=== PATIENT | female | born 1940 | race Caucasian/White ===

== ENCOUNTER → 2019-07-11 00:01 | Outpatient (RCR) | payer MEDICARE, BC, SELFPAY | LOC: ONCMED 06-12 13:15 | PROVIDERS: Family Provider Family Medicine; Visit Provider Internal Medicine Medical Oncology | DX: Z51.11 Encounter for antineoplastic chemotherapy (principal); C90.00 Multiple myeloma not having achieved remission; I11.0 Hypertensive heart disease with heart failure; I50.9 Heart failure, unspecified; I48.20 Chronic atrial fibrillation, unspecified; K21.9 Gastro-esophageal reflux disease without esophagitis; M19.90 Unspecified osteoarthritis, unspecified site; H40.9 Unspecified glaucoma; F41.8 Other specified anxiety disorders; G47.00 Insomnia, unspecified; M81.0 Age-related osteoporosis without current pathological fracture; Z96.651 Presence of right artificial knee joint; Z79.899 Other long term (current) drug therapy; Z79.891 Long term (current) use of opiate analgesic; Z79.01 Long term (current) use of anticoagulants | CPT/HCPCS: 36415; 80053 ×4; 82784 ×12; 83615; 83883 ×6; 84155 ×3; 84156; 84165 ×3; 84166; 85025 ×4; 85651; 96401 ×3; 99214 ×3; J9041 ×3 ==

== ENCOUNTER 2019-08-07 05:36 | Outpatient (RCR) | payer MEDICARE, BC, SELFPAY ==
[2019-07-25] MEDS: prochlorperazine 10 mg Tablet PO (13:47)
[2019-08-01 12:53] LABS: Basophils % 0.5 %; Eosinophils % 0.5 %; Hematocrit 39.9 % (37.0-47.0); Hemoglobin 12.2 g/dL (11.5-15.3); Lymphocytes # 0.9 10^3/uL (0.8-4.8); Lymphocytes % 22.2 %; Mean Corpuscular HGB Conc 30.6 g/dL (30.0-36.0); Mean Corpuscular Hemoglobin 27.8 pg (28.0-34.0); Mean Corpuscular Volume 90.9 fL (81-99); Mean Platelet Volume 12.5 fL (7.4-10.4); Monocytes # 0.5 10^3/uL (0.2-0.9); Monocytes % 12.3 %; Neutrophils # 2.7 10^3/uL (1.8-7.7); Nucleated Red Blood Cells % 0 %; Platelet Count 219 10^3/cmm (130-400); Red Blood Count 4.39 10^6/uL (4.1-5.3); Red Cell Distribution Width 15.9 % (12.1-15.1); White Blood Count 4.1 10^3/uL (4.0-10.0)
[2019-08-01 13:05] LABS: Alanine Aminotransferase 12 U/L (0-33); Albumin Level 3.9 g/dL (3.5-5.2); Alkaline Phosphatase 67 IU/L (35-105); Anion Gap 16.4 (5-19); Aspartate Amino Transferase 17 U/L (0-32); Blood Urea Nitrogen 26 mg/dL (8-23); Calcium 10.2 mg/Dl (8.8-10.2); Carbon Dioxide 27 mmol/L (22-29); Chloride 101 mmol/L (98-107); Globulin 3.7 g/dL (1.3-4.6); Glucose 168 mg/dL (74-106); Potassium 4.4 mmol/L (3.5-5.1); Sodium 140 mmol/L (136-145); Total Bilirubin 0.4 mg/dL (0.15-1.2); Total Protein 7.6 g/dL (6.6-8.7)
[2019-08-02 15:30] LABS: ALBUMIN 3.8 g/dL (3.8-4.8); ALPHA 1 GLOBULIN 0.4 g/dL (0.2-0.3); BETA 1 GLOBULIN 0.4 g/dL (0.4-0.6); BETA 2 GLOBULIN 0.3 g/dL (0.2-0.5); KAPPA LIGHT CHAIN, FREE, SERUM 28.6 mg/L (3.3-19.4); KAPPA/LAMBDA LIGHT CHAINS FREE 1.49 (0.26-1.65); LAMBDA LIGHT CHAIN, FREE, SERU 19.2 mg/L (5.7-26.3); PROTEIN, TOTAL 6.8 g/dL (6.1-8.1)
[2019-08-07] MEDS: prochlorperazine 10 mg Tablet PO (10:50)
--- NOTE | 2019-08-07 20:04 | ONC FU_ITS ---
Dr. Resendez Patient Follow-Up Note Patient: Alcira Shirley Unit #: [id number]: 1940 Dicatated By: Beltran Resendez M.D.Date of Visit:Aug 07, 2019 Onc Med Follow-up/Prog Note Chief Complaint: Myeloma. History of Present Illness: This is a 79 year-old woman with IgG kappa myeloma, stage III. She had known osteoporosis and multiple vertebral compression fractures dating back to at least March 2018. In May 2018 she underwent further evaluation at the bone health clinic at [facility]. A protein electrophoresis at that time showed IgG kappa monoclonal protein quantitating at 0.5 g/dL. She had hematology consultation with Dr. Cecille Acevedo on 07/19/2018. Her laboratory studies at that time showed significant hypercalcemia with a serum calcium of 13.6 mg/dL. Her hemoglobin was normal at 15.0 g and her creatinine was borderline at 0.91 mg/dL. Her repeat protein electrophoresis showed her M protein quantitating at 0.6 g/dL. Her free light chain assay showed elevated kappa light chain at 524 mg/L and decreased lambda light chain at < 0.15 mg/L. Her skeletal survey showed innumerable lytic lesions throughout the apical and appendicular skeleton, compatible with multiple myeloma. Bone marrow aspiration/biopsy on 07/21/2018 showed a mildly hypercellular marrow with 60% involvement with plasma cell neoplasm, kappa restricted. 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 Further evaluation with PET/CT on 07/21/2018 showed a mildly FDG avid expansile lytic lesion of the right fourth rib consistent with a diagnosis of multiple myeloma. Also noted was a mottled appearance with lytic lesions seen throughout the axial and appendicular skeleton greatest in the skull and bilateral upper extremities, also consistent with myeloma. Multiple compression deformities were seen throughout the thoracic spine, greatest at T7. During that time she had been admitted to the hospital and she was treated with IV Zometa. She then began treatment with weekly Velcade and dexamethasone, cycle 1 day 1 on 08/03/2018. Her further clinical course was complicated by atrial fibrillation and congestive heart failure, requiring hospital admissions on 08/25/2018, on 09/01/2018 100 and on 09/09/2018. As a result, her cycle 2 of Velcade/dexamethasone was delayed. Despite the complications, she did have a good response with her M protein decreased to 0.3 g/dL and her free kappa light chain decreased to 2.00 mg/dL. Her kappa/lambda ratio normalized to 1.12. She then began cycle 2 on 09/27/2018 with Velcade continued at 1.3 mg/m??? by subcutaneous injection weekly and dexamethasone reduced to 20 mg weekly on a 4-week on/1-week off schedule. I had seen her initially on 10/27/2018. She had completed her 2nd cycle of treatment. Her clinical course, though, was further complicated by a fall at the skilled nursing resulting in a left inferior orbital wall depressed fracture and he C3 spinous process nondisplaced fracture, both of which were managed conservatively. Her other medical illnesses hypertension, chronic atrial fibrillation, congestive heart failure, GERD, degenerative arthritis, and glaucoma. Her prior surgeries include ORIF for left femur fracture in 2012 and right total knee arthroplasty in 2007. She is a nonsmoker. INTERIM HISTORY: She had follow-up at [facility] on 11/01/2018. At that point she was given a second infusion of Zometa, and she began cycle 3 of Velcade/dexamethasone. With that cycle she was able to complete 4 weekly Velcade injections together with dexamethasone 10 mg twice weekly followed by a 1 week rest. She continued with cycle 4 of Velcade/dexamethasone on 12/07/2018. She was again able to tolerate the for weekly Velcade injections along with dexamethasone 10 mg twice weekly. During that time, she had a follow-up with her orthopedic surgeon in [place], and she was told that she had 2 new vertebral compression fractures, presumably resulting from the fall. However, she was able to transition from the skilled nursing to assisted living. She was seen for a follow-up visit on 01/10/2019. At that point she appeared stable clinically and she continued with her 5th cycle of treatment with Velcade/dexamethasone. With that cycle, her 4th weekly dose of Velcade was omitted, as she was admitted to the hospital at day 22 with worsening congestive heart failure in association with an acute decline in her renal function. She then continued with cycle 6 on 02/21/2019. The day 22 Velcade was omitted with that cycle as well, as she was again admitted to the hospital with decompensated heart failure. With those episodes of congestive heart failure, her dexamethasone was changed to 1 mg daily. In the meantime, her protein electrophoresis studies from January showed her M band quantitating at 0.1 g/dL, and her serum free light chain assay showed her kappa light chain at 12.7 mg/L with lambda light chain 10.3 mg/L and kappa/lambda ratio normal at 1.23. She was seen again by Dr. Acevedo at [facility] on 04/04/2019. It was recommended that she transitioned to maintenance therapy with Velcade 1.3 mg/m??? by subcutaneous injection every 2 weeks together with lenalidomide 10 mg daily. Her repeat bone marrow aspiration/biopsy on 04/20/2019 showed cellularity ranging from 10 to 30% with normal trilineage hematopoiesis. There were just rare scattered plasma cells noted, estimated at 2 to 4% of the overall cellularity. On 05/16/2019 she began cycle 1 of maintenance therapy with Velcade 1.3 mg/m??? by subcutaneous injection every 2 weeks together with Revlimid 10 mg daily. Her repeat protein electrophoresis on 06/06/2019 reported an IgG kappa monoclonal protein band quantitating at 1.9 g/dL. The free light chain assay showed elevated kappa light chain at 128 mg/L with lambda light chain 26.9 mg/L and kappa/lambda ratio 4.77. At her follow-up visit on 06/13/2019 she appeared to be tolerating the treatment with acceptable toxicity, though her protein electrophoresis at that time reported a significant increase in her M protein to 1.9 g/dL. I opted to continue her same treatment and on her repeat SPEP the M protein was similar to the prior studies at 0.1 g/dL. However, she did have to stop the Revlimid due to multiple side effects including weakness/fatigue, anorexia, nausea, and insomnia, among others. She just did not feel good generally. She also was taken off dexamethasone due to fluid retention, but she continued the Velcade injections every 2 weeks. Her repeat protein electrophoresis studies on 08/01/2019 showed no detectable monoclonal protein and the serum free light chain assay showed normal kappa/lambda ratio at 1.49. She is seen for a follow-up visit. She has been feeling pretty good generally. She still has limited activity. Her ECOG score is 3. She does not have good appetite, and she says that food just has no appeal to her. She has not had fever. She occasionally has sweating at night. Her pain has been well controlled with medication. Her main complaint otherwise is that she still has difficulty sleeping at night. It actually got worse with trazodone. She also has been sleeping more in the daytime, so that she is getting her days and nights mixed up. Medications: Acetaminophen 1 - 2 Tablet (of 325 mg) Oral four times a day PRN, Acyclovir 1 Tablet (of 400 mg) Oral daily, Amiodarone HCl 1 Tablet (of 200 mg) Oral daily, Benadryl Allergy 0.5 Tablet (of 25 mg) Oral daily on Every Other Day for 1 day PRN, Benadryl Allergy 1 - 2 Capsule (of 25 mg) Oral at bedtime PRN, Chlorthalidone 1 Tablet (of 25 mg) Oral daily, Combigan 2 drop(s) (of 0.2-0.5 %) Solution Ophthalmic b.i.d., Dulcolax 1 Suppository (of 10 mg) Rectal PRN, Enema 1 (7-19 gm/118mL) Enema Rectal PRN, HYDROcodone-Acetaminophen 1 Tablet (of 5-325 mg) Oral q 6 hours PRN, Klor-Con M20 (10 meq) Tablet, controlled release Oral Take as Directed, Lasix 1 Tablet (of 40 mg) Oral every am PRN, Lasix 1 Tablet (of 40 mg) Oral b.i.d., Latanoprost 1 Drop(s) (of 0.005 %) Solution Ophthalmic at bedtime, Meclizine HCl 1 Tablet (of 25 mg) Oral t.i.d. PRN, Milk of Magnesia 30 mL (of 400 mg/5mL) Suspension Oral PRN, MiraLax 1 Pack Oral daily, Mirtazapine 1 (15 mg) Tablet Oral at bedtime, Morphine Sulfate ER 1 Tablet (of 15 mg) Tablet SR 24 HR Oral b.i.d., Multiple Vitamins-Minerals 1 Tablet Oral daily, Probiotic 1 Capsule Oral PRN, raNITIdine HCl 1 Capsule (of 150 mg) Oral at bedtime, Saline 1 Dose(s) (of 0.65 %) Solution Nasal t.i.d. PRN, Spironolactone 0.5 Tablet (of 50 mg) Oral daily, Velcade 1 (3.5 mg) Injection q 7 days, Xarelto 1 Tablet (of 20 mg) Oral daily Allergies: Codeine Sulfate and Statins. Review of Systems: Constitutional - She continues to have limited activity, but she has ambulating with a walker, and she is doing exercises. She does not have good appetite. She complains of food just has no appeal to her. She has not had fever. She occasionally has sweating at night. ECOG score is 3, ENMT - Her nose drips. No mouth sores. No sore throat or difficulty swallowing, Hematologic/Lymphatic - She has some bruising, Respiratory - No shortness of breath. No cough. No pleuritic pain or hemoptysis, Cardiovascular - No angina pain. No palpitations, Gastrointestinal - She occasionally has a little bit of nausea. No heartburn or acid reflux. No diarrhea or constipation. No blood in the stool or black stools, Genitourinary (F) - No dysuria or hematuria. No urinary frequency. No urgency or incontinence, Musculoskeletal - She has some back pain with activity or with prolonged standing, but generally her pain is well controlled, Integumentary - No skin complications, Neurologic - No headache or dizziness. No numbness/paresthesias or other focal neurologic symptoms, Psychiatric - She has a little anxiety. She has had some depression. She continues have difficulty sleeping at night, and the trazodone actually made her worse. She has now sleeping more in the daytime, so that she is getting her days and nights mixed up. Vital Signs: Performed on Aug 07, 2019 10:06 Height - 61.00 in Weight - 194.6 lbs (LOW) BSA - 1.87 sq.m BMI - 36.77 (HIGH) Temperature - 98.6 F Pulse - 81 /min Respiration - 24 /min BP - 151/74 mm(hg) (HIGH) O2 Sat - 96 % Pain - 5 Physical Examination: Constitutional - She looks pretty good generally, Eyes - Sclerae nonicteric. Conjunctivae appear clear, ENMT - No lesions noted in the oral cavity, Hematologic/Lymphatic - No cervical, clavicular, or axillary adenopathy, Respiratory - Lungs sound clear, Cardiovascular - Heart rhythm is regular. There is a II/ systolic murmur. There is no gallop or rub noted, Abdomen - Soft. Liver and spleen are not enlarged. There is no abdominal mass or ascites noted and there is no inguinal adenopathy, Extremities - No edema, Neurologic - No focal neurologic deficits noted. Lab/Imaging: CBC shows hemoglobin 12.2 g, white blood cell count 4100, and platelet count 219,000. Comprehensive metabolic profile shows a slight decline in her renal function with BUN 26 and creatinine 1.7 mg/dL. Bilirubin and liver enzymes are normal. Impression: 1. 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 2. She had hypercalcemia, extensive lytic bone involvement, and multiple vertebral compression fractures at initial diagnosis in July 2018. Her other medical illnesses include: 3. Hypertension. 4. Chronic atrial fibrillation. 5. Congestive heart failure. 6. Degenerative arthritis. 7. GERD. 8. Glaucoma. She was given IV Zometa at initial diagnosis. She then began treatment with weekly Velcade and dexamethasone on 08/03/2018. Her first cycle was complicated by episodes of atrial fibrillation and congestive heart failure. However, she did have evidence of significant response by protein electrophoresis and free light chain assay. She began cycle 2 of Velcade/dexamethasone on 09/27/2018 with Velcade 1.3 mg/m??? by subcutaneous injection and dexamethasone 20 mg weekly on a 4-week on and 1-week off schedule. She tolerated the 2nd cycle well, though her clinical course was further complicated by a fall at the skilled nursing on 10/23/2018 resulting in a left inferior orbital wall depressed fracture and a C3 spinous process nondisplaced fracture. Both fractures awere managed conservatively. She was then able to continue with cycle 3 of Velcade/dexamethasone on 11/01/2018, with cycle 4 on 12/07/2018, and with cycle 5 on 01/10/2019. She appeared to be showing a good objective response with protein electrophoresis at that point showing decline in her M protein to 0.1 g/dL. The serum free light chain assay showed normal kappa light chain at 12.7 mg/L, normal lambda light chain at 10.3 mg/L, and normal kappa/lambda ratio at 1.23. She then continued treatment with Velcade and dexamethasone, but her subsequent clinical course was complicated by 2 admissions for decompensated congestive heart failure. During that time her dexamethasone was changed to 1 mg daily. Overall she has continued to have fairly marginal performance status, but she had otherwise been stable clinically. As of her follow-up visit on 03/15/2019 at opted to taper off her dexamethasone. At that point she continued with cycle 7 of Velcade. She was showing a very good objective response. On 04/04/2019 she had follow-up with Dr. Acevedo at [facility], and it was recommended that she transition to maintenance therapy with Velcade 1.3 mg/m??? by subcutaneous injection every 2 weeks together with lenalidomide 10 mg daily. Her repeat bone marrow aspiration/biopsy on 04/20/2019 showed only scant plasma cells estimated at 2 to 4% of the overall cellularity. She began cycle 1 of her maintenance therapy on 05/16/2019. Initially she appeared to be tolerating it with acceptable toxicity, but during her second cycle the lenalidomide was put on hold due to multiple side effects. During followup she was feeling better, and she continued treatment Velcade every 2 weeks. Her repeat protein electrophoresis studies on 08/01/2019 showed no detectable monoclonal protein, and the free light chain assay showed normal kappa/lambda ratio at 1.49. She has continued to have limited activity tolerance, but her pain is been well controlled, and she has had no further issues with fluid retention. She does have ongoing problems with anorexia and insomnia. Plan: She will continue Velcade 1.3 mg/m??? by subcutaneous injection every 2 weeks. The lenalidomide and dexamethasone will remain on hold. She will have a follow-up visit with repeat protein electrophoresis studies in 4 weeks. In the meantime the trazodone and Reglan will be discontinued, and I will have her try mirtazepine 15 mg at bedtime. Signed By: Beltran Resendez M.D. <<Signature on File>>
== END 2019-08-11 23:59 | disposition home or self-care (01) ==
LOC: ONCMED 05:36
PROVIDERS: Nurse Practitioner; Family Provider Family Medicine; PCP Family Medicine; Visit Provider Internal Medicine Medical Oncology
DX: Z51.11 Encounter for antineoplastic chemotherapy (principal); C90.00 Multiple myeloma not having achieved remission; I11.0 Hypertensive heart disease with heart failure; I50.9 Heart failure, unspecified; I48.20 Chronic atrial fibrillation, unspecified; K21.9 Gastro-esophageal reflux disease without esophagitis; M19.90 Unspecified osteoarthritis, unspecified site; H40.9 Unspecified glaucoma; F51.01 Primary insomnia; Z79.891 Long term (current) use of opiate analgesic; Z96.651 Presence of right artificial knee joint
CPT/HCPCS: 36415; 80053; 83883; 84155; 84165; 85025; 96372; 96401; 99214; J9041; Q0164

== ENCOUNTER 2019-09-04 05:16 | Outpatient (RCR) | payer MEDICARE, BC, SELFPAY ==
[2019-08-21] MEDS: prochlorperazine 10 mg Tablet PO (10:25)
[2019-08-28 08:14] LABS: Basophils % 0.5 %; Eosinophils # 0.1 10^3/uL (0.0-0.8); Eosinophils % 2.2 %; Hematocrit 36.9 % (37.0-47.0); Hemoglobin 11.3 g/dL (11.5-15.3); Lymphocytes # 1.4 10^3/uL (0.8-4.8); Lymphocytes % 24.8 %; Mean Corpuscular HGB Conc 30.6 g/dL (30.0-36.0); Mean Corpuscular Hemoglobin 27.7 pg (28.0-34.0); Mean Corpuscular Volume 90.4 fL (81-99); Mean Platelet Volume 12.7 fL (7.4-10.4); Monocytes # 0.8 10^3/uL (0.2-0.9); Monocytes % 13.6 %; Neutrophils # 3.2 10^3/uL (1.8-7.7); Neutrophils % 58.5 %; Nucleated Red Blood Cells % 0 %; Platelet Count 182 10^3/cmm (130-400); Red Blood Count 4.08 10^6/uL (4.1-5.3); Red Cell Distribution Width 15.7 % (12.1-15.1); White Blood Count 5.5 10^3/uL (4.0-10.0)
[2019-08-28 08:33] LABS: Alanine Aminotransferase 13 U/L (0-33); Albumin Level 3.7 g/dL (3.5-5.2); Alkaline Phosphatase 65 IU/L (35-105); Anion Gap 15.2 (5-19); Aspartate Amino Transferase 18 U/L (0-32); Blood Urea Nitrogen 40 mg/dL (8-23); Calcium 9.4 mg/dL (8.5-10.5); Carbon Dioxide 26 mmol/L (22-29); Chloride 107 mmol/L (98-107); Globulin 3.4 g/dL (1.3-4.6); Glucose 97 mg/dL (65-115); Potassium 4.2 mmol/L (3.5-5.1); Sodium 144 mmol/L (136-145); Total Bilirubin 0.3 mg/dL (0.15-1.2); Total Protein 7.1 g/dL (6.6-8.7)
[2019-08-29 07:01] LABS: PROTEIN, TOTAL 5.9 g/dL (6.1-8.1)
[2019-08-29 11:08] LABS: ALBUMIN 3.1 g/dL (3.8-4.8); ALPHA 1 GLOBULIN 0.3 g/dL (0.2-0.3); ALPHA 2 GLOBULIN 0.9 g/dL (0.5-0.9); BETA 1 GLOBULIN 0.4 g/dL (0.4-0.6); BETA 2 GLOBULIN 0.3 g/dL (0.2-0.5); GAMMA GLOBULIN 0.9 g/dL (0.8-1.7)
[2019-08-29 15:07] LABS: LAMBDA LIGHT CHAIN, FREE, SERU 19.4 mg/L (5.7-26.3)
[2019-09-04] MEDS: prochlorperazine 10 mg Tablet PO (10:52)
--- NOTE | 2019-09-05 09:47 | ONC FU_ITS ---
[facility] Patient Note Patient: Alcira Shirley Unit #: [id number]: [id number] Dictated By: Kellie HyltonDate of Visit: Sep 04, 2019 Onc MED Follow-Up/Prog Note Chief Complaint: Myeloma. History of Present Illness: Mrs Shirley is a 79 year-old woman with IgG kappa myeloma, stage III. She had known osteoporosis and multiple vertebral compression fractures dating back to at least March 2018. In May 2018 she underwent further evaluation at the bone health clinic at [facility]. A protein electrophoresis at that time showed IgG kappa monoclonal protein quantitating at 0.5 g/dL. She had hematology consultation with Dr. Cecille Acevedo on 07/19/2018. Her laboratory studies at that time showed significant hypercalcemia with a serum calcium of 13.6 mg/dL. Her hemoglobin was normal at 15.0 g and her creatinine was borderline at 0.91 mg/dL. Her repeat protein electrophoresis showed her M protein quantitating at 0.6 g/dL. Her free light chain assay showed elevated kappa light chain at 524 mg/L and decreased lambda light chain at < 0.15 mg/L. Her skeletal survey showed innumerable lytic lesions throughout the apical and appendicular skeleton, compatible with multiple myeloma. Bone marrow aspiration/biopsy on 07/21/2018 showed a mildly hypercellular marrow with 60% involvement with plasma cell neoplasm, kappa restricted. 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 Further evaluation with PET/CT on 07/21/2018 showed a mildly FDG avid expansile lytic lesion of the right fourth rib consistent with a diagnosis of multiple myeloma. Also noted was a mottled appearance with lytic lesions seen throughout the axial and appendicular skeleton greatest in the skull and bilateral upper extremities, also consistent with myeloma. Multiple compression deformities were seen throughout the thoracic spine, greatest at T7. During that time she had been admitted to the hospital and she was treated with IV Zometa. She then began treatment with weekly Velcade and dexamethasone, cycle 1 day 1 on 08/03/2018. Her further clinical course was complicated by atrial fibrillation and congestive heart failure, requiring hospital admissions on 08/25/2018, on 09/01/2018 100 and on 09/09/2018. As a result, her cycle 2 of Velcade/dexamethasone was delayed. Despite the complications, she did have a good response with her M protein decreased to 0.3 g/dL and her free kappa light chain decreased to 2.00 mg/dL. Her kappa/lambda ratio normalized to 1.12. She then began cycle 2 on 09/27/2018 with Velcade continued at 1.3 mg/m??? by subcutaneous injection weekly and dexamethasone reduced to 20 mg weekly on a 4-week on/1-week off schedule. Dr Resendez had seen her initially on 10/27/2018. She had completed her 2nd cycle of treatment. Her clinical course, though, was further complicated by a fall at the retirement resulting in a left inferior orbital wall depressed fracture and he C3 spinous process nondisplaced fracture, both of which were managed conservatively. Her other medical illnesses hypertension, chronic atrial fibrillation, congestive heart failure, GERD, degenerative arthritis, and glaucoma. Her prior surgeries include ORIF for left femur fracture in 2012 and right total knee arthroplasty in 2007. She is a nonsmoker. INTERIM HISTORY: She had follow-up at [facility] on 11/01/2018. At that point she was given a second infusion of Zometa, and she began cycle 3 of Velcade/dexamethasone. With that cycle she was able to complete 4 weekly Velcade injections together with dexamethasone 10 mg twice weekly followed by a 1 week rest. She continued with cycle 4 of Velcade/dexamethasone on 12/07/2018. She was again able to tolerate the for weekly Velcade injections along with dexamethasone 10 mg twice weekly. During that time, she had a follow-up with her orthopedic surgeon in [place], and she was told that she had 2 new vertebral compression fractures, presumably resulting from the fall. However, she was able to transition from the retirement to assisted living. She was seen for a follow-up visit on 01/10/2019. At that point she appeared stable clinically and she continued with her 5th cycle of treatment with Velcade/dexamethasone. With that cycle, her 4th weekly dose of Velcade was omitted, as she was admitted to the hospital at day 22 with worsening congestive heart failure in association with an acute decline in her renal function. She then continued with cycle 6 on 02/21/2019. The day 22 Velcade was omitted with that cycle as well, as she was again admitted to the hospital with decompensated heart failure. With those episodes of congestive heart failure, her dexamethasone was changed to 1 mg daily. In the meantime, her protein electrophoresis studies from January showed her M band quantitating at 0.1 g/dL, and her serum free light chain assay showed her kappa light chain at 12.7 mg/L with lambda light chain 10.3 mg/L and kappa/lambda ratio normal at 1.23. She was seen again by Dr. Acevedo at [facility] on 04/04/2019. It was recommended that she transitioned to maintenance therapy with Velcade 1.3 mg/m??? by subcutaneous injection every 2 weeks together with lenalidomide 10 mg daily. Her repeat bone marrow aspiration/biopsy on 04/20/2019 showed cellularity ranging from 10 to 30% with normal trilineage hematopoiesis. There were just rare scattered plasma cells noted, estimated at 2 to 4% of the overall cellularity. On 05/16/2019 she began cycle 1 of maintenance therapy with Velcade 1.3 mg/m??? by subcutaneous injection every 2 weeks together with Revlimid 10 mg daily. Her repeat protein electrophoresis on 06/06/2019 reported an IgG kappa monoclonal protein band quantitating at 1.9 g/dL. The free light chain assay showed elevated kappa light chain at 128 mg/L with lambda light chain 26.9 mg/L and kappa/lambda ratio 4.77. At her follow-up visit on 06/13/2019 she appeared to be tolerating the treatment with acceptable toxicity, though her protein electrophoresis at that time reported a significant increase in her M protein to 1.9 g/dL. It was opted to continue her same treatment and on her repeat SPEP- the M protein was similar to the prior studies at 0.1 g/dL. However, she did have to stop the Revlimid due to multiple side effects including weakness/fatigue, anorexia, nausea, and insomnia, among others. She just did not feel good generally. She also was taken off dexamethasone due to fluid retention, but she continued the Velcade injections every 2 weeks. Her repeat protein electrophoresis studies on 08/01/2019 showed no detectable monoclonal protein and the serum free light chain assay showed normal kappa/lambda ratio at 1.49. She continues with single agent Velcade every 2 weeks. Ms. Shirley is here today for follow-up. She is accompanied by her daughter. She has no new specific complaints. She states that she is getting around pretty good. She does tire easily but recovers well with rest. She states she is eating good. She denies any fever or chills. She has had no mouth sores sore throat or difficulty swallowing. She denies any diarrhea or constipation. She states her pain is well controlled. Her edema is well controlled as well as she has been wearing MATILDA jerrica prescriber Dr. Bennett in cardiology. She does continue her Lasix at twice a day. She continues the Velcade every 2 weeks and seems to be tolerating this well. She has had no neuropathy symptoms. Her ECOG is 2. She does continue to reside in [facility]. Past Medical History: Atrial fibrillation Congestive heart failure Gastroesophageal reflux disease Glaucoma Hypertension Multiple vertebral compression fractures Osteoarthritis Osteoporosis Past Surgical History: ORIF for left femur fracture in 2012 Right total knee arthroplasty in 2007 Allergies: Codeine Sulfate and Statins. Medications: Acetaminophen 1 - 2 Tablet (of 325 mg) Oral four times a day PRN Acyclovir 1 Tablet (of 400 mg) Oral daily Amiodarone HCl 1 Tablet (of 200 mg) Oral daily Benadryl Allergy (25 mg) Tablet Oral Take as Directed Benadryl Allergy 1 - 2 Capsule (of 25 mg) Oral at bedtime PRN Bisacodyl 1 (10 mg) Suppository Rectal daily PRN Culturelle (10 Billion) Capsule Oral Take as Directed Enema 1 (7-19 gm/118mL) Enema Rectal PRN HYDROcodone-Acetaminophen 1 Tablet (of 5-325 mg) Oral q 6 hours PRN Klor-Con M20 (10 meq) Tablet, controlled release Oral Take as Directed Lasix 1 Tablet (of 40 mg) Oral every am PRN Lasix 1 Tablet (of 40 mg) Oral b.i.d. Meclizine HCl 1 Tablet (of 25 mg) Oral t.i.d. PRN Milk of Magnesia 30 mL (of 400 mg/5mL) Suspension Oral PRN MiraLax 1 Pack Oral daily Mirtazapine 1 (15 mg) Tablet Oral at bedtime Morphine Sulfate ER 1 Tablet (of 15 mg) Tablet SR 24 HR Oral b.i.d. Multiple Vitamins-Minerals 1 Tablet Oral daily raNITIdine HCl 1 Capsule (of 150 mg) Oral at bedtime Saline 1 Dose(s) (of 0.65 %) Solution Nasal t.i.d. PRN Spironolactone 0.5 Tablet (of 50 mg) Oral daily Velcade 1 (3.5 mg) Injection q 7 days Xarelto 1 Tablet (of 20 mg) Oral daily Family History: Ms. Shirley's mother is . Ms. Shirley's father is . Ms. Shirley has 2 brothers: 2 alive. Ms. Shirley's first brother's stroke. Both parents with heart disease. A brother has had a stroke. Social History: Ms. Shirley is and she is retired. Ms. Shirley has never smoked. She has no history of drinking. She is a nonsmoker. She does not drink alcohol. Review Of Symptoms: Constitutional Denies fevers, chills, night sweats, excessive fatigue or weight loss. Allergic/Immunologic No reactions. Eyes Denies significant visual changes. No diplopia. No amaurosis. ENMT Denies changes in hearing, sore throat, mouth sores, difficulty or changes in swallowing ability, and/or sinus drainage. Endocrine No diabetes, thyroid disease or hormone replacement. Denies any new hot flashes or night sweats. Hematologic/Lymphatic Denies easy bruising or bleeding. The patient denies any tender or palpable lymph nodes. Respiratory Denies dyspnea on exertion, chest pain, or hemoptysis. Denies orthopnea. Occasional cough-non productive. Cardiovascular Denies anginal chest pain, palpitations or orthopnea. Gastrointestinal Denies nausea, vomiting, diarrhea, GI bleeding, or constipation. Denies change in bowel habits and/or stool color, no heartburn or early satiety. Genitourinary (F) No hematuria, hesitancy, incontinence, or other problems with urination. Musculoskeletal Denies joint pain or redness. No decreased range of motion. Integumentary Denies chronic rashes, inflammation, ulcerations or skin changes. Neurologic Denies headache, blurred vision, and no areas of focal weakness or numbness. Psychiatric Denies depression, alexander or mood swings. Some intermittent insomnia and takes Tylenol PM for this. Vital Signs: Performed on Sep 04, 2019 10:04 Height - 61.00 in Weight - 196.2 lbs (HIGH) BSA - 1.87 sq.m BMI - 37.07 (HIGH) Temperature - 99.9 F (HIGH) Pulse - 79 /min Respiration - 16 /min BP - 115/70 mm(hg) O2 Sat - 94 % (LOW) Pain - 0 Fatigue - 7,2 - Ambulatory/capable of all self-care, unable to perform any work activities. Up and about more than 50% of waking hours. (ECOG) Physical Examination: Constitutional Alert, oriented, no acute distress. Skin pink, warm and dry. Head Normocephalic; atraumatic. Eyes Conjunctivae and sclerae are clear and without icterus. Pupils are reactive and equal. ENMT Sinuses are nontender. No oral exudates, ulcers, masses, thrush or mucositis. Oropharynx clear. Tongue normal. Neck Supple without masses or thyromegaly. No jugular venous distension. Hematologic/Lymphatic No petechiae or purpura. No tender or palpable lymph nodes in the cervical or supraclavicular areas. Respiratory Lungs are clear to auscultation without rhonchi or wheezing. Cardiovascular Regular rate and rhythm of heart systolic murmur,clicks, gallops or rubs. Abdomen Non-tender, non-distended, no masses. Back/Spine Non-tender to palpation. Extremities No visible deformities, no cyanosis. Trace bilateral lower extremity edema. Wearing MATILDA hose. Integumentary No rashes or lesions. Neurologic No sensory or motor deficits, normal cerebellar function. Psychiatric Alert and oriented times three. Coherent speech. Verbalizes understanding of our discussions today. Laboratory:Test performed on Aug 28, 2019 06:30 Sodium 144 mmol/L Potassium 4.2 mmol/L Chloride 107 mmol/L CO2 26 mmol/L Anion Gap 15.2 BUN 40 mg/dL Creatinine 1.8 mg/dL Cr Clearance (Est) 34.1600 mL/min Glucose 97 mg/dL Calcium 9.4 mg/dL Protein, Total 7.1 g/dL Albumin 3.7 g/dL Globulin 3.4 g/dL Bilirubin, Total 0.3 mg/dL ALT (SGPT) 13 U/L AST (SGOT) 18 U/L Alkaline Phosphatase 65 IU/L WBC 5.5 10 3/uL RBC 4.08 10 6/uL HGB 11.3 g/dL HCT 36.9 % MCV 90.4 fL MCH 27.7 pg MCHC 30.6 g/dL RDW 15.7 % Platelet Count 182 10 3/cmm MPV 12.7 fL Neutrophils 3.2 10 3/uL Lymphocytes 1.4 10 3/uL Monocytes 0.8 10 3/uL Eosinophils 0.1 10 3/uL Basophils 0.0 10 3/uL Neutrophil % 58.5 % Lymphocyte % 24.8 % Monocyte % 13.6 % Eosinophil % 2.2 % Basophils % 0.5 % Impression: 1. 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 2. She had hypercalcemia, extensive lytic bone involvement, and multiple vertebral compression fractures at initial diagnosis in July 2018. Her other medical illnesses include: 3. Hypertension. 4. Chronic atrial fibrillation. 5. Congestive heart failure. 6. Degenerative arthritis. 7. GERD. 8. Glaucoma. She was given IV Zometa at initial diagnosis. She then began treatment with weekly Velcade and dexamethasone on 08/03/2018. Her first cycle was complicated by episodes of atrial fibrillation and congestive heart failure. However, she did have evidence of significant response by protein electrophoresis and free light chain assay. She began cycle 2 of Velcade/dexamethasone on 09/27/2018 with Velcade 1.3 mg/m??? by subcutaneous injection and dexamethasone 20 mg weekly on a 4-week on and 1-week off schedule. She tolerated the 2nd cycle well, though her clinical course was further complicated by a fall at the retirement on 10/23/2018 resulting in a left inferior orbital wall depressed fracture and a C3 spinous process nondisplaced fracture. Both fractures were managed conservatively. She was then able to continue with cycle 3 of Velcade/dexamethasone on 11/01/2018, with cycle 4 on 12/07/2018, and with cycle 5 on 01/10/2019. She appeared to be showing a good objective response with protein electrophoresis at that point showing decline in her M protein to 0.1 g/dL. The serum free light chain assay showed normal kappa light chain at 12.7 mg/L, normal lambda light chain at 10.3 mg/L, and normal kappa/lambda ratio at 1.23. She then continued treatment with Velcade and dexamethasone, but her subsequent clinical course was complicated by 2 admissions for decompensated congestive heart failure. During that time her dexamethasone was changed to 1 mg daily. Overall she has continued to have fairly marginal performance status, but she had otherwise been stable clinically. As of her follow-up visit on 03/15/2019 at opted to taper off her dexamethasone. At that point she continued with cycle 7 of Velcade. She was showing a very good objective response. On 04/04/2019 she had follow-up with Dr. Acevedo at [facility], and it was recommended that she transition to maintenance therapy with Velcade 1.3 mg/m??? by subcutaneous injection every 2 weeks together with lenalidomide 10 mg daily. Her repeat bone marrow aspiration/biopsy on 04/20/2019 showed only scant plasma cells estimated at 2 to 4% of the overall cellularity. She began cycle 1 of her maintenance therapy on 05/16/2019. Initially she appeared to be tolerating it with acceptable toxicity, but during her second cycle the lenalidomide was put on hold due to multiple side effects. During followup she was feeling better, and she continued treatment Velcade every 2 weeks. Her repeat protein electrophoresis studies on 08/01/2019 showed no detectable monoclonal protein, and the free light chain assay showed normal kappa/lambda ratio at 1.49. She has continued to have limited activity tolerance, but her pain is been well controlled, and she has had no further issues with fluid retention. She does have an elevated creatinine today and her lower extremity edema is well controlled. She continues with every 2 week Velcade. Plan: 1. Proceed with Velcade cycle 13 day 1. 2. Labs from 08/28/2019 were reviewed with Mrs Shirley and her daughter and a copy was given to them. WBC 5.5 hemoglobin 11.3 platelets 182,000 potassium 4.2 creatinine 1.8 random glucose was 97 LFTs are normal. Her kappa free light chain was 33.0 lambda free light chain 19.4 total protein 5.9 albumin 3.1 there was no restricted band (M spike) seen. 3. Orders will be sent to [facility] to decrease the Lasix to 40 mg daily due to the creatinine being elevated at 1.8. Her edema is well controlled with her MATILDA hose. She has a as needed order for additional Lasix if needed and we will continue that as needed. 4. I have requested a follow-up BMP in 1 week to see if her creatinine is improving. If not she may need to see nephrology. She states she did see and [place] but may be interested in seeing Dr. Rodriguez locally. 5. She will continue Velcade every 2 weeks. We will plan to see her back in 4 weeks with CBC CMP coags SPEP with EVELYN and kappa lambda free light chains. 6. Mrs. Shirley is been instructed to contact us in the interim should questions or problems arise. Signed By: Kellie Hylton-, AOCNP Beltran Resendez MD <<Signature on File>>
== END 2019-09-09 23:59 | disposition home or self-care (01) ==
LOC: ONCMED 05:16
PROVIDERS: Internal Medicine Medical Oncology; Family Provider Family Medicine; PCP Family Medicine; Visit Provider Nurse Practitioner
DX: Z51.11 Encounter for antineoplastic chemotherapy (principal); C90.00 Multiple myeloma not having achieved remission; I11.0 Hypertensive heart disease with heart failure; I50.9 Heart failure, unspecified; I48.20 Chronic atrial fibrillation, unspecified; K21.9 Gastro-esophageal reflux disease without esophagitis; M19.90 Unspecified osteoarthritis, unspecified site; H40.9 Unspecified glaucoma; M81.0 Age-related osteoporosis without current pathological fracture; Z79.899 Other long term (current) drug therapy; Z79.891 Long term (current) use of opiate analgesic; Z96.651 Presence of right artificial knee joint
CPT/HCPCS: 36415; 80053; 83883; 84155; 84165; 85025; 96401; 99214; J9041; Q0164

== ENCOUNTER 2019-09-19 05:40 | Outpatient (RCR) | payer MEDICARE, BC, SELFPAY ==
[2019-09-11 10:01] LABS: Alanine Aminotransferase 11 U/L (0-33); Albumin Level 3.6 g/dL (3.5-5.2); Alkaline Phosphatase 62 IU/L (35-105); Anion Gap 16.6 (5-19); Aspartate Amino Transferase 15 U/L (0-32); Blood Urea Nitrogen 35 mg/dL (8-23); Calcium 9.2 mg/dL (8.5-10.5); Carbon Dioxide 26 mmol/L (22-29); Chloride 103 mmol/L (98-107); Globulin 3.2 g/dL (1.3-4.6); Glucose 81 mg/dL (65-115); Potassium 4.6 mmol/L (3.5-5.1); Sodium 141 mmol/L (136-145); Total Bilirubin 0.4 mg/dL (0.15-1.2); Total Protein 6.8 g/dL (6.6-8.7)
[2019-09-11 10:43] LABS: Immunoglobulin IGA 135 mg/dL (70-400); Immunoglobulin IGG 1037 mg/dL (700-1600); Immunoglobulin IGM 74 mg/dL (40-230)
[2019-09-12 14:55] LABS: ALBUMIN 3.3 g/dL (3.8-4.8); ALPHA 1 GLOBULIN 0.3 g/dL (0.2-0.3); ALPHA 2 GLOBULIN 0.9 g/dL (0.5-0.9); BETA 1 GLOBULIN 0.4 g/dL (0.4-0.6); BETA 2 GLOBULIN 0.3 g/dL (0.2-0.5); GAMMA GLOBULIN 0.9 g/dL (0.8-1.7); KAPPA LIGHT CHAIN, FREE, SERUM 32.6 mg/L (3.3-19.4); KAPPA/LAMBDA LIGHT CHAINS FREE 1.73 (0.26-1.65); LAMBDA LIGHT CHAIN, FREE, SERU 18.8 mg/L (5.7-26.3)
[2019-09-19] MEDS: prochlorperazine 10 mg Tablet PO (10:20)
== END 2019-09-20 09:24 | disposition home or self-care (01) ==
LOC: ONCMED 05:40
PROVIDERS: Family Provider Family Medicine; PCP Family Medicine; Visit Provider Nurse Practitioner
DX: C90.00 Multiple myeloma not having achieved remission (principal)
CPT/HCPCS: 80053; 82784; 83883; 84155; 84165; 96372; 96401; J9041; Q0164

== ENCOUNTER 2019-09-20 09:24 | Outpatient (CLI) | payer MEDICARE, BC, SELFPAY ==
--- NOTE | 2019-09-20 09:29 | MM_ITS ---
WS: [id number] BILATERAL SCREENING DIGITAL MAMMOGRAM WITH CAD HISTORY: SCREENING COMPARISON: 06/23/2018, 04/12/2017, 02/24/2012. Bilateral CC and MLO views submitted. Computer aided detection analyzed. Breast composition: There are scattered areas of fibroglandular density. No suspicious masses, microc alcifications or architectural distortion. Lobulated asymmetry in the medial LEFT breast at the nippl e line has been present on prior studies. MM/[id number] IMPRESSION: BI-RADS: 2-Benign FOLLOW UP: 1 Year Follow-up
== END 2019-09-20 09:25 | disposition home or self-care (01) ==
LOC: RADSHAW 09:28
PROVIDERS: Family Provider Family Medicine; PCP Family Medicine; Visit Provider Family Medicine
DX: Z12.31 Encounter for screening mammogram for malignant neoplasm of breast (principal)
CPT/HCPCS: 77067

== ENCOUNTER 2019-10-02 05:42 | Outpatient (RCR) | payer MEDICARE, BC, SELFPAY ==
[2019-09-25 10:05] LABS: Basophils % 0.4 %; Eosinophils # 0.1 10^3/uL (0.0-0.8); Eosinophils % 1.8 %; Hematocrit 39.5 % (37.0-47.0); Lymphocytes # 1.5 10^3/uL (0.8-4.8); Lymphocytes % 32.3 %; Mean Corpuscular HGB Conc 30.4 g/dL (30.0-36.0); Mean Corpuscular Hemoglobin 28.8 pg (28.0-34.0); Mean Platelet Volume 12.8 fL (7.4-10.4); Monocytes # 0.6 10^3/uL (0.2-0.9); Monocytes % 13.6 %; Neutrophils # 2.3 10^3/uL (1.8-7.7); Neutrophils % 51.7 %; Nucleated Red Blood Cells % 0 %; Platelet Count 177 10^3/cmm (130-400); Red Blood Count 4.16 10^6/uL (4.1-5.3); Red Cell Distribution Width 14.6 % (12.1-15.1); White Blood Count 4.5 10^3/uL (4.0-10.0)
[2019-09-25 10:11] LABS: Alanine Aminotransferase 12 U/L (0-33); Albumin Level 3.7 g/dL (3.5-5.2); Alkaline Phosphatase 62 IU/L (35-105); Anion Gap 14.7 (5-19); Aspartate Amino Transferase 17 U/L (0-32); Blood Urea Nitrogen 31 mg/dL (8-23); Calcium 9.1 mg/dL (8.5-10.5); Carbon Dioxide 29 mmol/L (22-29); Chloride 104 mmol/L (98-107); Globulin 3.3 g/dL (1.3-4.6); Glucose 108 mg/dL (65-115); Osmolality Calculated 294 mOsm/kg (285-295); Potassium 4.7 mmol/L (3.5-5.1); Sodium 143 mmol/L (136-145); Total Bilirubin 0.3 mg/dL (0.15-1.2)
[2019-10-02] MEDS: prochlorperazine 10 mg Tablet PO (10:45)
--- NOTE | 2019-10-02 16:39 | ONC FU_ITS ---
Dr. Resendez Patient Follow-Up Note Patient: Alcira Shirley Unit #: [id number]: [id number] Dicatated By: Beltran Resendez M.D.Date of Visit:Oct 02, 2019 Onc Med Follow-up/Prog Note Chief Complaint: Myeloma. History of Present Illness: This is a 79 year-old woman with IgG kappa myeloma, stage III. She had known osteoporosis and multiple vertebral compression fractures dating back to at least March 2018. In May 2018 she underwent further evaluation at the bone health clinic at [facility]. A protein electrophoresis at that time showed IgG kappa monoclonal protein quantitating at 0.5 g/dL. She had hematology consultation with Dr. Cecille Acevedo on 07/19/2018. Her laboratory studies at that time showed significant hypercalcemia with a serum calcium of 13.6 mg/dL. Her hemoglobin was normal at 15.0 g and her creatinine was borderline at 0.91 mg/dL. Her repeat protein electrophoresis showed her M protein quantitating at 0.6 g/dL. Her free light chain assay showed elevated kappa light chain at 524 mg/L and decreased lambda light chain at < 0.15 mg/L. Her skeletal survey showed innumerable lytic lesions throughout the apical and appendicular skeleton, compatible with multiple myeloma. Bone marrow aspiration/biopsy on 07/21/2018 showed a mildly hypercellular marrow with 60% involvement with plasma cell neoplasm, kappa restricted. 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 Further evaluation with PET/CT on 07/21/2018 showed a mildly FDG avid expansile lytic lesion of the right fourth rib consistent with a diagnosis of multiple myeloma. Also noted was a mottled appearance with lytic lesions seen throughout the axial and appendicular skeleton greatest in the skull and bilateral upper extremities, also consistent with myeloma. Multiple compression deformities were seen throughout the thoracic spine, greatest at T7. During that time she had been admitted to the hospital and she was treated with IV Zometa. She then began treatment with weekly Velcade and dexamethasone, cycle 1 day 1 on 08/03/2018. Her further clinical course was complicated by atrial fibrillation and congestive heart failure, requiring hospital admissions on 08/25/2018, on 09/01/2018 100 and on 09/09/2018. As a result, her cycle 2 of Velcade/dexamethasone was delayed. Despite the complications, she did have a good response with her M protein decreased to 0.3 g/dL and her free kappa light chain decreased to 2.00 mg/dL. Her kappa/lambda ratio normalized to 1.12. She then began cycle 2 on 09/27/2018 with Velcade continued at 1.3 mg/m??? by subcutaneous injection weekly and dexamethasone reduced to 20 mg weekly on a 4-week on/1-week off schedule. I had seen her initially on 10/27/2018. She had completed her 2nd cycle of treatment. Her clinical course, though, was further complicated by [facility] resulting in a left inferior orbital wall depressed fracture and he C3 spinous process nondisplaced fracture, both of which were managed conservatively. Her other medical illnesses hypertension, chronic atrial fibrillation, congestive heart failure, GERD, degenerative arthritis, and glaucoma. Her prior surgeries include ORIF for left femur fracture in 2012 and right total knee arthroplasty in 2007. She is a nonsmoker. INTERIM HISTORY: She had follow-up at [facility] on 11/01/2018. At that point she was given a second infusion of Zometa, and she began cycle 3 of Velcade/dexamethasone. With that cycle she was able to complete 4 weekly Velcade injections together with dexamethasone 10 mg twice weekly followed by a 1 week rest. She continued with cycle 4 of Velcade/dexamethasone on 12/07/2018. She was again able to tolerate the for weekly Velcade injections along with dexamethasone 10 mg twice weekly. During that time, she had a follow-up with her orthopedic surgeon in [place], and she was told that she had 2 new vertebral compression fractures, presumably resulting from the fall. However, [facility] was [facility]. She was seen for a follow-up visit on 01/10/2019. At that point she appeared stable clinically and she continued with her 5th cycle of treatment with Velcade/dexamethasone. With that cycle, her 4th weekly dose of Velcade was omitted, as she was admitted to the hospital at day 22 with worsening congestive heart failure in association with an acute decline in her renal function. She then continued with cycle 6 on 02/21/2019. The day 22 Velcade was omitted with that cycle as well, as she was again admitted to the hospital with decompensated heart failure. With those episodes of congestive heart failure, her dexamethasone was changed to 1 mg daily. In the meantime, her protein electrophoresis studies from January showed her M band quantitating at 0.1 g/dL, and her serum free light chain assay showed her kappa light chain at 12.7 mg/L with lambda light chain 10.3 mg/L and kappa/lambda ratio normal at 1.23. She was seen again by Dr. Acevedo at [facility] on 04/04/2019. It was recommended that she transitioned to maintenance therapy with Velcade 1.3 mg/m??? by subcutaneous injection every 2 weeks together with lenalidomide 10 mg daily. Her repeat bone marrow aspiration/biopsy on 04/20/2019 showed cellularity ranging from 10 to 30% with normal trilineage hematopoiesis. There were just rare scattered plasma cells noted, estimated at 2 to 4% of the overall cellularity. On 05/16/2019 she began cycle 1 of maintenance therapy with Velcade 1.3 mg/m??? by subcutaneous injection every 2 weeks together with Revlimid 10 mg daily. Her repeat protein electrophoresis on 06/06/2019 reported an IgG kappa monoclonal protein band quantitating at 1.9 g/dL. The free light chain assay showed elevated kappa light chain at 128 mg/L with lambda light chain 26.9 mg/L and kappa/lambda ratio 4.77. At her follow-up visit on 06/13/2019 she appeared to be tolerating the treatment with acceptable toxicity, though her protein electrophoresis at that time reported a significant increase in her M protein to 1.9 g/dL. I opted to continue her same treatment and on her repeat SPEP the M protein was similar to the prior studies at 0.1 g/dL. However, she did have to stop the Revlimid due to multiple side effects including weakness/fatigue, anorexia, nausea, and insomnia, among others. She just did not feel good generally. She also was taken off dexamethasone due to fluid retention, but she was able to continue the Velcade injections every 2 weeks. Her repeat protein electrophoresis studies on 08/01/2019 showed no detectable monoclonal protein and the serum free light chain assay showed normal kappa/lambda ratio at 1.49. Her clinical status at that point appeared stable, and she continued Velcade 1.3 mg/m??? by subcutaneous injection every 2 weeks. She is seen for a follow-up visit. She has not been feeling very good. She says her energy is pretty low and that she cannot walk very far without getting tired. Her ECOG score is 3. She says she does not eat a lot. She thinks she has gained weight, but it appears to be stable by our scale. She has not had fever. She does have some sweating at night. She recently had eye surgery for glaucoma, and that seems to have gone well. She has had no mouth sores. She does not complain of shortness of breath, cough, or chest pain. She has no GI or complaints. She says her back still hurts quite a bit. She also has some pain in her shoulders. She does not complain of headache or dizziness, and she has no focal neurologic symptoms. Medications: Acetaminophen 1 - 2 Tablet (of 325 mg) Oral four times a day PRN, Acyclovir 1 Tablet (of 400 mg) Oral daily, Amiodarone HCl 1 Tablet (of 200 mg) Oral daily, Benadryl Allergy 0.5 Tablet (of 25 mg) Oral on Every Other Day PRN, Benadryl Allergy 1 - 2 Capsule (of 25 mg) Oral at bedtime PRN, Bisacodyl 1 (10 mg) Suppository Rectal daily PRN, Chlorthalidone 1 Tablet (of 25 mg) Oral daily, Culturelle (10 Billion) Capsule Oral Take as Directed, Enema 1 (7-19 gm/118mL) Enema Rectal PRN, HYDROcodone-Acetaminophen 1 Tablet (of 5-325 mg) Oral q 6 hours PRN, Klor-Con M20 (10 meq) Tablet, controlled release Oral Take as Directed, Lasix 1 Tablet (of 40 mg) Oral every am PRN, Lasix 1 Tablet (of 40 mg) Oral b.i.d., Meclizine HCl 1 Tablet (of 25 mg) Oral t.i.d. PRN, Milk of Magnesia 30 mL (of 400 mg/5mL) Suspension Oral PRN, MiraLax 1 Pack Oral daily, Mirtazapine 1 (15 mg) Tablet Oral at bedtime, Morphine Sulfate ER 1 Tablet (of 15 mg) Tablet SR 24 HR Oral b.i.d., Multiple Vitamins-Minerals 1 Tablet Oral daily, raNITIdine HCl 1 Capsule (of 150 mg) Oral at bedtime, Saline 1 Dose(s) (of 0.65 %) Solution Nasal t.i.d. PRN, Spironolactone 0.5 Tablet (of 50 mg) Oral daily, Velcade 1 (3.5 mg) Injection q 7 days, Xarelto 1 Tablet (of 20 mg) Oral daily Allergies: Codeine Sulfate and Statins. Review of Systems: Constitutional - Her energy level is low. She gets tired very quickly with activity. Appetite comes and goes but she is able to eat. Her weight is stable. No fever, chills, or hot flashes. She has night sweats. ECOG score is 3, ENMT - She has some sinus congestion/drainage. No mouth sores. No sore throat or difficulty swallowing, Hematologic/Lymphatic - She bruises easily, Respiratory - No shortness of breath. No cough. No pleuritic pain or hemoptysis, Cardiovascular - No angina pain. No palpitations, Gastrointestinal - No nausea or vomiting. No heartburn or acid reflux. No diarrhea or constipation. No blood in the stool or black stools, Genitourinary (F) - No dysuria or hematuria. No urinary frequency. No urgency or incontinence, Musculoskeletal - She continues to have back pain. She also has some shoulder pain, Integumentary - No skin complications, Neurologic - No headache or dizziness. No numbness/paresthesias or other focal neurologic symptoms. She continues to have intermittent shaking in her hands, Psychiatric - No anxiety or depression. She started sleep aid so she is sleeping better. Vital Signs: Performed on Oct 02, 2019 10:07 Height - 61.00 in Weight - 195.6 lbs (LOW) BSA - 1.87 sq.m BMI - 36.96 (HIGH) Temperature - 98.4 F Pulse - 78 /min Respiration - 24 /min BP - 146/62 mm(hg) (HIGH) O2 Sat - 95 % (LOW) Pain - 6 Physical Examination: Constitutional - She appears somewhat weak generally, Eyes - Sclerae nonicteric. Conjunctivae appear clear, ENMT - No lesions noted in the oral cavity, Hematologic/Lymphatic - No cervical, clavicular, or axillary adenopathy, Respiratory - Lungs sound clear, Cardiovascular - Heart rhythm is regular. There is a II/ systolic murmur. There is no gallop or rub noted, Abdomen - Soft. Liver and spleen are not enlarged. There is no abdominal mass or ascites noted and there is no inguinal adenopathy, Extremities - Mild edema, Neurologic - No focal neurologic deficits noted. Lab/Imaging: Test performed on Sep 25, 2019 04:20 Sodium 143 mmol/L Potassium 4.7 mmol/L Chloride 104 mmol/L CO2 29 mmol/L Anion Gap 14.7 BUN 31 mg/dL Creatinine 2.0 mg/dL Cr Clearance (Est) 30.7400 mL/min Glucose 108 mg/dL Calcium 9.1 mg/dL Protein, Total 7.0 g/dL Albumin 3.7 g/dL Globulin 3.3 g/dL Bilirubin, Total 0.3 mg/dL ALT (SGPT) 12 U/L AST (SGOT) 17 U/L Alkaline Phosphatase 62 IU/L WBC 4.5 10 3/uL RBC 4.16 10 6/uL HGB 12.0 g/dL HCT 39.5 % MCV 95.0 fL MCH 28.8 pg MCHC 30.4 g/dL RDW 14.6 % Platelet Count 177 10 3/cmm MPV 12.8 fL Neutrophils 2.3 10 3/uL Lymphocytes 1.5 10 3/uL Monocytes 0.6 10 3/uL Eosinophils 0.1 10 3/uL Basophils 0.0 10 3/uL Neutrophil % 51.7 % Lymphocyte % 32.3 % Monocyte % 13.6 % Eosinophil % 1.8 % Basophils % 0.4 % Impression: 1. 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 2. She had hypercalcemia, extensive lytic bone involvement, and multiple vertebral compression fractures at initial diagnosis in July 2018. Her other medical illnesses include: 3. Hypertension. 4. Chronic atrial fibrillation. 5. Congestive heart failure. 6. Degenerative arthritis. 7. GERD. 8. Glaucoma. She was given IV Zometa at initial diagnosis. She then began treatment with weekly Velcade and dexamethasone on 08/03/2018. Her first cycle was complicated by episodes of atrial fibrillation and congestive heart failure. However, she did have evidence of significant response by protein electrophoresis and free light chain assay. She began cycle 2 of Velcade/dexamethasone on 09/27/2018 with Velcade 1.3 mg/m??? by subcutaneous injection and dexamethasone 20 mg weekly on a 4-week on and 1-week off schedule. She tolerated the 2nd cycle well, though her clinical course was further complicated by [facility] resulting in a left inferior orbital wall depressed fracture and a C3 spinous process nondisplaced fracture. Both fractures awere managed conservatively. She was then able to continue with cycle 3 of Velcade/dexamethasone on 11/01/2018, with cycle 4 on 12/07/2018, and with cycle 5 on 01/10/2019. She appeared to be showing a good objective response with protein electrophoresis at that point showing decline in her M protein to 0.1 g/dL. The serum free light chain assay showed normal kappa light chain at 12.7 mg/L, normal lambda light chain at 10.3 mg/L, and normal kappa/lambda ratio at 1.23. She then continued treatment with Velcade and dexamethasone, but her subsequent clinical course was complicated by 2 admissions for decompensated congestive heart failure. During that time her dexamethasone was changed to 1 mg daily. Overall she has continued to have fairly marginal performance status, but she had otherwise been stable clinically. As of her follow-up visit on 03/15/2019 at opted to taper off her dexamethasone. At that point she continued with cycle 7 of Velcade. She was showing a very good objective response. On 04/04/2019 she had follow-up with Dr. Acevedo at [facility], and it was recommended that she transition to maintenance therapy with Velcade 1.3 mg/m??? by subcutaneous injection every 2 weeks together with lenalidomide 10 mg daily. Her repeat bone marrow aspiration/biopsy on 04/20/2019 showed only scant plasma cells estimated at 2 to 4% of the overall cellularity. She began cycle 1 of her maintenance therapy on 05/16/2019. Initially she appeared to be tolerating it with acceptable toxicity, but during her second cycle the lenalidomide was put on hold due to multiple side effects. During followup she was feeling better, and she continued treatment Velcade every 2 weeks. Her repeat protein electrophoresis studies on 08/01/2019 showed no detectable monoclonal protein, and the free light chain assay showed normal kappa/lambda ratio at 1.49. She has continued to have limited activity tolerance, but her pain was well controlled, and she was having no further issues with fluid retention. She continued treatment with Velcade every 2 weeks. As of 09/11/2019 her protein electrophoresis showed no detectable monoclonal protein. The free light chain assay showed slightly elevated kappa/lambda ratio at 1.73. At this point she continues to have some back pain, and she seems to be getting more fatigued. There has been gradual decline in her renal function. There has been no evidence, though, of progression of the myeloma. Plan: She will continue Velcade 1.3 mg/m??? by subcutaneous injection every 2 weeks. The lenalidomide and dexamethasone will remain on hold. As she was not able to tolerate the Zometa due to her renal function and fluid retention, with her next Velcade injection in 2 weeks, I will have her start denosumab 120 mg by subcutaneous injection for the lytic bone involvement. I will plan a follow-up visit in 6 weeks. Signed By: Beltran Resendez M.D. <<Signature on File>>
== END 2019-10-10 23:59 | disposition home or self-care (01) ==
LOC: ONCMED 05:42
PROVIDERS: Nurse Practitioner; Family Provider Family Medicine; PCP Family Medicine; Visit Provider Internal Medicine Medical Oncology
DX: Z51.11 Encounter for antineoplastic chemotherapy (principal); C90.00 Multiple myeloma not having achieved remission; M81.0 Age-related osteoporosis without current pathological fracture; I48.20 Chronic atrial fibrillation, unspecified; I11.0 Hypertensive heart disease with heart failure; I50.9 Heart failure, unspecified; G89.3 Neoplasm related pain (acute) (chronic); M19.90 Unspecified osteoarthritis, unspecified site; K21.9 Gastro-esophageal reflux disease without esophagitis; Z79.899 Other long term (current) drug therapy; Z79.891 Long term (current) use of opiate analgesic; Z79.01 Long term (current) use of anticoagulants; Z96.651 Presence of right artificial knee joint
CPT/HCPCS: 36415; 80053; 85025; 96401; 99214; J9041; Q0164

== ENCOUNTER 2019-11-06 12:30 | Outpatient (RCR) | payer MEDICARE, BC, SELFPAY ==
[2019-10-16] MEDS: prochlorperazine 10 mg Tablet PO (10:20)
[2019-10-30] MEDS: prochlorperazine 10 mg Tablet PO (10:00)
[2019-11-06 13:18] LABS: Basophils % 0.3 %; Eosinophils # 0.1 10^3/uL (0.0-0.8); Eosinophils % 1.3 %; Hematocrit 45.6 % (37.0-47.0); Hemoglobin 13.8 g/dL (11.5-15.3); Lymphocytes # 1.3 10^3/uL (0.8-4.8); Lymphocytes % 20.6 %; Mean Corpuscular HGB Conc 30.3 g/dL (30.0-36.0); Mean Corpuscular Hemoglobin 28.6 pg (28.0-34.0); Mean Corpuscular Volume 94.6 fL (81-99); Mean Platelet Volume 12.5 fL (7.4-10.4); Monocytes # 0.7 10^3/uL (0.2-0.9); Monocytes % 10.9 %; Neutrophils # 4.1 10^3/uL (1.8-7.7); Neutrophils % 66.4 %; Nucleated Red Blood Cells % 0 %; Platelet Count 202 10^3/cmm (130-400); Red Blood Count 4.82 10^6/uL (4.1-5.3); Red Cell Distribution Width 13.7 % (12.1-15.1); White Blood Count 6.2 10^3/uL (4.0-10.0)
[2019-11-06 13:24] LABS: Alanine Aminotransferase 13 U/L (0-33); Albumin Level 4.3 g/dL (3.5-5.2); Alkaline Phosphatase 80 IU/L (35-105); Anion Gap 16.4 (5-19); Aspartate Amino Transferase 19 U/L (0-32); Blood Urea Nitrogen 34 mg/dL (8-23); Calcium 9.9 mg/dL (8.5-10.5); Carbon Dioxide 30 mmol/L (22-29); Chloride 96 mmol/L (98-107); Globulin 3.5 g/dL (1.3-4.6); Glucose 127 mg/dL (65-115); Osmolality Calculated 285 mOsm/kg (285-295); Potassium 4.4 mmol/L (3.5-5.1); Sodium 138 mmol/L (136-145); Total Bilirubin 0.5 mg/dL (0.15-1.2); Total Protein 7.8 g/dL (6.6-8.7)
[2019-11-06 14:01] LABS: Erythrocyte Sedimentation Rate 27 mm/hr (0-15)
[2019-11-07 09:12] LABS: PROTEIN, TOTAL 7.2 g/dL (6.1-8.1)
[2019-11-07 16:06] LABS: ALBUMIN 3.9 g/dL (3.8-4.8); ALPHA 1 GLOBULIN 0.4 g/dL (0.2-0.3); ALPHA 2 GLOBULIN 1.1 g/dL (0.5-0.9); BETA 1 GLOBULIN 0.5 g/dL (0.4-0.6); BETA 2 GLOBULIN 0.3 g/dL (0.2-0.5); GAMMA GLOBULIN 1.1 g/dL (0.8-1.7); KAPPA LIGHT CHAIN, FREE, SERUM 34.1 mg/L (3.3-19.4); LAMBDA LIGHT CHAIN, FREE, SERU 18.9 mg/L (5.7-26.3)
== END 2019-11-09 23:59 | disposition home or self-care (01) ==
LOC: ONCMED 12:30
PROVIDERS: Family Provider Family Medicine; PCP Family Medicine; Visit Provider Internal Medicine Medical Oncology
DX: C90.00 Multiple myeloma not having achieved remission (principal)
CPT/HCPCS: 36415; 80053; 83883; 84155; 84165; 85025; 85651; 96401; J9041; Q0164

== ENCOUNTER 2019-12-06 09:35 | Outpatient (RCR) | payer MEDICARE, BC, SELFPAY ==
[2019-11-15] MEDS: denosumab 120 mg SDV SUBCUT (12:53)
--- NOTE | 2019-11-18 11:51 | ONC FU_ITS ---
Dr. Resendez Patient Follow-Up Note Patient: Alcira Shirley Unit #: [id number]: [id number] Dicatated By: Beltran Resendez M.D.Date of Visit:November 15, 2019 Onc Med Follow-up/Prog Note Chief Complaint: Myeloma. History of Present Illness: This is a 79 year-old woman with IgG kappa myeloma, stage III. She had known osteoporosis and multiple vertebral compression fractures dating back to at least March 2018. In May 2018 she underwent further evaluation at the bone health clinic at [facility]. A protein electrophoresis at that time showed IgG kappa monoclonal protein quantitating at 0.5 g/dL. She had hematology consultation with Dr. Cecille Acevedo on 07/19/2018. Her laboratory studies at that time showed significant hypercalcemia with a serum calcium of 13.6 mg/dL. Her hemoglobin was normal at 15.0 g and her creatinine was borderline at 0.91 mg/dL. Her repeat protein electrophoresis showed her M protein quantitating at 0.6 g/dL. Her free light chain assay showed elevated kappa light chain at 524 mg/L and decreased lambda light chain at < 0.15 mg/L. Her skeletal survey showed innumerable lytic lesions throughout the apical and appendicular skeleton, compatible with multiple myeloma. Bone marrow aspiration/biopsy on 07/21/2018 showed a mildly hypercellular marrow with 60% involvement with plasma cell neoplasm, kappa restricted. 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 Further evaluation with PET/CT on 07/21/2018 showed a mildly FDG avid expansile lytic lesion of the right fourth rib consistent with a diagnosis of multiple myeloma. Also noted was a mottled appearance with lytic lesions seen throughout the axial and appendicular skeleton greatest in the skull and bilateral upper extremities, also consistent with myeloma. Multiple compression deformities were seen throughout the thoracic spine, greatest at T7. During that time she had been admitted to the hospital and she was treated with IV Zometa. She then began treatment with weekly Velcade and dexamethasone, cycle 1 day 1 on 08/03/2018. Her further clinical course was complicated by atrial fibrillation and congestive heart failure, requiring hospital admissions on 08/25/2018, on 09/01/2018 100 and on 09/09/2018. As a result, her cycle 2 of Velcade/dexamethasone was delayed. Despite the complications, she did have a good response with her M protein decreased to 0.3 g/dL and her free kappa light chain decreased to 2.00 mg/dL. Her kappa/lambda ratio normalized to 1.12. She then began cycle 2 on 09/27/2018 with Velcade continued at 1.3 mg/m??? by subcutaneous injection weekly and dexamethasone reduced to 20 mg weekly on a 4-week on/1-week off schedule. I had seen her initially on 10/27/2018. She had completed her 2nd cycle of treatment. Her clinical course, though, was further complicated by a fall at the care home resulting in a left inferior orbital wall depressed fracture and he C3 spinous process nondisplaced fracture, both of which were managed conservatively. Her other medical illnesses hypertension, chronic atrial fibrillation, congestive heart failure, GERD, degenerative arthritis, and glaucoma. Her prior surgeries include ORIF for left femur fracture in 2012 and right total knee arthroplasty in 2007. She is a nonsmoker. INTERIM HISTORY: She had follow-up at [facility] on 11/01/2018. At that point she was given a second infusion of Zometa, and she began cycle 3 of Velcade/dexamethasone. With that cycle she was able to complete 4 weekly Velcade injections together with dexamethasone 10 mg twice weekly followed by a 1 week rest. She continued with cycle 4 of Velcade/dexamethasone on 12/07/2018. She was again able to tolerate the for weekly Velcade injections along with dexamethasone 10 mg twice weekly. During that time, she had a follow-up with her orthopedic surgeon in [place], and she was told that she had 2 new vertebral compression fractures, presumably resulting from the fall. However, she was able to transition from the care home to assisted living. She was seen for a follow-up visit on 01/10/2019. At that point she appeared stable clinically and she continued with her 5th cycle of treatment with Velcade/dexamethasone. With that cycle, her 4th weekly dose of Velcade was omitted, as she was admitted to the hospital at day 22 with worsening congestive heart failure in association with an acute decline in her renal function. She then continued with cycle 6 on 02/21/2019. The day 22 Velcade was omitted with that cycle as well, as she was again admitted to the hospital with decompensated heart failure. With those episodes of congestive heart failure, her dexamethasone was changed to 1 mg daily. In the meantime, her protein electrophoresis studies from January showed her M band quantitating at 0.1 g/dL, and her serum free light chain assay showed her kappa light chain at 12.7 mg/L with lambda light chain 10.3 mg/L and kappa/lambda ratio normal at 1.23. She was seen again by Dr. Acevedo at [facility] on 04/04/2019. It was recommended that she transitioned to maintenance therapy with Velcade 1.3 mg/m??? by subcutaneous injection every 2 weeks together with lenalidomide 10 mg daily. Her repeat bone marrow aspiration/biopsy on 04/20/2019 showed cellularity ranging from 10 to 30% with normal trilineage hematopoiesis. There were just rare scattered plasma cells noted, estimated at 2 to 4% of the overall cellularity. On 05/16/2019 she began cycle 1 of maintenance therapy with Velcade 1.3 mg/m??? by subcutaneous injection every 2 weeks together with Revlimid 10 mg daily. Her repeat protein electrophoresis on 06/06/2019 reported an IgG kappa monoclonal protein band quantitating at 1.9 g/dL. The free light chain assay showed elevated kappa light chain at 128 mg/L with lambda light chain 26.9 mg/L and kappa/lambda ratio 4.77. At her follow-up visit on 06/13/2019 she appeared to be tolerating the treatment with acceptable toxicity, though her protein electrophoresis at that time reported a significant increase in her M protein to 1.9 g/dL. I opted to continue her same treatment and on her repeat SPEP the M protein was similar to the prior studies at 0.1 g/dL. However, she did have to stop the Revlimid due to multiple side effects including weakness/fatigue, anorexia, nausea, and insomnia, among others. She just did not feel good generally. She also was taken off dexamethasone due to fluid retention, but she was able to continue the Velcade injections every 2 weeks. Her repeat protein electrophoresis studies on 08/01/2019 showed no detectable monoclonal protein and the serum free light chain assay showed normal kappa/lambda ratio at 1.49. Her clinical status at that point appeared stable, and she continued Velcade 1.3 mg/m??? by subcutaneous injection every 2 weeks. She is seen for a scheduled visit. She has been feeling pretty good, though sometimes she is really tired. She does tend to sleep quite a bit. She is doing some walking, but only for short distances because of her back. Her ECOG score is 2. She has good appetite. She thinks she has had a slight fever. She sometimes has sweating at night or early in the morning. She says she feels kind of rough for a day or so after her Velcade injection. Her breathing has been okay. She says she still sleeps with oxygen on. She does not have cough and she does not complain of chest pain. She currently has no GI or complaints. She continues to have back pain, mainly with weightbearing/activity. She occasionally has a little bit of dizziness. She does not complain of headache. She has no focal neurologic symptoms. Medications: Acetaminophen 1 - 2 Tablet (of 325 mg) Oral four times a day PRN, Acyclovir 1 Tablet (of 400 mg) Oral daily, Amiodarone HCl 1 Tablet (of 200 mg) Oral daily, Benadryl Allergy 0.5 Tablet (of 25 mg) Oral on Every Other Day PRN, Benadryl Allergy 1 - 2 Capsule (of 25 mg) Oral at bedtime PRN, Bisacodyl 1 (10 mg) Suppository Rectal daily PRN, Chlorthalidone 1 Tablet (of 25 mg) Oral daily, Culturelle (10 Billion) Capsule Oral Take as Directed, Enema 1 (7-19 gm/118mL) Enema Rectal PRN, HYDROcodone-Acetaminophen 1 Tablet (of 5-325 mg) Oral q 6 hours PRN, Klor-Con M20 (10 meq) Tablet, controlled release Oral Take as Directed, Lasix 1 Tablet (of 40 mg) Oral every am PRN, Lasix 1 Tablet (of 40 mg) Oral b.i.d., Meclizine HCl 1 Tablet (of 25 mg) Oral t.i.d. PRN, Milk of Magnesia 30 mL (of 400 mg/5mL) Suspension Oral PRN, MiraLax 1 Pack Oral daily, Mirtazapine 1 (15 mg) Tablet Oral at bedtime, Morphine Sulfate ER 1 Tablet (of 15 mg) Tablet, controlled release Oral b.i.d., Morphine Sulfate ER 1 Tablet (of 15 mg) Tablet SR 24 HR Oral b.i.d., Multiple Vitamins-Minerals 1 Tablet Oral daily, Pepcid 1 Tablet (of 20 mg) Oral at bedtime, Saline 1 Dose(s) (of 0.65 %) Solution Nasal t.i.d. PRN, Spironolactone 0.5 Tablet (of 50 mg) Oral daily, Systane Complete 1 Drop(s) Solution Ophthalmic PRN, Velcade 1 (3.5 mg) Injection q 7 days, Xarelto 1 Tablet (of 20 mg) Oral daily Allergies: Codeine Sulfate and Statins. Review of Systems: Constitutional - She sometimes feels really tired. She does tend to sleep quite a bit. She is doing some walking. She has good appetite. She thinks she has had a slight fever. She sometimes has sweating at night or early in the morning. ECOG score is 2, ENMT - She has some sinus congestion/drainage. No mouth sores. No sore throat or difficulty swallowing, Hematologic/Lymphatic - She bruises easily, Respiratory - No shortness of breath, but she still sleeps with oxygen. No cough. No pleuritic pain or hemoptysis, Cardiovascular - No angina pain. No palpitations, Gastrointestinal - No nausea or vomiting. No heartburn or acid reflux. No diarrhea or constipation. No blood in the stool or black stools, Genitourinary (F) - No dysuria or hematuria. No urinary frequency. No urgency or incontinence, Musculoskeletal - She continues to have back pain, mainly with weight bearing/activity, Integumentary - No skin complications, Neurologic - No headache. She occasionally has a little bit of dizziness. No numbness/paresthesias or other focal neurologic symptoms. She complains that she still has a little tremor, Psychiatric - No anxiety or depression. She still has difficulty sleeping at times. Vital Signs: Performed on November 15, 2019 09:58 Height - 61.00 in Weight - 197.2 lbs (HIGH) BSA - 1.88 sq.m BMI - 37.26 (HIGH) Temperature - 99.4 F (HIGH) Pulse - 70 /min Respiration - 24 /min BP - 165/73 mm(hg) (HIGH) O2 Sat - 97 % Pain - 0 Physical Examination: Constitutional - She appears somewhat weak generally, Eyes - Sclerae nonicteric. Conjunctivae appear clear, ENMT - No lesions noted in the oral cavity, Hematologic/Lymphatic - No cervical, clavicular, or axillary adenopathy, Respiratory - Lungs sound clear, Cardiovascular - Heart rhythm is regular. There is a II/ systolic murmur. There is no gallop or rub noted, Abdomen - Mildly distended but soft. Liver and spleen are not enlarged. There is no abdominal mass or ascites noted and there is no inguinal adenopathy, Extremities - Mild edema, Neurologic - No focal neurologic deficits noted. Lab/Imaging: Test performed on Nov 06, 2019 12:30 Sodium 138 mmol/L Potassium 4.4 mmol/L Chloride 96 mmol/L CO2 30 mmol/L Anion Gap 16.4 BUN 34 mg/dL Creatinine 2.1 mg/dL Cr Clearance (Est) 30.9200 mL/min Glucose 127 mg/dL Calcium 9.9 mg/dL Protein, Total 7.8 g/dL Albumin 4.3 g/dL Globulin 3.5 g/dL Bilirubin, Total 0.5 mg/dL ALT (SGPT) 13 U/L AST (SGOT) 19 U/L Alkaline Phosphatase 80 IU/L ESR (Sed Rate) 27 mm/hr WBC 6.2 10 3/uL RBC 4.82 10 6/uL HGB 13.8 g/dL HCT 45.6 % MCV 94.6 fL MCH 28.6 pg MCHC 30.3 g/dL RDW 13.7 % Platelet Count 202 10 3/cmm MPV 12.5 fL Neutrophils 4.1 10 3/uL Lymphocytes 1.3 10 3/uL Monocytes 0.7 10 3/uL Eosinophils 0.1 10 3/uL Basophils 0.0 10 3/uL Neutrophil % 66.4 % Lymphocyte % 20.6 % Monocyte % 10.9 % Eosinophil % 1.3 % Basophils % 0.3 % Impression: 1. 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 2. She had hypercalcemia, extensive lytic bone involvement, and multiple vertebral compression fractures at initial diagnosis in July 2018. Her other medical illnesses include: 3. Hypertension. 4. Chronic atrial fibrillation. 5. Congestive heart failure. 6. Degenerative arthritis. 7. GERD. 8. Glaucoma. She was given IV Zometa at initial diagnosis. She then began treatment with weekly Velcade and dexamethasone on 08/03/2018. Her first cycle was complicated by episodes of atrial fibrillation and congestive heart failure. However, she did have evidence of significant response by protein electrophoresis and free light chain assay. She began cycle 2 of Velcade/dexamethasone on 09/27/2018 with Velcade 1.3 mg/m??? by subcutaneous injection and dexamethasone 20 mg weekly on a 4-week on and 1-week off schedule. She tolerated the 2nd cycle well, though her clinical course was further complicated by a fall at the care home on 10/23/2018 resulting in a left inferior orbital wall depressed fracture and a C3 spinous process nondisplaced fracture. Both fractures awere managed conservatively. She was then able to continue with cycle 3 of Velcade/dexamethasone on 11/01/2018, with cycle 4 on 12/07/2018, and with cycle 5 on 01/10/2019. She appeared to be showing a good objective response with protein electrophoresis at that point showing decline in her M protein to 0.1 g/dL. The serum free light chain assay showed normal kappa light chain at 12.7 mg/L, normal lambda light chain at 10.3 mg/L, and normal kappa/lambda ratio at 1.23. She then continued treatment with Velcade and dexamethasone, but her subsequent clinical course was complicated by 2 admissions for decompensated congestive heart failure. During that time her dexamethasone was changed to 1 mg daily. Overall she has continued to have fairly marginal performance status, but she had otherwise been stable clinically. As of her follow-up visit on 03/15/2019 at opted to taper off her dexamethasone. At that point she continued with cycle 7 of Velcade. She was showing a very good objective response. On 04/04/2019 she had follow-up with Dr. Acevedo at [facility], and it was recommended that she transition to maintenance therapy with Velcade 1.3 mg/m??? by subcutaneous injection every 2 weeks together with lenalidomide 10 mg daily. Her repeat bone marrow aspiration/biopsy on 04/20/2019 showed only scant plasma cells estimated at 2 to 4% of the overall cellularity. She began cycle 1 of her maintenance therapy on 05/16/2019. Initially she appeared to be tolerating it with acceptable toxicity, but during her second cycle the lenalidomide was put on hold due to multiple side effects. During followup she was feeling better, and she continued treatment Velcade every 2 weeks. Her repeat protein electrophoresis studies on 08/01/2019 showed no detectable monoclonal protein, and the free light chain assay showed normal kappa/lambda ratio at 1.49. She has continued to have limited activity tolerance, but her pain was well controlled, and she was having no further issues with fluid retention. She continued treatment with Velcade every 2 weeks. As of 09/11/2019 her protein electrophoresis showed no detectable monoclonal protein. The free light chain assay showed slightly elevated kappa/lambda ratio at 1.73. Overall, her clinical status appears stable. She continues to have limited activity and fairly marginal performance status. However, she has been tolerating treatment with acceptable toxicity and thus far there has been no evidence of progression of the myeloma. Her daughter indicates that they are hoping to be able to transition her to home care, but that will be contingent on having caregivers available. Plan: She will continue Velcade 1.3 mg/m??? by subcutaneous injection every 2 weeks. The lenalidomide and dexamethasone remain on hold. She also will start denosumab 120 mg by subcutaneous injection for the lytic bone involvement. She will be scheduled for a follow-up visit in 4 weeks. Signed By: Beltran Resendez M.D. <<Signature on File>>
[2019-11-29] MEDS: prochlorperazine 10 mg Tablet PO (16:43)
[2019-12-06 16:10] LABS: Basophils # 0.1 10^3/uL (0.0-0.1); Basophils % 0.5 %; Eosinophils % 0.3 %; Hematocrit 44.5 % (37.0-47.0); Hemoglobin 13.4 g/dL (11.5-15.3); Lymphocytes # 1.4 10^3/uL (0.8-4.8); Lymphocytes % 13.4 %; Mean Corpuscular HGB Conc 30.1 g/dL (30.0-36.0); Mean Corpuscular Hemoglobin 28.9 pg (28.0-34.0); Mean Corpuscular Volume 96.1 fL (81-99); Mean Platelet Volume 12.4 fL (7.4-10.4); Monocytes # 1.3 10^3/uL (0.2-0.9); Monocytes % 12.3 %; Neutrophils # 7.5 10^3/uL (1.8-7.7); Neutrophils % 73.1 %; Nucleated Red Blood Cells % 0 %; Platelet Count 214 10^3/cmm (130-400); Red Blood Count 4.63 10^6/uL (4.1-5.3); Red Cell Distribution Width 14.6 % (12.1-15.1); White Blood Count 10.2 10^3/uL (4.0-10.0)
[2019-12-06 18:34] LABS: Alanine Aminotransferase 18 U/L (0-33); Albumin Level 4.1 g/dL (3.5-5.2); Alkaline Phosphatase 66 IU/L (35-105); Aspartate Amino Transferase 20 U/L (0-32); Blood Urea Nitrogen 45 mg/dL (8-23); Calcium 9.9 mg/dL (8.5-10.5); Carbon Dioxide 25 mmol/L (22-29); Chloride 103 mmol/L (98-107); Globulin 3.5 g/dL (1.3-4.6); Glucose 83 mg/dL (65-115); Osmolality Calculated 289 mOsm/kg (285-295); Sodium 141 mmol/L (136-145); Total Bilirubin 0.3 mg/dL (0.15-1.2); Total Protein 7.6 g/dL (6.6-8.7)
[2019-12-08 10:31] LABS: PROTEIN, TOTAL 6.8 g/dL (6.1-8.1)
[2019-12-08 11:55] LABS: KAPPA LIGHT CHAIN, FREE, SERUM 30.4 mg/L (3.3-19.4); KAPPA/LAMBDA LIGHT CHAINS FREE 1.63 (0.26-1.65); LAMBDA LIGHT CHAIN, FREE, SERU 18.7 mg/L (5.7-26.3)
[2019-12-08 15:42] LABS: ALBUMIN 3.7 g/dL (3.8-4.8); ALPHA 1 GLOBULIN 0.3 g/dL (0.2-0.3); BETA 1 GLOBULIN 0.5 g/dL (0.4-0.6); BETA 2 GLOBULIN 0.3 g/dL (0.2-0.5)
== END 2019-12-10 23:59 | disposition home or self-care (01) ==
LOC: ONCMED 09:35
PROVIDERS: Family Provider Family Medicine; PCP Family Medicine; Visit Provider Internal Medicine Medical Oncology
DX: Z51.11 Encounter for antineoplastic chemotherapy (principal); C90.00 Multiple myeloma not having achieved remission; K21.9 Gastro-esophageal reflux disease without esophagitis; I10 Essential (primary) hypertension; M81.0 Age-related osteoporosis without current pathological fracture; H40.9 Unspecified glaucoma; I48.91 Unspecified atrial fibrillation; I50.9 Heart failure, unspecified; M19.90 Unspecified osteoarthritis, unspecified site; Z79.899 Other long term (current) drug therapy
CPT/HCPCS: 80053; 83883; 84155; 84165; 85025; 96372; 96401; 99214; J0897; J9041; Q0164

== ENCOUNTER 2020-01-03 08:15 | Outpatient (RCR) | payer MEDICARE, BC, SELFPAY ==
[2019-12-13] MEDS: denosumab 120 mg SDV SUBCUT (11:20)
[2019-12-13] MEDS: prochlorperazine 10 mg Tablet PO (11:20)
--- NOTE | 2019-12-17 09:15 | ONC FU_ITS ---
Dr. Resendez Patient Follow-Up Note Patient: Alcira Shirley Unit #: [id number]: [id number] Dicatated By: Beltran Resendez M.D.Date of Visit:Dec 13, 2019 Onc Med Follow-up/Prog Note Chief Complaint: Myeloma. History of Present Illness: This is a 79 year-old woman with IgG kappa myeloma, stage III. She had known osteoporosis and multiple vertebral compression fractures dating back to at least March 2018. In May 2018 she underwent further evaluation at the bone health clinic at [facility]. A protein electrophoresis at that time showed IgG kappa monoclonal protein quantitating at 0.5 g/dL. She had hematology consultation with Dr. Cecille Acevedo on 07/19/2018. Her laboratory studies at that time showed significant hypercalcemia with a serum calcium of 13.6 mg/dL. Her hemoglobin was normal at 15.0 g and her creatinine was borderline at 0.91 mg/dL. Her repeat protein electrophoresis showed her M protein quantitating at 0.6 g/dL. Her free light chain assay showed elevated kappa light chain at 524 mg/L and decreased lambda light chain at < 0.15 mg/L. Her skeletal survey showed innumerable lytic lesions throughout the apical and appendicular skeleton, compatible with multiple myeloma. Bone marrow aspiration/biopsy on 07/21/2018 showed a mildly hypercellular marrow with 60% involvement with plasma cell neoplasm, kappa restricted. 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 Further evaluation with PET/CT on 07/21/2018 showed a mildly FDG avid expansile lytic lesion of the right fourth rib consistent with a diagnosis of multiple myeloma. Also noted was a mottled appearance with lytic lesions seen throughout the axial and appendicular skeleton greatest in the skull and bilateral upper extremities, also consistent with myeloma. Multiple compression deformities were seen throughout the thoracic spine, greatest at T7. During that time she had been admitted to the hospital and she was treated with IV Zometa. She then began treatment with weekly Velcade and dexamethasone, cycle 1 day 1 on 08/03/2018. Her further clinical course was complicated by atrial fibrillation and congestive heart failure, requiring hospital admissions on 08/25/2018, on 09/01/2018 100 and on 09/09/2018. As a result, her cycle 2 of Velcade/dexamethasone was delayed. Despite the complications, she did have a good response with her M protein decreased to 0.3 g/dL and her free kappa light chain decreased to 2.00 mg/dL. Her kappa/lambda ratio normalized to 1.12. She then began cycle 2 on 09/27/2018 with Velcade continued at 1.3 mg/m??? by subcutaneous injection weekly and dexamethasone reduced to 20 mg weekly on a 4-week on/1-week off schedule. I had seen her initially on 10/27/2018. She had completed her 2nd cycle of treatment. Her clinical course, though, was further complicated [facility] in a left inferior orbital wall depressed fracture and he C3 spinous process nondisplaced fracture, both of which were managed conservatively. Her other medical illnesses hypertension, chronic atrial fibrillation, congestive heart failure, GERD, degenerative arthritis, and glaucoma. Her prior surgeries include ORIF for left femur fracture in 2012 and right total knee arthroplasty in 2007. She is a nonsmoker. INTERIM HISTORY: She had follow-up at [facility] on 11/01/2018. At that point she was given a second infusion of Zometa, and she began cycle 3 of Velcade/dexamethasone. With that cycle she was able to complete 4 weekly Velcade injections together with dexamethasone 10 mg twice weekly followed by a 1 week rest. She continued with cycle 4 of Velcade/dexamethasone on 12/07/2018. She was again able to tolerate the for weekly Velcade injections along with dexamethasone 10 mg twice weekly. During that time, she had a follow-up with her orthopedic surgeon in [place], and she was told that she had 2 new vertebral compression fractures, presumably resulting from the fall. However, [facility]. She was seen for a follow-up visit on 01/10/2019. At that point she appeared stable clinically and she continued with her 5th cycle of treatment with Velcade/dexamethasone. With that cycle, her 4th weekly dose of Velcade was omitted, as she was admitted to the hospital at day 22 with worsening congestive heart failure in association with an acute decline in her renal function. She then continued with cycle 6 on 02/21/2019. The day 22 Velcade was omitted with that cycle as well, as she was again admitted to the hospital with decompensated heart failure. With those episodes of congestive heart failure, her dexamethasone was changed to 1 mg daily. In the meantime, her protein electrophoresis studies from January showed her M band quantitating at 0.1 g/dL, and her serum free light chain assay showed her kappa light chain at 12.7 mg/L with lambda light chain 10.3 mg/L and kappa/lambda ratio normal at 1.23. She was seen again by Dr. Acevedo at [facility] on 04/04/2019. It was recommended that she transitioned to maintenance therapy with Velcade 1.3 mg/m??? by subcutaneous injection every 2 weeks together with lenalidomide 10 mg daily. Her repeat bone marrow aspiration/biopsy on 04/20/2019 showed cellularity ranging from 10 to 30% with normal trilineage hematopoiesis. There were just rare scattered plasma cells noted, estimated at 2 to 4% of the overall cellularity. On 05/16/2019 she began cycle 1 of maintenance therapy with Velcade 1.3 mg/m??? by subcutaneous injection every 2 weeks together with Revlimid 10 mg daily. Her repeat protein electrophoresis on 06/06/2019 reported an IgG kappa monoclonal protein band quantitating at 1.9 g/dL. The free light chain assay showed elevated kappa light chain at 128 mg/L with lambda light chain 26.9 mg/L and kappa/lambda ratio 4.77. At her follow-up visit on 06/13/2019 she appeared to be tolerating the treatment with acceptable toxicity, though her protein electrophoresis at that time reported a significant increase in her M protein to 1.9 g/dL. I opted to continue her same treatment and on her repeat SPEP the M protein was similar to the prior studies at 0.1 g/dL. However, she did have to stop the Revlimid due to multiple side effects including weakness/fatigue, anorexia, nausea, and insomnia, among others. She just did not feel good generally. She also was taken off dexamethasone due to fluid retention, but she was able to continue the Velcade injections every 2 weeks. Her repeat protein electrophoresis studies on 08/01/2019 showed no detectable monoclonal protein and the serum free light chain assay showed normal kappa/lambda ratio at 1.49. Her clinical status at that point appeared stable, and she continued Velcade 1.3 mg/m??? by subcutaneous injection every 2 weeks. She is seen for a scheduled visit. Since her last visit she has been able to return to her own home with a hired caregiver to assist her. She still has limited activity due to her back pain. She also says she does not have much energy. She ambulates with a walker. Her ECOG score is 2. She has good appetite. She has not had fever. She is not recently had hot flashes or night sweating. Her sinus symptoms have not been as bad lately. She does not complain of shortness of breath, cough, or chest pain. She has no GI or complaints. She does have some pain with activity, but it is adequately managed with the morphine. She has no focal neurologic symptoms. Medications: Acetaminophen 1 - 2 Tablet (of 325 mg) Oral four times a day PRN, Acyclovir 1 Tablet (of 400 mg) Oral daily, Amiodarone HCl 1 Tablet (of 200 mg) Oral daily, Benadryl Allergy 0.5 Tablet (of 25 mg) Oral on Every Other Day PRN, Benadryl Allergy 1 - 2 Capsule (of 25 mg) Oral at bedtime PRN, Bisacodyl 1 (10 mg) Suppository Rectal daily PRN, Chlorthalidone 1 Tablet (of 25 mg) Oral daily, Culturelle (10 Billion) Capsule Oral Take as Directed, Enema 1 (7-19 gm/118mL) Enema Rectal PRN, HYDROcodone-Acetaminophen 1 Tablet (of 5-325 mg) Oral q 6 hours PRN, Klor-Con M20 (10 meq) Tablet, controlled release Oral Take as Directed, Lasix 1 Tablet (of 40 mg) Oral every am, Lasix 1 Tablet (of 40 mg) Oral every am PRN, Meclizine HCl 1 Tablet (of 25 mg) Oral t.i.d. PRN, Milk of Magnesia 30 mL (of 400 mg/5mL) Suspension Oral PRN, MiraLax 1 Pack Oral daily, Mirtazapine 1 (15 mg) Tablet Oral at bedtime, Morphine Sulfate ER 1 Tablet (of 15 mg) Tablet, controlled release Oral b.i.d., Morphine Sulfate ER 1 Tablet (of 15 mg) Tablet SR 24 HR Oral b.i.d., Multiple Vitamins-Minerals 1 Tablet Oral daily, Pepcid 1 Tablet (of 20 mg) Oral at bedtime, Saline 1 Dose(s) (of 0.65 %) Solution Nasal t.i.d. PRN, Spironolactone 0.5 Tablet (of 50 mg) Oral daily, Systane Complete 1 Drop(s) Solution Ophthalmic PRN, Velcade 1 (3.5 mg) Injection q 7 days, Xarelto 1 Tablet (of 10 mg) Oral daily Allergies: Codeine Sulfate and Statins. Review of Systems: Constitutional - She generally feels good, though her activity is limited due to her back pain. She is now living at home and has a caregiver to assist with activities of daily living. She uses a wheeled walker to get around. Her appetite is good and weight is down about 5 pounds from last visit. No fever. She has had night sweats and some hot flashes, but not in the last few days. ECOG score is 2, ENMT - No sinus congestion/drainage. No mouth sores. No sore throat or difficulty swallowing, Hematologic/Lymphatic - She bruises easily, Respiratory - No shortness of breath. No cough. No pleuritic pain or hemoptysis, Cardiovascular - No angina pain. No palpitations, Gastrointestinal - No nausea or vomiting. No heartburn or acid reflux. No diarrhea or constipation. No blood in the stool or black stools, Genitourinary (F) - No dysuria or hematuria. No urinary frequency. No urgency or incontinence, Musculoskeletal - Her pain is adequately managed with the morphine, Integumentary - No skin complications, Neurologic - No headache or dizziness. No numbness or tingling. No other focal neurologic symptoms, Psychiatric - No anxiety or depression. No insomnia. Vital Signs: Performed on Dec 13, 2019 10:40 Height - 61.00 in Weight - 192.2 lbs (LOW) BSA - 1.86 sq.m BMI - 36.32 (HIGH) Temperature - 98.8 F Pulse - 70 /min Respiration - 18 /min BP - 147/76 mm(hg) (HIGH) O2 Sat - 95 % (LOW) Pain - 0 Physical Examination: Constitutional - She appears somewhat weak generally, Eyes - Sclerae nonicteric. Conjunctivae appear clear, ENMT - No lesions noted in the oral cavity, Hematologic/Lymphatic - No cervical, clavicular, or axillary adenopathy, Respiratory - Lungs sound clear, Cardiovascular - Heart rhythm is regular. There is a II/ systolic murmur. There is no gallop or rub noted, Abdomen - Soft. Liver and spleen are not enlarged. There is no abdominal mass or ascites noted and there is no inguinal adenopathy, Extremities - No edema. She has scattered small purpuric lesions on the arms, Neurologic - No focal neurologic deficits noted. Lab/Imaging: Test performed on December 06, 2019 09:35 Sodium 141 mmol/L Potassium 5.0 mmol/L Chloride 103 mmol/L CO2 25 mmol/L Anion Gap 18.0 BUN 45 mg/dL Creatinine 2.2 mg/dL Cr Clearance (Est) 29.5200 mL/min Glucose 83 mg/dL Calcium 9.9 mg/dL Protein, Total 7.6 g/dL Albumin 4.1 g/dL Globulin 3.5 g/dL Bilirubin, Total 0.3 mg/dL ALT (SGPT) 18 U/L AST (SGOT) 20 U/L Alkaline Phosphatase 66 IU/L WBC 10.2 10 3/uL RBC 4.63 10 6/uL HGB 13.4 g/dL HCT 44.5 % MCV 96.1 fL MCH 28.9 pg MCHC 30.1 g/dL RDW 14.6 % Platelet Count 214 10 3/cmm MPV 12.4 fL Neutrophils 7.5 10 3/uL Lymphocytes 1.4 10 3/uL Monocytes 1.3 10 3/uL Eosinophils 0.0 10 3/uL Basophils 0.1 10 3/uL Neutrophil % 73.1 % Lymphocyte % 13.4 % Monocyte % 12.3 % Eosinophil % 0.3 % Basophils % 0.5 % Impression: 1. 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 2. She had hypercalcemia, extensive lytic bone involvement, and multiple vertebral compression fractures at initial diagnosis in July 2018. Her other medical illnesses include: 3. Hypertension. 4. Chronic atrial fibrillation. 5. Congestive heart failure. 6. Degenerative arthritis. 7. GERD. 8. Glaucoma. She was given IV Zometa at initial diagnosis. She then began treatment with weekly Velcade and dexamethasone on 08/03/2018. Her first cycle was complicated by episodes of atrial fibrillation and congestive heart failure. However, she did have evidence of significant response by protein electrophoresis and free light chain assay. She began cycle 2 of Velcade/dexamethasone on 09/27/2018 with Velcade 1.3 mg/m??? by subcutaneous injection and dexamethasone 20 mg weekly on a 4-week on and 1-week off schedule. She tolerated the 2nd cycle well, though her clinical course was further complicated [facility] resulting in a left inferior orbital wall depressed fracture and a C3 spinous process nondisplaced fracture. Both fractures awere managed conservatively. She was then able to continue with cycle 3 of Velcade/dexamethasone on 11/01/2018, with cycle 4 on 12/07/2018, and with cycle 5 on 01/10/2019. She appeared to be showing a good objective response with protein electrophoresis at that point showing decline in her M protein to 0.1 g/dL. The serum free light chain assay showed normal kappa light chain at 12.7 mg/L, normal lambda light chain at 10.3 mg/L, and normal kappa/lambda ratio at 1.23. She then continued treatment with Velcade and dexamethasone, but her subsequent clinical course was complicated by 2 admissions for decompensated congestive heart failure. During that time her dexamethasone was changed to 1 mg daily. Overall she has continued to have fairly marginal performance status, but she had otherwise been stable clinically. As of her follow-up visit on 03/15/2019 at opted to taper off her dexamethasone. At that point she continued with cycle 7 of Velcade. She was showing a very good objective response. On 04/04/2019 she had follow-up with Dr. Acevedo at [facility], and it was recommended that she transition to maintenance therapy with Velcade 1.3 mg/m??? by subcutaneous injection every 2 weeks together with lenalidomide 10 mg daily. Her repeat bone marrow aspiration/biopsy on 04/20/2019 showed only scant plasma cells estimated at 2 to 4% of the overall cellularity. She began cycle 1 of her maintenance therapy on 05/16/2019. Initially she appeared to be tolerating it with acceptable toxicity, but during her second cycle the lenalidomide was put on hold due to multiple side effects. During followup she was feeling better, and she continued treatment Velcade every 2 weeks. Her repeat protein electrophoresis studies on 08/01/2019 showed no detectable monoclonal protein, and the free light chain assay showed normal kappa/lambda ratio at 1.49. She has continued to have limited activity tolerance, but her pain was well controlled, and she was having no further issues with fluid retention. She continued treatment with Velcade every 2 weeks. As of 09/11/2019 her protein electrophoresis showed no detectable monoclonal protein. The free light chain assay showed slightly elevated kappa/lambda ratio at 1.73. During followup she has continued to have limited activity and fairly marginal performance status. However, she has been tolerating treatment with acceptable toxicity and thus far there has been no evidence of progression of the myeloma. She has now been able to return to her own home with a hired caregiver to assist her. Her overall clinical status appears stable, but over the past several months there is been a continued slight decline in her renal function. Plan: She will continue Velcade 1.3 mg/m??? by subcutaneous injection every 2 weeks and she continues denosumab 120 mg by subcutaneous injection for the lytic bone involvement. The lenalidomide and dexamethasone remain on hold. She will be scheduled for a follow-up visit in 4 weeks. In the meantime, I will have her try reducing the furosemide to 40 mg once daily. She is to increase back to twice daily if she has any significant weight gain. Signed By: Beltran Resendez M.D. <<Signature on File>>
[2019-12-27] MEDS: prochlorperazine 10 mg Tablet PO (11:40)
[2020-01-03 15:02] LABS: Basophils % 0.5 %; Eosinophils # 0.1 10^3/uL (0.0-0.8); Eosinophils % 0.6 %; Hematocrit 45.5 % (37.0-47.0); Hemoglobin 13.5 g/dL (11.5-15.3); Lymphocytes % 25.2 %; Mean Corpuscular HGB Conc 29.7 g/dL (30.0-36.0); Mean Corpuscular Hemoglobin 29.2 pg (28.0-34.0); Mean Corpuscular Volume 98.3 fL (81-99); Mean Platelet Volume 12.6 fL (7.4-10.4); Monocytes # 0.9 10^3/uL (0.2-0.9); Monocytes % 11.2 %; Neutrophils # 4.8 10^3/uL (1.8-7.7); Neutrophils % 62.2 %; Nucleated Red Blood Cells % 0 %; Platelet Count 192 10^3/cmm (130-400); Red Blood Count 4.63 10^6/uL (4.1-5.3); Red Cell Distribution Width 15.6 % (12.1-15.1); White Blood Count 7.8 10^3/uL (4.0-10.0)
[2020-01-03 16:04] LABS: Alanine Aminotransferase 16 U/L (0-33); Albumin Level 4.1 g/dL (3.5-5.2); Alkaline Phosphatase 59 IU/L (35-105); Anion Gap 18.5 (5-19); Aspartate Amino Transferase 20 U/L (0-32); Blood Urea Nitrogen 36 mg/dL (8-23); Calcium 9.4 mg/dL (8.5-10.5); Carbon Dioxide 27 mmol/L (22-29); Chloride 103 mmol/L (98-107); Globulin 3.3 g/dL (1.3-4.6); Glucose 62 mg/dL (65-115); Osmolality Calculated 293 mOsm/kg (285-295); Potassium 4.5 mmol/L (3.5-5.1); Sodium 144 mmol/L (136-145); Total Bilirubin 0.3 mg/dL (0.15-1.2); Total Protein 7.4 g/dL (6.6-8.7)
[2020-01-04 11:05] LABS: PROTEIN, TOTAL 6.6 g/dL (6.1-8.1)
[2020-01-04 11:35] LABS: KAPPA LIGHT CHAIN, FREE, SERUM 27.5 mg/L (3.3-19.4); KAPPA/LAMBDA LIGHT CHAINS FREE 1.66 (0.26-1.65); LAMBDA LIGHT CHAIN, FREE, SERU 16.6 mg/L (5.7-26.3)
[2020-01-04 14:50] LABS: ALBUMIN 3.7 g/dL (3.8-4.8); ALPHA 1 GLOBULIN 0.3 g/dL (0.2-0.3); BETA 1 GLOBULIN 0.4 g/dL (0.4-0.6); BETA 2 GLOBULIN 0.3 g/dL (0.2-0.5); GAMMA GLOBULIN 0.9 g/dL (0.8-1.7)
== END 2020-01-09 23:59 | disposition home or self-care (01) ==
LOC: ONCMED 08:15
PROVIDERS: Family Provider Family Medicine; PCP Family Medicine; Visit Provider Internal Medicine Medical Oncology
DX: Z51.11 Encounter for antineoplastic chemotherapy (principal); C90.00 Multiple myeloma not having achieved remission; M25.572 Pain in left ankle and joints of left foot; R22.42 Localized swelling, mass and lump, left lower limb; I48.91 Unspecified atrial fibrillation; I50.9 Heart failure, unspecified; K21.9 Gastro-esophageal reflux disease without esophagitis; I10 Essential (primary) hypertension; M81.0 Age-related osteoporosis without current pathological fracture; M47.9 Spondylosis, unspecified; H40.9 Unspecified glaucoma; Z79.899 Other long term (current) drug therapy
CPT/HCPCS: 36415; 80053; 83883; 84155; 84165; 85025; 96372; 96401; 99214; J0897; J9041; Q0164

== ENCOUNTER 2020-02-07 06:42 | Outpatient (RCR) | payer MEDICARE, BC, SELFPAY ==
[2020-01-10] MEDS: denosumab 120 mg SDV SUBCUT (13:03)
[2020-01-10] MEDS: prochlorperazine 10 mg Tablet PO (13:05)
--- NOTE | 2020-01-16 13:56 | ONC FU_ITS ---
[facility] Patient Note Patient: Alcira Shirley Unit #: [id number]: [id number] Dictated By: Kellie HyltonDate of Visit: Jan 10, 2020 Onc MED Follow-Up/Prog Note Chief Complaint: Myeloma. History of Present Illness: Ms Shirley is a 79 year-old woman with IgG kappa myeloma, stage III. She had known osteoporosis and multiple vertebral compression fractures dating back to at least March 2018. In May 2018 she underwent further evaluation at the bone health clinic at [facility]. A protein electrophoresis at that time showed IgG kappa monoclonal protein quantitating at 0.5 g/dL. She had hematology consultation with Dr. Cecille Acevedo on 07/19/2018. Her laboratory studies at that time showed significant hypercalcemia with a serum calcium of 13.6 mg/dL. Her hemoglobin was normal at 15.0 g and her creatinine was borderline at 0.91 mg/dL. Her repeat protein electrophoresis showed her M protein quantitating at 0.6 g/dL. Her free light chain assay showed elevated kappa light chain at 524 mg/L and decreased lambda light chain at < 0.15 mg/L. Her skeletal survey showed innumerable lytic lesions throughout the apical and appendicular skeleton, compatible with multiple myeloma. Bone marrow aspiration/biopsy on 07/21/2018 showed a mildly hypercellular marrow with 60% involvement with plasma cell neoplasm, kappa restricted. 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 Further evaluation with PET/CT on 07/21/2018 showed a mildly FDG avid expansile lytic lesion of the right fourth rib consistent with a diagnosis of multiple myeloma. Also noted was a mottled appearance with lytic lesions seen throughout the axial and appendicular skeleton greatest in the skull and bilateral upper extremities, also consistent with myeloma. Multiple compression deformities were seen throughout the thoracic spine, greatest at T7. During that time she had been admitted to the hospital and she was treated with IV Zometa. She then began treatment with weekly Velcade and dexamethasone, cycle 1 day 1 on 08/03/2018. Her further clinical course was complicated by atrial fibrillation and congestive heart failure, requiring hospital admissions on 08/25/2018, on 09/01/2018 100 and on 09/09/2018. As a result, her cycle 2 of Velcade/dexamethasone was delayed. Despite the complications, she did have a good response with her M protein decreased to 0.3 g/dL and her free kappa light chain decreased to 2.00 mg/dL. Her kappa/lambda ratio normalized to 1.12. She then began cycle 2 on 09/27/2018 with Velcade continued at 1.3 mg/m??? by subcutaneous injection weekly and dexamethasone reduced to 20 mg weekly on a 4-week on/1-week off schedule. Dr Resendez had seen her initially on 10/27/2018. She had completed her 2nd cycle of treatment. Her clinical course, though, was further complicated by a fall at the shelter resulting in a left inferior orbital wall depressed fracture and he C3 spinous process nondisplaced fracture, both of which were managed conservatively. Her other medical illnesses hypertension, chronic atrial fibrillation, congestive heart failure, GERD, degenerative arthritis, and glaucoma. Her prior surgeries include ORIF for left femur fracture in 2012 and right total knee arthroplasty in 2007. She is a nonsmoker. INTERIM HISTORY: She had follow-up at [facility] on 11/01/2018. At that point she was given a second infusion of Zometa, and she began cycle 3 of Velcade/dexamethasone. With that cycle she was able to complete 4 weekly Velcade injections together with dexamethasone 10 mg twice weekly followed by a 1 week rest. She continued with cycle 4 of Velcade/dexamethasone on 12/07/2018. She was again able to tolerate the for weekly Velcade injections along with dexamethasone 10 mg twice weekly. During that time, she had a follow-up with her orthopedic surgeon in [place], and she was told that she had 2 new vertebral compression fractures, presumably resulting from the fall. However, she was able to transition from the shelter to assisted living. She was seen for a follow-up visit on 01/10/2019. At that point she appeared stable clinically and she continued with her 5th cycle of treatment with Velcade/dexamethasone. With that cycle, her 4th weekly dose of Velcade was omitted, as she was admitted to the hospital at day 22 with worsening congestive heart failure in association with an acute decline in her renal function. She then continued with cycle 6 on 02/21/2019. The day 22 Velcade was omitted with that cycle as well, as she was again admitted to the hospital with decompensated heart failure. With those episodes of congestive heart failure, her dexamethasone was changed to 1 mg daily. In the meantime, her protein electrophoresis studies from January showed her M band quantitating at 0.1 g/dL, and her serum free light chain assay showed her kappa light chain at 12.7 mg/L with lambda light chain 10.3 mg/L and kappa/lambda ratio normal at 1.23. She was seen again by Dr. Acevedo at [facility] on 04/04/2019. It was recommended that she transitioned to maintenance therapy with Velcade 1.3 mg/m??? by subcutaneous injection every 2 weeks together with lenalidomide 10 mg daily. Her repeat bone marrow aspiration/biopsy on 04/20/2019 showed cellularity ranging from 10 to 30% with normal trilineage hematopoiesis. There were just rare scattered plasma cells noted, estimated at 2 to 4% of the overall cellularity. On 05/16/2019 she began cycle 1 of maintenance therapy with Velcade 1.3 mg/m??? by subcutaneous injection every 2 weeks together with Revlimid 10 mg daily. Her repeat protein electrophoresis on 06/06/2019 reported an IgG kappa monoclonal protein band quantitating at 1.9 g/dL. The free light chain assay showed elevated kappa light chain at 128 mg/L with lambda light chain 26.9 mg/L and kappa/lambda ratio 4.77. At her follow-up visit on 06/13/2019 she appeared to be tolerating the treatment with acceptable toxicity, though her protein electrophoresis at that time reported a significant increase in her M protein to 1.9 g/dL. I opted to continue her same treatment and on her repeat SPEP the M protein was similar to the prior studies at 0.1 g/dL. However, she did have to stop the Revlimid due to multiple side effects including weakness/fatigue, anorexia, nausea, and insomnia, among others. She just did not feel good generally. She also was taken off dexamethasone due to fluid retention, but she was able to continue the Velcade injections every 2 weeks. Her repeat protein electrophoresis studies on 08/01/2019 showed no detectable monoclonal protein and the serum free light chain assay showed normal kappa/lambda ratio at 1.49. Her clinical status at that point appeared stable, and she continued Velcade 1.3 mg/m??? by subcutaneous injection every 2 weeks. She is seen for a scheduled visit. Since her last visit she has been able to return to her own home with a hired caregiver to assist her. She is doing quite well with his arrangement. She states she is been a little more active around her home. She denies any new concerns. She states that she has noticed that her hands have become shaky and cannot determine any particular rhyme or reason. She states they really do not hurt and not swelling they are just shaky. However this is not interfered with her ADLs as of yet. She denies any mouth sores, sore throat or difficulty swallowing. She denies fever, chills or any signs of infection. She states she is eating good. She states she feels pretty good overall. She denies any new pain. She denies any new concerns. She states that using Lasix as needed her swelling has been doing good. And she has had no further week/near falling spells. She states she feels she is doing pretty good overall. Her ECOG is 2. Past Medical History: Atrial fibrillation Congestive heart failure Gastroesophageal reflux disease Glaucoma Hypertension Multiple vertebral compression fractures Osteoarthritis Osteoporosis Past Surgical History: ORIF for left femur fracture in 2012 Right total knee arthroplasty in 2007 Allergies: Codeine Sulfate and Statins. Medications: Acyclovir 1 Tablet (of 400 mg) Oral daily Amiodarone HCl 1 Tablet (of 200 mg) Oral daily Culturelle (10 Billion) Capsule Oral Take as Directed HYDROcodone-Acetaminophen 1 Tablet (of 5-325 mg) Oral q 6 hours PRN Klor-Con M20 (10 meq) Tablet, controlled release Oral Take as Directed Meclizine HCl 1 Tablet (of 25 mg) Oral t.i.d. PRN MiraLax 1 Pack Oral daily Mirtazapine 1 (15 mg) Tablet Oral at bedtime Morphine Sulfate ER 1 Tablet (of 15 mg) Tablet SR 24 HR Oral b.i.d. Multiple Vitamins-Minerals 1 Tablet Oral daily Pepcid 1 Tablet (of 20 mg) Oral at bedtime Spironolactone 0.5 Tablet (of 50 mg) Oral daily Systane Complete 1 Drop(s) Solution Ophthalmic PRN Velcade 1 (3.5 mg) Injection q 7 days Xarelto 1 Tablet (of 10 mg) Oral daily Xgeva 1 Each (of 120 ) Subcutaneous q 30 days Family History: Ms. Shirley's mother is . Ms. Shirley's father is . Ms. Shirley has 2 brothers: 2 alive. Ms. Shirley's first brother's stroke. Both parents with heart disease. A brother has had a stroke. Social History: Ms. Shirley is and she is retired. Ms. Shirley has never smoked. She has no history of drinking. Ms. Shirley reports the following support systems: lives in own house, supportive family/friends willing to assist with needs, and adequate transportation available for expected visits. Her diet consists of regular meals and nutritional supplements. She indicates her activity level as: sedentary. She is a nonsmoker. She does not drink alcohol. Review Of Symptoms: Constitutional Denies fevers, chills, night sweats, excessive fatigue or weight loss. She has returned home and has a caregiver stay with her at night. Allergic/Immunologic No reactions. Eyes Denies significant visual changes. No diplopia. No amaurosis. ENMT Denies changes in hearing, sore throat, mouth sores, difficulty or changes in swallowing ability, and/or sinus drainage. Endocrine No diabetes, thyroid disease or hormone replacement. Denies any new hot flashes or night sweats. Hematologic/Lymphatic Denies easy bruising or bleeding. The patient denies any tender or palpable lymph nodes. Respiratory Denies dyspnea on exertion, chest pain, or hemoptysis. Denies orthopnea. Occasional cough-non productive. Cardiovascular Denies anginal chest pain, palpitations or orthopnea. Gastrointestinal Denies nausea, vomiting, diarrhea, GI bleeding, or constipation. Denies change in bowel habits and/or stool color, no heartburn or early satiety. Genitourinary (F) No hematuria, hesitancy, incontinence, or other problems with urination. Musculoskeletal Denies joint pain or redness. No decreased range of motion. Integumentary Denies chronic rashes, inflammation, ulcerations or skin changes. Neurologic Denies headache, blurred vision, and no areas of focal weakness or numbness. She has noticed that her hands are more shaky than what they have been. It is not affecting with her ADLs as of yet but she has noticed some change. Psychiatric Denies depression, alexander or mood swings. Some intermittent insomnia and takes Tylenol PM for this. Vital Signs: Performed on Jan 10, 2020 11:33 Height - 61.00 in Weight - 195.2 lbs (HIGH) BSA - 1.87 sq.m BMI - 36.88 (HIGH) Temperature - 98.3 F (LOW) Pulse - 67 /min Respiration - 19 /min BP - 136/70 mm(hg) O2 Sat - 94 % (LOW) Pain - 0,2 - Ambulatory/capable of all self-care, unable to perform any work activities. Up and about more than 50% of waking hours. (ECOG) Physical Examination: Constitutional Alert, oriented, no acute distress. Skin pink, warm and dry. Head Normocephalic; atraumatic. Eyes Conjunctivae and sclerae are clear and without icterus. Pupils are reactive and equal. Neck Supple without masses or thyromegaly. No jugular venous distension. Hematologic/Lymphatic No petechiae or purpura. No tender or palpable lymph nodes in the cervical or supraclavicular areas. Respiratory Lungs are clear to auscultation without rhonchi or wheezing. Cardiovascular Regular rate and rhythm of heart systolic murmur,clicks, gallops or rubs. Abdomen Non-tender, non-distended, no masses. Back/Spine Non-tender to palpation. Extremities No visible deformities, no cyanosis, clubbing or edema. Musculoskeletal No tenderness or swelling, normal range of motion without obvious weakness. Integumentary No rashes or lesions. Neurologic No sensory or motor deficits, normal cerebellar function. Psychiatric Alert and oriented times three. Coherent speech. Verbalizes understanding of our discussions today. Laboratory:Test performed on Jan 03, 2020 08:15 Sodium 144 mmol/L Potassium 4.5 mmol/L Chloride 103 mmol/L CO2 27 mmol/L Anion Gap 18.5 BUN 36 mg/dL Creatinine 1.9 mg/dL Cr Clearance (Est) 34.1800 mL/min Glucose 62 mg/dL Calcium 9.4 mg/dL Protein, Total 7.4 g/dL Albumin 4.1 g/dL Globulin 3.3 g/dL Bilirubin, Total 0.3 mg/dL ALT (SGPT) 16 U/L AST (SGOT) 20 U/L Alkaline Phosphatase 59 IU/L WBC 7.8 10 3/uL RBC 4.63 10 6/uL HGB 13.5 g/dL HCT 45.5 % MCV 98.3 fL MCH 29.2 pg MCHC 29.7 g/dL RDW 15.6 % Platelet Count 192 10 3/cmm MPV 12.6 fL Neutrophils 4.8 10 3/uL Lymphocytes 2.0 10 3/uL Monocytes 0.9 10 3/uL Eosinophils 0.1 10 3/uL Basophils 0.0 10 3/uL Neutrophil % 62.2 % Lymphocyte % 25.2 % Monocyte % 11.2 % Eosinophil % 0.6 % Basophils % 0.5 % NRBC % 0 % Impression: 1. 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 2. She had hypercalcemia, extensive lytic bone involvement, and multiple vertebral compression fractures at initial diagnosis in July 2018. Her other medical illnesses include: 3. Hypertension. 4. Chronic atrial fibrillation. 5. Congestive heart failure. 6. Degenerative arthritis. 7. GERD. 8. Glaucoma. She was given IV Zometa at initial diagnosis. She then began treatment with weekly Velcade and dexamethasone on 08/03/2018. Her first cycle was complicated by episodes of atrial fibrillation and congestive heart failure. However, she did have evidence of significant response by protein electrophoresis and free light chain assay. She began cycle 2 of Velcade/dexamethasone on 09/27/2018 with Velcade 1.3 mg/m??? by subcutaneous injection and dexamethasone 20 mg weekly on a 4-week on and 1-week off schedule. She tolerated the 2nd cycle well, though her clinical course was further complicated by a fall at the shelter on 10/23/2018 resulting in a left inferior orbital wall depressed fracture and a C3 spinous process nondisplaced fracture. Both fractures were managed conservatively. She was then able to continue with cycle 3 of Velcade/dexamethasone on 11/01/2018, with cycle 4 on 12/07/2018, and with cycle 5 on 01/10/2019. She appeared to be showing a good objective response with protein electrophoresis at that point showing decline in her M protein to 0.1 g/dL. The serum free light chain assay showed normal kappa light chain at 12.7 mg/L, normal lambda light chain at 10.3 mg/L, and normal kappa/lambda ratio at 1.23. She then continued treatment with Velcade and dexamethasone, but her subsequent clinical course was complicated by 2 admissions for decompensated congestive heart failure. During that time her dexamethasone was changed to 1 mg daily. Overall she has continued to have fairly marginal performance status, but she had otherwise been stable clinically. As of her follow-up visit on 03/15/2019 at opted to taper off her dexamethasone. At that point she continued with cycle 7 of Velcade. She was showing a very good objective response. On 04/04/2019 she had follow-up with Dr. Acevedo at [facility], and it was recommended that she transition to maintenance therapy with Velcade 1.3 mg/m??? by subcutaneous injection every 2 weeks together with lenalidomide 10 mg daily. Her repeat bone marrow aspiration/biopsy on 04/20/2019 showed only scant plasma cells estimated at 2 to 4% of the overall cellularity. She began cycle 1 of her maintenance therapy on 05/16/2019. Initially she appeared to be tolerating it with acceptable toxicity, but during her second cycle the lenalidomide was put on hold due to multiple side effects. During followup she was feeling better, and she continued treatment Velcade every 2 weeks. Her repeat protein electrophoresis studies on 08/01/2019 showed no detectable monoclonal protein, and the free light chain assay showed normal kappa/lambda ratio at 1.49. She has continued to have limited activity tolerance, but her pain was well controlled, and she was having no further issues with fluid retention. She continued treatment with Velcade every 2 weeks. As of 09/11/2019 her protein electrophoresis showed no detectable monoclonal protein. The free light chain assay showed slightly elevated kappa/lambda ratio at 1.73. During followup she has continued to have limited activity and fairly marginal performance status. However, she has been tolerating treatment with acceptable toxicity and thus far there has been no evidence of progression of the myeloma. She has now been able to return to her own home with a hired caregiver to assist her. Her overall clinical status appears stable, but over the past several months there is been a continued slight decline in her renal function. Plan: 1. Proceed with cycle 17 day 15 Velcade 1.3 mg/m??? by subcutaneous injection. She is scheduled for Velcade every 2 weeks. The lenalidomide and dexamethasone remain on hold. 2. Continue Xgeva monthly for the bone involvement. Her last dose was on 12/13/2019. The tentative plan is to leave her on the Xgeva for at least a year and then consider going to every 3 months. 3. I have asked to add a magnesium and thyroid studies to her next labs on to see if we can evaluate why her hands are shaky and her fatigue. 4. Labs from December 14, 2019 were reviewed in detail and discussed with Mrs. Oates and her daughter. White count 7.8, hemoglobin 13.5, platelets 192,000 ANC is 4800. Potassium 4.5 glucose 62 creatinine improved at 1.9 and LFTs are normal. Her kappa light chain was reported at 27.5 on 01/03/2020 with the lambda light chain is 16.6 and the kappa/lambda light chain ratio at 1.66. The kappa light chain was 30.4 on 12/06/2019. The lambda light chain was 18.7 and the kappa lambda light chain ratio was 1.63. 5. She may continue to use the Lasix as needed as needed for edema-her edema is currently controlled well. 6. She will return in 2 weeks for Velcade only. Her follow-up visit will be in 4 weeks at which time I requested a follow-up TSH magnesium coags, kappa lambda free light chains, SPEP with EVELYN, CBC, CMP and hold type and cross tube. 7. Mrs. Oates and her daughter were encouraged to contact us in the interim should questions or problems arise. Signed By: Kellie Hylton-CANDY, AOCNRaeann Resendez MD <<Signature on File>>
[2020-01-24] MEDS: prochlorperazine 10 mg Tablet PO (12:00)
[2020-01-31 13:56] LABS: Basophils % 0.3 %; Eosinophils % 0.3 %; Hematocrit 46.2 % (37.0-47.0); Hemoglobin 13.7 g/dL (11.5-15.3); Lymphocytes # 1.3 10^3/uL (0.8-4.8); Lymphocytes % 18.2 %; Mean Corpuscular HGB Conc 29.7 g/dL (30.0-36.0); Mean Corpuscular Hemoglobin 28.5 pg (28.0-34.0); Mean Platelet Volume 12.7 fL (7.4-10.4); Monocytes # 0.7 10^3/uL (0.2-0.9); Monocytes % 10.3 %; Neutrophils % 70.6 %; Nucleated Red Blood Cells % 0 %; Platelet Count 186 10^3/cmm (130-400); Red Blood Count 4.81 10^6/uL (4.1-5.3); Red Cell Distribution Width 15.3 % (12.1-15.1); White Blood Count 7.2 10^3/uL (4.0-10.0)
[2020-01-31 14:33] LABS: Alanine Aminotransferase 14 U/L (0-33); Albumin Level 4.4 g/dL (3.5-5.2); Alkaline Phosphatase 56 IU/L (35-105); Anion Gap 17.1 (5-19); Aspartate Amino Transferase 17 U/L (0-32); Blood Urea Nitrogen 43 mg/dL (8-23); Calcium 9.4 mg/dL (8.5-10.5); Carbon Dioxide 28 mmol/L (22-29); Chloride 103 mmol/L (98-107); Globulin 2.9 g/dL (1.3-4.6); Glucose 92 mg/dL (65-115); Immunoglobulin IGA 141 mg/dL (70-400); Immunoglobulin IGG 1026 mg/dL (700-1600); Immunoglobulin IGM 87 mg/dL (40-230); Magnesium 2.6 mg/dL (1.7-2.3); Osmolality Calculated 293 mOsm/kg (285-295); Potassium 5.1 mmol/L (3.5-5.1); Sodium 143 mmol/L (136-145); Thyroid Stimulating Hormone 0.93 uIU/mL (0.27-4.20); Total Bilirubin 0.3 mg/dL (0.15-1.2); Total Protein 7.3 g/dL (6.6-8.7)
[2020-02-01 08:30] LABS: PROTEIN, TOTAL 6.8 g/dL (6.1-8.1)
[2020-02-01 14:45] LABS: KAPPA LIGHT CHAIN, FREE, SERUM 28.4 mg/L (3.3-19.4); LAMBDA LIGHT CHAIN, FREE, SERU 16.7 mg/L (5.7-26.3)
[2020-02-01 16:35] LABS: ALBUMIN 3.8 g/dL (3.8-4.8); ALPHA 1 GLOBULIN 0.3 g/dL (0.2-0.3); BETA 1 GLOBULIN 0.4 g/dL (0.4-0.6); BETA 2 GLOBULIN 0.3 g/dL (0.2-0.5); GAMMA GLOBULIN 0.9 g/dL (0.8-1.7)
[2020-02-07] MEDS: prochlorperazine 10 mg Tablet PO (14:30)
[2020-02-07] MEDS: denosumab 120 mg SDV SUBCUT (14:30)
--- NOTE | 2020-02-11 17:06 | ONC FU_ITS ---
[facility] Patient Note Patient: Alcira Shirley Unit #: [id number]: 1940 Dictated By: Kellie HyltonDate of Visit: Feb 07, 2020 Onc MED Follow-Up/Prog Note Chief Complaint: Myeloma. History of Present Illness: Ms Shirley is a 79 year-old woman with IgG kappa myeloma, stage III. She had known osteoporosis and multiple vertebral compression fractures dating back to at least March 2018. In May 2018 she underwent further evaluation at the bone health clinic at [facility]. A protein electrophoresis at that time showed IgG kappa monoclonal protein quantitating at 0.5 g/dL. She had hematology consultation with Dr. Cecille Acevedo on 07/19/2018. Her laboratory studies at that time showed significant hypercalcemia with a serum calcium of 13.6 mg/dL. Her hemoglobin was normal at 15.0 g and her creatinine was borderline at 0.91 mg/dL. Her repeat protein electrophoresis showed her M protein quantitating at 0.6 g/dL. Her free light chain assay showed elevated kappa light chain at 524 mg/L and decreased lambda light chain at < 0.15 mg/L. Her skeletal survey showed innumerable lytic lesions throughout the apical and appendicular skeleton, compatible with multiple myeloma. Bone marrow aspiration/biopsy on 07/21/2018 showed a mildly hypercellular marrow with 60% involvement with plasma cell neoplasm, kappa restricted. 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 Further evaluation with PET/CT on 07/21/2018 showed a mildly FDG avid expansile lytic lesion of the right fourth rib consistent with a diagnosis of multiple myeloma. Also noted was a mottled appearance with lytic lesions seen throughout the axial and appendicular skeleton greatest in the skull and bilateral upper extremities, also consistent with myeloma. Multiple compression deformities were seen throughout the thoracic spine, greatest at T7. During that time she had been admitted to the hospital and she was treated with IV Zometa. She then began treatment with weekly Velcade and dexamethasone, cycle 1 day 1 on 08/03/2018. Her further clinical course was complicated by atrial fibrillation and congestive heart failure, requiring hospital admissions on 08/25/2018, on 09/01/2018 100 and on 09/09/2018. As a result, her cycle 2 of Velcade/dexamethasone was delayed. Despite the complications, she did have a good response with her M protein decreased to 0.3 g/dL and her free kappa light chain decreased to 2.00 mg/dL. Her kappa/lambda ratio normalized to 1.12. She then began cycle 2 on 09/27/2018 with Velcade continued at 1.3 mg/m??? by subcutaneous injection weekly and dexamethasone reduced to 20 mg weekly on a 4-week on/1-week off schedule. Dr Resendez had seen her initially on 10/27/2018. She had completed her 2nd cycle of treatment. Her clinical course, though, was further [facility] in a left inferior orbital wall depressed fracture and he C3 spinous process nondisplaced fracture, both of which were managed conservatively. Her other medical illnesses hypertension, chronic atrial fibrillation, congestive heart failure, GERD, degenerative arthritis, and glaucoma. Her prior surgeries include ORIF for left femur fracture in 2012 and right total knee arthroplasty in 2007. She is a nonsmoker. INTERIM HISTORY: She had follow-up at [facility] on 11/01/2018. At that point she was given a second infusion of Zometa, and she began cycle 3 of Velcade/dexamethasone. With that cycle she was able to complete 4 weekly Velcade injections together with dexamethasone 10 mg twice weekly followed by a 1 week rest. She continued with cycle 4 of Velcade/dexamethasone on 12/07/2018. She was again able to tolerate the for weekly Velcade injections along with dexamethasone 10 mg twice weekly. During that time, she had a follow-up with her orthopedic surgeon in [place], and she was told that she had 2 new vertebral compression fractures, presumably resulting from the fall. However, [facility]. She was seen for a follow-up visit on 01/10/2019. At that point she appeared stable clinically and she continued with her 5th cycle of treatment with Velcade/dexamethasone. With that cycle, her 4th weekly dose of Velcade was omitted, as she was admitted to the hospital at day 22 with worsening congestive heart failure in association with an acute decline in her renal function. She then continued with cycle 6 on 02/21/2019. The day 22 Velcade was omitted with that cycle as well, as she was again admitted to the hospital with decompensated heart failure. With those episodes of congestive heart failure, her dexamethasone was changed to 1 mg daily. In the meantime, her protein electrophoresis studies from January showed her M band quantitating at 0.1 g/dL, and her serum free light chain assay showed her kappa light chain at 12.7 mg/L with lambda light chain 10.3 mg/L and kappa/lambda ratio normal at 1.23. She was seen again by Dr. Acevedo at [facility] on 04/04/2019. It was recommended that she transitioned to maintenance therapy with Velcade 1.3 mg/m??? by subcutaneous injection every 2 weeks together with lenalidomide 10 mg daily. Her repeat bone marrow aspiration/biopsy on 04/20/2019 showed cellularity ranging from 10 to 30% with normal trilineage hematopoiesis. There were just rare scattered plasma cells noted, estimated at 2 to 4% of the overall cellularity. On 05/16/2019 she began cycle 1 of maintenance therapy with Velcade 1.3 mg/m??? by subcutaneous injection every 2 weeks together with Revlimid 10 mg daily. Her repeat protein electrophoresis on 06/06/2019 reported an IgG kappa monoclonal protein band quantitating at 1.9 g/dL. The free light chain assay showed elevated kappa light chain at 128 mg/L with lambda light chain 26.9 mg/L and kappa/lambda ratio 4.77. At her follow-up visit on 06/13/2019 she appeared to be tolerating the treatment with acceptable toxicity, though her protein electrophoresis at that time reported a significant increase in her M protein to 1.9 g/dL. I opted to continue her same treatment and on her repeat SPEP the M protein was similar to the prior studies at 0.1 g/dL. However, she did have to stop the Revlimid due to multiple side effects including weakness/fatigue, anorexia, nausea, and insomnia, among others. She just did not feel good generally. She also was taken off dexamethasone due to fluid retention, but she was able to continue the Velcade injections every 2 weeks. Her repeat protein electrophoresis studies on 08/01/2019 showed no detectable monoclonal protein and the serum free light chain assay showed normal kappa/lambda ratio at 1.49. Her clinical status at that point appeared stable, and she continued Velcade 1.3 mg/m??? by subcutaneous injection every 2 weeks. She is seen for a scheduled visit. Since her last visit she has been able to return to her own home with a hired caregiver to assist her. She is doing quite well with his arrangement. She states she is been a little more active around her home. Her daughter reports that she has been busy around the house. She states that Ms. Shirley made generally with her sister which required her to be up quite a bit and she tolerated this well. She is also reportedly doing needlepoint at home???(is very fine needlepoint as well). Her daughter thinks that this may be causing some of her hand shaking that she will need appointment to her hand is fatigue and then noticing the shaking. She denies any mouth sores, sore throat or difficulty swallowing. She denies fever, chills or any signs of infection. She states she is eating good. She states she feels pretty good overall. She denies any new pain. She denies any new concerns. She states that using Lasix as needed her swelling has been doing good. And she has had no further week/near falling spells. She states she feels she is doing pretty good overall. Her ECOG is 1. Past Medical History: Atrial fibrillation Congestive heart failure Gastroesophageal reflux disease Glaucoma Hypertension Multiple vertebral compression fractures Osteoarthritis Osteoporosis Past Surgical History: ORIF for left femur fracture in 2012 Right total knee arthroplasty in 2007 Allergies: Codeine Sulfate and Statins. Medications: Acyclovir 1 Tablet (of 400 mg) Oral daily Amiodarone HCl 1 Tablet (of 200 mg) Oral daily Culturelle (10 Billion) Capsule Oral Take as Directed HYDROcodone-Acetaminophen 1 Tablet (of 5-325 mg) Oral q 6 hours PRN Klor-Con M20 (10 meq) Tablet, controlled release Oral Take as Directed Meclizine HCl 1 Tablet (of 25 mg) Oral t.i.d. PRN MiraLax 1 Pack Oral daily Mirtazapine 1 (15 mg) Tablet Oral at bedtime Morphine Sulfate ER 1 Tablet (of 15 mg) Tablet SR 24 HR Oral b.i.d. Multiple Vitamins-Minerals 1 Tablet Oral daily Pepcid 1 Tablet (of 20 mg) Oral at bedtime Spironolactone 0.5 Tablet (of 50 mg) Oral daily Systane Complete 1 Drop(s) Solution Ophthalmic PRN Velcade 1 (3.5 mg) Injection q 7 days Xarelto 1 Tablet (of 10 mg) Oral daily Xgeva 1 Each (of 120 ) Subcutaneous q 30 days Family History: Ms. Shirley's mother is . Ms. Shirley's father is . Ms. Shirley has 2 brothers: 2 alive. Ms. Shirley's first brother's stroke. Both parents with heart disease. A brother has had a stroke. Social History: Ms. Shirley is and she is retired. Ms. Shirley has never smoked. She has no history of drinking. Ms. Shirley reports the following support systems: lives in own house, supportive family/friends willing to assist with needs, and adequate transportation available for expected visits. Her diet consists of regular meals and nutritional supplements. She indicates her activity level as: sedentary. She is a nonsmoker. She does not drink alcohol. Review Of Symptoms: Constitutional Denies fevers, chills, night sweats, excessive fatigue or weight loss. She has returned home and has a caregiver stay with her at night. Allergic/Immunologic No reactions. Eyes Denies significant visual changes. No diplopia. No amaurosis. ENMT Denies changes in hearing, sore throat, mouth sores, difficulty or changes in swallowing ability, and/or sinus drainage. Endocrine No diabetes, thyroid disease or hormone replacement. Denies any new hot flashes or night sweats. Hematologic/Lymphatic Denies easy bruising or bleeding. The patient denies any tender or palpable lymph nodes. Respiratory Denies dyspnea on exertion, chest pain, or hemoptysis. Denies orthopnea. Occasional cough-non productive. Cardiovascular Denies anginal chest pain, palpitations or orthopnea. Gastrointestinal Denies nausea, vomiting, diarrhea, GI bleeding, or constipation. Denies change in bowel habits and/or stool color, no heartburn or early satiety. Genitourinary (F) No hematuria, hesitancy, incontinence, or other problems with urination. Musculoskeletal Denies joint pain or redness. No decreased range of motion. Integumentary Denies chronic rashes, inflammation, ulcerations or skin changes. Neurologic Denies headache, blurred vision, and no areas of focal weakness or numbness. Psychiatric Denies depression, alexander or mood swings. Some intermittent insomnia and takes Tylenol PM for this. Vital Signs: Performed on Feb 07, 2020 13:41 Height - 61.00 in Weight - 193.6 lbs (LOW) BSA - 1.86 sq.m BMI - 36.58 (HIGH) Temperature - 97.7 F (LOW) Pulse - 78 /min Respiration - 19 /min BP - 119/63 mm(hg) O2 Sat - 96 % Pain - 0,1 - No physically strenuous activity, but ambulatory and able to carry out light or sedentary work (e.g. office work, light house work). (ECOG) Physical Examination: Constitutional Alert, oriented, no acute distress. Skin pink, warm and dry. Head Normocephalic; atraumatic. Eyes Conjunctivae and sclerae are clear and without icterus. Pupils are reactive and equal. Neck Supple without masses or thyromegaly. No jugular venous distension. Hematologic/Lymphatic No petechiae or purpura. No tender or palpable lymph nodes in the cervical or supraclavicular areas. Respiratory Lungs are clear to auscultation without rhonchi or wheezing. Cardiovascular Regular rate and rhythm of heart systolic murmur,clicks, gallops or rubs. Abdomen Non-tender, non-distended, no masses. Back/Spine Non-tender to palpation. Extremities No visible deformities, no cyanosis, clubbing or edema. Musculoskeletal No tenderness or swelling, normal range of motion without obvious weakness. Integumentary No rashes or lesions. Neurologic No sensory or motor deficits, normal cerebellar function. Psychiatric Alert and oriented times three. Coherent speech. Verbalizes understanding of our discussions today. Laboratory:Test performed on Jan 03, 2020 08:15 Sodium 144 mmol/L Potassium 4.5 mmol/L Chloride 103 mmol/L CO2 27 mmol/L Anion Gap 18.5 BUN 36 mg/dL Creatinine 1.9 mg/dL Cr Clearance (Est) 34.1800 mL/min Glucose 62 mg/dL Calcium 9.4 mg/dL Protein, Total 7.4 g/dL Albumin 4.1 g/dL Globulin 3.3 g/dL Bilirubin, Total 0.3 mg/dL ALT (SGPT) 16 U/L AST (SGOT) 20 U/L Alkaline Phosphatase 59 IU/L WBC 7.8 10 3/uL RBC 4.63 10 6/uL HGB 13.5 g/dL HCT 45.5 % MCV 98.3 fL MCH 29.2 pg MCHC 29.7 g/dL RDW 15.6 % Platelet Count 192 10 3/cmm MPV 12.6 fL Neutrophils 4.8 10 3/uL Lymphocytes 2.0 10 3/uL Monocytes 0.9 10 3/uL Eosinophils 0.1 10 3/uL Basophils 0.0 10 3/uL Neutrophil % 62.2 % Lymphocyte % 25.2 % Monocyte % 11.2 % Eosinophil % 0.6 % Basophils % 0.5 % NRBC % 0 % Test performed on Nov 06, 2019 12:30 ESR (Sed Rate) 27 mm/hr Test performed on Aug 28, 2019 06:30 Albumin, SPE 3.1 g/dL [place] / Lambda Ratio 1.70 Absolute Value Lambda Light Chain 19.4 [place] Light Chain 33.0 [id number] 0.3 g/dL [id number] 0.9 g/dL Gamma Globulin 0.9 g/dL SPE Interpretation Hypoalbuminemia may be seen as a result of decreased protein synthesis or protein loss. No restricted band (M-spike) seen Impression: 1. 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 2. She had hypercalcemia, extensive lytic bone involvement, and multiple vertebral compression fractures at initial diagnosis in July 2018. Her other medical illnesses include: 3. Hypertension. 4. Chronic atrial fibrillation. 5. Congestive heart failure. 6. Degenerative arthritis. 7. GERD. 8. Glaucoma. She was given IV Zometa at initial diagnosis. She then began treatment with weekly Velcade and dexamethasone on 08/03/2018. Her first cycle was complicated by episodes of atrial fibrillation and congestive heart failure. However, she did have evidence of significant response by protein electrophoresis and free light chain assay. She began cycle 2 of Velcade/dexamethasone on 09/27/2018 with Velcade 1.3 mg/m??? by subcutaneous injection and dexamethasone 20 mg weekly on a 4-week on and 1-week off schedule. She tolerated the 2nd cycle well, though her clinical course was further complicated [facility] resulting in a left inferior orbital wall depressed fracture and a C3 spinous process nondisplaced fracture. Both fractures were managed conservatively. She was then able to continue with cycle 3 of Velcade/dexamethasone on 11/01/2018, with cycle 4 on 12/07/2018, and with cycle 5 on 01/10/2019. She appeared to be showing a good objective response with protein electrophoresis at that point showing decline in her M protein to 0.1 g/dL. The serum free light chain assay showed normal kappa light chain at 12.7 mg/L, normal lambda light chain at 10.3 mg/L, and normal kappa/lambda ratio at 1.23. She then continued treatment with Velcade and dexamethasone, but her subsequent clinical course was complicated by 2 admissions for decompensated congestive heart failure. During that time her dexamethasone was changed to 1 mg daily. Overall she has continued to have fairly marginal performance status, but she had otherwise been stable clinically. As of her follow-up visit on 03/15/2019 at opted to taper off her dexamethasone. At that point she continued with cycle 7 of Velcade. She was showing a very good objective response. On 04/04/2019 she had follow-up with Dr. Acevedo at [facility], and it was recommended that she transition to maintenance therapy with Velcade 1.3 mg/m??? by subcutaneous injection every 2 weeks together with lenalidomide 10 mg daily. Her repeat bone marrow aspiration/biopsy on 04/20/2019 showed only scant plasma cells estimated at 2 to 4% of the overall cellularity. She began cycle 1 of her maintenance therapy on 05/16/2019. Initially she appeared to be tolerating it with acceptable toxicity, but during her second cycle the lenalidomide was put on hold due to multiple side effects. During followup she was feeling better, and she continued treatment Velcade every 2 weeks. Her repeat protein electrophoresis studies on 08/01/2019 showed no detectable monoclonal protein, and the free light chain assay showed normal kappa/lambda ratio at 1.49. She has continued to have limited activity tolerance, but her pain was well controlled, and she was having no further issues with fluid retention. She continued treatment with Velcade every 2 weeks. As of 09/11/2019 her protein electrophoresis showed no detectable monoclonal protein. The free light chain assay showed slightly elevated kappa/lambda ratio at 1.73. During followup she has continued to have limited activity and fairly marginal performance status. However, she has been tolerating treatment with acceptable toxicity and thus far there has been no evidence of progression of the myeloma. She has now been able to return to her own home with a hired caregiver to assist her. Her overall clinical status appears stable, but over the past several months there is been a continued slight decline in her renal function. Plan: 1. Proceed with cycle 18 day 15 Velcade 1.3 mg/m??? by subcutaneous injection. She is scheduled for Velcade every 2 weeks. The lenalidomide and dexamethasone remain on hold. 2. Continue Xgeva monthly for the bone involvement. Her last dose was on 01/10/2020. The tentative plan is to leave her on the Xgeva for at least a year and then consider going to every 3 months. 3. Gradual increase in activity encouraged. 4. Labs from January 31, 2020 were reviewed in detail and discussed with Mrs. Shirley and her daughter. White count 7.2, hemoglobin 13.7, platelets 186,000 ANC is 5100. Potassium 5.1 glucose 92 creatinine 2.2 and LFTs are normal. Her kappa light chain was reported at 27.5 on 01/03/2020 with the lambda light chain is 16.6 and the kappa/lambda light chain ratio at 1.66. The kappa light chain was 30.4 on 12/06/2019. The lambda light chain was 18.7 and the kappa lambda light chain ratio was 1.63. There was no M-spike seen on the specimen from 01/31/2020. 5. She may continue to use the Lasix as needed as needed for edema-her edema is currently controlled well. 6. She will return in 2 weeks for Velcade only. Her follow-up visit will be in 4 weeks at which time I requested a follow-up QUIGS, kappa lambda free light chains, SPEP with EVELYN, CBC, CMP. 7. Mrs. Shirley and her daughter were encouraged to contact us in the interim should questions or problems arise. Signed By: Kellie Hylton-CANDY, AOCNP Beltran Resendez MD <<Signature on File>>
== END 2020-02-09 23:59 | disposition home or self-care (01) ==
LOC: ONCMED 06:42
PROVIDERS: PCP Family Medicine; Visit Provider Nurse Practitioner
DX: Z51.11 Encounter for antineoplastic chemotherapy (principal); C90.00 Multiple myeloma not having achieved remission; M81.0 Age-related osteoporosis without current pathological fracture; I48.20 Chronic atrial fibrillation, unspecified; I11.0 Hypertensive heart disease with heart failure; I50.9 Heart failure, unspecified; K21.9 Gastro-esophageal reflux disease without esophagitis; M19.90 Unspecified osteoarthritis, unspecified site; H40.9 Unspecified glaucoma; Z79.891 Long term (current) use of opiate analgesic; Z79.01 Long term (current) use of anticoagulants; Z96.651 Presence of right artificial knee joint
CPT/HCPCS: 36415; 80053; 82784; 83735; 83883; 84155; 84165; 84443; 85025; 96372; 96401; 99214; J0897; J9041; Q0164

== ENCOUNTER 2020-03-06 05:42 | Outpatient (RCR) | payer MEDICARE, BC, SELFPAY ==
[2020-02-21] MEDS: prochlorperazine 10 mg Tablet PO (13:20)
[2020-02-28 14:27] LABS: Basophils % 0.4 %; Eosinophils % 0.5 %; Hematocrit 46.4 % (37.0-47.0); Hemoglobin 13.8 g/dL (11.5-15.3); Lymphocytes % 26.4 %; Mean Corpuscular HGB Conc 29.7 g/dL (30.0-36.0); Mean Corpuscular Hemoglobin 29.9 pg (28.0-34.0); Mean Corpuscular Volume 100.7 fL (81-99); Mean Platelet Volume 13.2 fL (7.4-10.4); Monocytes # 0.7 10^3/uL (0.2-0.9); Monocytes % 9.8 %; Neutrophils # 4.62 10^3/uL (1.8-7.7); Neutrophils % 62.6 %; Nucleated Red Blood Cells % 0 %; Platelet Count 182 10^3/cmm (130-400); Red Blood Count 4.61 10^6/uL (4.1-5.3); Red Cell Distribution Width 14.8 % (12.1-15.1); White Blood Count 7.4 10^3/uL (4.0-10.0)
[2020-02-28 14:45] LABS: Alanine Aminotransferase 12 U/L (0-33); Albumin Level 4.1 g/dL (3.5-5.2); Alkaline Phosphatase 59 IU/L (35-105); Anion Gap 18.1 (5-19); Aspartate Amino Transferase 21 U/L (0-32); Blood Urea Nitrogen 32 mg/dL (8-23); Calcium 8.9 mg/dL (8.5-10.5); Carbon Dioxide 26 mmol/L (22-29); Chloride 101 mmol/L (98-107); Globulin 3.3 g/dL (1.3-4.6); Glucose 86 mg/dL (65-115); Immunoglobulin IGA 192 mg/dL (70-400); Immunoglobulin IGG 1059 mg/dL (700-1600); Immunoglobulin IGM 84 mg/dL (40-230); Osmolality Calculated 289 mOsm/kg (285-295); Potassium 4.1 mmol/L (3.5-5.1); Sodium 141 mmol/L (136-145); Total Bilirubin 0.4 mg/dL (0.15-1.2); Total Protein 7.4 g/dL (6.6-8.7)
[2020-02-28 15:03] LABS: Slide Review Slide Review Perform
[2020-02-29 08:41] LABS: PROTEIN, TOTAL 6.9 g/dL (6.1-8.1)
[2020-02-29 13:19] LABS: KAPPA LIGHT CHAIN, FREE, SERUM 31.9 mg/L (3.3-19.4); KAPPA/LAMBDA LIGHT CHAINS FREE 1.69 (0.26-1.65); LAMBDA LIGHT CHAIN, FREE, SERU 18.9 mg/L (5.7-26.3)
[2020-02-29 14:49] LABS: ALBUMIN 3.8 g/dL (3.8-4.8); ALPHA 1 GLOBULIN 0.3 g/dL (0.2-0.3); ALPHA 2 GLOBULIN 1.1 g/dL (0.5-0.9); BETA 1 GLOBULIN 0.4 g/dL (0.4-0.6); BETA 2 GLOBULIN 0.3 g/dL (0.2-0.5); GAMMA GLOBULIN 0.9 g/dL (0.8-1.7)
[2020-03-06] MEDS: prochlorperazine 10 mg Tablet PO (11:05)
[2020-03-06] MEDS: denosumab 120 mg SDV SUBCUT (11:24)
--- NOTE | 2020-03-10 10:04 | ONC FU_ITS ---
Dr. Resendez Patient Follow-Up Note Patient: Alcira Shirley Unit #: [id number]: [id number] Dicatated By: Beltran Resendez M.D.Date of Visit:Mar 06, 2020 Onc Med Follow-up/Prog Note Chief Complaint: Myeloma. History of Present Illness: This is a 80 year-old woman with IgG kappa myeloma, stage III. She had known osteoporosis and multiple vertebral compression fractures dating back to at least March 2018. In May 2018 she underwent further evaluation at the bone health clinic at [facility]. A protein electrophoresis at that time showed IgG kappa monoclonal protein quantitating at 0.5 g/dL. She had hematology consultation with Dr. Cecille Acevedo on 07/19/2018. Her laboratory studies at that time showed significant hypercalcemia with a serum calcium of 13.6 mg/dL. Her hemoglobin was normal at 15.0 g and her creatinine was borderline at 0.91 mg/dL. Her repeat protein electrophoresis showed her M protein quantitating at 0.6 g/dL. Her free light chain assay showed elevated kappa light chain at 524 mg/L and decreased lambda light chain at < 0.15 mg/L. Her skeletal survey showed innumerable lytic lesions throughout the apical and appendicular skeleton, compatible with multiple myeloma. Bone marrow aspiration/biopsy on 07/21/2018 showed a mildly hypercellular marrow with 60% involvement with plasma cell neoplasm, kappa restricted. 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 Further evaluation with PET/CT on 07/21/2018 showed a mildly FDG avid expansile lytic lesion of the right fourth rib consistent with a diagnosis of multiple myeloma. Also noted was a mottled appearance with lytic lesions seen throughout the axial and appendicular skeleton greatest in the skull and bilateral upper extremities, also consistent with myeloma. Multiple compression deformities were seen throughout the thoracic spine, greatest at T7. During that time she had been admitted to the hospital and she was treated with IV Zometa. She then began treatment with weekly Velcade and dexamethasone, cycle 1 day 1 on 08/03/2018. Her further clinical course was complicated by atrial fibrillation and congestive heart failure, requiring hospital admissions on 08/25/2018, on 09/01/2018 100 and on 09/09/2018. As a result, her cycle 2 of Velcade/dexamethasone was delayed. Despite the complications, she did have a good response with her M protein decreased to 0.3 g/dL and her free kappa light chain decreased to 2.00 mg/dL. Her kappa/lambda ratio normalized to 1.12. She then began cycle 2 on 09/27/2018 with Velcade continued at 1.3 mg/m??? by subcutaneous injection weekly and dexamethasone reduced to 20 mg weekly on a 4-week on/1-week off schedule. I had seen her initially on 10/27/2018. She had completed her 2nd cycle of treatment. Her clinical course, though, was further complicated by a fall at the residential resulting in a left inferior orbital wall depressed fracture and he C3 spinous process nondisplaced fracture, both of which were managed conservatively. Her other medical illnesses hypertension, chronic atrial fibrillation, congestive heart failure, GERD, degenerative arthritis, and glaucoma. Her prior surgeries include ORIF for left femur fracture in 2012 and right total knee arthroplasty in 2007. She is a nonsmoker. INTERIM HISTORY: She had follow-up at [facility] on 11/01/2018. At that point she was given a second infusion of Zometa, and she began cycle 3 of Velcade/dexamethasone. With that cycle she was able to complete 4 weekly Velcade injections together with dexamethasone 10 mg twice weekly followed by a 1 week rest. She continued with cycle 4 of Velcade/dexamethasone on 12/07/2018. She was again able to tolerate the for weekly Velcade injections along with dexamethasone 10 mg twice weekly. During that time, she had a follow-up with her orthopedic surgeon in [place], and she was told that she had 2 new vertebral compression fractures, presumably resulting from the fall. However, she was able to transition from the residential to assisted living. She was seen for a follow-up visit on 01/10/2019. At that point she appeared stable clinically and she continued with her 5th cycle of treatment with Velcade/dexamethasone. With that cycle, her 4th weekly dose of Velcade was omitted, as she was admitted to the hospital at day 22 with worsening congestive heart failure in association with an acute decline in her renal function. She then continued with cycle 6 on 02/21/2019. The day 22 Velcade was omitted with that cycle as well, as she was again admitted to the hospital with decompensated heart failure. With those episodes of congestive heart failure, her dexamethasone was changed to 1 mg daily. In the meantime, her protein electrophoresis studies from January showed her M band quantitating at 0.1 g/dL, and her serum free light chain assay showed her kappa light chain at 12.7 mg/L with lambda light chain 10.3 mg/L and kappa/lambda ratio normal at 1.23. She was seen again by Dr. Acevedo at [facility] on 04/04/2019. It was recommended that she transitioned to maintenance therapy with Velcade 1.3 mg/m??? by subcutaneous injection every 2 weeks together with lenalidomide 10 mg daily. Her repeat bone marrow aspiration/biopsy on 04/20/2019 showed cellularity ranging from 10 to 30% with normal trilineage hematopoiesis. There were just rare scattered plasma cells noted, estimated at 2 to 4% of the overall cellularity. On 05/16/2019 she began cycle 1 of maintenance therapy with Velcade 1.3 mg/m??? by subcutaneous injection every 2 weeks together with Revlimid 10 mg daily. Her repeat protein electrophoresis on 06/06/2019 reported an IgG kappa monoclonal protein band quantitating at 1.9 g/dL. The free light chain assay showed elevated kappa light chain at 128 mg/L with lambda light chain 26.9 mg/L and kappa/lambda ratio 4.77. At her follow-up visit on 06/13/2019 she appeared to be tolerating the treatment with acceptable toxicity, though her protein electrophoresis at that time reported a significant increase in her M protein to 1.9 g/dL. I opted to continue her same treatment and on her repeat SPEP the M protein was similar to the prior studies at 0.1 g/dL. However, she did have to stop the Revlimid due to multiple side effects including weakness/fatigue, anorexia, nausea, and insomnia, among others. She just did not feel good generally. She also was taken off dexamethasone due to fluid retention, but she was able to continue the Velcade injections every 2 weeks. Her repeat protein electrophoresis studies on 08/01/2019 showed no detectable monoclonal protein and the serum free light chain assay showed normal kappa/lambda ratio at 1.49. Her clinical status at that point appeared stable, and she continued Velcade 1.3 mg/m??? by subcutaneous injection every 2 weeks. She is seen for a scheduled visit. She has been feeling pretty good generally, though she does feel pretty fatigued for 1 to 2 days after her treatment, and she does tend to sleep a lot. Her activity is otherwise limited due to her back pain. ECOG score is 3. She has good appetite. She has not had fever. She sometimes has some mild sweating at night. She has postnasal drip. She does not complain of cough. Her breathing is been okay, though she does use oxygen at night. She does not complain of chest pain. She has no GI or complaints. She continues to have pain in her lower back, but mainly with activity. She is okay sitting. She does not complain of headache or dizziness. She sometimes has numbness in her fingers. Medications: Acyclovir 1 Tablet (of 400 mg) Oral daily, Amiodarone HCl 1 Tablet (of 200 mg) Oral daily, HYDROcodone-Acetaminophen 1 Tablet (of 5-325 mg) Oral q 6 hours PRN, Klor-Con M20 (10 meq) Tablet, controlled release Oral Take as Directed, Meclizine HCl 1 Tablet (of 25 mg) Oral t.i.d. PRN, Mirtazapine 1 (15 mg) Tablet Oral at bedtime, Morphine Sulfate ER 1 Tablet (of 15 mg) Tablet SR 24 HR Oral b.i.d., Multiple Vitamins-Minerals 1 Tablet Oral daily, Pepcid 1 Tablet (of 20 mg) Oral at bedtime, Spironolactone 0.5 Tablet (of 50 mg) Oral daily, Systane Complete 1 Drop(s) Solution Ophthalmic PRN, Velcade 1 (3.5 mg) Injection q 7 days, Xarelto 1 Tablet (of 10 mg) Oral daily, Xgeva 1 Each (of 120 ) Subcutaneous q 30 days Allergies: Codeine Sulfate and Statins. Review of Systems: Constitutional - She generally feels good, though she is very fatigued for 1-2 days following treatment and she sleeps alot. Overall her activity remains limited. Her appetite is good and weight is up a few pounds. No fevers. She has episodes of hot flashes and night sweats. ECOG score is 3, ENMT - She has a persistent nasal drip. No mouth sores. No sore throat or difficulty swallowing, Hematologic/Lymphatic - She bruises easily, Respiratory - No shortness of breath. No cough. No pleuritic pain or hemoptysis, Cardiovascular - No angina pain. No palpitations, Gastrointestinal - No nausea or vomiting. No heartburn or acid reflux. No diarrhea or constipation. No blood in the stool or black stools, Genitourinary (F) - No dysuria or hematuria. No urinary frequency. No urgency or incontinence, Musculoskeletal - She continues to have significant pain in her lower back. Her pain limits her activity, Integumentary - No skin complications, Neurologic - No headache or dizziness. She has been having some numbness in her fingers. No tingling. No other focal neurologic symptoms, Psychiatric - No anxiety or depression. No insomnia. Vital Signs: Performed on Mar 06, 2020 10:33 Height - 61.00 in Weight - 195.0 lbs (HIGH) BSA - 1.87 sq.m BMI - 36.85 (HIGH) Temperature - 98.2 F (LOW) Pulse - 60 /min Respiration - 22 /min BP - 153/76 mm(hg) (HIGH) O2 Sat - 94 % (LOW) Pain - 2 Physical Examination: Constitutional - She appears somewhat weak generally, Eyes - Sclerae nonicteric. Conjunctivae appear clear, ENMT - No lesions noted in the oral cavity, Hematologic/Lymphatic - No cervical, clavicular, or axillary adenopathy, Respiratory - Lungs sound clear, Cardiovascular - Heart rhythm is regular. There is a II/ systolic murmur. There is no gallop or rub noted, Abdomen - Soft. Liver and spleen are not enlarged. There is no abdominal mass or ascites noted and there is no inguinal adenopathy, Extremities - No edema, Neurologic - No focal neurologic deficits noted. Lab/Imaging: Her CBC shows hemoglobin 13.8 g, white blood cell count 7400, and platelet count 182,000. Comprehensive metabolic profile shows stable renal function with BUN 32 and creatinine 1.9 mg/dL. Her protein electrophoresis shows no reportable monoclonal protein. The serum free light chain assay shows stable kappa/lambda ratio at 1.69. Impression: 1. 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 2. She had hypercalcemia, extensive lytic bone involvement, and multiple vertebral compression fractures at initial diagnosis in July 2018. Her other medical illnesses include: 3. Hypertension. 4. Chronic atrial fibrillation. 5. Congestive heart failure. 6. Degenerative arthritis. 7. GERD. 8. Glaucoma. She was given IV Zometa at initial diagnosis. She then began treatment with weekly Velcade and dexamethasone on 08/03/2018. Her first cycle was complicated by episodes of atrial fibrillation and congestive heart failure. However, she did have evidence of significant response by protein electrophoresis and free light chain assay. She began cycle 2 of Velcade/dexamethasone on 09/27/2018 with Velcade 1.3 mg/m??? by subcutaneous injection and dexamethasone 20 mg weekly on a 4-week on and 1-week off schedule. She tolerated the 2nd cycle well, though her clinical course was further complicated by a fall at the residential on 10/23/2018 resulting in a left inferior orbital wall depressed fracture and a C3 spinous process nondisplaced fracture. Both fractures awere managed conservatively. She was then able to continue with cycle 3 of Velcade/dexamethasone on 11/01/2018, with cycle 4 on 12/07/2018, and with cycle 5 on 01/10/2019. She appeared to be showing a good objective response with protein electrophoresis at that point showing decline in her M protein to 0.1 g/dL. The serum free light chain assay showed normal kappa light chain at 12.7 mg/L, normal lambda light chain at 10.3 mg/L, and normal kappa/lambda ratio at 1.23. She then continued treatment with Velcade and dexamethasone, but her subsequent clinical course was complicated by 2 admissions for decompensated congestive heart failure. During that time her dexamethasone was changed to 1 mg daily. Overall she has continued to have fairly marginal performance status, but she had otherwise been stable clinically. As of her follow-up visit on 03/15/2019 at opted to taper off her dexamethasone. At that point she continued with cycle 7 of Velcade. She was showing a very good objective response. On 04/04/2019 she had follow-up with Dr. Acevedo at [facility], and it was recommended that she transition to maintenance therapy with Velcade 1.3 mg/m??? by subcutaneous injection every 2 weeks together with lenalidomide 10 mg daily. Her repeat bone marrow aspiration/biopsy on 04/20/2019 showed only scant plasma cells estimated at 2 to 4% of the overall cellularity. She began cycle 1 of her maintenance therapy on 05/16/2019. Initially she appeared to be tolerating it with acceptable toxicity, but during her second cycle the lenalidomide was put on hold due to multiple side effects. During followup she was feeling better, and she continued treatment Velcade every 2 weeks. Her repeat protein electrophoresis studies on 08/01/2019 showed no detectable monoclonal protein, and the free light chain assay showed normal kappa/lambda ratio at 1.49. She has continued to have limited activity tolerance, but her pain was well controlled, and she was having no further issues with fluid retention. She continued treatment with Velcade every 2 weeks. As of 09/11/2019 her protein electrophoresis showed no detectable monoclonal protein. The free light chain assay showed slightly elevated kappa/lambda ratio at 1.73. During followup she has continued to have limited activity and fairly marginal performance status. However, she has been tolerating treatment with acceptable toxicity. She has has been able to return to her own home with a hired caregiver to assist her. Her overall clinical status has remained stable. She continues to have borderline renal function, but there has been no evidence of progression of the myeloma. Plan: She will continue maintenance Velcade 1.3 mg/m??? by subcutaneous injection every 2 weeks and she continues denosumab 120 mg by subcutaneous injection for the lytic bone involvement. She will be scheduled for a follow-up visit in 1 month. Signed By: Beltran Resendez M.D. <<Signature on File>>
== END 2020-03-11 23:59 | disposition home or self-care (01) ==
LOC: ONCMED 05:42
PROVIDERS: Nurse Practitioner; PCP Family Medicine; Visit Provider Internal Medicine Medical Oncology
DX: Z51.11 Encounter for antineoplastic chemotherapy (principal); C90.00 Multiple myeloma not having achieved remission; I10 Essential (primary) hypertension; I48.11 Longstanding persistent atrial fibrillation; I50.9 Heart failure, unspecified; M19.90 Unspecified osteoarthritis, unspecified site; K21.9 Gastro-esophageal reflux disease without esophagitis; H40.9 Unspecified glaucoma; M81.0 Age-related osteoporosis without current pathological fracture
CPT/HCPCS: 80053; 82784; 83883; 84155; 84165; 85025; 96372; 96401; 99214; J0897; J9041; Q0164

== ENCOUNTER → 2020-03-26 14:19 | Outpatient (BNVA) | payer MEDICARE, BC, SELFPAY | PROVIDERS: PCP Family Medicine; Visit Provider Nurse Practitioner Family | DX: I48.91 Unspecified atrial fibrillation (principal); I50.30 Unspecified diastolic (congestive) heart failure | CPT/HCPCS: 80048; 83880 ==

== ENCOUNTER 2020-04-03 06:20 | Outpatient (RCR) | payer MEDICARE, BC, SELFPAY ==
[2020-03-20] MEDS: prochlorperazine 10 mg Tablet PO (13:30)
[2020-03-27 12:23] LABS: Alanine Aminotransferase 18 U/L (0-33); Alkaline Phosphatase 55 IU/L (35-105); Anion Gap 14.5 (5-19); Aspartate Amino Transferase 18 U/L (0-32); Blood Urea Nitrogen 35 mg/dL (8-23); Calcium 8.7 mg/dL (8.5-10.5); Carbon Dioxide 27 mmol/L (22-29); Chloride 103 mmol/L (98-107); Globulin 3.4 g/dL (1.3-4.6); Glucose 112 mg/dL (65-115); Osmolality Calculated 299 mOsm/kg (285-295); Potassium 4.5 mmol/L (3.5-5.1); Sodium 140 mmol/L (136-145); Total Bilirubin 0.3 mg/dL (0.15-1.2); Total Protein 7.4 g/dL (6.6-8.7)
[2020-03-27 12:34] LABS: Basophils % 0.4 %; Eosinophils # 0.1 10^3/uL (0.0-0.8); Hematocrit 45.1 % (37.0-47.0); Hemoglobin 13.5 g/dL (11.5-15.3); Lymphocytes % 28.9 %; Mean Corpuscular HGB Conc 29.9 g/dL (30.0-36.0); Mean Corpuscular Hemoglobin 29.5 pg (28.0-34.0); Mean Corpuscular Volume 98.5 fL (81-99); Mean Platelet Volume 13.4 fL (7.4-10.4); Monocytes # 0.8 10^3/uL (0.2-0.9); Monocytes % 11.7 %; Neutrophils # 4.05 10^3/uL (1.8-7.7); Neutrophils % 57.7 %; Nucleated Red Blood Cells % 0 %; Platelet Count 160 10^3/cmm (130-400); Red Blood Count 4.58 10^6/uL (4.1-5.3); Red Cell Distribution Width 14.1 % (12.1-15.1)
[2020-03-27 13:13] LABS: Slide Review Slide Review Perform
[2020-03-28 11:13] LABS: PROTEIN, TOTAL 6.6 g/dL (6.1-8.1)
[2020-03-28 16:27] LABS: ALBUMIN 3.6 g/dL (3.8-4.8); ALPHA 1 GLOBULIN 0.3 g/dL (0.2-0.3); BETA 1 GLOBULIN 0.4 g/dL (0.4-0.6); BETA 2 GLOBULIN 0.3 g/dL (0.2-0.5); GAMMA GLOBULIN 0.9 g/dL (0.8-1.7)
[2020-03-28 17:07] LABS: KAPPA LIGHT CHAIN, FREE, SERUM 31.3 mg/L (3.3-19.4); KAPPA/LAMBDA LIGHT CHAINS FREE 1.61 (0.26-1.65); LAMBDA LIGHT CHAIN, FREE, SERU 19.5 mg/L (5.7-26.3)
[2020-04-03] MEDS: prochlorperazine 10 mg Tablet PO (14:32)
[2020-04-03] MEDS: denosumab 120 mg SDV SUBCUT (14:38)
--- NOTE | 2020-04-13 15:03 | ONC FU_ITS ---
[facility] Patient Note Patient: Alcira Sihrley Unit #: [id number]: [id number] Dictated By: Kellie HyltonDate of Visit: Apr 03, 2020 Onc MED Follow-Up/Prog Note Chief Complaint: Myeloma. History of Present Illness: Ms Shirley is a 80 year-old woman with IgG kappa myeloma, stage III. She had known osteoporosis and multiple vertebral compression fractures dating back to at least March 2018. In May 2018 she underwent further evaluation at the bone health clinic at [facility]. A protein electrophoresis at that time showed IgG kappa monoclonal protein quantitating at 0.5 g/dL. She had hematology consultation with Dr. Cecille Acevedo on 07/19/2018. Her laboratory studies at that time showed significant hypercalcemia with a serum calcium of 13.6 mg/dL. Her hemoglobin was normal at 15.0 g and her creatinine was borderline at 0.91 mg/dL. Her repeat protein electrophoresis showed her M protein quantitating at 0.6 g/dL. Her free light chain assay showed elevated kappa light chain at 524 mg/L and decreased lambda light chain at < 0.15 mg/L. Her skeletal survey showed innumerable lytic lesions throughout the apical and appendicular skeleton, compatible with multiple myeloma. Bone marrow aspiration/biopsy on 07/21/2018 showed a mildly hypercellular marrow with 60% involvement with plasma cell neoplasm, kappa restricted. 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 Further evaluation with PET/CT on 07/21/2018 showed a mildly FDG avid expansile lytic lesion of the right fourth rib consistent with a diagnosis of multiple myeloma. Also noted was a mottled appearance with lytic lesions seen throughout the axial and appendicular skeleton greatest in the skull and bilateral upper extremities, also consistent with myeloma. Multiple compression deformities were seen throughout the thoracic spine, greatest at T7. During that time she had been admitted to the hospital and she was treated with IV Zometa. She then began treatment with weekly Velcade and dexamethasone, cycle 1 day 1 on 08/03/2018. Her further clinical course was complicated by atrial fibrillation and congestive heart failure, requiring hospital admissions on 08/25/2018, on 09/01/2018 100 and on 09/09/2018. As a result, her cycle 2 of Velcade/dexamethasone was delayed. Despite the complications, she did have a good response with her M protein decreased to 0.3 g/dL and her free kappa light chain decreased to 2.00 mg/dL. Her kappa/lambda ratio normalized to 1.12. She then began cycle 2 on 09/27/2018 with Velcade continued at 1.3 mg/m??? by subcutaneous injection weekly and dexamethasone reduced to 20 mg weekly on a 4-week on/1-week off schedule. Dr Resendez had seen her initially on 10/27/2018. She had completed her 2nd cycle of treatment. Her clinical course, though, was further complicated [facility] resulting in a left inferior orbital wall depressed fracture and he C3 spinous process nondisplaced fracture, both of which were managed conservatively. Her other medical illnesses hypertension, chronic atrial fibrillation, congestive heart failure, GERD, degenerative arthritis, and glaucoma. Her prior surgeries include ORIF for left femur fracture in 2012 and right total knee arthroplasty in 2007. She is a nonsmoker. INTERIM HISTORY: She had follow-up at [facility] on 11/01/2018. At that point she was given a second infusion of Zometa, and she began cycle 3 of Velcade/dexamethasone. With that cycle she was able to complete 4 weekly Velcade injections together with dexamethasone 10 mg twice weekly followed by a 1 week rest. She continued with cycle 4 of Velcade/dexamethasone on 12/07/2018. She was again able to tolerate the for weekly Velcade injections along with dexamethasone 10 mg twice weekly. During that time, she had a follow-up with her orthopedic surgeon in [place], and she was told that she had 2 new vertebral compression fractures, presumably resulting from the fall. However, she was [facility] to [facility] living. She was seen for a follow-up visit on 01/10/2019. At that point she appeared stable clinically and she continued with her 5th cycle of treatment with Velcade/dexamethasone. With that cycle, her 4th weekly dose of Velcade was omitted, as she was admitted to the hospital at day 22 with worsening congestive heart failure in association with an acute decline in her renal function. She then continued with cycle 6 on 02/21/2019. The day 22 Velcade was omitted with that cycle as well, as she was again admitted to the hospital with decompensated heart failure. With those episodes of congestive heart failure, her dexamethasone was changed to 1 mg daily. In the meantime, her protein electrophoresis studies from January showed her M band quantitating at 0.1 g/dL, and her serum free light chain assay showed her kappa light chain at 12.7 mg/L with lambda light chain 10.3 mg/L and kappa/lambda ratio normal at 1.23. She was seen again by Dr. Acevedo at [facility] on 04/04/2019. It was recommended that she transitioned to maintenance therapy with Velcade 1.3 mg/m??? by subcutaneous injection every 2 weeks together with lenalidomide 10 mg daily. Her repeat bone marrow aspiration/biopsy on 04/20/2019 showed cellularity ranging from 10 to 30% with normal trilineage hematopoiesis. There were just rare scattered plasma cells noted, estimated at 2 to 4% of the overall cellularity. On 05/16/2019 she began cycle 1 of maintenance therapy with Velcade 1.3 mg/m??? by subcutaneous injection every 2 weeks together with Revlimid 10 mg daily. Her repeat protein electrophoresis on 06/06/2019 reported an IgG kappa monoclonal protein band quantitating at 1.9 g/dL. The free light chain assay showed elevated kappa light chain at 128 mg/L with lambda light chain 26.9 mg/L and kappa/lambda ratio 4.77. At her follow-up visit on 06/13/2019 she appeared to be tolerating the treatment with acceptable toxicity, though her protein electrophoresis at that time reported a significant increase in her M protein to 1.9 g/dL. I opted to continue her same treatment and on her repeat SPEP the M protein was similar to the prior studies at 0.1 g/dL. However, she did have to stop the Revlimid due to multiple side effects including weakness/fatigue, anorexia, nausea, and insomnia, among others. She just did not feel good generally. She also was taken off dexamethasone due to fluid retention, but she was able to continue the Velcade injections every 2 weeks. Her repeat protein electrophoresis studies on 08/01/2019 showed no detectable monoclonal protein and the serum free light chain assay showed normal kappa/lambda ratio at 1.49. Her clinical status at that point appeared stable, and she continued Velcade 1.3 mg/m??? by subcutaneous injection every 2 weeks. Ms Shirley is here today for followup. She is accompanied by her daughter. She has no new concerns today. She denies any pain. She continues to live at home with assistance and is doing well with this. She states she is eating good. She denies any shortness of breath orthopnea. She denies any chest pain or palpitations. She denies any worsening neuropathy symptoms. She states she does feel good overall and feels like she is getting stronger at home. Her daughter agrees that she is more active at home although her activity is still limited. She denies any bowel or bladder complaints. She does ambulate with a walker and sometimes a cane at home. Overall she is continued to tolerate the treatment well her ECOG is 2. Past Medical History: Atrial fibrillation Congestive heart failure Gastroesophageal reflux disease Glaucoma Hypertension Multiple vertebral compression fractures Osteoarthritis Osteoporosis Past Surgical History: ORIF for left femur fracture in 2012 Right total knee arthroplasty in 2007 Allergies: Codeine Sulfate and Statins. Medications: Acyclovir 1 Tablet (of 400 mg) Oral daily Amiodarone HCl 1 Tablet (of 200 mg) Oral daily HYDROcodone-Acetaminophen 1 Tablet (of 5-325 mg) Oral q 6 hours PRN Klor-Con M20 (10 meq) Tablet, controlled release Oral Take as Directed Meclizine HCl 1 Tablet (of 25 mg) Oral t.i.d. PRN Mirtazapine 1 (15 mg) Tablet Oral at bedtime Morphine Sulfate ER 1 Tablet (of 15 mg) Tablet SR 24 HR Oral b.i.d. Multiple Vitamins-Minerals 1 Tablet Oral daily Pepcid 1 Tablet (of 20 mg) Oral at bedtime Spironolactone 0.5 Tablet (of 50 mg) Oral daily Systane Complete 1 Drop(s) Solution Ophthalmic PRN Velcade 1 (3.5 mg) Injection q 7 days Xarelto 1 Tablet (of 10 mg) Oral daily Xgeva 1 Each (of 120 ) Subcutaneous q 30 days Family History: Ms. Shirely's mother is . Ms. Shirley's father is . Ms. Shirley has 2 brothers: 2 alive. Ms. Shirley's first brother's stroke. Both parents with heart disease. A brother has had a stroke. Social History: Ms. Shirley is and she is retired. Ms. Shirley has never smoked. She has no history of drinking. Ms. Shirley reports the following support systems: lives in own house, supportive family/friends willing to assist with needs, and adequate transportation available for expected visits. Her diet consists of regular meals and nutritional supplements. She indicates her activity level as: sedentary. She is a nonsmoker. She does not drink alcohol. Review Of Symptoms: Constitutional Denies fevers, chills, night sweats, excessive fatigue or weight loss. Sh continues to reside at home and has a caregiver stay with her at night. Allergic/Immunologic No reactions. Eyes Denies significant visual changes. No diplopia. No amaurosis. ENMT Denies changes in hearing, sore throat, mouth sores, difficulty or changes in swallowing ability, and/or sinus drainage. Endocrine No diabetes, thyroid disease or hormone replacement. Denies any new hot flashes or night sweats. Hematologic/Lymphatic Denies easy bruising or bleeding. The patient denies any tender or palpable lymph nodes. Respiratory Denies dyspnea on exertion, chest pain, or hemoptysis. Denies orthopnea. Occasional cough-non productive. Cardiovascular Denies anginal chest pain, palpitations or orthopnea. Gastrointestinal Denies nausea, vomiting, diarrhea, GI bleeding, or constipation. Denies change in bowel habits and/or stool color, no heartburn or early satiety. Genitourinary (F) No hematuria, hesitancy, incontinence, or other problems with urination. Musculoskeletal Denies joint pain or redness. No decreased range of motion. Integumentary Denies chronic rashes, inflammation, ulcerations or skin changes. Neurologic Denies headache, blurred vision, and no areas of focal weakness or numbness. Psychiatric Denies depression, alexander or mood swings. Some intermittent insomnia and takes Tylenol PM for this. Vital Signs: Performed on Apr 03, 2020 13:52 Height - 61.00 in Weight - 191.2 lbs (LOW) BSA - 1.85 sq.m BMI - 36.13 (HIGH) Temperature - 98.6 F Pulse - 74 /min Respiration - 24 /min BP - 142/76 mm(hg) (HIGH) O2 Sat - 95 % (LOW) Pain - 0,2 - Ambulatory/capable of all self-care, unable to perform any work activities. Up and about more than 50% of waking hours. (ECOG) Physical Examination: Constitutional Alert, oriented, no acute distress. Skin pink, warm and dry. Head Normocephalic; atraumatic. Eyes Conjunctivae and sclerae are clear and without icterus. Pupils are reactive and equal. Neck Supple without masses or thyromegaly. No jugular venous distension. Hematologic/Lymphatic No petechiae or purpura. No tender or palpable lymph nodes in the cervical or supraclavicular areas. Respiratory Lungs are clear to auscultation without rhonchi or wheezing. Cardiovascular Regular rate and rhythm of heart systolic murmur,clicks, gallops or rubs. Abdomen Non-tender, non-distended, no masses. Back/Spine Non-tender to palpation. Extremities No visible deformities, no cyanosis, clubbing or edema. Musculoskeletal No tenderness or swelling, normal range of motion without obvious weakness. Integumentary No rashes or lesions. Neurologic No sensory or motor deficits, normal cerebellar function. Psychiatric Alert and oriented times three. Coherent speech. Verbalizes understanding of our discussions today. Laboratory:Test performed on Mar 27, 2020 08:10 Sodium 140 mmol/L Potassium 4.5 mmol/L Chloride 103 mmol/L CO2 27 mmol/L Anion Gap 14.5 BUN 35 mg/dL Creatinine 1.7 mg/dL Cr Clearance (Est) 37.5800 mL/min Glucose 112 mg/dL Osmolality - Calculated 299 mOsm/kg Calcium 8.7 mg/dL Protein, Total 7.4 g/dL Albumin 4.0 g/dL Globulin 3.4 g/dL Bilirubin, Total 0.3 mg/dL ALT (SGPT) 18 U/L AST (SGOT) 18 U/L Alkaline Phosphatase 55 IU/L WBC 7.0 10 3/uL RBC 4.58 10 6/uL HGB 13.5 g/dL HCT 45.1 % MCV 98.5 fL MCH 29.5 pg MCHC 29.9 g/dL RDW 14.1 % Platelet Count 160 10 3/cmm MPV 13.4 fL Neutrophils 4.05 10 3/uL Lymphocytes 2.0 10 3/uL Monocytes 0.8 10 3/uL Eosinophils 0.1 10 3/uL Basophils 0.0 10 3/uL Neutrophil % 57.7 % Lymphocyte % 28.9 % Monocyte % 11.7 % Eosinophil % 1.0 % Basophils % 0.4 % NRBC % 0 % CBC Slide Review Slide Review Perform SLIDE REVIEW AGREES WITH AUTOMATED RESULT [place] Free Light Chains 31.3 mg/L Lambda Free Light Chains 19.5 mg/L [place]/Lambda Free Ratio 1.61 Test performed on Nov 06, 2019 12:30 ESR (Sed Rate) 27 mm/hr Impression: 1. 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 2. She had hypercalcemia, extensive lytic bone involvement, and multiple vertebral compression fractures at initial diagnosis in July 2018. Her other medical illnesses include: 3. Hypertension. 4. Chronic atrial fibrillation. 5. Congestive heart failure. 6. Degenerative arthritis. 7. GERD. 8. Glaucoma. She was given IV Zometa at initial diagnosis. She then began treatment with weekly Velcade and dexamethasone on 08/03/2018. Her first cycle was complicated by episodes of atrial fibrillation and congestive heart failure. However, she did have evidence of significant response by protein electrophoresis and free light chain assay. She began cycle 2 of Velcade/dexamethasone on 09/27/2018 with Velcade 1.3 mg/m??? by subcutaneous injection and dexamethasone 20 mg weekly on a 4-week on and 1-week off schedule. She tolerated the 2nd cycle well, though her clinical course was further complicated [facility] resulting in a left inferior orbital wall depressed fracture and a C3 spinous process nondisplaced fracture. Both fractures were managed conservatively. She was then able to continue with cycle 3 of Velcade/dexamethasone on 11/01/2018, with cycle 4 on 12/07/2018, and with cycle 5 on 01/10/2019. She appeared to be showing a good objective response with protein electrophoresis at that point showing decline in her M protein to 0.1 g/dL. The serum free light chain assay showed normal kappa light chain at 12.7 mg/L, normal lambda light chain at 10.3 mg/L, and normal kappa/lambda ratio at 1.23. She then continued treatment with Velcade and dexamethasone, but her subsequent clinical course was complicated by 2 admissions for decompensated congestive heart failure. During that time her dexamethasone was changed to 1 mg daily. Overall she has continued to have fairly marginal performance status, but she had otherwise been stable clinically. As of her follow-up visit on 03/15/2019 at opted to taper off her dexamethasone. At that point she continued with cycle 7 of Velcade. She was showing a very good objective response. On 04/04/2019 she had follow-up with Dr. Acevedo at [facility], and it was recommended that she transition to maintenance therapy with Velcade 1.3 mg/m??? by subcutaneous injection every 2 weeks together with lenalidomide 10 mg daily. Her repeat bone marrow aspiration/biopsy on 04/20/2019 showed only scant plasma cells estimated at 2 to 4% of the overall cellularity. She began cycle 1 of her maintenance therapy on 05/16/2019. Initially she appeared to be tolerating it with acceptable toxicity, but during her second cycle the lenalidomide was put on hold due to multiple side effects. During followup she was feeling better, and she continued treatment Velcade every 2 weeks. Her repeat protein electrophoresis studies on 08/01/2019 showed no detectable monoclonal protein, and the free light chain assay showed normal kappa/lambda ratio at 1.49. She has continued to have limited activity tolerance, but her pain was well controlled, and she was having no further issues with fluid retention. She continued treatment with Velcade every 2 weeks. As of 09/11/2019 her protein electrophoresis showed no detectable monoclonal protein. The free light chain assay showed slightly elevated kappa/lambda ratio at 1.73. During followup she has continued to have limited activity and fairly marginal performance status. However, she has been tolerating treatment with acceptable toxicity. She has has been able to return to her own home with a hired caregiver to assist her. Her overall clinical status has remained stable. She continues to have borderline renal function, but there has been no evidence of progression of the myeloma. Plan: 1. continue maintenance Velcade 1.3 mg/m??? by subcutaneous injection every 2 weeks 2. She is due for denosumab 120 mg by subcutaneous injection for the lytic bone involvement-last dose was 03-06-2020. 3. Labs from 06/26/2020 were reviewed in detail discussed with Ms. Shirley and her daughter and a copy was given to them. WBC 7.0, hemoglobin 13.5, platelets 1 60,000 ANC is 4000. Potassium 4.5 random glucose 112 creatinine improved at 1.7 LFTs are normal. Her lambda free light chain was 19.5 kappa free light chain 31.3 and her alpha-1 globulin was 0.3 alpha-2 globulin 1.0, beta 1 globulin 0.4 beta-2 globulin 0.3 and gammaglobulin 0.9 there is no restricted band (M-spike) seen. 4. We will plan to see her back in 1 month with CBC CMP and will continue every 2-week Velcade. She will be due for Velcade and Xgeva on her 4-week follow-up. 5. Ms. Shirley and her daughter were instructed to contact us in the interim should questions or problems arise. Signed By: Kellie Hylton-, AOCNP Beltran Resendez MD <<Signature on File>>
== END 2020-04-10 23:59 | disposition home or self-care (01) ==
LOC: ONCMED 06:20
PROVIDERS: Internal Medicine Medical Oncology; PCP Family Medicine; Visit Provider Nurse Practitioner
DX: Z51.11 Encounter for antineoplastic chemotherapy (principal); C90.00 Multiple myeloma not having achieved remission; M81.0 Age-related osteoporosis without current pathological fracture; E83.52 Hypercalcemia; I10 Essential (primary) hypertension; I48.20 Chronic atrial fibrillation, unspecified; I50.9 Heart failure, unspecified; M19.90 Unspecified osteoarthritis, unspecified site; K21.9 Gastro-esophageal reflux disease without esophagitis; H40.9 Unspecified glaucoma; Z79.899 Other long term (current) drug therapy
CPT/HCPCS: 80053; 83883; 84155; 84165; 85025; 96372; 96401; 99214; J0897; J9041; Q0164

== ENCOUNTER 2020-05-09 05:20 | Outpatient (RCR) | payer MEDICARE, BC, SELFPAY ==
[2020-04-17] MEDS: prochlorperazine 10 mg Tablet PO (12:00)
[2020-04-24 12:14] LABS: Basophils % 0.2 %; Eosinophils # 0.1 10^3/uL (0.0-0.8); Eosinophils % 0.6 %; Hematocrit 46.9 % (37.0-47.0); Hemoglobin 14.2 g/dL (11.5-15.3); Lymphocytes % 22.9 %; Mean Corpuscular HGB Conc 30.3 g/dL (30.0-36.0); Mean Corpuscular Hemoglobin 29.6 pg (28.0-34.0); Mean Corpuscular Volume 97.7 fL (81-99); Mean Platelet Volume 13.2 fL (7.4-10.4); Monocytes # 1.1 10^3/uL (0.2-0.9); Monocytes % 12.9 %; Neutrophils # 5.53 10^3/uL (1.8-7.7); Neutrophils % 63.2 %; Nucleated Red Blood Cells % 0 %; Platelet Count 170 10^3/cmm (130-400); Red Cell Distribution Width 14.1 % (12.1-15.1); White Blood Count 8.8 10^3/uL (4.0-10.0)
[2020-04-24 12:41] LABS: Chloride 103 mmol/L (98-107); Potassium 4.3 mmol/L (3.5-5.1); Sodium 141 mmol/L (136-145)
[2020-04-24 12:58] LABS: Slide Review Slide Review Perform
[2020-04-24 13:17] LABS: Alanine Aminotransferase 33 U/L (0-33); Albumin Level 4.2 g/dL (3.5-5.2); Alkaline Phosphatase 67 IU/L (35-105); Anion Gap 18.3 (5-19); Aspartate Amino Transferase 28 U/L (0-32); Blood Urea Nitrogen 38 mg/dL (8-23); Calcium 9.2 mg/dL (8.5-10.5); Carbon Dioxide 24 mmol/L (22-29); Globulin 3.1 g/dL (1.3-4.6); Glucose 94 mg/dL (65-115); Immunoglobulin IGA 212 mg/dL (70-400); Immunoglobulin IGG 1067 mg/dL (700-1600); Immunoglobulin IGM 89 mg/dL (40-230); Osmolality Calculated 301 mOsm/kg (285-295); Total Bilirubin 0.4 mg/dL (0.15-1.2); Total Protein 7.3 g/dL (6.6-8.7)
[2020-04-25 09:53] LABS: PROTEIN, TOTAL 7.3 g/dL (6.1-8.1)
[2020-04-25 12:58] LABS: KAPPA LIGHT CHAIN, FREE, SERUM 34.7 mg/L (3.3-19.4); KAPPA/LAMBDA LIGHT CHAINS FREE 1.87 (0.26-1.65); LAMBDA LIGHT CHAIN, FREE, SERU 18.6 mg/L (5.7-26.3)
[2020-04-25 15:27] LABS: ALBUMIN 4.1 g/dL (3.8-4.8); ALPHA 1 GLOBULIN 0.4 g/dL (0.2-0.3); ALPHA 2 GLOBULIN 1.1 g/dL (0.5-0.9); BETA 1 GLOBULIN 0.5 g/dL (0.4-0.6); BETA 2 GLOBULIN 0.4 g/dL (0.2-0.5)
[2020-05-01] MEDS: prochlorperazine 10 mg Tablet PO (13:45)
[2020-05-03] MEDS: sodium chloride 0.9% 1,000 ML 999 ML IV (11:57)
--- NOTE | 2020-05-03 20:59 | ONC FU_ITS ---
[facility] Patient Note Patient: Alcira Shirley Unit #: [id number]: 1940 Dictated By: Kellie HyltonDate of Visit: May 01, 2020 Onc MED Follow-Up/Prog Note Chief Complaint: Myeloma. History of Present Illness: Ms Shirley is a 80 year-old woman with IgG kappa myeloma, stage III. She had known osteoporosis and multiple vertebral compression fractures dating back to at least March 2018. In May 2018 she underwent further evaluation at the bone health clinic at [facility]. A protein electrophoresis at that time showed IgG kappa monoclonal protein quantitating at 0.5 g/dL. She had hematology consultation with Dr. Cecille Acevedo on 07/19/2018. Her laboratory studies at that time showed significant hypercalcemia with a serum calcium of 13.6 mg/dL. Her hemoglobin was normal at 15.0 g and her creatinine was borderline at 0.91 mg/dL. Her repeat protein electrophoresis showed her M protein quantitating at 0.6 g/dL. Her free light chain assay showed elevated kappa light chain at 524 mg/L and decreased lambda light chain at < 0.15 mg/L. Her skeletal survey showed innumerable lytic lesions throughout the apical and appendicular skeleton, compatible with multiple myeloma. Bone marrow aspiration/biopsy on 07/21/2018 showed a mildly hypercellular marrow with 60% involvement with plasma cell neoplasm, kappa restricted. 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 Further evaluation with PET/CT on 07/21/2018 showed a mildly FDG avid expansile lytic lesion of the right fourth rib consistent with a diagnosis of multiple myeloma. Also noted was a mottled appearance with lytic lesions seen throughout the axial and appendicular skeleton greatest in the skull and bilateral upper extremities, also consistent with myeloma. Multiple compression deformities were seen throughout the thoracic spine, greatest at T7. During that time she had been admitted to the hospital and she was treated with IV Zometa. She then began treatment with weekly Velcade and dexamethasone, cycle 1 day 1 on 08/03/2018. Her further clinical course was complicated by atrial fibrillation and congestive heart failure, requiring hospital admissions on 08/25/2018, on 09/01/2018 100 and on 09/09/2018. As a result, her cycle 2 of Velcade/dexamethasone was delayed. Despite the complications, she did have a good response with her M protein decreased to 0.3 g/dL and her free kappa light chain decreased to 2.00 mg/dL. Her kappa/lambda ratio normalized to 1.12. She then began cycle 2 on 09/27/2018 with Velcade continued at 1.3 mg/m??? by subcutaneous injection weekly and dexamethasone reduced to 20 mg weekly on a 4-week on/1-week off schedule. Dr Resendez had seen her initially on 10/27/2018. She had completed her 2nd cycle of treatment. Her clinical course, though, was further complicated [facility] resulting in a left inferior orbital wall depressed fracture and he C3 spinous process nondisplaced fracture, both of which were managed conservatively. Her other medical illnesses hypertension, chronic atrial fibrillation, congestive heart failure, GERD, degenerative arthritis, and glaucoma. Her prior surgeries include ORIF for left femur fracture in 2012 and right total knee arthroplasty in 2007. She is a nonsmoker. INTERIM HISTORY: She had follow-up at [facility] on 11/01/2018. At that point she was given a second infusion of Zometa, and she began cycle 3 of Velcade/dexamethasone. With that cycle she was able to complete 4 weekly Velcade injections together with dexamethasone 10 mg twice weekly followed by a 1 week rest. She continued with cycle 4 of Velcade/dexamethasone on 12/07/2018. She was again able to tolerate the for weekly Velcade injections along with dexamethasone 10 mg twice weekly. During that time, she had a follow-up with her orthopedic surgeon in [place], and she was told that she had 2 new vertebral compression fractures, presumably resulting from the fall. However, she was [facility] living. She was seen for a follow-up visit on 01/10/2019. At that point she appeared stable clinically and she continued with her 5th cycle of treatment with Velcade/dexamethasone. With that cycle, her 4th weekly dose of Velcade was omitted, as she was admitted to the hospital at day 22 with worsening congestive heart failure in association with an acute decline in her renal function. She then continued with cycle 6 on 02/21/2019. The day 22 Velcade was omitted with that cycle as well, as she was again admitted to the hospital with decompensated heart failure. With those episodes of congestive heart failure, her dexamethasone was changed to 1 mg daily. In the meantime, her protein electrophoresis studies from January showed her M band quantitating at 0.1 g/dL, and her serum free light chain assay showed her kappa light chain at 12.7 mg/L with lambda light chain 10.3 mg/L and kappa/lambda ratio normal at 1.23. She was seen again by Dr. Acevedo at [facility] on 04/04/2019. It was recommended that she transitioned to maintenance therapy with Velcade 1.3 mg/m??? by subcutaneous injection every 2 weeks together with lenalidomide 10 mg daily. Her repeat bone marrow aspiration/biopsy on 04/20/2019 showed cellularity ranging from 10 to 30% with normal trilineage hematopoiesis. There were just rare scattered plasma cells noted, estimated at 2 to 4% of the overall cellularity. On 05/16/2019 she began cycle 1 of maintenance therapy with Velcade 1.3 mg/m??? by subcutaneous injection every 2 weeks together with Revlimid 10 mg daily. Her repeat protein electrophoresis on 06/06/2019 reported an IgG kappa monoclonal protein band quantitating at 1.9 g/dL. The free light chain assay showed elevated kappa light chain at 128 mg/L with lambda light chain 26.9 mg/L and kappa/lambda ratio 4.77. At her follow-up visit on 06/13/2019 she appeared to be tolerating the treatment with acceptable toxicity, though her protein electrophoresis at that time reported a significant increase in her M protein to 1.9 g/dL. I opted to continue her same treatment and on her repeat SPEP the M protein was similar to the prior studies at 0.1 g/dL. However, she did have to stop the Revlimid due to multiple side effects including weakness/fatigue, anorexia, nausea, and insomnia, among others. She just did not feel good generally. She also was taken off dexamethasone due to fluid retention, but she was able to continue the Velcade injections every 2 weeks. Her repeat protein electrophoresis studies on 08/01/2019 showed no detectable monoclonal protein and the serum free light chain assay showed normal kappa/lambda ratio at 1.49. Her clinical status at that point appeared stable, and she continued Velcade 1.3 mg/m??? by subcutaneous injection every 2 weeks. Ms Shirley is here today for followup. She is accompanied by her daughter. She states overall she is still feeling good. However after her last treatment she states that she felt washed out and had no appetite for about 3 days after treatment. She states on Wednesday she began to feel back to normal and since then has felt fine. She denies any nausea or vomiting during that episode and no fever or chills but just felt washed out in rested a lot. She denies any mouth sores, sore throat or difficulty swallowing. She denies any worsening of any neuropathy. She states that MiraLAX is working well for her bowels. She states after her daughter reminds her that she has been waking up with her legs aching. She states is just a dull ache. I did quiz her about possible neuropathy but she states it is more of an ache. She states it has comes and goes. She cannot tell any particular trigger or relief. She states that she has been having back pain if she is up a lot. She states she is been up more trying to do things around the house for self. She states that she is can be at very long her back starts hurting pretty good. She states the pain medication works well to control the pain when she does take it. She does not want to change any pain medication she thinks it is well controlled by her report. When asked if her pain was changing point her normal is she states maybe just a little but nothing dramatic . She reports that she is eating good now. She denies any other concerns today. Her ECOG is 2. Past Medical History: Atrial fibrillation Congestive heart failure Gastroesophageal reflux disease Glaucoma Hypertension Multiple vertebral compression fractures Osteoarthritis Osteoporosis Past Surgical History: ORIF for left femur fracture in 2012 Right total knee arthroplasty in 2007 Allergies: Codeine Sulfate and Statins. Medications: Acyclovir 1 Tablet (of 400 mg) Oral daily Amiodarone HCl 1 Tablet (of 200 mg) Oral daily HYDROcodone-Acetaminophen 1 Tablet (of 5-325 mg) Oral q 6 hours PRN Klor-Con M20 (10 meq) Tablet, controlled release Oral Take as Directed Meclizine HCl 1 Tablet (of 25 mg) Oral t.i.d. PRN Mirtazapine 1 (15 mg) Tablet Oral at bedtime Morphine Sulfate ER 1 Tablet (of 15 mg) Tablet SR 24 HR Oral b.i.d. Multiple Vitamins-Minerals 1 Tablet Oral daily Pepcid 1 Tablet (of 20 mg) Oral at bedtime Spironolactone 0.5 Tablet (of 50 mg) Oral daily Systane Complete 1 Drop(s) Solution Ophthalmic PRN Velcade 1 (3.5 mg) Injection q 7 days Xarelto 1 Tablet (of 10 mg) Oral daily Xgeva 1 Each (of 120 ) Subcutaneous q 30 days Family History: Ms. Shirley's mother is . Ms. Shirley's father is . Ms. Shirley has 2 brothers: 2 alive. Ms. Shirley's first brother's stroke. Both parents with heart disease. A brother has had a stroke. Social History: Ms. Shirley is and she is retired. Ms. Shirley has never smoked. She has no history of drinking. Ms. Shirley reports the following support systems: lives in own house, supportive family/friends willing to assist with needs, and adequate transportation available for expected visits. Her diet consists of regular meals and nutritional supplements. She indicates her activity level as: sedentary. She is a nonsmoker. She does not drink alcohol. Review Of Symptoms: Constitutional Denies fevers, chills, night sweats, excessive fatigue or weight loss. She continues to reside at home and has a caregiver stay with her at night. She states she is doing a few things more around the house and tolerating this well. She does have persistent back pain if she stands too long. Allergic/Immunologic No reactions. Eyes Denies significant visual changes. No diplopia. No amaurosis. ENMT Denies changes in hearing, sore throat, mouth sores, difficulty or changes in swallowing ability, and/or sinus drainage. Hematologic/Lymphatic Denies easy bruising or bleeding. The patient denies any tender or palpable lymph nodes. Respiratory Denies dyspnea on exertion, chest pain, or hemoptysis. Denies orthopnea. Occasional cough-non productive. Cardiovascular Denies anginal chest pain, palpitations or orthopnea. Gastrointestinal Denies nausea, vomiting, diarrhea, GI bleeding, or constipation. Denies change in bowel habits and/or stool color, no heartburn or early satiety. Genitourinary (F) No hematuria, hesitancy, incontinence, or other problems with urination. Musculoskeletal Denies joint pain or redness. No decreased range of motion. Her daughter states that she thinks her mother is having more back pain although Ms. Shirley states she thinks it may be just a little different but is not complaining that is very significant. Integumentary Denies chronic rashes, inflammation, ulcerations or skin changes. Neurologic Denies headache, blurred vision, and no areas of focal weakness or numbness. Psychiatric Denies depression, alexander or mood swings. Some intermittent insomnia and takes Tylenol PM for this. Vital Signs: Performed on May 01, 2020 13:06 Height - 61.00 in Weight - 197.2 lbs (HIGH) BSA - 1.88 sq.m BMI - 37.26 (HIGH) Temperature - 98.8 F Pulse - 70 /min Respiration - 24 /min BP - 139/72 mm(hg) O2 Sat - 96 % Pain - 3,2 - Ambulatory/capable of all self-care, unable to perform any work activities. Up and about more than 50% of waking hours. (ECOG) Physical Examination: Constitutional Alert, oriented, no acute distress. Skin pink, warm and dry. Head Normocephalic; atraumatic. Eyes Conjunctivae and sclerae are clear and without icterus. Pupils are reactive and equal. Neck Supple without masses or thyromegaly. No jugular venous distension. Hematologic/Lymphatic No petechiae or purpura. No tender or palpable lymph nodes in the cervical or supraclavicular areas. Respiratory Lungs are clear to auscultation without rhonchi or wheezing. Cardiovascular Regular rate and rhythm of heart systolic murmur,clicks, gallops or rubs. Abdomen Non-tender, non-distended, no masses. Back/Spine Non-tender to palpation. Extremities No visible deformities, no cyanosis, clubbing or edema. Musculoskeletal No tenderness or swelling, normal range of motion without obvious weakness. Integumentary No rashes or lesions. Neurologic No sensory or motor deficits, normal cerebellar function. Psychiatric Alert and oriented times three. Coherent speech. Verbalizes understanding of our discussions today. Laboratory:Test performed on Mar 27, 2020 08:10 Sodium 140 mmol/L Potassium 4.5 mmol/L Chloride 103 mmol/L CO2 27 mmol/L Anion Gap 14.5 BUN 35 mg/dL Creatinine 1.7 mg/dL Cr Clearance (Est) 37.5800 mL/min Glucose 112 mg/dL Osmolality - Calculated 299 mOsm/kg Calcium 8.7 mg/dL Protein, Total 7.4 g/dL Albumin 4.0 g/dL Globulin 3.4 g/dL Bilirubin, Total 0.3 mg/dL ALT (SGPT) 18 U/L AST (SGOT) 18 U/L Alkaline Phosphatase 55 IU/L WBC 7.0 10 3/uL RBC 4.58 10 6/uL HGB 13.5 g/dL HCT 45.1 % MCV 98.5 fL MCH 29.5 pg MCHC 29.9 g/dL RDW 14.1 % Platelet Count 160 10 3/cmm MPV 13.4 fL Neutrophils 4.05 10 3/uL Lymphocytes 2.0 10 3/uL Monocytes 0.8 10 3/uL Eosinophils 0.1 10 3/uL Basophils 0.0 10 3/uL Neutrophil % 57.7 % Lymphocyte % 28.9 % Monocyte % 11.7 % Eosinophil % 1.0 % Basophils % 0.4 % NRBC % 0 % CBC Slide Review Slide Review Perform SLIDE REVIEW AGREES WITH AUTOMATED RESULT [place] Free Light Chains 31.3 mg/L Lambda Free Light Chains 19.5 mg/L [place]/Lambda Free Ratio 1.61 Impression: 1. 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 2. She had hypercalcemia, extensive lytic bone involvement, and multiple vertebral compression fractures at initial diagnosis in July 2018. Her other medical illnesses include: 3. Hypertension. 4. Chronic atrial fibrillation. 5. Congestive heart failure. 6. Degenerative arthritis. 7. GERD. 8. Glaucoma. She was given IV Zometa at initial diagnosis. She then began treatment with weekly Velcade and dexamethasone on 08/03/2018. Her first cycle was complicated by episodes of atrial fibrillation and congestive heart failure. However, she did have evidence of significant response by protein electrophoresis and free light chain assay. She began cycle 2 of Velcade/dexamethasone on 09/27/2018 with Velcade 1.3 mg/m??? by subcutaneous injection and dexamethasone 20 mg weekly on a 4-week on and 1-week off schedule. She tolerated the 2nd cycle well, though her clinical course was further complicated [facility] resulting in a left inferior orbital wall depressed fracture and a C3 spinous process nondisplaced fracture. Both fractures were managed conservatively. She was then able to continue with cycle 3 of Velcade/dexamethasone on 11/01/2018, with cycle 4 on 12/07/2018, and with cycle 5 on 01/10/2019. She appeared to be showing a good objective response with protein electrophoresis at that point showing decline in her M protein to 0.1 g/dL. The serum free light chain assay showed normal kappa light chain at 12.7 mg/L, normal lambda light chain at 10.3 mg/L, and normal kappa/lambda ratio at 1.23. She then continued treatment with Velcade and dexamethasone, but her subsequent clinical course was complicated by 2 admissions for decompensated congestive heart failure. During that time her dexamethasone was changed to 1 mg daily. Overall she has continued to have fairly marginal performance status, but she had otherwise been stable clinically. As of her follow-up visit on 03/15/2019 at opted to taper off her dexamethasone. At that point she continued with cycle 7 of Velcade. She was showing a very good objective response. On 04/04/2019 she had follow-up with Dr. Acevedo at [facility], and it was recommended that she transition to maintenance therapy with Velcade 1.3 mg/m??? by subcutaneous injection every 2 weeks together with lenalidomide 10 mg daily. Her repeat bone marrow aspiration/biopsy on 04/20/2019 showed only scant plasma cells estimated at 2 to 4% of the overall cellularity. She began cycle 1 of her maintenance therapy on 05/16/2019. Initially she appeared to be tolerating it with acceptable toxicity, but during her second cycle the lenalidomide was put on hold due to multiple side effects. During followup she was feeling better, and she continued treatment Velcade every 2 weeks. Her repeat protein electrophoresis studies on 08/01/2019 showed no detectable monoclonal protein, and the free light chain assay showed normal kappa/lambda ratio at 1.49. She has continued to have limited activity tolerance, but her pain was well controlled, and she was having no further issues with fluid retention. She continued treatment with Velcade every 2 weeks. As of 09/11/2019 her protein electrophoresis showed no detectable monoclonal protein. The free light chain assay showed slightly elevated kappa/lambda ratio at 1.73. During followup she has continued to have limited activity and fairly marginal performance status. However, she has been tolerating treatment with acceptable toxicity. She has has been able to return to her own home with a hired caregiver to assist her. Her overall clinical status has remained stable. She continues to have borderline renal function, but there has been no evidence of progression of the myeloma. Plan: 1. continue maintenance Velcade 1.3 mg/m??? by subcutaneous injection every 2 weeks 2. She is due for denosumab 120 mg by subcutaneous injection for the lytic bone involvement-last dose was 04-03-2020, but I am going to hold that today given her washed out feeling after last treatment. I want to give her single agent Velcade only today to see how she responds. 3. Labs from 04/24/2020 were reviewed in detail discussed with Ms. Shirley and her daughter and a copy was given to them. WBC 8.6, hemoglobin 14.2, platelets 170,000 ANC is 5500. Random glucose 94 creatinine is 2 LFTs are normal. Her kappa light chain on 04/24/2020 was 34.7 March 27, 2020 was 31.3. Lambda light chain 18.6 in March 27, 2000 2019.5. Her kappa lambda ratio 04/24/2020 was 1.87 and was 1.61 on March 27, 2020. Her abnormal protein band 1 is still not reportable. 4. We will plan to see her back in 1 month with CBC CMP, SPEP with EVELYN, QUIGS, free light chain assay (and add Xgeva back at that time depending on her performance status) and will continue every 2-week Velcade. She will be due for Velcade and Xgeva on her 4-week follow-up. 5. Ms. Shirley and her daughter were instructed to contact us in the interim should questions or problems arise. 6. For now we have decided just to monitor her back pain. They promised to call if she has any worsening of her pain. She states the pain medication is working well for her. Signed By: Kellie Hylton-, [facility] Beltran Resendez MD <<Signature on File>>
== END 2020-05-11 23:59 | disposition home or self-care (01) ==
LOC: ONCMED 05:20
PROVIDERS: PCP Family Medicine; Visit Provider Nurse Practitioner
DX: C90.00 Multiple myeloma not having achieved remission (principal); E86.0 Dehydration; Z23 Encounter for immunization; M48.50XD Collapsed vertebra, not elsewhere classified, site unspecified, subsequent encounter for fracture with routine healing; I48.20 Chronic atrial fibrillation, unspecified; I11.0 Hypertensive heart disease with heart failure; I50.9 Heart failure, unspecified; K21.9 Gastro-esophageal reflux disease without esophagitis; M19.90 Unspecified osteoarthritis, unspecified site; H40.9 Unspecified glaucoma; M54.9 Dorsalgia, unspecified; Z96.651 Presence of right artificial knee joint; Z79.891 Long term (current) use of opiate analgesic
CPT/HCPCS: 80053; 82784; 83883; 84155; 84165; 85025; 90471; 90686; 96361; 96365; 96367; 96401; 99214; J1100; J2405; J3490; J7030; J9041; Q0164

== ENCOUNTER 2020-05-29 05:30 | Outpatient (RCR) | payer MEDICARE, BC, SELFPAY ==
[2020-05-28 13:39] LABS: Basophils # 0.1 10^3/uL (0.0-0.1); Basophils % 0.7 %; Eosinophils # 0.1 10^3/uL (0.0-0.8); Eosinophils % 0.8 %; Hematocrit 44.9 % (37.0-47.0); Hemoglobin 13.3 g/dL (11.5-15.3); Lymphocytes # 1.3 10^3/uL (0.8-4.8); Lymphocytes % 17.1 %; Mean Corpuscular HGB Conc 29.6 g/dL (30.0-36.0); Mean Corpuscular Hemoglobin 29.6 pg (28.0-34.0); Mean Corpuscular Volume 99.8 fL (81-99); Mean Platelet Volume 12.8 fL (7.4-10.4); Monocytes # 0.8 10^3/uL (0.2-0.9); Monocytes % 11.2 %; Neutrophils % 69.8 %; Nucleated Red Blood Cells % 0 %; Platelet Count 196 10^3/cmm (130-400); White Blood Count 7.4 10^3/uL (4.0-10.0)
[2020-05-28 14:18] LABS: Alanine Aminotransferase 16 U/L (0-33); Albumin Level 3.9 g/dL (3.5-5.2); Alkaline Phosphatase 60 IU/L (35-105); Anion Gap 14.6 (5-19); Aspartate Amino Transferase 14 U/L (0-32); Blood Urea Nitrogen 33 mg/dL (8-23); Calcium 8.9 mg/dL (8.5-10.5); Carbon Dioxide 29 mmol/L (22-29); Chloride 104 mmol/L (98-107); Globulin 2.9 g/dL (1.3-4.6); Glucose 82 mg/dL (65-115); Osmolality Calculated 302 mOsm/kg (285-295); Potassium 4.6 mmol/L (3.5-5.1); Sodium 143 mmol/L (136-145); Total Bilirubin 0.3 mg/dL (0.15-1.2); Total Protein 6.8 g/dL (6.6-8.7)
[2020-05-28 15:10] LABS: Immunoglobulin IGA 194 mg/dL (70-400); Immunoglobulin IGG 932 mg/dL (700-1600); Immunoglobulin IGM 86 mg/dL (40-230)
[2020-05-29 13:38] LABS: PROTEIN, TOTAL 6.5 g/dL (6.1-8.1)
[2020-05-29 15:09] LABS: KAPPA LIGHT CHAIN, FREE, SERUM 22.6 mg/L (3.3-19.4); KAPPA/LAMBDA LIGHT CHAINS FREE 1.42 (0.26-1.65); LAMBDA LIGHT CHAIN, FREE, SERU 15.9 mg/L (5.7-26.3)
[2020-05-29 16:42] LABS: ALBUMIN 3.5 g/dL (3.8-4.8); ALPHA 1 GLOBULIN 0.3 g/dL (0.2-0.3); BETA 1 GLOBULIN 0.4 g/dL (0.4-0.6); BETA 2 GLOBULIN 0.3 g/dL (0.2-0.5); GAMMA GLOBULIN 0.9 g/dL (0.8-1.7)
--- NOTE | 2020-06-04 09:54 | ONC FU_ITS ---
[facility] Patient Note Patient: Alcira Shirley Unit #: [id number]: 1940 Dictated By: Kellie HyltonDate of Visit: May 29, 2020 Onc MED Follow-Up/Prog Note Chief Complaint: Myeloma. History of Present Illness: Ms Shirley is a 80 year-old woman with IgG kappa myeloma, stage III. She had known osteoporosis and multiple vertebral compression fractures dating back to at least March 2018. In May 2018 she underwent further evaluation at the bone health clinic at [facility]. A protein electrophoresis at that time showed IgG kappa monoclonal protein quantitating at 0.5 g/dL. She had hematology consultation with Dr. Cecille Aecvedo on 07/19/2018. Her laboratory studies at that time showed significant hypercalcemia with a serum calcium of 13.6 mg/dL. Her hemoglobin was normal at 15.0 g and her creatinine was borderline at 0.91 mg/dL. Her repeat protein electrophoresis showed her M protein quantitating at 0.6 g/dL. Her free light chain assay showed elevated kappa light chain at 524 mg/L and decreased lambda light chain at < 0.15 mg/L. Her skeletal survey showed innumerable lytic lesions throughout the apical and appendicular skeleton, compatible with multiple myeloma. Bone marrow aspiration/biopsy on 07/21/2018 showed a mildly hypercellular marrow with 60% involvement with plasma cell neoplasm, kappa restricted. 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 Further evaluation with PET/CT on 07/21/2018 showed a mildly FDG avid expansile lytic lesion of the right fourth rib consistent with a diagnosis of multiple myeloma. Also noted was a mottled appearance with lytic lesions seen throughout the axial and appendicular skeleton greatest in the skull and bilateral upper extremities, also consistent with myeloma. Multiple compression deformities were seen throughout the thoracic spine, greatest at T7. During that time she had been admitted to the hospital and she was treated with IV Zometa. She then began treatment with weekly Velcade and dexamethasone, cycle 1 day 1 on 08/03/2018. Her further clinical course was complicated by atrial fibrillation and congestive heart failure, requiring hospital admissions on 08/25/2018, on 09/01/2018 100 and on 09/09/2018. As a result, her cycle 2 of Velcade/dexamethasone was delayed. Despite the complications, she did have a good response with her M protein decreased to 0.3 g/dL and her free kappa light chain decreased to 2.00 mg/dL. Her kappa/lambda ratio normalized to 1.12. She then began cycle 2 on 09/27/2018 with Velcade continued at 1.3 mg/m??? by subcutaneous injection weekly and dexamethasone reduced to 20 mg weekly on a 4-week on/1-week off schedule. Dr Resendez had seen her initially on 10/27/2018. She had completed her 2nd cycle of treatment. Her clinical course, though, was further complicated by a fall at the intermediate resulting in a left inferior orbital wall depressed fracture and he C3 spinous process nondisplaced fracture, both of which were managed conservatively. Her other medical illnesses hypertension, chronic atrial fibrillation, congestive heart failure, GERD, degenerative arthritis, and glaucoma. Her prior surgeries include ORIF for left femur fracture in 2012 and right total knee arthroplasty in 2007. She is a nonsmoker. INTERIM HISTORY: She had follow-up at [facility] on 11/01/2018. At that point she was given a second infusion of Zometa, and she began cycle 3 of Velcade/dexamethasone. With that cycle she was able to complete 4 weekly Velcade injections together with dexamethasone 10 mg twice weekly followed by a 1 week rest. She continued with cycle 4 of Velcade/dexamethasone on 12/07/2018. She was again able to tolerate the for weekly Velcade injections along with dexamethasone 10 mg twice weekly. During that time, she had a follow-up with her orthopedic surgeon in [place], and she was told that she had 2 new vertebral compression fractures, presumably resulting from the fall. However, she was able to transition from the intermediate to assisted living. She was seen for a follow-up visit on 01/10/2019. At that point she appeared stable clinically and she continued with her 5th cycle of treatment with Velcade/dexamethasone. With that cycle, her 4th weekly dose of Velcade was omitted, as she was admitted to the hospital at day 22 with worsening congestive heart failure in association with an acute decline in her renal function. She then continued with cycle 6 on 02/21/2019. The day 22 Velcade was omitted with that cycle as well, as she was again admitted to the hospital with decompensated heart failure. With those episodes of congestive heart failure, her dexamethasone was changed to 1 mg daily. In the meantime, her protein electrophoresis studies from January showed her M band quantitating at 0.1 g/dL, and her serum free light chain assay showed her kappa light chain at 12.7 mg/L with lambda light chain 10.3 mg/L and kappa/lambda ratio normal at 1.23. She was seen again by Dr. Acevedo at [facility] on 04/04/2019. It was recommended that she transitioned to maintenance therapy with Velcade 1.3 mg/m??? by subcutaneous injection every 2 weeks together with lenalidomide 10 mg daily. Her repeat bone marrow aspiration/biopsy on 04/20/2019 showed cellularity ranging from 10 to 30% with normal trilineage hematopoiesis. There were just rare scattered plasma cells noted, estimated at 2 to 4% of the overall cellularity. On 05/16/2019 she began cycle 1 of maintenance therapy with Velcade 1.3 mg/m??? by subcutaneous injection every 2 weeks together with Revlimid 10 mg daily. Her repeat protein electrophoresis on 06/06/2019 reported an IgG kappa monoclonal protein band quantitating at 1.9 g/dL. The free light chain assay showed elevated kappa light chain at 128 mg/L with lambda light chain 26.9 mg/L and kappa/lambda ratio 4.77. At her follow-up visit on 06/13/2019 she appeared to be tolerating the treatment with acceptable toxicity, though her protein electrophoresis at that time reported a significant increase in her M protein to 1.9 g/dL. I opted to continue her same treatment and on her repeat SPEP the M protein was similar to the prior studies at 0.1 g/dL. However, she did have to stop the Revlimid due to multiple side effects including weakness/fatigue, anorexia, nausea, and insomnia, among others. She just did not feel good generally. She also was taken off dexamethasone due to fluid retention, but she was able to continue the Velcade injections every 2 weeks. Her repeat protein electrophoresis studies on 08/01/2019 showed no detectable monoclonal protein and the serum free light chain assay showed normal kappa/lambda ratio at 1.49. Her clinical status at that point appeared stable, and she continued Velcade 1.3 mg/m??? by subcutaneous injection every 2 weeks. She developed fatigue nausea vomiting and weakness after her treatment in April. Her renal function has improved to creatinine of 1.5 and her myeloma labs had dramatically improved as well. Her treatment was held 2 weeks ago and overall her status has improved. Ms Shirley is here today for followup. She is due for Velcade. Her last treatment was on 05/01/2020. She states overall she is doing good. She has had some dry eyes. She has noticed this for about 5 or 6 weeks. She is using Systane eyedrops but does not feel that they are solving the problem. She denies any eye drainage or itching. She has had no swelling or redness. She does have a follow-up with her eye doctor coming up in the next few weeks. Her performance status is good as she remains at home. She remains active around the home as much as she can. She states that she is up for very long consistently she has back pain. She denies any nausea or vomiting. Her appetite is good. She denies any lower extremity edema. She states her bowels and bladder are normal for her. Her ECOG is 2. Past Medical History: Atrial fibrillation Congestive heart failure Gastroesophageal reflux disease Glaucoma Hypertension Multiple vertebral compression fractures Osteoarthritis Osteoporosis Past Surgical History: Flu vaccine 20- in 2019 ORIF for left femur fracture in 2012 Right total knee arthroplasty in 2007 Allergies: Codeine Sulfate and Statins. Medications: Acyclovir 1 Tablet (of 400 mg) Oral daily Amiodarone HCl 1 Tablet (of 200 mg) Oral daily HYDROcodone-Acetaminophen 1 Tablet (of 5-325 mg) Oral q 6 hours PRN Klor-Con M20 (10 meq) Tablet, controlled release Oral Take as Directed Meclizine HCl 1 Tablet (of 25 mg) Oral t.i.d. PRN Mirtazapine 1 (15 mg) Tablet Oral at bedtime Morphine Sulfate ER 1 Tablet (of 15 mg) Tablet SR 24 HR Oral b.i.d. Multiple Vitamins-Minerals 1 Tablet Oral daily Pepcid 1 Tablet (of 20 mg) Oral at bedtime Spironolactone 0.5 Tablet (of 50 mg) Oral daily Systane Complete 1 Drop(s) Solution Ophthalmic PRN Velcade 1 (3.5 mg) Injection q 7 days Xarelto 1 Tablet (of 10 mg) Oral daily Xgeva 1 Each (of 120 ) Subcutaneous q 30 days Family History: Ms. Shirley's mother is . Ms. Shirley's father is . Ms. Shirley has 2 brothers: 2 alive. Ms. Shirley's first brother's stroke. Both parents with heart disease. A brother has had a stroke. Social History: Ms. Shirley is and she is retired. Ms. Shirley has never smoked. She has no history of drinking. Ms. Shirley reports the following support systems: lives in own house, supportive family/friends willing to assist with needs, and adequate transportation available for expected visits. Her diet consists of regular meals and nutritional supplements. She indicates her activity level as: sedentary. She is a nonsmoker. She does not drink alcohol. Review Of Symptoms: Constitutional Denies fevers, chills, night sweats, excessive fatigue or weight loss. She continues to reside at home and has a caregiver stay with her at night. She continues to have persistent back pain if she stands too long. Allergic/Immunologic No reactions. Eyes Denies significant visual changes. No diplopia. No amaurosis. ENMT Denies changes in hearing, sore throat, mouth sores, difficulty or changes in swallowing ability, and/or sinus drainage. Endocrine No diabetes, thyroid disease or hormone replacement. Denies any new hot flashes or night sweats. Hematologic/Lymphatic Denies easy bruising or bleeding. The patient denies any tender or palpable lymph nodes. Respiratory Denies dyspnea on exertion, chest pain, or hemoptysis. Denies orthopnea. Occasional cough-non productive. Cardiovascular Denies anginal chest pain, palpitations or orthopnea. Gastrointestinal Denies nausea, vomiting, diarrhea, GI bleeding, or constipation. Denies change in bowel habits and/or stool color, no heartburn or early satiety. Genitourinary (F) No hematuria, hesitancy, incontinence, or other problems with urination. Musculoskeletal Denies joint pain or redness. No decreased range of motion. Integumentary Denies chronic rashes, inflammation, ulcerations or skin changes. Neurologic Denies headache, blurred vision, and no areas of focal weakness or numbness. Psychiatric Denies depression, alexander or mood swings. Some intermittent insomnia and takes Tylenol PM for this. Vital Signs: Performed on May 29, 2020 11:56 Height - 61.00 in Weight - 196.8 lbs (LOW) BSA - 1.88 sq.m BMI - 37.19 (HIGH) Temperature - 98.6 F Pulse - 78 /min Respiration - 20 /min BP - 150/73 mm(hg) (HIGH) O2 Sat - 95 % (LOW) Pain - 0,2 - Ambulatory/capable of all self-care, unable to perform any work activities. Up and about more than 50% of waking hours. (ECOG) Physical Examination: Constitutional Alert, oriented, no acute distress. Skin pink, warm and dry. Head Normocephalic; atraumatic. Eyes Conjunctivae and sclerae are clear and without icterus. Pupils are reactive and equal. Neck Supple without masses or thyromegaly. No jugular venous distension. Hematologic/Lymphatic No petechiae or purpura. Respiratory Lungs are clear to auscultation without rhonchi or wheezing. Cardiovascular Regular rate and rhythm of heart systolic murmur,clicks, gallops or rubs. Abdomen Non-tender, non-distended, no masses. Back/Spine Non-tender to palpation. Extremities No visible deformities, no cyanosis, clubbing or edema. Musculoskeletal No tenderness or swelling, normal range of motion without obvious weakness. Integumentary No rashes or lesions. Neurologic No sensory or motor deficits, normal cerebellar function. Psychiatric Alert and oriented times three. Coherent speech. Verbalizes understanding of our discussions today. Laboratory:Test performed on Mar 27, 2020 08:10 Sodium 140 mmol/L Potassium 4.5 mmol/L Chloride 103 mmol/L CO2 27 mmol/L Anion Gap 14.5 BUN 35 mg/dL Creatinine 1.7 mg/dL Cr Clearance (Est) 37.5800 mL/min Glucose 112 mg/dL Osmolality - Calculated 299 mOsm/kg Calcium 8.7 mg/dL Protein, Total 7.4 g/dL Albumin 4.0 g/dL Globulin 3.4 g/dL Bilirubin, Total 0.3 mg/dL ALT (SGPT) 18 U/L AST (SGOT) 18 U/L Alkaline Phosphatase 55 IU/L WBC 7.0 10 3/uL RBC 4.58 10 6/uL HGB 13.5 g/dL HCT 45.1 % MCV 98.5 fL MCH 29.5 pg MCHC 29.9 g/dL RDW 14.1 % Platelet Count 160 10 3/cmm MPV 13.4 fL Neutrophils 4.05 10 3/uL Lymphocytes 2.0 10 3/uL Monocytes 0.8 10 3/uL Eosinophils 0.1 10 3/uL Basophils 0.0 10 3/uL Neutrophil % 57.7 % Lymphocyte % 28.9 % Monocyte % 11.7 % Eosinophil % 1.0 % Basophils % 0.4 % NRBC % 0 % CBC Slide Review Slide Review Perform SLIDE REVIEW AGREES WITH AUTOMATED RESULT [place] Free Light Chains 31.3 mg/L Lambda Free Light Chains 19.5 mg/L [place]/Lambda Free Ratio 1.61 Impression: 1. 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 2. She had hypercalcemia, extensive lytic bone involvement, and multiple vertebral compression fractures at initial diagnosis in July 2018. Her other medical illnesses include: 3. Hypertension. 4. Chronic atrial fibrillation. 5. Congestive heart failure. 6. Degenerative arthritis. 7. GERD. 8. Glaucoma. She was given IV Zometa at initial diagnosis. She then began treatment with weekly Velcade and dexamethasone on 08/03/2018. Her first cycle was complicated by episodes of atrial fibrillation and congestive heart failure. However, she did have evidence of significant response by protein electrophoresis and free light chain assay. She began cycle 2 of Velcade/dexamethasone on 09/27/2018 with Velcade 1.3 mg/m??? by subcutaneous injection and dexamethasone 20 mg weekly on a 4-week on and 1-week off schedule. She tolerated the 2nd cycle well, though her clinical course was further complicated by a fall at the intermediate on 10/23/2018 resulting in a left inferior orbital wall depressed fracture and a C3 spinous process nondisplaced fracture. Both fractures were managed conservatively. She was then able to continue with cycle 3 of Velcade/dexamethasone on 11/01/2018, with cycle 4 on 12/07/2018, and with cycle 5 on 01/10/2019. She appeared to be showing a good objective response with protein electrophoresis at that point showing decline in her M protein to 0.1 g/dL. The serum free light chain assay showed normal kappa light chain at 12.7 mg/L, normal lambda light chain at 10.3 mg/L, and normal kappa/lambda ratio at 1.23. She then continued treatment with Velcade and dexamethasone, but her subsequent clinical course was complicated by 2 admissions for decompensated congestive heart failure. During that time her dexamethasone was changed to 1 mg daily. Overall she has continued to have fairly marginal performance status, but she had otherwise been stable clinically. As of her follow-up visit on 03/15/2019 at opted to taper off her dexamethasone. At that point she continued with cycle 7 of Velcade. She was showing a very good objective response. On 04/04/2019 she had follow-up with Dr. Acevedo at [facility], and it was recommended that she transition to maintenance therapy with Velcade 1.3 mg/m??? by subcutaneous injection every 2 weeks together with lenalidomide 10 mg daily. Her repeat bone marrow aspiration/biopsy on 04/20/2019 showed only scant plasma cells estimated at 2 to 4% of the overall cellularity. She began cycle 1 of her maintenance therapy on 05/16/2019. Initially she appeared to be tolerating it with acceptable toxicity, but during her second cycle the lenalidomide was put on hold due to multiple side effects. During followup she was feeling better, and she continued treatment Velcade every 2 weeks. Her repeat protein electrophoresis studies on 08/01/2019 showed no detectable monoclonal protein, and the free light chain assay showed normal kappa/lambda ratio at 1.49. She has continued to have limited activity tolerance, but her pain was well controlled, and she was having no further issues with fluid retention. She continued treatment with Velcade every 2 weeks. As of 09/11/2019 her protein electrophoresis showed no detectable monoclonal protein. The free light chain assay showed slightly elevated kappa/lambda ratio at 1.73. During followup she has continued to have limited activity and fairly marginal performance status. However, she has been tolerating treatment with acceptable toxicity. She has has been able to return to her own home with a hired caregiver to assist her. Her overall clinical status has remained stable. She continues to have borderline renal function, but there has been no evidence of progression of the myeloma. She developed fatigue nausea vomiting and weakness after her treatment in April. Her renal function has improved to creatinine of 1.5 and her myeloma labs had dramatically improved as well. Her treatment was held 2 weeks ago and overall her status has improved. Plan: 1. Hold Velcade due to weakness and N?V after treatment on 05/01/2020. 2. She is due for denosumab 120 mg by subcutaneous injection for the lytic bone involvement-last dose was 04-03-2020, but I am going to hold that today given her washed out feeling after last treatment. 3. Labs from 05/28/2020 were reviewed in detail discussed with Ms. Shirley and her daughter and a copy was given to them. WBC 7.4, hemoglobin 13.3, platelets 296,000 ANC is 5200. Creatinine 1.5 random glucose 82 LFTs were normal. Her IgA was 194 IgG was 932 and IgM was 86. Her kappa free light chain and SPEP were pending at time of visit. Her kappa light chain on 04/24/2020 was 34.7 March 27, 2020 was 31.3. Lambda light chain 18.6 in March 27, 2000 2019.5. Her kappa lambda ratio 04/24/2020 was 1.87 and was 1.61 on March 27, 2020. Her abnormal protein band 1 was still not reportable. 4. We will plan to see her back in 1 month with CBC CMP, SPEP with EVELYN, QUIGS, free light chain assay (and add Xgeva back at that time depending on her performance status) and re evaluate resuming the Velcade 5. Ms. Shirley and her daughter were instructed to contact us in the interim should questions or problems arise. Signed By: Kellie Hylton-, AOCNP Beltran Resendez MD <<Signature on File>>
== END 2020-06-10 23:59 | disposition home or self-care (01) ==
LOC: ONCMED 05:30
PROVIDERS: PCP Family Medicine; Visit Provider Nurse Practitioner
DX: C90.00 Multiple myeloma not having achieved remission (principal); C79.51 Secondary malignant neoplasm of bone; M25.572 Pain in left ankle and joints of left foot; R22.42 Localized swelling, mass and lump, left lower limb; E83.52 Hypercalcemia; I10 Essential (primary) hypertension; I48.19 Other persistent atrial fibrillation; I50.9 Heart failure, unspecified; M19.90 Unspecified osteoarthritis, unspecified site; K21.9 Gastro-esophageal reflux disease without esophagitis; H40.9 Unspecified glaucoma; Z92.21 Personal history of antineoplastic chemotherapy; Z79.899 Other long term (current) drug therapy
CPT/HCPCS: 80053; 82784; 83883; 84155; 84165; 85025; 99214

== ENCOUNTER 2020-06-13 08:10 | Outpatient (CLI) | payer MEDICARE, BC, SELFPAY ==
--- NOTE | 2020-06-13 08:00 | USCV_ITS ---
Alcira Shirley Age: 80 Gender: F : 1940 Exam Date: 06/13/2020 08:45 Ordering Phys: Asia Bennett MD ([email or web address]) Technologist: Nelly Garza Exam Location: [facility] [place] Indication: GRANT BP: / HR: 66 Rhythm: Sinus Technical Quality: Fair MEASUREMENTS (Male / Female) Normal Values 2D ECHO LV Diastolic Diameter PLAX 3.6 cm 4.2 - 5.9 / 3.9 - 5.3 cm LV Systolic Diameter PLAX 2.5 cm IVS Diastolic Thickness 1.7 cm 0.6 - 1.0 / 0.6 - 0.9 cm IVS Systolic Thickness 2.2 cm LVPW Diastolic Thickness 1.4 cm 0.6 - 1.0 / 0.6 - 0.9 cm LVPW Systolic Thickness 1.2 cm LVOT Diameter 2.0 cm LV Ejection Fraction 2D Teich 49.0 % LV Ejection Fraction MOD 2C 78.8 % LV Ejection Fraction 2C AL 81.8 % LA Diameter 4.8 cm LA Width 2.5 cm LA Height 5.9 cm RA Width 2.1 cm RA Height 4.3 cm Aorta at Sinotubular Diameter 3.1 cm M-MODE Aortic Annulus Diameter 3.0 cm LA Ao Ratio MM 1.8 DOPPLER AV Peak Velocity 249.0 cm/s LVOT Peak Velocity 107.0 cm/s AV Area Cont Eq vti 1.8 cm squared AV Area Cont Eq pk 1.4 cm squared MV Peak Velocity 139.0 cm/s MV Area PHT 2.2 cm squared Mitral E to A Ratio 0.5 MV E' Velocity 40.5 cm/s Mitral E to MV E' Ratio 8.2 Mitral E to LV E' Lateral Ratio 5.8 Mitral E to LV E' Septal Ratio 14.3 TR Peak Velocity 163.3 cm/s TR Peak Gradient 10.7 mmHg Right Atrial Pressure 3.0 mmHg Pulmonary Artery Systolic Pressu 13.7 mmHg PV Peak Velocity 120.0 cm/s RV Acceleration Time 0.1 s RV Ejection Time 0.3 s RV AcT/ET 0.3 FINDINGS Left Ventricle Normal left ventricular cavity size. Normal left ventricular systolic function. No regional wall motion abnormalities. Left ventricular ejection fraction is estimated at 55 %. Grade I/IV diastolic dysfunction (abnormal relaxation filling pattern), normal to mildly elevated filling pressures. Right Ventricle The right ventricle is normal in size and function. Right Atrium The right atrium is normal in size. Left Atrium The left atrium is normal in size. Mitral Valve Moderately thickened mitral valve. Moderate mitral annular calcification. No mitral valve stenosis. Aortic Valve Severe aortic valve calcification. Mild aortic valve stenosis, mean gradient 12.9 mmHg, TENZIN 1.8 cm squared. No aortic valve regurgitation. Tricuspid Valve Structurally normal tricuspid valve without significant stenosis or regurgitation. Pulmonary artery systolic pressure is normal. Pulmonic Valve Structurally normal pulmonic valve without significant stenosis. There is no pulmonic regurgitation. Pericardium Normal pericardium without effusion. Aorta Normal ascending aorta dimension. CONCLUSIONS 1-Normal left ventricular cavity size. Normal left ventricular systolic function. No regional wall motion abnormalities. Left ventricular ejection fraction is estimated at 55 %. Grade I/IV diastolic dysfunction (abnormal relaxation filling pattern), normal to mildly elevated filling pressures. 2-Severe aortic valve calcification. Mild aortic valve stenosis, mean gradient 12.9 mmHg, TENZIN 1.8 cm squared. No aortic valve regurgitation. 3-Moderately thickened mitral valve. Moderate mitral annular calcification. No mitral valve stenosis. 4-There is no pericardial effusion. 5-Pulmonary artery systolic pressure is within normal limits. 6-No significant change since the prior echocardiogram study of 03/31/2019. Asia Bennett MD (Electronically Signed) Final Date: 14 June 2020 15:45 S
== END 2020-06-13 08:11 | disposition home or self-care (01) ==
PROVIDERS: PCP Family Medicine; Visit Provider Internal Medicine Cardiovascular Disease
DX: R06.00 Dyspnea, unspecified (principal); R01.1 Cardiac murmur, unspecified; I08.0 Rheumatic disorders of both mitral and aortic valves
CPT/HCPCS: 93306

== ENCOUNTER 2020-07-10 05:33 | Outpatient (RCR) | payer MEDICARE, BC, SELFPAY ==
[2020-06-19 09:22] LABS: Basophils % 0.4 %; Eosinophils # 0.1 10^3/uL (0.0-0.8); Eosinophils % 0.7 %; Hematocrit 46.7 % (37.0-47.0); Hemoglobin 14.4 g/dL (11.5-15.3); Lymphocytes # 1.9 10^3/uL (0.8-4.8); Lymphocytes % 21.8 %; Mean Corpuscular HGB Conc 30.8 g/dL (30.0-36.0); Mean Corpuscular Hemoglobin 29.9 pg (28.0-34.0); Mean Corpuscular Volume 97.1 fL (81-99); Mean Platelet Volume 11.7 fL (7.4-10.4); Monocytes % 10.8 %; Neutrophils # 5.87 10^3/uL (1.8-7.7); Neutrophils % 65.9 %; Nucleated Red Blood Cells % 0 %; Platelet Count 241 10^3/cmm (130-400); Red Blood Count 4.81 10^6/uL (4.1-5.3); Red Cell Distribution Width 13.8 % (12.1-15.1); White Blood Count 8.9 10^3/uL (4.0-10.0)
[2020-06-19 09:39] LABS: Alanine Aminotransferase 17 U/L (0-33); Alkaline Phosphatase 57 IU/L (35-105); Anion Gap 13.4 (5-19); Aspartate Amino Transferase 17 U/L (0-32); Blood Urea Nitrogen 34 mg/dL (8-23); Calcium 9.5 mg/dL (8.5-10.5); Carbon Dioxide 29 mmol/L (22-29); Chloride 103 mmol/L (98-107); Globulin 3.2 g/dL (1.3-4.6); Glucose 85 mg/dL (65-115); Osmolality Calculated 299 mOsm/kg (285-295); Potassium 4.4 mmol/L (3.5-5.1); Sodium 141 mmol/L (136-145); Total Bilirubin 0.4 mg/dL (0.15-1.2); Total Protein 7.2 g/dL (6.6-8.7)
[2020-06-19 11:31] LABS: Immunoglobulin IGA 198 mg/dL (70-400); Immunoglobulin IGG 937 mg/dL (700-1600); Immunoglobulin IGM 102 mg/dL (40-230)
[2020-06-20 11:53] LABS: PROTEIN, TOTAL 6.6 g/dL (6.1-8.1)
[2020-06-20 13:28] LABS: ALBUMIN 3.6 g/dL (3.8-4.8); ALPHA 1 GLOBULIN 0.3 g/dL (0.2-0.3); BETA 1 GLOBULIN 0.4 g/dL (0.4-0.6); BETA 2 GLOBULIN 0.3 g/dL (0.2-0.5); GAMMA GLOBULIN 0.9 g/dL (0.8-1.7)
[2020-06-20 14:59] LABS: KAPPA LIGHT CHAIN, FREE, SERUM 108.8 mg/L (3.3-19.4); KAPPA/LAMBDA LIGHT CHAINS FREE 2.26 (0.26-1.65); LAMBDA LIGHT CHAIN, FREE, SERU 48.2 mg/L (5.7-26.3)
[2020-06-27] MEDS: prochlorperazine 10 mg Tablet PO (09:45)
[2020-06-27] MEDS: denosumab 120 mg SDV SUBCUT (09:55)
--- NOTE | 2020-06-27 19:21 | ONC FU_ITS ---
Dr. Resendez Patient Follow-Up Note Patient: Alcira Shirley Unit #: [id number]: 1940 Dicatated By: Beltran Resendez M.D.Date of Visit:Jun 27, 2020 Onc Med Follow-up/Prog Note Chief Complaint: Myeloma. History of Present Illness: This is a 80 year-old woman with IgG kappa myeloma, stage III. She had known osteoporosis and multiple vertebral compression fractures dating back to at least March 2018. In May 2018 she underwent further evaluation at the bone health clinic at [facility]. A protein electrophoresis at that time showed IgG kappa monoclonal protein quantitating at 0.5 g/dL. She had hematology consultation with Dr. Cecille Acevedo on 07/19/2018. Her laboratory studies at that time showed significant hypercalcemia with a serum calcium of 13.6 mg/dL. Her hemoglobin was normal at 15.0 g and her creatinine was borderline at 0.91 mg/dL. Her repeat protein electrophoresis showed her M protein quantitating at 0.6 g/dL. Her free light chain assay showed elevated kappa light chain at 524 mg/L and decreased lambda light chain at < 0.15 mg/L. Her skeletal survey showed innumerable lytic lesions throughout the apical and appendicular skeleton, compatible with multiple myeloma. Bone marrow aspiration/biopsy on 07/21/2018 showed a mildly hypercellular marrow with 60% involvement with plasma cell neoplasm, kappa restricted. 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 Further evaluation with PET/CT on 07/21/2018 showed a mildly FDG avid expansile lytic lesion of the right fourth rib consistent with a diagnosis of multiple myeloma. Also noted was a mottled appearance with lytic lesions seen throughout the axial and appendicular skeleton greatest in the skull and bilateral upper extremities, also consistent with myeloma. Multiple compression deformities were seen throughout the thoracic spine, greatest at T7. During that time she had been admitted to the hospital and she was treated with IV Zometa. She then began treatment with weekly Velcade and dexamethasone, cycle 1 day 1 on 08/03/2018. Her further clinical course was complicated by atrial fibrillation and congestive heart failure, requiring hospital admissions on 08/25/2018, on 09/01/2018 100 and on 09/09/2018. As a result, her cycle 2 of Velcade/dexamethasone was delayed. Despite the complications, she did have a good response with her M protein decreased to 0.3 g/dL and her free kappa light chain decreased to 2.00 mg/dL. Her kappa/lambda ratio normalized to 1.12. She then began cycle 2 on 09/27/2018 with Velcade continued at 1.3 mg/m??? by subcutaneous injection weekly and dexamethasone reduced to 20 mg weekly on a 4-week on/1-week off schedule. I had seen her initially on 10/27/2018. She had completed her 2nd cycle of treatment. Her clinical course, though, was further complicated by a fall at the skilled nursing resulting in a left inferior orbital wall depressed fracture and he C3 spinous process nondisplaced fracture, both of which were managed conservatively. Her other medical illnesses hypertension, chronic atrial fibrillation, congestive heart failure, GERD, degenerative arthritis, and glaucoma. Her prior surgeries include ORIF for left femur fracture in 2012 and right total knee arthroplasty in 2007. She is a nonsmoker. INTERIM HISTORY: She had follow-up at [facility] on 11/01/2018. At that point she was given a second infusion of Zometa, and she began cycle 3 of Velcade/dexamethasone. With that cycle she was able to complete 4 weekly Velcade injections together with dexamethasone 10 mg twice weekly followed by a 1 week rest. She continued with cycle 4 of Velcade/dexamethasone on 12/07/2018. She was again able to tolerate the for weekly Velcade injections along with dexamethasone 10 mg twice weekly. During that time, she had a follow-up with her orthopedic surgeon in [place], and she was told that she had 2 new vertebral compression fractures, presumably resulting from the fall. However, she was able to transition from the skilled nursing to assisted living. She was seen for a follow-up visit on 01/10/2019. At that point she appeared stable clinically and she continued with her 5th cycle of treatment with Velcade/dexamethasone. With that cycle, her 4th weekly dose of Velcade was omitted, as she was admitted to the hospital at day 22 with worsening congestive heart failure in association with an acute decline in her renal function. She then continued with cycle 6 on 02/21/2019. The day 22 Velcade was omitted with that cycle as well, as she was again admitted to the hospital with decompensated heart failure. With those episodes of congestive heart failure, her dexamethasone was changed to 1 mg daily. In the meantime, her protein electrophoresis studies from January showed her M band quantitating at 0.1 g/dL, and her serum free light chain assay showed her kappa light chain at 12.7 mg/L with lambda light chain 10.3 mg/L and kappa/lambda ratio normal at 1.23. She was seen again by Dr. Acevedo at [facility] on 04/04/2019. It was recommended that she transitioned to maintenance therapy with Velcade 1.3 mg/m??? by subcutaneous injection every 2 weeks together with lenalidomide 10 mg daily. Her repeat bone marrow aspiration/biopsy on 04/20/2019 showed cellularity ranging from 10 to 30% with normal trilineage hematopoiesis. There were just rare scattered plasma cells noted, estimated at 2 to 4% of the overall cellularity. On 05/16/2019 she began cycle 1 of maintenance therapy with Velcade 1.3 mg/m??? by subcutaneous injection every 2 weeks together with Revlimid 10 mg daily. Her repeat protein electrophoresis on 06/06/2019 reported an IgG kappa monoclonal protein band quantitating at 1.9 g/dL. The free light chain assay showed elevated kappa light chain at 128 mg/L with lambda light chain 26.9 mg/L and kappa/lambda ratio 4.77. At her follow-up visit on 06/13/2019 she appeared to be tolerating the treatment with acceptable toxicity, though her protein electrophoresis at that time reported a significant increase in her M protein to 1.9 g/dL. I opted to continue her same treatment and on her repeat SPEP the M protein was similar to the prior studies at 0.1 g/dL. However, she did have to stop the Revlimid due to multiple side effects including weakness/fatigue, anorexia, nausea, and insomnia, among others. She just did not feel good generally. She also was taken off dexamethasone due to fluid retention, but she was able to continue the Velcade injections every 2 weeks. Her repeat protein electrophoresis studies on 08/01/2019 showed no detectable monoclonal protein and the serum free light chain assay showed normal kappa/lambda ratio at 1.49. Her clinical status at that point appeared stable, and she continued Velcade 1.3 mg/m??? by subcutaneous injection every 2 weeks. As of 04/17/2020 she began cycle 21 of maintenance Velcade. Following her cycle 21-day 15 treatment on 05/01/2020 her Velcade was put on hold due to several episodes of nausea/vomiting, requiring IV hydration. As yet she has not had any further treatment. Her denosumab also has been on hold. It was last administered on 04/03/2020. She is seen for a scheduled visit. She says her energy is about the same. She has limited activity, but she is able to get around with a walker. Her ECOG score is 2. Her appetite has been good. She has not had fever. She does have some sweating at night. She has some shortness of breath with activity, but her breathing generally has been okay. She does not complain of cough and she has not been having chest pain. She has no GI or complaints. She is comfortable when she is sitting, but she does complain that it hurts if she stands very long. Overall, her pain is adequately managed with her medication. She has a little bit of numbness in her feet. She has no other focal neurologic symptoms. Medications: Acyclovir 1 Tablet (of 400 mg) Oral daily, Amiodarone HCl 1 Tablet (of 200 mg) Oral daily, HYDROcodone-Acetaminophen 1 Tablet (of 5-325 mg) Oral q 6 hours PRN, Klor-Con M20 (10 meq) Tablet, controlled release Oral Take as Directed, Meclizine HCl 1 Tablet (of 25 mg) Oral t.i.d. PRN, Mirtazapine 1 (15 mg) Tablet Oral at bedtime, Morphine Sulfate ER 1 Tablet (of 15 mg) Tablet SR 24 HR Oral b.i.d., Multiple Vitamins-Minerals 1 Tablet Oral daily, Pepcid 1 Tablet (of 20 mg) Oral at bedtime, Spironolactone 0.5 Tablet (of 50 mg) Oral daily, Systane Complete 1 Drop(s) Solution Ophthalmic PRN, Velcade 1 (3.5 mg) Injection q 7 days, Xarelto 1 Tablet (of 10 mg) Oral daily, Xgeva 1 Each (of 120 ) Subcutaneous q 30 days Allergies: Codeine Sulfate and Statins. Review of Systems: Constitutional - Her energy is about the same. She has limited activity. She is able to ambulate with a walker. Appetite is good and weight is stable. No fever. She has some sweating at night. ECOG score is 2, ENMT - She has a drippy nose. No mouth sores. No sore throat or difficulty swallowing, Hematologic/Lymphatic - She has easy bruising, Respiratory - She has some shortness of breath, but her breathing is generally OK. No cough. No pleuritic pain or hemoptysis, Cardiovascular - No angina pain. No palpitations, Gastrointestinal - No nausea or vomiting. No heartburn or acid reflux. No diarrhea or constipation. No blood in the stool or black stools, Genitourinary (F) - No dysuria or hematuria. No urinary frequency. No urgency or incontinence, Musculoskeletal - She is comfortable when she is sitting, but it hurts if she has to stand very long, Integumentary - No skin rash, Neurologic - No headache or dizziness. She has a little bit of numbness in her feet. No other focal neurologic symptoms, Psychiatric - No anxiety or depression. She sometimes has difficulty sleeping. Vital Signs: Performed on Jun 27, 2020 08:43 Height - 61.00 in Weight - 194.8 lbs (LOW) BSA - 1.87 sq.m BMI - 36.81 (HIGH) Temperature - 99.5 F (HIGH) Pulse - 88 /min Respiration - 20 /min BP - 155/75 mm(hg) (HIGH) O2 Sat - 95 % (LOW) Pain - 0 Physical Examination: Constitutional - She appears somewhat weak generally, Eyes - Sclerae nonicteric. Conjunctivae appear clear, ENMT - No lesions noted in the oral cavity, Hematologic/Lymphatic - No cervical, clavicular, or axillary adenopathy, Respiratory - Lungs sound clear, Cardiovascular - Heart rhythm is regular. There is a II/ systolic murmur. There is no gallop or rub noted, Abdomen - Soft. Liver and spleen are not enlarged. There is no abdominal mass or ascites noted and there is no inguinal adenopathy, Extremities - No edema, Neurologic - No focal neurologic deficits noted. Lab/Imaging: CBC shows hemoglobin 14.4 g, white blood cell count 8900, and platelet count 241,000. Comprehensive metabolic profile shows elevated BUN and creatinine at 34 and 1.8 mg/dL. Calcium was normal at 9.5 mg/dL with albumin 3.6 g/dL. The serum protein electrophoresis shows no detectable monoclonal protein. The free light chain assay shows elevated kappa light chain at 108.8 mg/L with lambda light chain 48.2 mg/L and elevated kappa/lambda ratio of 2.26. Impression: 1. 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 2. She had hypercalcemia, extensive lytic bone involvement, and multiple vertebral compression fractures at initial diagnosis in July 2018. Her other medical illnesses include: 3. Hypertension. 4. Chronic atrial fibrillation. 5. Congestive heart failure. 6. Degenerative arthritis. 7. GERD. 8. Glaucoma. She was given IV Zometa at initial diagnosis. She then began treatment with weekly Velcade and dexamethasone on 08/03/2018. Her first cycle was complicated by episodes of atrial fibrillation and congestive heart failure. However, she did have evidence of significant response by protein electrophoresis and free light chain assay. She began cycle 2 of Velcade/dexamethasone on 09/27/2018 with Velcade 1.3 mg/m??? by subcutaneous injection and dexamethasone 20 mg weekly on a 4-week on and 1-week off schedule. She tolerated the 2nd cycle well, though her clinical course was further complicated by a fall at the skilled nursing on 10/23/2018 resulting in a left inferior orbital wall depressed fracture and a C3 spinous process nondisplaced fracture. Both fractures awere managed conservatively. She was then able to continue with cycle 3 of Velcade/dexamethasone on 11/01/2018, with cycle 4 on 12/07/2018, and with cycle 5 on 01/10/2019. She appeared to be showing a good objective response with protein electrophoresis at that point showing decline in her M protein to 0.1 g/dL. The serum free light chain assay showed normal kappa light chain at 12.7 mg/L, normal lambda light chain at 10.3 mg/L, and normal kappa/lambda ratio at 1.23. She then continued treatment with Velcade and dexamethasone, but her subsequent clinical course was complicated by 2 admissions for decompensated congestive heart failure. During that time her dexamethasone was changed to 1 mg daily. Overall she has continued to have fairly marginal performance status, but she had otherwise been stable clinically. As of her follow-up visit on 03/15/2019 at opted to taper off her dexamethasone. At that point she continued with cycle 7 of Velcade. She was showing a very good objective response. On 04/04/2019 she had follow-up with Dr. Acevedo at [facility], and it was recommended that she transition to maintenance therapy with Velcade 1.3 mg/m??? by subcutaneous injection every 2 weeks together with lenalidomide 10 mg daily. Her repeat bone marrow aspiration/biopsy on 04/20/2019 showed only scant plasma cells estimated at 2 to 4% of the overall cellularity. She began cycle 1 of her maintenance therapy on 05/16/2019. Initially she appeared to be tolerating it with acceptable toxicity, but during her second cycle the lenalidomide was put on hold due to multiple side effects. During followup she was feeling better, and she continued treatment Velcade every 2 weeks. Her repeat protein electrophoresis studies on 08/01/2019 showed no detectable monoclonal protein, and the free light chain assay showed normal kappa/lambda ratio at 1.49. She has continued to have limited activity tolerance, but her pain was well controlled, and she was having no further issues with fluid retention. She continued treatment with Velcade every 2 weeks. As of 09/11/2019 her protein electrophoresis showed no detectable monoclonal protein. The free light chain assay showed slightly elevated kappa/lambda ratio at 1.73. During followup she continued to have limited activity and fairly marginal performance status. However, as of her follow-up visit in March 2020 she had been tolerating treatment with acceptable toxicity. Beginning with cycle 21 of maintenance Velcade in April 2020 she began having episodes of nausea/vomiting, requiring IV hydration. These were suspected to be treatment related, though I was not entirely certain of that. Her Velcade was put on hold after her cycle 21-day 15 treatment on 05/01/2020. Her denosumab has been on hold since March. Her overall clinical status at this point appears stable. Her serum protein electrophoresis shows no recurrence of M protein. Her serum free light chain assay does show some increase in the kappa free light chain. The significance, though, is uncertain as there has been some fluctuation in those levels and the kappa/lambda ratio has increased only slightly. Overall, there has been no convincing evidence of progression of the myeloma. Plan: She will continue now with cycle 22 of maintenance Velcade 1.3 mg/m??? by subcutaneous injection every 2 weeks. She also will be given denosumab 120 mg by subcutaneous injection, and that will be continued now at 3-month intervals as long as she tolerates it. She will return for treatment in 2 weeks and for a follow-up visit in 4 weeks. Signed By: Beltran Resendez M.D. <<Signature on File>>
[2020-07-03 11:54] LABS: Basophils % 0.3 %; Eosinophils # 0.1 10^3/uL (0.0-0.8); Eosinophils % 0.6 %; Hematocrit 47.4 % (37.0-47.0); Hemoglobin 14.6 g/dL (11.5-15.3); Lymphocytes # 1.4 10^3/uL (0.8-4.8); Lymphocytes % 15.8 %; Mean Corpuscular HGB Conc 30.8 g/dL (30.0-36.0); Mean Corpuscular Hemoglobin 29.9 pg (28.0-34.0); Mean Corpuscular Volume 97.1 fL (81-99); Mean Platelet Volume 13.4 fL (7.4-10.4); Monocytes % 11.8 %; Neutrophils % 71.3 %; Nucleated Red Blood Cells % 0 %; Platelet Count 183 10^3/cmm (130-400); Red Blood Count 4.88 10^6/uL (4.1-5.3); Red Cell Distribution Width 13.5 % (12.1-15.1); White Blood Count 8.7 10^3/uL (4.0-10.0)
[2020-07-03 12:19] LABS: Alanine Aminotransferase 14 U/L (0-33); Albumin Level 3.9 g/dL (3.5-5.2); Alkaline Phosphatase 56 IU/L (35-105); Anion Gap 13.6 (5-19); Aspartate Amino Transferase 17 U/L (0-32); Blood Urea Nitrogen 36 mg/dL (8-23); Carbon Dioxide 28 mmol/L (22-29); Chloride 103 mmol/L (98-107); Globulin 3.1 g/dL (1.3-4.6); Glucose 78 mg/dL (65-115); Osmolality Calculated 297 mOsm/kg (285-295); Potassium 4.6 mmol/L (3.5-5.1); Sodium 140 mmol/L (136-145); Total Bilirubin 0.4 mg/dL (0.15-1.2)
[2020-07-03 13:11] LABS: Slide Review Slide Review Perform
[2020-07-03 13:34] LABS: Immunoglobulin IGA 196 mg/dL (70-400); Immunoglobulin IGG 933 mg/dL (700-1600); Immunoglobulin IGM 105 mg/dL (40-230)
[2020-07-04 07:57] LABS: PROTEIN, TOTAL 6.5 g/dL (6.1-8.1)
[2020-07-04 12:53] LABS: KAPPA LIGHT CHAIN, FREE, SERUM 26.5 mg/L (3.3-19.4); KAPPA/LAMBDA LIGHT CHAINS FREE 1.64 (0.26-1.65); LAMBDA LIGHT CHAIN, FREE, SERU 16.2 mg/L (5.7-26.3)
[2020-07-04 15:32] LABS: ALBUMIN 3.5 g/dL (3.8-4.8); ALPHA 1 GLOBULIN 0.4 g/dL (0.2-0.3); BETA 1 GLOBULIN 0.4 g/dL (0.4-0.6); BETA 2 GLOBULIN 0.3 g/dL (0.2-0.5); GAMMA GLOBULIN 0.9 g/dL (0.8-1.7)
[2020-07-09 14:43] LABS: CREATININE, 24 HOUR URINE 1.01 g/24 h (0.50-2.15); PROTEIN, TOTAL, 24 HR UR 115 mg/24 h (<150); Protein/Creatinine Ratio 0.114 (< OR = 0.114); Protein/Creatinine Ratio 114 mg/g creat (< OR = 114)
[2020-07-10 09:52] LABS: ALBUMIN 100 %; ALPHA-1-GLOBULINS 0 %; ALPHA-2-GLOBULINS 0 %; BETA GLOBULINS 0 %; GAMMA GLOBULINS 0 %
[2020-07-10] MEDS: prochlorperazine 10 mg Tablet PO (10:45)
== END 2020-07-11 23:59 | disposition home or self-care (01) ==
LOC: ONCMED 05:33
PROVIDERS: Nurse Practitioner; PCP Family Medicine; Visit Provider Internal Medicine Medical Oncology
DX: Z51.11 Encounter for antineoplastic chemotherapy (principal); C79.51 Secondary malignant neoplasm of bone; E83.52 Hypercalcemia; R22.42 Localized swelling, mass and lump, left lower limb; M25.572 Pain in left ankle and joints of left foot; I10 Essential (primary) hypertension; I48.21 Permanent atrial fibrillation; I50.9 Heart failure, unspecified; M19.90 Unspecified osteoarthritis, unspecified site; K21.9 Gastro-esophageal reflux disease without esophagitis; H40.9 Unspecified glaucoma; Z79.52 Long term (current) use of systemic steroids; Z79.899 Other long term (current) drug therapy
CPT/HCPCS: 80053; 82784; 83883; 84155; 84165; 85025; 96372; 96401; 99214; J0897; J9041; Q0164

== ENCOUNTER 2020-07-24 05:24 | Outpatient (RCR) | payer MEDICARE, BC, SELFPAY ==
[2020-07-17 14:10] LABS: Basophils % 0.5 %; Eosinophils % 0.4 %; Hematocrit 48.9 % (37.0-47.0); Hemoglobin 14.7 g/dL (11.5-15.3); Lymphocytes # 1.4 10^3/uL (0.8-4.8); Lymphocytes % 18.6 %; Mean Corpuscular HGB Conc 30.1 g/dL (30.0-36.0); Mean Corpuscular Hemoglobin 29.8 pg (28.0-34.0); Mean Corpuscular Volume 99.2 fL (81-99); Mean Platelet Volume 12.3 fL (7.4-10.4); Monocytes # 0.8 10^3/uL (0.2-0.9); Monocytes % 10.6 %; Neutrophils # 5.19 10^3/uL (1.8-7.7); Neutrophils % 69.5 %; Nucleated Red Blood Cells % 0 %; Platelet Count 201 10^3/cmm (130-400); Red Blood Count 4.93 10^6/uL (4.1-5.3); Red Cell Distribution Width 13.6 % (12.1-15.1); White Blood Count 7.5 10^3/uL (4.0-10.0)
[2020-07-17 14:19] LABS: Alanine Aminotransferase 18 U/L (0-33); Albumin Level 4.2 g/dL (3.5-5.2); Alkaline Phosphatase 57 IU/L (35-105); Anion Gap 12.8 (5-19); Aspartate Amino Transferase 19 U/L (0-32); Blood Urea Nitrogen 38 mg/dL (8-23); Calcium 9.6 mg/dL (8.5-10.5); Carbon Dioxide 31 mmol/L (22-29); Chloride 102 mmol/L (98-107); Globulin 2.8 g/dL (1.3-4.6); Glucose 142 mg/dL (65-115); Osmolality Calculated 303 mOsm/kg (285-295); Potassium 4.8 mmol/L (3.5-5.1); Sodium 141 mmol/L (136-145); Total Bilirubin 0.4 mg/dL (0.15-1.2)
[2020-07-24] MEDS: prochlorperazine 10 mg Tablet PO (10:15)
--- NOTE | 2020-07-27 14:45 | ONC FU_ITS ---
Dr. Resendez Patient Follow-Up Note Patient: Alcira Shirley Unit #: [id number]: [id number] Dicatated By: Beltran Resendez M.D.Date of Visit:Jul 24, 2020 Onc Med Follow-up/Prog Note Chief Complaint: Myeloma. History of Present Illness: This is a 80 year-old woman with IgG kappa myeloma, stage III. She had known osteoporosis and multiple vertebral compression fractures dating back to at least March 2018. In May 2018 she underwent further evaluation at the bone health clinic at [facility]. A protein electrophoresis at that time showed IgG kappa monoclonal protein quantitating at 0.5 g/dL. She had hematology consultation with Dr. Cecille Acevedo on 07/19/2018. Her laboratory studies at that time showed significant hypercalcemia with a serum calcium of 13.6 mg/dL. Her hemoglobin was normal at 15.0 g and her creatinine was borderline at 0.91 mg/dL. Her repeat protein electrophoresis showed her M protein quantitating at 0.6 g/dL. Her free light chain assay showed elevated kappa light chain at 524 mg/L and decreased lambda light chain at < 0.15 mg/L. Her skeletal survey showed innumerable lytic lesions throughout the apical and appendicular skeleton, compatible with multiple myeloma. Bone marrow aspiration/biopsy on 07/21/2018 showed a mildly hypercellular marrow with 60% involvement with plasma cell neoplasm, kappa restricted. 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 Further evaluation with PET/CT on 07/21/2018 showed a mildly FDG avid expansile lytic lesion of the right fourth rib consistent with a diagnosis of multiple myeloma. Also noted was a mottled appearance with lytic lesions seen throughout the axial and appendicular skeleton greatest in the skull and bilateral upper extremities, also consistent with myeloma. Multiple compression deformities were seen throughout the thoracic spine, greatest at T7. During that time she had been admitted to the hospital and she was treated with IV Zometa. She then began treatment with weekly Velcade and dexamethasone, cycle 1 day 1 on 08/03/2018. Her further clinical course was complicated by atrial fibrillation and congestive heart failure, requiring hospital admissions on 08/25/2018, on 09/01/2018 100 and on 09/09/2018. As a result, her cycle 2 of Velcade/dexamethasone was delayed. Despite the complications, she did have a good response with her M protein decreased to 0.3 g/dL and her free kappa light chain decreased to 2.00 mg/dL. Her kappa/lambda ratio normalized to 1.12. She then began cycle 2 on 09/27/2018 with Velcade continued at 1.3 mg/m??? by subcutaneous injection weekly and dexamethasone reduced to 20 mg weekly on a 4-week on/1-week off schedule. I had seen her initially on 10/27/2018. She had completed her 2nd cycle of treatment. Her clinical course, though, was further complicated by a fall at the [facility] resulting in a left inferior orbital wall depressed fracture and he C3 spinous process nondisplaced fracture, both of which were managed conservatively. Her other medical illnesses hypertension, chronic atrial fibrillation, congestive heart failure, GERD, degenerative arthritis, and glaucoma. Her prior surgeries include ORIF for left femur fracture in 2012 and right total knee arthroplasty in 2007. She is a nonsmoker. INTERIM HISTORY: She had follow-up at [facility] on 11/01/2018. At that point she was given a second infusion of Zometa, and she began cycle 3 of Velcade/dexamethasone. With that cycle she was able to complete 4 weekly Velcade injections together with dexamethasone 10 mg twice weekly followed by a 1 week rest. She continued with cycle 4 of Velcade/dexamethasone on 12/07/2018. She was again able to tolerate the for weekly Velcade injections along with dexamethasone 10 mg twice weekly. During that time, she had a follow-up with her orthopedic surgeon in [place], and she was told that she had 2 new vertebral compression fractures, presumably resulting from the fall. However, she was able to transition from the [facility] to assisted living. She was seen for a follow-up visit on 01/10/2019. At that point she appeared stable clinically and she continued with her 5th cycle of treatment with Velcade/dexamethasone. With that cycle, her 4th weekly dose of Velcade was omitted, as she was admitted to the hospital at day 22 with worsening congestive heart failure in association with an acute decline in her renal function. She then continued with cycle 6 on 02/21/2019. The day 22 Velcade was omitted with that cycle as well, as she was again admitted to the hospital with decompensated heart failure. With those episodes of congestive heart failure, her dexamethasone was changed to 1 mg daily. In the meantime, her protein electrophoresis studies from January showed her M band quantitating at 0.1 g/dL, and her serum free light chain assay showed her kappa light chain at 12.7 mg/L with lambda light chain 10.3 mg/L and kappa/lambda ratio normal at 1.23. She was seen again by Dr. Acevedo at [facility] on 04/04/2019. It was recommended that she transitioned to maintenance therapy with Velcade 1.3 mg/m??? by subcutaneous injection every 2 weeks together with lenalidomide 10 mg daily. Her repeat bone marrow aspiration/biopsy on 04/20/2019 showed cellularity ranging from 10 to 30% with normal trilineage hematopoiesis. There were just rare scattered plasma cells noted, estimated at 2 to 4% of the overall cellularity. On 05/16/2019 she began cycle 1 of maintenance therapy with Velcade 1.3 mg/m??? by subcutaneous injection every 2 weeks together with Revlimid 10 mg daily. Her repeat protein electrophoresis on 06/06/2019 reported an IgG kappa monoclonal protein band quantitating at 1.9 g/dL. The free light chain assay showed elevated kappa light chain at 128 mg/L with lambda light chain 26.9 mg/L and kappa/lambda ratio 4.77. At her follow-up visit on 06/13/2019 she appeared to be tolerating the treatment with acceptable toxicity, though her protein electrophoresis at that time reported a significant increase in her M protein to 1.9 g/dL. I opted to continue her same treatment and on her repeat SPEP the M protein was similar to the prior studies at 0.1 g/dL. However, she did have to stop the Revlimid due to multiple side effects including weakness/fatigue, anorexia, nausea, and insomnia, among others. She just did not feel good generally. She also was taken off dexamethasone due to fluid retention, but she was able to continue the Velcade injections every 2 weeks. Her repeat protein electrophoresis studies on 08/01/2019 showed no detectable monoclonal protein and the serum free light chain assay showed normal kappa/lambda ratio at 1.49. Her clinical status at that point appeared stable, and she continued Velcade 1.3 mg/m??? by subcutaneous injection every 2 weeks. As of 04/17/2020 she began cycle 21 of maintenance Velcade. Following her cycle 21-day 15 treatment on 05/01/2020 her Velcade was put on hold due to several episodes of nausea/vomiting, requiring IV hydration. Her denosumab also has been on hold. It was last administered on 04/03/2020. As of 06/27/2020 she was able to restart the Velcade at 1.3 mg by subcutaneous injection. She also restarted the denosumab. She is seen for a scheduled visit. She has been feeling pretty good generally. She has tolerated her last 2 Velcade injections with no apparent adverse effects. She still has limited activity, but she is able to ambulate with a walker. She has good appetite. She has not had fever. She does have a little bit of sweating at night. She does get short of breath with activity, but her breathing is the same. She does not complain of cough and she has not been having chest pain. She has no GI or complaints. She does not have very much pain as long as she is sitting or lying, but she is not able to be up on her feet very long due to back pain. She also has some pain in her hands and legs. She has no focal neurologic symptoms. Medications: Acyclovir 1 Tablet (of 400 mg) Oral daily, Amiodarone HCl 1 Tablet (of 200 mg) Oral daily, HYDROcodone-Acetaminophen 1 Tablet (of 5-325 mg) Oral q 6 hours PRN, Klor-Con M20 (10 meq) Tablet, controlled release Oral Take as Directed, Meclizine HCl 1 Tablet (of 25 mg) Oral t.i.d. PRN, Mirtazapine 1 (15 mg) Tablet Oral at bedtime, Morphine Sulfate ER 1 Tablet (of 15 mg) Tablet SR 24 HR Oral b.i.d., Multiple Vitamins-Minerals 1 Tablet Oral daily, Pepcid 1 Tablet (of 20 mg) Oral at bedtime, Spironolactone 0.5 Tablet (of 50 mg) Oral daily, Systane Complete 1 Drop(s) Solution Ophthalmic PRN, Velcade 1 (3.5 mg) Injection q 7 days, Xarelto 1 Tablet (of 10 mg) Oral daily, Xgeva 1 Each (of 120 ) Subcutaneous q 30 days Allergies: Codeine Sulfate and Statins. Vital Signs: Performed on Jul 24, 2020 09:27 Height - 61.00 in Weight - 199.6 lbs (HIGH) BSA - 1.89 sq.m BMI - 37.71 (HIGH) Temperature - 98.1 F (LOW) Pulse - 75 /min Respiration - 16 /min BP - 147/69 mm(hg) (HIGH) O2 Sat - 95 % (LOW) Pain - 0 Physical Examination: Constitutional - She appears somewhat frail generally, Eyes - Sclerae nonicteric. Conjunctivae appear clear, ENMT - No lesions noted in the oral cavity, Hematologic/Lymphatic - No cervical, clavicular, or axillary adenopathy, Respiratory - Lungs sound clear, Cardiovascular - Heart rhythm is regular. There is a II/ systolic murmur. There is no gallop or rub noted, Abdomen - Soft. Liver and spleen are not enlarged. There is no abdominal mass or ascites noted and there is no inguinal adenopathy, Extremities - No edema, Neurologic - No focal neurologic deficits noted. Lab/Imaging: Test performed on Jul 17, 2020 12:30 Sodium 141 mmol/L Potassium 4.8 mmol/L Chloride 102 mmol/L CO2 31 mmol/L Anion Gap 12.8 BUN 38 mg/dL Creatinine 1.7 mg/dL Cr Clearance (Est) 37.5800 mL/min Glucose 142 mg/dL Osmolality - Calculated 303 mOsm/kg Calcium 9.6 mg/dL Protein, Total 7.0 g/dL Albumin 4.2 g/dL Globulin 2.8 g/dL Bilirubin, Total 0.4 mg/dL ALT (SGPT) 18 U/L AST (SGOT) 19 U/L Alkaline Phosphatase 57 IU/L WBC 7.5 10 3/uL RBC 4.93 10 6/uL HGB 14.7 g/dL HCT 48.9 % MCV 99.2 fL MCH 29.8 pg MCHC 30.1 g/dL RDW 13.6 % Platelet Count 201 10 3/cmm MPV 12.3 fL Neutrophils 5.19 10 3/uL Lymphocytes 1.4 10 3/uL Monocytes 0.8 10 3/uL Eosinophils 0.0 10 3/uL Basophils 0.0 10 3/uL Neutrophil % 69.5 % Lymphocyte % 18.6 % Monocyte % 10.6 % Eosinophil % 0.4 % Basophils % 0.5 % NRBC % 0 % Historic Problem List: 1. 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 2. She had hypercalcemia, extensive lytic bone involvement, and multiple vertebral compression fractures at initial diagnosis in July 2018. 3. Hypertension. 4. Chronic atrial fibrillation. 5. Congestive heart failure. 6. Degenerative arthritis. 7. GERD. 8. Glaucoma. Problems Addressed with this Encounter and Plan: 1. 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 She had hypercalcemia, extensive lytic bone involvement, and multiple vertebral compression fractures at initial diagnosis in July 2018. She began treatment with weekly Velcade/dexamethasone in July 2018. She has had a very good clinical response, though her treatment was complicated by congestive heart failure, which ultimately resulted in her stopping dexamethasone. Following her visit at [facility] in March 2019 she began a trial of maintenance therapy with Velcade in combination with lenalidomide, but she had very poor tolerance for the lenalidomide, and she subsequently continued maintenance with Velcade monotherapy at 2-week intervals. At this point she appears to be tolerating the Velcade with no significant adverse effects. She will continue with cycle 24 of maintenance Velcade 1.3 mg/m??? by subcutaneous injection. She will return for treatment in 2 weeks and for a follow-up visit in 4 weeks. 2. She has extensive lytic bone involvement with multiple vertebral compression fractures. She will continue treatment with denosumab, but with the frequency reduced to every 3 months. Signed By: Beltran Resendez M.D. <<Signature on File>>
== END 2020-08-11 23:59 | disposition home or self-care (01) ==
LOC: ONCMED 05:24
PROVIDERS: PCP Family Medicine; Visit Provider Internal Medicine Medical Oncology
DX: Z51.11 Encounter for antineoplastic chemotherapy (principal); C90.00 Multiple myeloma not having achieved remission; R22.42 Localized swelling, mass and lump, left lower limb; M25.572 Pain in left ankle and joints of left foot; E83.52 Hypercalcemia; I10 Essential (primary) hypertension; I48.91 Unspecified atrial fibrillation; I50.9 Heart failure, unspecified; M19.90 Unspecified osteoarthritis, unspecified site; K21.9 Gastro-esophageal reflux disease without esophagitis; H40.9 Unspecified glaucoma; Z79.899 Other long term (current) drug therapy
CPT/HCPCS: 80053; 85025; 96401; 99214; J9041; Q0164

== ENCOUNTER 2020-08-21 05:54 | Outpatient (RCR) | payer MEDICARE, BC, SELFPAY ==
[2020-08-20 17:39] LABS: Basophils # 0.1 10^3/uL (0.0-0.1); Basophils % 0.5 %; Eosinophils # 0.1 10^3/uL (0.0-0.8); Eosinophils % 0.5 %; Hematocrit 49.5 % (37.0-47.0); Lymphocytes # 1.8 10^3/uL (0.8-4.8); Lymphocytes % 19.3 %; Mean Corpuscular HGB Conc 30.3 g/dL (30.0-36.0); Mean Corpuscular Hemoglobin 30.1 pg (28.0-34.0); Mean Corpuscular Volume 99.2 fL (81-99); Mean Platelet Volume 12.1 fL (7.4-10.4); Monocytes # 0.9 10^3/uL (0.2-0.9); Monocytes % 9.9 %; Neutrophils # 6.57 10^3/uL (1.8-7.7); Neutrophils % 69.5 %; Nucleated Red Blood Cells % 0 %; Platelet Count 219 10^3/cmm (130-400); Red Blood Count 4.99 10^6/uL (4.1-5.3); Red Cell Distribution Width 13.4 % (12.1-15.1); White Blood Count 9.5 10^3/uL (4.0-10.0)
[2020-08-20 17:57] LABS: Alanine Aminotransferase 15 U/L (0-33); Alkaline Phosphatase 61 IU/L (35-105); Anion Gap 15.6 (5-19); Aspartate Amino Transferase 18 U/L (0-32); Blood Urea Nitrogen 28 mg/dL (8-23); Calcium 9.1 mg/dL (8.5-10.5); Carbon Dioxide 31 mmol/L (22-29); Chloride 102 mmol/L (98-107); Globulin 3.5 g/dL (1.3-4.6); Glucose 101 mg/dL (65-115); Immunoglobulin IGA 206 mg/dL (70-400); Immunoglobulin IGG 948 mg/dL (700-1600); Immunoglobulin IGM 102 mg/dL (40-230); Osmolality Calculated 304 mOsm/kg (285-295); Potassium 4.6 mmol/L (3.5-5.1); Sodium 144 mmol/L (136-145); Total Bilirubin 0.3 mg/dL (0.15-1.2); Total Protein 7.5 g/dL (6.6-8.7)
[2020-08-21] MEDS: prochlorperazine 10 mg Tablet PO (10:15)
--- NOTE | 2020-08-21 11:14 | ONC FU_ITS ---
Dr. Resendez Patient Follow-Up Note Patient: Alcira Shirley Unit #: [id number]: [id number] Dicatated By: Beltran Resendez M.D.Date of Visit:Aug 21, 2020 Onc Med Follow-up/Prog Note Chief Complaint: Myeloma. History of Present Illness: This is a 80 year-old woman with IgG kappa myeloma, stage III. She had known osteoporosis and multiple vertebral compression fractures dating back to at least March 2018. In May 2018 she underwent further evaluation at the bone health clinic at [facility]. A protein electrophoresis at that time showed IgG kappa monoclonal protein quantitating at 0.5 g/dL. She had hematology consultation with Dr. Cecille Acevedo on 07/19/2018. Her laboratory studies at that time showed significant hypercalcemia with a serum calcium of 13.6 mg/dL. Her hemoglobin was normal at 15.0 g and her creatinine was borderline at 0.91 mg/dL. Her repeat protein electrophoresis showed her M protein quantitating at 0.6 g/dL. Her free light chain assay showed elevated kappa light chain at 524 mg/L and decreased lambda light chain at < 0.15 mg/L. Her skeletal survey showed innumerable lytic lesions throughout the apical and appendicular skeleton, compatible with multiple myeloma. Bone marrow aspiration/biopsy on 07/21/2018 showed a mildly hypercellular marrow with 60% involvement with plasma cell neoplasm, kappa restricted. 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 Further evaluation with PET/CT on 07/21/2018 showed a mildly FDG avid expansile lytic lesion of the right fourth rib consistent with a diagnosis of multiple myeloma. Also noted was a mottled appearance with lytic lesions seen throughout the axial and appendicular skeleton greatest in the skull and bilateral upper extremities, also consistent with myeloma. Multiple compression deformities were seen throughout the thoracic spine, greatest at T7. During that time she had been admitted to the hospital and she was treated with IV Zometa. She then began treatment with weekly Velcade and dexamethasone, cycle 1 day 1 on 08/03/2018. Her further clinical course was complicated by atrial fibrillation and congestive heart failure, requiring hospital admissions on 08/25/2018, on 09/01/2018 100 and on 09/09/2018. As a result, her cycle 2 of Velcade/dexamethasone was delayed. Despite the complications, she did have a good response with her M protein decreased to 0.3 g/dL and her free kappa light chain decreased to 2.00 mg/dL. Her kappa/lambda ratio normalized to 1.12. She then began cycle 2 on 09/27/2018 with Velcade continued at 1.3 mg/m??? by subcutaneous injection weekly and dexamethasone reduced to 20 mg weekly on a 4-week on/1-week off schedule. I had seen her initially on 10/27/2018. She had completed her 2nd cycle of treatment. Her clinical course, though, was further complicated by a fall at the [facility] resulting in a left inferior orbital wall depressed fracture and he C3 spinous process nondisplaced fracture, both of which were managed conservatively. Her other medical illnesses hypertension, chronic atrial fibrillation, congestive heart failure, GERD, degenerative arthritis, and glaucoma. Her prior surgeries include ORIF for left femur fracture in 2012 and right total knee arthroplasty in 2007. She is a nonsmoker. INTERIM HISTORY: She had follow-up at [facility] on 11/01/2018. At that point she was given a second infusion of Zometa, and she began cycle 3 of Velcade/dexamethasone. With that cycle she was able to complete 4 weekly Velcade injections together with dexamethasone 10 mg twice weekly followed by a 1 week rest. She continued with cycle 4 of Velcade/dexamethasone on 12/07/2018. She was again able to tolerate the for weekly Velcade injections along with dexamethasone 10 mg twice weekly. During that time, she had a follow-up with her orthopedic surgeon in [place], and she was told that she had 2 new vertebral compression fractures, presumably resulting from the fall. However, she was able to transition from the [facility] to assisted living. She was seen for a follow-up visit on 01/10/2019. At that point she appeared stable clinically and she continued with her 5th cycle of treatment with Velcade/dexamethasone. With that cycle, her 4th weekly dose of Velcade was omitted, as she was admitted to the hospital at day 22 with worsening congestive heart failure in association with an acute decline in her renal function. She then continued with cycle 6 on 02/21/2019. The day 22 Velcade was omitted with that cycle as well, as she was again admitted to the hospital with decompensated heart failure. With those episodes of congestive heart failure, her dexamethasone was changed to 1 mg daily. In the meantime, her protein electrophoresis studies from January showed her M band quantitating at 0.1 g/dL, and her serum free light chain assay showed her kappa light chain at 12.7 mg/L with lambda light chain 10.3 mg/L and kappa/lambda ratio normal at 1.23. She was seen again by Dr. Acevedo at [facility] on 04/04/2019. It was recommended that she transitioned to maintenance therapy with Velcade 1.3 mg/m??? by subcutaneous injection every 2 weeks together with lenalidomide 10 mg daily. Her repeat bone marrow aspiration/biopsy on 04/20/2019 showed cellularity ranging from 10 to 30% with normal trilineage hematopoiesis. There were just rare scattered plasma cells noted, estimated at 2 to 4% of the overall cellularity. On 05/16/2019 she began cycle 1 of maintenance therapy with Velcade 1.3 mg/m??? by subcutaneous injection every 2 weeks together with Revlimid 10 mg daily. Her repeat protein electrophoresis on 06/06/2019 reported an IgG kappa monoclonal protein band quantitating at 1.9 g/dL. The free light chain assay showed elevated kappa light chain at 128 mg/L with lambda light chain 26.9 mg/L and kappa/lambda ratio 4.77. At her follow-up visit on 06/13/2019 she appeared to be tolerating the treatment with acceptable toxicity, though her protein electrophoresis at that time reported a significant increase in her M protein to 1.9 g/dL. I opted to continue her same treatment and on her repeat SPEP the M protein was similar to the prior studies at 0.1 g/dL. However, she did have to stop the Revlimid due to multiple side effects including weakness/fatigue, anorexia, nausea, and insomnia, among others. She just did not feel good generally. She also was taken off dexamethasone due to fluid retention, but she was able to continue the Velcade injections every 2 weeks. Her repeat protein electrophoresis studies on 08/01/2019 showed no detectable monoclonal protein and the serum free light chain assay showed normal kappa/lambda ratio at 1.49. Her clinical status at that point appeared stable, and she continued Velcade 1.3 mg/m??? by subcutaneous injection every 2 weeks. As of 04/17/2020 she began cycle 21 of maintenance Velcade. Following her cycle 21-day 15 treatment on 05/01/2020 her Velcade was put on hold due to several episodes of nausea/vomiting, requiring IV hydration. Her denosumab also has been on hold. It was last administered on 04/03/2020. As of 06/27/2020 she was able to restart the Velcade at 1.3 mg by subcutaneous injection. She also restarted the denosumab. She was able to continue Velcade injections on 06/13/2020 and on 07/24/2020, but following that treatment she had developed significant pain in her legs and feet, and her next scheduled injection was held. She is seen for a scheduled visit. She has been feeling okay. Since her last visit she has had a COVID-19 vaccination, which caused nausea and some other mild symptoms for just a few days. Overall she still does not have much energy. Her activity is limited by back pain, but she has ambulatory with a walker. Her ECOG score is 2. She has good appetite. She has not had fever. She sometimes has night sweating. She has sinus drainage. She does not complain of shortness of breath, cough, or chest pain. She does occasionally have nausea. She has no other GI or complaints. She has no other joint or bone pain. She does not complain of headache or dizziness. She does have some numbness in her feet. Medications: Acyclovir 1 Tablet (of 400 mg) Oral daily, Amiodarone HCl 1 Tablet (of 200 mg) Oral daily, HYDROcodone-Acetaminophen 1 Tablet (of 5-325 mg) Oral q 6 hours PRN, Klor-Con M20 (10 meq) Tablet, controlled release Oral Take as Directed, Meclizine HCl 1 Tablet (of 25 mg) Oral t.i.d. PRN, Mirtazapine 1 (15 mg) Tablet Oral at bedtime, Morphine Sulfate ER 1 Tablet (of 15 mg) Tablet SR 24 HR Oral b.i.d., Multiple Vitamins-Minerals 1 Tablet Oral daily, Pepcid 1 Tablet (of 20 mg) Oral at bedtime, Spironolactone 0.5 Tablet (of 50 mg) Oral daily, Systane Complete 1 Drop(s) Solution Ophthalmic PRN, Velcade 1 (3.5 mg) Injection q 7 days, Xarelto 1 Tablet (of 10 mg) Oral daily, Xgeva 1 Each (of 120 ) Subcutaneous q 30 days Allergies: Codeine Sulfate and Statins. Vital Signs: Performed on Aug 21, 2020 09:21 Height - 61.00 in Weight - 203.4 lbs (HIGH) BSA - 1.90 sq.m BMI - 38.43 (HIGH) Temperature - 98.6 F Pulse - 69 /min Respiration - 17 /min BP - 143/67 mm(hg) (HIGH) O2 Sat - 96 % Pain - 0 Physical Examination: Constitutional - She appears somewhat weak. generally, Eyes - Sclerae nonicteric. Conjunctivae appear clear, ENMT - No lesions noted in the oral cavity, Hematologic/Lymphatic - No cervical, clavicular, or axillary adenopathy, Respiratory - Lungs sound clear, Cardiovascular - Heart rhythm is regular. There is a II/ systolic murmur. There is no gallop or rub noted, Abdomen - Soft. Liver and spleen are not enlarged. There is no abdominal mass or ascites noted and there is no inguinal adenopathy, Extremities - No edema, Neurologic - No focal neurologic deficits noted. Lab/Imaging: CBC shows hemoglobin 15.0 g, white blood cell count 9500, and platelet count 219,000. Comprehensive metabolic profile shows slightly improved renal function with BUN 28 and creatinine 1.5 mg/dL. Liver enzymes are normal. Her protein electrophoresis studies are pending. Problem List: 1. 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 2. She had hypercalcemia, extensive lytic bone involvement, and multiple vertebral compression fractures at initial diagnosis in July 2018. 3. Hypertension. 4. Chronic atrial fibrillation. 5. Congestive heart failure. 6. Degenerative arthritis. 7. GERD. 8. Glaucoma. Problems Addressed with this Encounter and Plan: 1. 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 She had hypercalcemia, extensive lytic bone involvement, and multiple vertebral compression fractures at initial diagnosis in July 2018. She began treatment with weekly Velcade/dexamethasone in July 2018. She has had a very good clinical response, though her treatment was complicated by congestive heart failure, which ultimately resulted in her stopping dexamethasone. Following her visit at [facility] in March 2019 she began a trial of maintenance therapy with Velcade in combination with lenalidomide, but she had very poor tolerance for the lenalidomide, and she subsequently continued maintenance with Velcade monotherapy at 2-week intervals. However, at times she does report having nausea with it and following her injection in July she developed significant pain in the lower extremities. It was managed adequately with hydrocodone/APAP. It is uncertain to what extent it may have actually been treatment related. She continues to have limited activity due to her back pain. She is otherwise doing well clinically. Following discussion with the patient and her daughter, she will continue her maintenance Velcade at 1.3 mg per metered squared by subcutaneous injection on a day 1/day 15 schedule. However, going forward, if she does appear to be having side effects with it on a consistent basis, it may be better to just follow her on observation/expectant management. At least for now she will be scheduled to return for an injection in 2 weeks and for a follow-up visit in 4 weeks. 2. She has extensive lytic bone involvement with multiple vertebral compression fractures. She will continue treatment with denosumab on a 3-month schedule. Signed By: Beltran Resendez M.D. <<Signature on File>>
[2020-08-22 08:33] LABS: PROTEIN, TOTAL 6.9 g/dL (6.1-8.1)
[2020-08-22 13:13] LABS: ALBUMIN 3.8 g/dL (3.8-4.8); ALPHA 1 GLOBULIN 0.3 g/dL (0.2-0.3); ALPHA 2 GLOBULIN 1.1 g/dL (0.5-0.9); BETA 1 GLOBULIN 0.4 g/dL (0.4-0.6); BETA 2 GLOBULIN 0.3 g/dL (0.2-0.5); GAMMA GLOBULIN 0.9 g/dL (0.8-1.7)
[2020-08-22 15:13] LABS: KAPPA LIGHT CHAIN, FREE, SERUM 24.6 mg/L (3.3-19.4); KAPPA/LAMBDA LIGHT CHAINS FREE 1.28 (0.26-1.65); LAMBDA LIGHT CHAIN, FREE, SERU 19.2 mg/L (5.7-26.3)
== END 2020-09-08 23:59 | disposition home or self-care (01) ==
LOC: ONCMED 05:54
PROVIDERS: PCP Family Medicine; Visit Provider Internal Medicine Medical Oncology
DX: Z51.11 Encounter for antineoplastic chemotherapy (principal); C90.00 Multiple myeloma not having achieved remission; C79.51 Secondary malignant neoplasm of bone; E83.52 Hypercalcemia; I10 Essential (primary) hypertension; I48.21 Permanent atrial fibrillation; I50.9 Heart failure, unspecified; M19.072 Primary osteoarthritis, left ankle and foot; R22.42 Localized swelling, mass and lump, left lower limb; M25.572 Pain in left ankle and joints of left foot; K21.9 Gastro-esophageal reflux disease without esophagitis; H40.9 Unspecified glaucoma; Z79.899 Other long term (current) drug therapy
CPT/HCPCS: 80053; 82784; 83883; 84155; 84165; 85025; 96401; 99214; J9041; Q0164

== ENCOUNTER 2020-10-02 05:31 | Outpatient (RCR) | payer MEDICARE, BC, SELFPAY ==
[2020-09-12 09:07] LABS: Basophils # 0.1 10^3/uL (0.0-0.1); Basophils % 0.6 %; Eosinophils # 0.1 10^3/uL (0.0-0.8); Eosinophils % 1.4 %; Hematocrit 49.2 % (37.0-47.0); Hemoglobin 14.8 g/dL (11.5-15.3); Lymphocytes # 1.2 10^3/uL (0.8-4.8); Lymphocytes % 15.8 %; Mean Corpuscular HGB Conc 30.1 g/dL (30.0-36.0); Mean Corpuscular Hemoglobin 29.7 pg (28.0-34.0); Mean Corpuscular Volume 98.6 fL (81-99); Mean Platelet Volume 11.9 fL (7.4-10.4); Monocytes # 0.8 10^3/uL (0.2-0.9); Monocytes % 10.4 %; Neutrophils # 5.53 10^3/uL (1.8-7.7); Neutrophils % 71.3 %; Nucleated Red Blood Cells % 0 %; Platelet Count 230 10^3/cmm (130-400); Red Blood Count 4.99 10^6/uL (4.1-5.3); Red Cell Distribution Width 13.4 % (12.1-15.1); White Blood Count 7.8 10^3/uL (4.0-10.0)
[2020-09-12 09:54] LABS: Alanine Aminotransferase 14 U/L (0-33); Albumin Level 4.1 g/dL (3.5-5.2); Alkaline Phosphatase 54 IU/L (35-105); Anion Gap 11.5 (5-19); Aspartate Amino Transferase 15 U/L (0-32); Blood Urea Nitrogen 34 mg/dL (8-23); Calcium 9.4 mg/dL (8.5-10.5); Carbon Dioxide 30 mmol/L (22-29); Chloride 102 mmol/L (98-107); Globulin 3.3 g/dL (1.3-4.6); Glucose 95 mg/dL (65-115); Osmolality Calculated 295 mOsm/kg (285-295); Potassium 4.5 mmol/L (3.5-5.1); Sodium 139 mmol/L (136-145); Total Bilirubin 0.4 mg/dL (0.15-1.2); Total Protein 7.4 g/dL (6.6-8.7)
[2020-09-12 11:32] LABS: Immunoglobulin IGA 192 mg/dL (70-400); Immunoglobulin IGG 921 mg/dL (700-1600); Immunoglobulin IGM 98 mg/dL (40-230)
[2020-09-13 08:43] LABS: PROTEIN, TOTAL 6.7 g/dL (6.1-8.1)
[2020-09-13 15:28] LABS: ALBUMIN 3.8 g/dL (3.8-4.8); ALPHA 1 GLOBULIN 0.3 g/dL (0.2-0.3); ALPHA 2 GLOBULIN 0.9 g/dL (0.5-0.9); BETA 1 GLOBULIN 0.4 g/dL (0.4-0.6); BETA 2 GLOBULIN 0.4 g/dL (0.2-0.5); KAPPA LIGHT CHAIN, FREE, SERUM 26.3 mg/L (3.3-19.4); KAPPA/LAMBDA LIGHT CHAINS FREE 1.59 (0.26-1.65); LAMBDA LIGHT CHAIN, FREE, SERU 16.5 mg/L (5.7-26.3)
[2020-09-18] MEDS: prochlorperazine 10 mg Tablet PO (10:25)
--- NOTE | 2020-09-29 19:33 | ONC FU_ITS ---
[facility] Patient Note Patient: Alcira Shirley Unit #: [id number]: [id number] Dictated By: Kellie HytlonDate of Visit: Sep 18, 2020 Onc MED Follow-Up/Prog Note Chief Complaint: Myeloma. History of Present Illness: Ms Shirley is a 80 year-old woman with IgG kappa myeloma, stage III. She had known osteoporosis and multiple vertebral compression fractures dating back to at least March 2018. In May 2018 she underwent further evaluation at the bone health clinic at [facility]. A protein electrophoresis at that time showed IgG kappa monoclonal protein quantitating at 0.5 g/dL. She had hematology consultation with Dr. Cecille Acevedo on 07/19/2018. Her laboratory studies at that time showed significant hypercalcemia with a serum calcium of 13.6 mg/dL. Her hemoglobin was normal at 15.0 g and her creatinine was borderline at 0.91 mg/dL. Her repeat protein electrophoresis showed her M protein quantitating at 0.6 g/dL. Her free light chain assay showed elevated kappa light chain at 524 mg/L and decreased lambda light chain at < 0.15 mg/L. Her skeletal survey showed innumerable lytic lesions throughout the apical and appendicular skeleton, compatible with multiple myeloma. Bone marrow aspiration/biopsy on 07/21/2018 showed a mildly hypercellular marrow with 60% involvement with plasma cell neoplasm, kappa restricted. 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 Further evaluation with PET/CT on 07/21/2018 showed a mildly FDG avid expansile lytic lesion of the right fourth rib consistent with a diagnosis of multiple myeloma. Also noted was a mottled appearance with lytic lesions seen throughout the axial and appendicular skeleton greatest in the skull and bilateral upper extremities, also consistent with myeloma. Multiple compression deformities were seen throughout the thoracic spine, greatest at T7. During that time she had been admitted to the hospital and she was treated with IV Zometa. She then began treatment with weekly Velcade and dexamethasone, cycle 1 day 1 on 08/03/2018. Her further clinical course was complicated by atrial fibrillation and congestive heart failure, requiring hospital admissions on 08/25/2018, on 09/01/2018 100 and on 09/09/2018. As a result, her cycle 2 of Velcade/dexamethasone was delayed. Despite the complications, she did have a good response with her M protein decreased to 0.3 g/dL and her free kappa light chain decreased to 2.00 mg/dL. Her kappa/lambda ratio normalized to 1.12. She then began cycle 2 on 09/27/2018 with Velcade continued at 1.3 mg/m??? by subcutaneous injection weekly and dexamethasone reduced to 20 mg weekly on a 4-week on/1-week off schedule. Dr Resendez had seen her initially on 10/27/2018. She had completed her 2nd cycle of treatment. Her clinical course, though, was further complicated by a fall at the assisted resulting in a left inferior orbital wall depressed fracture and he C3 spinous process nondisplaced fracture, both of which were managed conservatively. Her other medical illnesses hypertension, chronic atrial fibrillation, congestive heart failure, GERD, degenerative arthritis, and glaucoma. Her prior surgeries include ORIF for left femur fracture in 2012 and right total knee arthroplasty in 2007. She is a nonsmoker. INTERIM HISTORY: She had follow-up at [facility] on 11/01/2018. At that point she was given a second infusion of Zometa, and she began cycle 3 of Velcade/dexamethasone. With that cycle she was able to complete 4 weekly Velcade injections together with dexamethasone 10 mg twice weekly followed by a 1 week rest. She continued with cycle 4 of Velcade/dexamethasone on 12/07/2018. She was again able to tolerate the for weekly Velcade injections along with dexamethasone 10 mg twice weekly. During that time, she had a follow-up with her orthopedic surgeon in [place], and she was told that she had 2 new vertebral compression fractures, presumably resulting from the fall. However, she was able to transition from the assisted to assisted living. She was seen for a follow-up visit on 01/10/2019. At that point she appeared stable clinically and she continued with her 5th cycle of treatment with Velcade/dexamethasone. With that cycle, her 4th weekly dose of Velcade was omitted, as she was admitted to the hospital at day 22 with worsening congestive heart failure in association with an acute decline in her renal function. She then continued with cycle 6 on 02/21/2019. The day 22 Velcade was omitted with that cycle as well, as she was again admitted to the hospital with decompensated heart failure. With those episodes of congestive heart failure, her dexamethasone was changed to 1 mg daily. In the meantime, her protein electrophoresis studies from January showed her M band quantitating at 0.1 g/dL, and her serum free light chain assay showed her kappa light chain at 12.7 mg/L with lambda light chain 10.3 mg/L and kappa/lambda ratio normal at 1.23. She was seen again by Dr. Acevedo at [facility] on 04/04/2019. It was recommended that she transitioned to maintenance therapy with Velcade 1.3 mg/m??? by subcutaneous injection every 2 weeks together with lenalidomide 10 mg daily. Her repeat bone marrow aspiration/biopsy on 04/20/2019 showed cellularity ranging from 10 to 30% with normal trilineage hematopoiesis. There were just rare scattered plasma cells noted, estimated at 2 to 4% of the overall cellularity. On 05/16/2019 she began cycle 1 of maintenance therapy with Velcade 1.3 mg/m??? by subcutaneous injection every 2 weeks together with Revlimid 10 mg daily. Her repeat protein electrophoresis on 06/06/2019 reported an IgG kappa monoclonal protein band quantitating at 1.9 g/dL. The free light chain assay showed elevated kappa light chain at 128 mg/L with lambda light chain 26.9 mg/L and kappa/lambda ratio 4.77. At her follow-up visit on 06/13/2019 she appeared to be tolerating the treatment with acceptable toxicity, though her protein electrophoresis at that time reported a significant increase in her M protein to 1.9 g/dL. It was opted to continue her same treatment and on her repeat SPEP the M protein was similar to the prior studies at 0.1 g/dL. However, she did have to stop the Revlimid due to multiple side effects including weakness/fatigue, anorexia, nausea, and insomnia, among others. She just did not feel good generally. She also was taken off dexamethasone due to fluid retention, but she was able to continue the Velcade injections every 2 weeks. Her repeat protein electrophoresis studies on 08/01/2019 showed no detectable monoclonal protein and the serum free light chain assay showed normal kappa/lambda ratio at 1.49. Her clinical status at that point appeared stable, and she continued Velcade 1.3 mg/m??? by subcutaneous injection every 2 weeks. As of 04/17/2020 she began cycle 21 of maintenance Velcade. Following her cycle 21-day 15 treatment on 05/01/2020 her Velcade was put on hold due to several episodes of nausea/vomiting, requiring IV hydration. Her denosumab also has been on hold. It was last administered on 04/03/2020. As of 06/27/2020 she was able to restart the Velcade at 1.3 mg by subcutaneous injection. She also restarted the denosumab. She was able to continue Velcade injections on 06/13/2020 and on 07/24/2020, but following that treatment she had developed significant pain in her legs and feet, and her next scheduled injection was held. Her last Velcade was August 21, 2020. She missed her day 15 dosing due to flu vaccine. She reports that she also has had the Covid 19 vaccine from [facility] and tolerated it pretty good. She states the only thing that she really noticed different was some right arch pain in her foot. She has had some tingling toes off and on but states it is stable and no worse than what it normally is. She continues to have chronic constipation which is managed with MiraLAX daily and stool softeners. She denies any new concerns. She denies shortness of breath orthopnea. She denies chest pain and palpitations. She continues to reside at home with a caregiver and is tolerating this well. Her ECOG is 2. She continues to be very limited due to her back pain. She states she does try to get up and elevate around the house but has back pain and has to rest. She denies any new pain today. Past Medical History: Atrial fibrillation Congestive heart failure Gastroesophageal reflux disease Glaucoma Hypertension Multiple vertebral compression fractures Osteoarthritis Osteoporosis Past Surgical History: COVID VACCINE X 2 ( [employer]) in 2020 Flu vaccine 20-21 in 2019 ORIF for left femur fracture in 2012 Right total knee arthroplasty in 2007 Allergies: Codeine Sulfate and Statins. Medications: Acyclovir 1 Tablet (of 400 mg) Oral daily Amiodarone HCl 1 Tablet (of 200 mg) Oral daily HYDROcodone-Acetaminophen 1 Tablet (of 5-325 mg) Oral q 6 hours PRN Klor-Con M20 (10 meq) Tablet, controlled release Oral Take as Directed Meclizine HCl 1 Tablet (of 25 mg) Oral t.i.d. PRN Mirtazapine 1 (15 mg) Tablet Oral at bedtime Morphine Sulfate ER 1 Tablet (of 15 mg) Tablet SR 24 HR Oral b.i.d. Multiple Vitamins-Minerals 1 Tablet Oral daily Pepcid 1 Tablet (of 20 mg) Oral at bedtime Spironolactone 0.5 Tablet (of 50 mg) Oral daily Systane Complete 1 Drop(s) Solution Ophthalmic PRN Velcade 1 (3.5 mg) Injection q 7 days Xarelto 1 Tablet (of 10 mg) Oral daily Xgeva 1 Each (of 120 ) Subcutaneous q 30 days Family History: Ms. Shirley's mother is . Ms. Shirley's father is . Ms. Shirley has 2 brothers: 2 alive. Ms. Shirley's first brother's stroke. Both parents with heart disease. A brother has had a stroke. Social History: Ms. Shirley is and she is retired. Ms. Shirley has never smoked. She has no history of drinking. Ms. Shirley reports the following support systems: lives in own house, supportive family/friends willing to assist with needs, and adequate transportation available for expected visits. Her diet consists of regular meals and nutritional supplements. She indicates her activity level as: sedentary. She is a nonsmoker. She does not drink alcohol. Review Of Symptoms: Constitutional Denies fevers, chills, night sweats, excessive fatigue or weight loss. She continues to reside at home and has a caregiver stay with her at night. Allergic/Immunologic No reactions. Eyes Denies significant visual changes. No diplopia. No amaurosis. ENMT Denies changes in hearing, sore throat, mouth sores, difficulty or changes in swallowing ability, and/or sinus drainage. Hematologic/Lymphatic Denies easy bruising or bleeding. The patient denies any tender or palpable lymph nodes. Respiratory Denies dyspnea on exertion, chest pain, or hemoptysis. Denies orthopnea. Occasional cough-non productive. Cardiovascular Denies anginal chest pain, palpitations or orthopnea. Gastrointestinal Denies nausea, vomiting, diarrhea, GI bleeding, or constipation. Denies change in bowel habits and/or stool color, no heartburn or early satiety. Genitourinary (F) No hematuria, hesitancy, incontinence, or other problems with urination. Musculoskeletal Denies joint pain or redness. No decreased range of motion. She has been having some intermittent pain in her right arch. She states it is gone today but over the last couple days have been bothering her pretty significantly. She denies any trauma or known injury. She denies any change in her shoe attire. She also has had some tingling in her toes but states it is normal and is no worse than her last visit. Integumentary Denies chronic rashes, inflammation, ulcerations or skin changes. Neurologic Denies headache, blurred vision, and no areas of focal weakness or numbness. Psychiatric Denies depression, alexander or mood swings. Some intermittent insomnia and takes Tylenol PM for this. Vital Signs: Performed on Sep 18, 2020 09:37 Height - 61.00 in Weight - 203.6 lbs (HIGH) BSA - 1.90 sq.m BMI - 38.47 (HIGH) Temperature - 98.3 F (LOW) Pulse - 77 /min Respiration - 18 /min BP - 131/83 mm(hg) O2 Sat - 97 % Pain - 0,2 - Ambulatory/capable of all self-care, unable to perform any work activities. Up and about more than 50% of waking hours. (ECOG) Physical Examination: Constitutional Alert, oriented, no acute distress. Skin pink, warm and dry. Head Normocephalic; atraumatic. Eyes Conjunctivae and sclerae are clear and without icterus. Pupils are reactive and equal. Neck Supple without masses or thyromegaly. No jugular venous distension. Hematologic/Lymphatic No petechiae or purpura. Respiratory Lungs are clear to auscultation without rhonchi or wheezing. Cardiovascular Regular rate and rhythm of heart systolic murmur,clicks, gallops or rubs. Abdomen Non-tender, non-distended, no masses. Back/Spine Non-tender to palpation. Extremities No visible deformities, no cyanosis, clubbing or edema. Musculoskeletal No tenderness or swelling, normal range of motion without obvious weakness. Integumentary No rashes or lesions. Neurologic No sensory or motor deficits, normal cerebellar function. Psychiatric Alert and oriented times three. Coherent speech. Verbalizes understanding of our discussions today. Laboratory:Test performed on Sep 12, 2020 08:10 Sodium 139 mmol/L Potassium 4.5 mmol/L Chloride 102 mmol/L CO2 30 mmol/L Anion Gap 11.5 BUN 34 mg/dL Creatinine 1.6 mg/dL Cr Clearance (Est) 39.9300 mL/min Glucose 95 mg/dL Osmolality - Calculated 295 mOsm/kg Calcium 9.4 mg/dL Protein, Total 7.4 g/dL Albumin 4.1 g/dL Globulin 3.3 g/dL Bilirubin, Total 0.4 mg/dL ALT (SGPT) 14 U/L AST (SGOT) 15 U/L Alkaline Phosphatase 54 IU/L WBC 7.8 10 3/uL RBC 4.99 10 6/uL HGB 14.8 g/dL HCT 49.2 % MCV 98.6 fL MCH 29.7 pg MCHC 30.1 g/dL RDW 13.4 % Platelet Count 230 10 3/cmm MPV 11.9 fL Neutrophils 5.53 10 3/uL Lymphocytes 1.2 10 3/uL Monocytes 0.8 10 3/uL Eosinophils 0.1 10 3/uL Basophils 0.1 10 3/uL Neutrophil % 71.3 % Lymphocyte % 15.8 % Monocyte % 10.4 % Eosinophil % 1.4 % Basophils % 0.6 % NRBC % 0 % IgG 921 mg/dL [place] Free Light Chains 26.3 mg/L Lambda Free Light Chains 16.5 mg/L IgA 192 mg/dL [place]/Lambda Free Ratio 1.59 IgM 98 mg/dL Test performed on Jul 10, 2020 00:00 Manual Diff Cancelled via OM: Cancelled in Connected System Test performed on Jul 07, 2020 06:00 U Protein, 24hr 115 mg/24 h U Protein/Creat Ratio 0.114 U Albumin % 100 % UPE Interpretation SEE NOTE Agarose electrophoresis of urine reveals albumin. No abnormal protein is observed. THIS TEST WAS PERFORMED AT: [facility] [place] [id number] [place] [id number] KINGSTON ELIZONDO DO,MPH U Creatinine, 24 hr 1.01 g/24 h U [id number] 0 % U [id number] 0 % U Beta Globulin 0 % U Gamma Globulin 0 % Test performed on Jul 03, 2020 08:55 CBC Slide Review Slide Review Perform SLIDE REVIEW AGREES WITH AUTOMATED RESULTS ST Impression: 1. 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 2. She had hypercalcemia, extensive lytic bone involvement, and multiple vertebral compression fractures at initial diagnosis in July 2018. 3. Hypertension. 4. Chronic atrial fibrillation. 5. Congestive heart failure. 6. Degenerative arthritis. 7. GERD. 8. Glaucoma. Plan: 1. 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 She had hypercalcemia, extensive lytic bone involvement, and multiple vertebral compression fractures at initial diagnosis in July 2018. She began treatment with weekly Velcade/dexamethasone in July 2018. She has had a very good clinical response, though her treatment was complicated by congestive heart failure, which ultimately resulted in her stopping dexamethasone. Following her visit at [facility] in March 2019 she began a trial of maintenance therapy with Velcade in combination with lenalidomide, but she had very poor tolerance for the lenalidomide, and she subsequently continued maintenance with Velcade monotherapy at 2-week intervals. However, at times she does report having nausea with it and following her injection in July she developed significant pain in the lower extremities. It was managed adequately with hydrocodone/APAP. It is uncertain to what extent it may have actually been treatment related. She continues to have limited activity due to her back pain. She is otherwise doing well clinically. Following discussion with the patient and her daughter, she will continue her maintenance Velcade at 1.3 mg per metered squared by subcutaneous injection on a day 1/day 15 schedule. However, going forward, if she does appear to be having side effects with it on a consistent basis, it may be better to just follow her on observation/expectant management. Her last Velcade was August 21, 2020. She missed her day 15 dosing due to flu vaccine. A. Labs from September 12, 2020 reviewed in detail and discussed with Ms. Oates and her daughter and a copy was given to them. WBC 7.8, hemoglobin 14.8 platelets 230,000 ANC is 5530. Potassium 4.5 creatinine stable at 1.6 LFTs are normal. Her QUIGS are all normal kappa free light chain is reported at 26.3 lambda free light chain 16.5 and there was no restricted M spike seen on the serum protein electrophoresis. B. She will proceed with cycle 25-day 1 Velcade. 2. She has extensive lytic bone involvement with multiple vertebral compression fractures. She will continue treatment with denosumab on a 3-month schedule. A. She will be due for denosumab after September 25 as her last dose was given on June 27, 2020. She is currently on a 3-month maintenance plan. 3. Follow-up plan A. She will return in 2 weeks for day 15 Velcade. She should be due for Xgeva at that time as well. B. We will plan to see her back in 4 weeks for day 1 Velcade. I have asked for her myeloma labs, CBC and CMP at that time as well. C. Mrs. Shirley is instructed to contact us in the interim should questions or problems arise. D. Her bone pain is currently managed with morphine ER 15 mg every 12 hours and her last prescription was on September 02, 2020. Signed By: Kellie Hylton-NIKKY GUPTA <<Signature on File>>
[2020-10-01 18:32] LABS: Basophils # 0.1 10^3/uL (0.0-0.1); Basophils % 0.5 %; Eosinophils # 0.1 10^3/uL (0.0-0.8); Eosinophils % 0.6 %; Hematocrit 50.4 % (37.0-47.0); Hemoglobin 15.1 g/dL (11.5-15.3); Lymphocytes # 1.7 10^3/uL (0.8-4.8); Lymphocytes % 16.8 %; Mean Corpuscular Hemoglobin 29.7 pg (28.0-34.0); Mean Corpuscular Volume 99.2 fL (81-99); Mean Platelet Volume 12.1 fL (7.4-10.4); Neutrophils # 7.33 10^3/uL (1.8-7.7); Neutrophils % 71.7 %; Nucleated Red Blood Cells % 0 %; Platelet Count 263 10^3/cmm (130-400); Red Blood Count 5.08 10^6/uL (4.1-5.3); Red Cell Distribution Width 13.8 % (12.1-15.1); White Blood Count 10.2 10^3/uL (4.0-10.0)
[2020-10-01 20:50] LABS: Alanine Aminotransferase 13 U/L (0-33); Albumin Level 4.1 g/dL (3.5-5.2); Alkaline Phosphatase 61 IU/L (35-105); Aspartate Amino Transferase 19 U/L (0-32); Blood Urea Nitrogen 32 mg/dL (8-23); Calcium 9.2 mg/dL (8.5-10.5); Carbon Dioxide 28 mmol/L (22-29); Chloride 102 mmol/L (98-107); Globulin 3.7 g/dL (1.3-4.6); Glucose 76 mg/dL (65-115); Immunoglobulin IGA 202 mg/dL (70-400); Immunoglobulin IGG 946 mg/dL (700-1600); Immunoglobulin IGM 104 mg/dL (40-230); Osmolality Calculated 298 mOsm/kg (285-295); Sodium 141 mmol/L (136-145); Total Bilirubin 0.3 mg/dL (0.15-1.2); Total Protein 7.8 g/dL (6.6-8.7)
[2020-10-02] MEDS: prochlorperazine 10 mg Tablet PO (11:15)
[2020-10-03 06:58] LABS: PROTEIN, TOTAL 7.2 g/dL (6.1-8.1)
[2020-10-03 13:47] LABS: ALPHA 1 GLOBULIN 0.4 g/dL (0.2-0.3); ALPHA 2 GLOBULIN 1.1 g/dL (0.5-0.9); BETA 1 GLOBULIN 0.5 g/dL (0.4-0.6); BETA 2 GLOBULIN 0.3 g/dL (0.2-0.5); GAMMA GLOBULIN 0.9 g/dL (0.8-1.7)
[2020-10-03 15:23] LABS: KAPPA/LAMBDA LIGHT CHAINS FREE 1.51 (0.26-1.65); LAMBDA LIGHT CHAIN, FREE, SERU 19.9 mg/L (5.7-26.3)
== END 2020-10-09 23:59 | disposition home or self-care (01) ==
LOC: ONCMED 05:31
PROVIDERS: Internal Medicine Medical Oncology; PCP Family Medicine; Visit Provider Nurse Practitioner
DX: Z51.11 Encounter for antineoplastic chemotherapy (principal); C90.00 Multiple myeloma not having achieved remission; R22.42 Localized swelling, mass and lump, left lower limb; M25.572 Pain in left ankle and joints of left foot; I48.91 Unspecified atrial fibrillation; K21.9 Gastro-esophageal reflux disease without esophagitis; I10 Essential (primary) hypertension; M81.0 Age-related osteoporosis without current pathological fracture; Z79.899 Other long term (current) drug therapy
CPT/HCPCS: 80053; 82784; 83883; 84155; 84165; 85025; 96401; 99215; J9041; Q0164

== ENCOUNTER 2020-10-30 05:55 | Outpatient (RCR) | payer MEDICARE, BC, SELFPAY ==
[2020-10-15 19:06] LABS: Basophils # 0.1 10^3/uL (0.0-0.1); Basophils % 0.8 %; Eosinophils # 0.1 10^3/uL (0.0-0.8); Eosinophils % 0.5 %; Hemoglobin 14.9 g/dL (11.5-15.3); Lymphocytes # 2.2 10^3/uL (0.8-4.8); Lymphocytes % 23.9 %; Mean Corpuscular HGB Conc 29.8 g/dL (30.0-36.0); Mean Corpuscular Hemoglobin 29.6 pg (28.0-34.0); Mean Corpuscular Volume 99.2 fL (81-99); Mean Platelet Volume 12.8 fL (7.4-10.4); Monocytes % 11.3 %; Neutrophils # 5.75 10^3/uL (1.8-7.7); Neutrophils % 62.8 %; Nucleated Red Blood Cells % 0 %; Platelet Count 216 10^3/cmm (130-400); Red Blood Count 5.04 10^6/uL (4.1-5.3); Red Cell Distribution Width 13.9 % (12.1-15.1); White Blood Count 9.1 10^3/uL (4.0-10.0)
[2020-10-15 20:01] LABS: Alanine Aminotransferase 15 U/L (0-33); Albumin Level 4.2 g/dL (3.5-5.2); Alkaline Phosphatase 62 IU/L (35-105); Aspartate Amino Transferase 19 U/L (0-32); Blood Urea Nitrogen 36 mg/dL (8-23); Carbon Dioxide 29 mmol/L (22-29); Chloride 100 mmol/L (98-107); Globulin 3.5 g/dL (1.3-4.6); Glucose 63 mg/dL (65-115); Immunoglobulin IGA 227 mg/dL (70-400); Immunoglobulin IGG 977 mg/dL (700-1600); Immunoglobulin IGM 106 mg/dL (40-230); Osmolality Calculated 296 mOsm/kg (285-295); Sodium 140 mmol/L (136-145); Total Bilirubin 0.4 mg/dL (0.15-1.2); Total Protein 7.7 g/dL (6.6-8.7)
[2020-10-15 20:04] LABS: Anion Gap 15.1 (5-19); Potassium 4.1 mmol/L (3.5-5.1)
[2020-10-16] MEDS: prochlorperazine 10 mg Tablet PO (10:09)
[2020-10-16] MEDS: denosumab 120 mg SDV SUBCUT (10:28)
[2020-10-17 08:17] LABS: PROTEIN, TOTAL 7.1 g/dL (6.1-8.1)
[2020-10-17 15:12] LABS: KAPPA LIGHT CHAIN, FREE, SERUM 30.3 mg/L (3.3-19.4); KAPPA/LAMBDA LIGHT CHAINS FREE 1.48 (0.26-1.65); LAMBDA LIGHT CHAIN, FREE, SERU 20.5 mg/L (5.7-26.3)
[2020-10-21 15:58] LABS: ALBUMIN 3.8 g/dL (3.8-4.8); ALPHA 1 GLOBULIN 0.4 g/dL (0.2-0.3); ALPHA 2 GLOBULIN 1.2 g/dL (0.5-0.9); BETA 1 GLOBULIN 0.5 g/dL (0.4-0.6); BETA 2 GLOBULIN 0.3 g/dL (0.2-0.5); GAMMA GLOBULIN 0.9 g/dL (0.8-1.7)
--- NOTE | 2020-10-27 17:31 | ONC FU_ITS ---
[facility] Patient Note Patient: Alcira Shirley Unit #: [id number]: 1940 Dictated By: Kellie HyltonDate of Visit: Oct 16, 2020 Onc MED Follow-Up/Prog Note Chief Complaint: Myeloma. History of Present Illness: Ms Shirley is a 80 year-old woman with IgG kappa myeloma, stage III. She had known osteoporosis and multiple vertebral compression fractures dating back to at least March 2018. In May 2018 she underwent further evaluation at the bone health clinic at [facility]. A protein electrophoresis at that time showed IgG kappa monoclonal protein quantitating at 0.5 g/dL. She had hematology consultation with Dr. Cecille Acevedo on 07/19/2018. Her laboratory studies at that time showed significant hypercalcemia with a serum calcium of 13.6 mg/dL. Her hemoglobin was normal at 15.0 g and her creatinine was borderline at 0.91 mg/dL. Her repeat protein electrophoresis showed her M protein quantitating at 0.6 g/dL. Her free light chain assay showed elevated kappa light chain at 524 mg/L and decreased lambda light chain at < 0.15 mg/L. Her skeletal survey showed innumerable lytic lesions throughout the apical and appendicular skeleton, compatible with multiple myeloma. Bone marrow aspiration/biopsy on 07/21/2018 showed a mildly hypercellular marrow with 60% involvement with plasma cell neoplasm, kappa restricted. 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 Further evaluation with PET/CT on 07/21/2018 showed a mildly FDG avid expansile lytic lesion of the right fourth rib consistent with a diagnosis of multiple myeloma. Also noted was a mottled appearance with lytic lesions seen throughout the axial and appendicular skeleton greatest in the skull and bilateral upper extremities, also consistent with myeloma. Multiple compression deformities were seen throughout the thoracic spine, greatest at T7. During that time she had been admitted to the hospital and she was treated with IV Zometa. She then began treatment with weekly Velcade and dexamethasone, cycle 1 day 1 on 08/03/2018. Her further clinical course was complicated by atrial fibrillation and congestive heart failure, requiring hospital admissions on 08/25/2018, on 09/01/2018 100 and on 09/09/2018. As a result, her cycle 2 of Velcade/dexamethasone was delayed. Despite the complications, she did have a good response with her M protein decreased to 0.3 g/dL and her free kappa light chain decreased to 2.00 mg/dL. Her kappa/lambda ratio normalized to 1.12. She then began cycle 2 on 09/27/2018 with Velcade continued at 1.3 mg/m??? by subcutaneous injection weekly and dexamethasone reduced to 20 mg weekly on a 4-week on/1-week off schedule. Dr Resendez had seen her initially on 10/27/2018. She had completed her 2nd cycle of treatment. Her clinical course, though, was further complicated by a [facility] resulting in a left inferior orbital wall depressed fracture and he C3 spinous process nondisplaced fracture, both of which were managed conservatively. Her other medical illnesses hypertension, chronic atrial fibrillation, congestive heart failure, GERD, degenerative arthritis, and glaucoma. Her prior surgeries include ORIF for left femur fracture in 2012 and right total knee arthroplasty in 2007. She is a nonsmoker. INTERIM HISTORY: She had follow-up at [facility] on 11/01/2018. At that point she was given a second infusion of Zometa, and she began cycle 3 of Velcade/dexamethasone. With that cycle she was able to complete 4 weekly Velcade injections together with dexamethasone 10 mg twice weekly followed by a 1 week rest. She continued with cycle 4 of Velcade/dexamethasone on 12/07/2018. She was again able to tolerate the for weekly Velcade injections along with dexamethasone 10 mg twice weekly. During that time, she had a follow-up with her orthopedic surgeon in [place], and she was told that she had 2 new vertebral compression fractures, presumably resulting from the fall. However, she was able to transition from the [facility] to assisted living. She was seen for a follow-up visit on 01/10/2019. At that point she appeared stable clinically and she continued with her 5th cycle of treatment with Velcade/dexamethasone. With that cycle, her 4th weekly dose of Velcade was omitted, as she was admitted to the hospital at day 22 with worsening congestive heart failure in association with an acute decline in her renal function. She then continued with cycle 6 on 02/21/2019. The day 22 Velcade was omitted with that cycle as well, as she was again admitted to the hospital with decompensated heart failure. With those episodes of congestive heart failure, her dexamethasone was changed to 1 mg daily. In the meantime, her protein electrophoresis studies from January showed her M band quantitating at 0.1 g/dL, and her serum free light chain assay showed her kappa light chain at 12.7 mg/L with lambda light chain 10.3 mg/L and kappa/lambda ratio normal at 1.23. She was seen again by Dr. Acevedo at [facility] on 04/04/2019. It was recommended that she transitioned to maintenance therapy with Velcade 1.3 mg/m??? by subcutaneous injection every 2 weeks together with lenalidomide 10 mg daily. Her repeat bone marrow aspiration/biopsy on 04/20/2019 showed cellularity ranging from 10 to 30% with normal trilineage hematopoiesis. There were just rare scattered plasma cells noted, estimated at 2 to 4% of the overall cellularity. On 05/16/2019 she began cycle 1 of maintenance therapy with Velcade 1.3 mg/m??? by subcutaneous injection every 2 weeks together with Revlimid 10 mg daily. Her repeat protein electrophoresis on 06/06/2019 reported an IgG kappa monoclonal protein band quantitating at 1.9 g/dL. The free light chain assay showed elevated kappa light chain at 128 mg/L with lambda light chain 26.9 mg/L and kappa/lambda ratio 4.77. At her follow-up visit on 06/13/2019 she appeared to be tolerating the treatment with acceptable toxicity, though her protein electrophoresis at that time reported a significant increase in her M protein to 1.9 g/dL. It was opted to continue her same treatment and on her repeat SPEP the M protein was similar to the prior studies at 0.1 g/dL. However, she did have to stop the Revlimid due to multiple side effects including weakness/fatigue, anorexia, nausea, and insomnia, among others. She just did not feel good generally. She also was taken off dexamethasone due to fluid retention, but she was able to continue the Velcade injections every 2 weeks. Her repeat protein electrophoresis studies on 08/01/2019 showed no detectable monoclonal protein and the serum free light chain assay showed normal kappa/lambda ratio at 1.49. Her clinical status at that point appeared stable, and she continued Velcade 1.3 mg/m??? by subcutaneous injection every 2 weeks. As of 04/17/2020 she began cycle 21 of maintenance Velcade. Following her cycle 21-day 15 treatment on 05/01/2020 her Velcade was put on hold due to several episodes of nausea/vomiting, requiring IV hydration. Her denosumab also has been on hold. It was last administered on 04/03/2020. As of 06/27/2020 she was able to restart the Velcade at 1.3 mg by subcutaneous injection. She also restarted the denosumab. She was able to continue Velcade injections on 06/13/2020 and on 07/24/2020, but following that treatment she had developed significant pain in her legs and feet, and her next scheduled injection was held. Cycle 24 day 1 Velcade was given on August 21, 2020. She missed her day 15 dosing due to flu vaccine. She reports that she also has had the second Covid 19 vaccine from [employer] and tolerated it pretty good. She states the only thing that she really noticed different was some right arch pain in her foot. That comes and goes but resolves with activity. Ms. Shirley had follow-up with Dr. Acevedo at [facility] [place] on October 01, 2020. Dr. Acevedo's note indicates that she agrees with the current treatment plan but should the neuropathy worsen for Mrs. Shirley that we could give her a treatment break and monitor her monoclonal proteins. If they are noted to be increasing we could use daratumumab as a second line option. For now she remains on every 2-week Velcade and every 3-month denosumab. Ms Shirley is here today for followup. She is due for cycle 26 day 1 Velcade. She is on an every 2 week regimen. She has had some tingling in her toes off and on but states it is stable and no worse than what it normally is. She continues to have chronic constipation which is managed with MiraLAX daily and stool softeners. She denies any new concerns. She denies shortness of breath orthopnea. She denies chest pain and palpitations. She continues to reside at home with a caregiver and is tolerating this well. Her ECOG is 2. She continues to be very limited due to her back pain. She states she does try to get up and elevate around the house but has back pain and has to rest. She denies any new pain today. She states she was pretty achey this am when she first got up, but took her regularly scheduled pain medication and got up and moved around and feels fine now . She is accompanied by her daughter who agrees that she feels Ms. Shirley is doing well overall. Past Medical History: Atrial fibrillation Congestive heart failure Gastroesophageal reflux disease Glaucoma Hypertension Multiple vertebral compression fractures Osteoarthritis Osteoporosis Past Surgical History: COVID VACCINE X 2 ( Right Media) in 2020 Flu vaccine 20-21 in 2019 ORIF for left femur fracture in 2012 Right total knee arthroplasty in 2007 Allergies: Codeine Sulfate and Statins. Medications: Acyclovir 1 Tablet (of 400 mg) Oral daily Amiodarone HCl 1 Tablet (of 200 mg) Oral daily HYDROcodone-Acetaminophen 1 Tablet (of 5-325 mg) Oral q 6 hours PRN Klor-Con M20 (10 meq) Tablet, controlled release Oral Take as Directed Lasix 1 Tablet (of 40 mg) Oral every am Meclizine HCl 1 Tablet (of 25 mg) Oral t.i.d. PRN Mirtazapine 1 (15 mg) Tablet Oral at bedtime Morphine Sulfate ER 1 Tablet (of 15 mg) Tablet SR 24 HR Oral b.i.d. Multiple Vitamins-Minerals 1 Tablet Oral daily Pepcid 1 Tablet (of 20 mg) Oral at bedtime Spironolactone 0.5 Tablet (of 50 mg) Oral daily Systane Complete 1 Drop(s) Solution Ophthalmic PRN Velcade 1 (3.5 mg) Injection q 7 days Xarelto 1 Tablet (of 10 mg) Oral daily Xgeva 1 Each (of 120 ) Subcutaneous q 30 days Family History: Ms. Shirley's mother is . Ms. Shirley's father is . Ms. Shirley has 2 brothers: 2 alive. Ms. Shirley's first brother's stroke. Both parents with heart disease. A brother has had a stroke. Social History: Ms. Shirley is and she is retired. Ms. Shirley has never smoked. She has no history of drinking. Ms. Shirley reports the following support systems: lives in own house, supportive family/friends willing to assist with needs, and adequate transportation available for expected visits. Her diet consists of regular meals and nutritional supplements. She indicates her activity level as: sedentary. She is a nonsmoker. She does not drink alcohol. Review Of Symptoms: Vital Signs: Performed on Oct 16, 2020 09:11 Height - 61.00 in Weight - 203.8 lbs (HIGH) BSA - 1.90 sq.m BMI - 38.51 (HIGH) Temperature - 97.9 F (LOW) Pulse - 74 /min Respiration - 18 /min BP - 155/78 mm(hg) (HIGH) O2 Sat - 96 % Pain - 0,2 - Ambulatory/capable of all self-care, unable to perform any work activities. Up and about more than 50% of waking hours. (ECOG) Physical Examination: Constitutional Alert, oriented, no acute distress. Skin pink, warm and dry. Head Normocephalic; atraumatic. Eyes Conjunctivae and sclerae are clear and without icterus. Pupils are reactive and equal. Neck Supple without masses or thyromegaly. No jugular venous distension. Hematologic/Lymphatic No petechiae or purpura. Respiratory Lungs are clear to auscultation without rhonchi or wheezing. Cardiovascular Regular rate and rhythm of heart systolic murmur,clicks, gallops or rubs. Abdomen Non-tender, non-distended, no masses. Back/Spine Non-tender to palpation. Extremities No visible deformities, no cyanosis, clubbing or edema. Musculoskeletal No tenderness or swelling, normal range of motion without obvious weakness. Integumentary No rashes or lesions. Neurologic No sensory or motor deficits, normal cerebellar function. Psychiatric Alert and oriented times three. Coherent speech. Verbalizes understanding of our discussions today. Laboratory:Test performed on Sep 12, 2020 08:10 Sodium 139 mmol/L Potassium 4.5 mmol/L Chloride 102 mmol/L CO2 30 mmol/L Anion Gap 11.5 BUN 34 mg/dL Creatinine 1.6 mg/dL Cr Clearance (Est) 39.9300 mL/min Glucose 95 mg/dL Osmolality - Calculated 295 mOsm/kg Calcium 9.4 mg/dL Protein, Total 7.4 g/dL Albumin 4.1 g/dL Globulin 3.3 g/dL Bilirubin, Total 0.4 mg/dL ALT (SGPT) 14 U/L AST (SGOT) 15 U/L Alkaline Phosphatase 54 IU/L WBC 7.8 10 3/uL RBC 4.99 10 6/uL HGB 14.8 g/dL HCT 49.2 % MCV 98.6 fL MCH 29.7 pg MCHC 30.1 g/dL RDW 13.4 % Platelet Count 230 10 3/cmm MPV 11.9 fL Neutrophils 5.53 10 3/uL Lymphocytes 1.2 10 3/uL Monocytes 0.8 10 3/uL Eosinophils 0.1 10 3/uL Basophils 0.1 10 3/uL Neutrophil % 71.3 % Lymphocyte % 15.8 % Monocyte % 10.4 % Eosinophil % 1.4 % Basophils % 0.6 % NRBC % 0 % IgG 921 mg/dL [place] Free Light Chains 26.3 mg/L Lambda Free Light Chains 16.5 mg/L IgA 192 mg/dL [place]/Lambda Free Ratio 1.59 IgM 98 mg/dL Test performed on Jul 10, 2020 00:00 Manual Diff Cancelled via OM: Cancelled in Connected System Test performed on Jul 07, 2020 06:00 U Protein, 24hr 115 mg/24 h U Protein/Creat Ratio 0.114 U Albumin % 100 % UPE Interpretation SEE NOTE Agarose electrophoresis of urine reveals albumin. No abnormal protein is observed. THIS TEST WAS PERFORMED AT: [facility] [id number] [place] [id number] KINGSTON ELIZONDO DO,MPH U Creatinine, 24 hr 1.01 g/24 h U [id number] 0 % U [id number] 0 % U Beta Globulin 0 % U Gamma Globulin 0 % Test performed on Jul 03, 2020 08:55 CBC Slide Review Slide Review Perform SLIDE REVIEW AGREES WITH AUTOMATED RESULTS ST Impression: 1. 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 2. She had hypercalcemia, extensive lytic bone involvement, and multiple vertebral compression fractures at initial diagnosis in July 2018. 3. Hypertension. 4. Chronic atrial fibrillation. 5. Congestive heart failure. 6. Degenerative arthritis. 7. GERD. 8. Glaucoma. Plan: 1. 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 She had hypercalcemia, extensive lytic bone involvement, and multiple vertebral compression fractures at initial diagnosis in July 2018. She began treatment with weekly Velcade/dexamethasone in July 2018. She has had a very good clinical response, though her treatment was complicated by congestive heart failure, which ultimately resulted in her stopping dexamethasone. Following her visit at [facility] in March 2019 she began a trial of maintenance therapy with Velcade in combination with lenalidomide, but she had very poor tolerance for the lenalidomide, and she subsequently continued maintenance with Velcade monotherapy at 2-week intervals. However, at times she does report having nausea with it and following her injection in July she developed significant pain in the lower extremities. It was managed adequately with hydrocodone/APAP. It is uncertain to what extent it may have actually been treatment related. She continues to have limited activity due to her back pain. She is otherwise doing well clinically. Following discussion with the patient and her daughter, she will continue her maintenance Velcade at 1.3 mg per metered squared by subcutaneous injection on a day 1/day 15 schedule. However, going forward, if she does appear to be having side effects with it on a consistent basis, it may be better to just follow her on observation/expectant management. Her last Velcade was August 21, 2020. She missed her day 15 dosing due to flu vaccine. She did resume cycle 25 Velcade on September 18, 2020. A. Her labs from October 15, 2020 were reviewed in detail and discussed with Ms. Oates and her daughter and a copy was given to them. WBC 9.1, hemoglobin 14.9 platelets 216,000 ANC is 5750. Potassium 4.1 random glucose was 63 creatinine 1.6 which is stable LFTs are normal. Her IgA is 227 IgG 977 and IgM was 106 which are stable. Her myeloma labs otherwise are pending. B. She will proceed with cycle 26-day 1 Velcade. She is currently on every 2-week cycle. She is tolerating this well. 2. She has extensive lytic bone involvement with multiple vertebral compression fractures. She will continue treatment with denosumab on a 3-month schedule. A. She was due for denosumab after September 25 as her last dose was given on June 27, 2020. She is currently on a 3-month maintenance plan. B. We will proceed with her denosumab today. 3. Follow-up plan A. She will return in 2 weeks for day 15 Velcade. S B. We will plan to see her back in 4 weeks for day 1 Velcade. I have asked for her myeloma labs, CBC and CMP at that time as well. C. Mrs. Shirley is instructed to contact us in the interim should questions or problems arise. D. Her bone pain is currently managed with morphine ER 15 mg every 12 hours and her last prescription was on October 07, 2020. Signed By: Kellie Hylton-, AOCNP Beltran Resendez MD <<Signature on File>>
[2020-10-29 18:07] LABS: Basophils # 0.1 10^3/uL (0.0-0.1); Basophils % 0.6 %; Eosinophils # 0.1 10^3/uL (0.0-0.8); Eosinophils % 0.7 %; Hematocrit 48.1 % (37.0-47.0); Hemoglobin 14.6 g/dL (11.5-15.3); Lymphocytes # 1.5 10^3/uL (0.8-4.8); Lymphocytes % 16.2 %; Mean Corpuscular HGB Conc 30.4 g/dL (30.0-36.0); Mean Corpuscular Hemoglobin 29.7 pg (28.0-34.0); Mean Platelet Volume 12.6 fL (7.4-10.4); Monocytes % 10.8 %; Neutrophils # 6.47 10^3/uL (1.8-7.7); Nucleated Red Blood Cells % 0 %; Platelet Count 247 10^3/cmm (130-400); Red Blood Count 4.91 10^6/uL (4.1-5.3); Red Cell Distribution Width 14.2 % (12.1-15.1); White Blood Count 9.1 10^3/uL (4.0-10.0)
[2020-10-29 18:36] LABS: Alanine Aminotransferase 13 U/L (0-33); Alkaline Phosphatase 56 IU/L (35-105); Aspartate Amino Transferase 17 U/L (0-32); Blood Urea Nitrogen 35 mg/dL (8-23); Calcium 8.9 mg/dL (8.5-10.5); Carbon Dioxide 28 mmol/L (22-29); Chloride 103 mmol/L (98-107); Glucose 109 mg/dL (65-115); Osmolality Calculated 303 mOsm/kg (285-295); Sodium 142 mmol/L (136-145); Total Bilirubin 0.4 mg/dL (0.15-1.2)
[2020-10-30] MEDS: prochlorperazine 10 mg Tablet PO (13:49)
== END 2020-11-08 23:59 | disposition home or self-care (01) ==
LOC: ONCMED 05:55
PROVIDERS: PCP Family Medicine; Visit Provider Nurse Practitioner
DX: Z51.11 Encounter for antineoplastic chemotherapy (principal); C90.00 Multiple myeloma not having achieved remission; C79.51 Secondary malignant neoplasm of bone; R22.42 Localized swelling, mass and lump, left lower limb; M25.572 Pain in left ankle and joints of left foot; E83.52 Hypercalcemia; I10 Essential (primary) hypertension; I48.20 Chronic atrial fibrillation, unspecified; I50.9 Heart failure, unspecified; M19.90 Unspecified osteoarthritis, unspecified site; K21.9 Gastro-esophageal reflux disease without esophagitis; H40.9 Unspecified glaucoma; Z79.899 Other long term (current) drug therapy
CPT/HCPCS: 80053; 82784; 83883; 84155; 84165; 85025; 96372; 96401; 99214; J0897; J9041; Q0164

== ENCOUNTER 2020-11-13 07:32 | Outpatient (RCR) | payer MEDICARE, BC, SELFPAY ==
[2020-11-12 15:40] LABS: Basophils # 0.1 10^3/uL (0.0-0.1); Basophils % 0.8 %; Eosinophils # 0.1 10^3/uL (0.0-0.8); Eosinophils % 0.6 %; Hematocrit 47.5 % (37.0-47.0); Hemoglobin 14.4 g/dL (11.5-15.3); Lymphocytes # 1.6 10^3/uL (0.8-4.8); Lymphocytes % 20.1 %; Mean Corpuscular HGB Conc 30.3 g/dL (30.0-36.0); Mean Corpuscular Hemoglobin 29.5 pg (28.0-34.0); Mean Corpuscular Volume 97.3 fL (81-99); Mean Platelet Volume 12.7 fL (7.4-10.4); Monocytes # 0.9 10^3/uL (0.2-0.9); Monocytes % 10.7 %; Neutrophils # 5.38 10^3/uL (1.8-7.7); Neutrophils % 67.5 %; Nucleated Red Blood Cells % 0 %; Platelet Count 213 10^3/cmm (130-400); Red Blood Count 4.88 10^6/uL (4.1-5.3); Red Cell Distribution Width 14.2 % (12.1-15.1)
[2020-11-12 16:36] LABS: Alanine Aminotransferase 12 U/L (0-33); Albumin Level 4.2 g/dL (3.5-5.2); Alkaline Phosphatase 56 IU/L (35-105); Anion Gap 15.7 (5-19); Aspartate Amino Transferase 17 U/L (0-32); Carbon Dioxide 25 mmol/L (22-29); Chloride 104 mmol/L (98-107); Globulin 2.9 g/dL (1.3-4.6); Glucose 86 mg/dL (65-115); Immunoglobulin IGA 188 mg/dL (70-400); Immunoglobulin IGG 885 mg/dL (700-1600); Immunoglobulin IGM 92 mg/dL (40-230); Potassium 4.7 mmol/L (3.5-5.1); Sodium 140 mmol/L (136-145); Total Bilirubin 0.4 mg/dL (0.15-1.2); Total Protein 7.1 g/dL (6.6-8.7)
[2020-11-12 21:33] LABS: Blood Urea Nitrogen 37 mg/dL (8-23); Calcium 8.8 mg/dL (8.5-10.5); Osmolality Calculated 298 mOsm/kg (285-295)
[2020-11-13 08:13] LABS: PROTEIN, TOTAL 6.8 g/dL (6.1-8.1)
[2020-11-13 13:13] LABS: ALBUMIN 3.8 g/dL (3.8-4.8); ALPHA 1 GLOBULIN 0.4 g/dL (0.2-0.3); ALPHA 2 GLOBULIN 1.1 g/dL (0.5-0.9); BETA 1 GLOBULIN 0.4 g/dL (0.4-0.6); BETA 2 GLOBULIN 0.4 g/dL (0.2-0.5); GAMMA GLOBULIN 0.9 g/dL (0.8-1.7); KAPPA LIGHT CHAIN, FREE, SERUM 28.7 mg/L (3.3-19.4); KAPPA/LAMBDA LIGHT CHAINS FREE 1.59 (0.26-1.65)
--- NOTE | 2020-11-13 16:35 | ONC FU_ITS ---
Dr. Resendez Patient Follow-Up Note Patient: Alcira Shirley Unit #: [id number]: [id number] Dicatated By: Beltran Resendez M.D.Date of Visit:November 13, 2020 Onc Med Follow-up/Prog Note Chief Complaint: Myeloma. History of Present Illness: This is a 80 year-old woman with IgG kappa myeloma, stage III. She had known osteoporosis and multiple vertebral compression fractures dating back to at least March 2018. In May 2018 she underwent further evaluation at the bone health clinic at [facility]. A protein electrophoresis at that time showed IgG kappa monoclonal protein quantitating at 0.5 g/dL. She had hematology consultation with Dr. Cecille Acevedo on 07/19/2018. Her laboratory studies at that time showed significant hypercalcemia with a serum calcium of 13.6 mg/dL. Her hemoglobin was normal at 15.0 g and her creatinine was borderline at 0.91 mg/dL. Her repeat protein electrophoresis showed her M protein quantitating at 0.6 g/dL. Her free light chain assay showed elevated kappa light chain at 524 mg/L and decreased lambda light chain at < 0.15 mg/L. Her skeletal survey showed innumerable lytic lesions throughout the apical and appendicular skeleton, compatible with multiple myeloma. Bone marrow aspiration/biopsy on 07/21/2018 showed a mildly hypercellular marrow with 60% involvement with plasma cell neoplasm, kappa restricted. 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 Further evaluation with PET/CT on 07/21/2018 showed a mildly FDG avid expansile lytic lesion of the right fourth rib consistent with a diagnosis of multiple myeloma. Also noted was a mottled appearance with lytic lesions seen throughout the axial and appendicular skeleton greatest in the skull and bilateral upper extremities, also consistent with myeloma. Multiple compression deformities were seen throughout the thoracic spine, greatest at T7. During that time she had been admitted to the hospital and she was treated with IV Zometa. She then began treatment with weekly Velcade and dexamethasone, cycle 1 day 1 on 08/03/2018. Her further clinical course was complicated by atrial fibrillation and congestive heart failure, requiring hospital admissions on 08/25/2018, on 09/01/2018 100 and on 09/09/2018. As a result, her cycle 2 of Velcade/dexamethasone was delayed. Despite the complications, she did have a good response with her M protein decreased to 0.3 g/dL and her free kappa light chain decreased to 2.00 mg/dL. Her kappa/lambda ratio normalized to 1.12. She then began cycle 2 on 09/27/2018 with Velcade continued at 1.3 mg/m??? by subcutaneous injection weekly and dexamethasone reduced to 20 mg weekly on a 4-week on/1-week off schedule. I had seen her initially on 10/27/2018. She had completed her 2nd cycle of treatment. Her clinical course, though, was further complicated by a fall at the detention resulting in a left inferior orbital wall depressed fracture and he C3 spinous process nondisplaced fracture, both of which were managed conservatively. She had follow-up at [facility] on 11/01/2018. At that point she was given a second infusion of Zometa, and she began cycle 3 of Velcade/dexamethasone. With that cycle she was able to complete 4 weekly Velcade injections together with dexamethasone 10 mg twice weekly followed by a 1 week rest. She continued with cycle 4 of Velcade/dexamethasone on 12/07/2018. She was again able to tolerate the for weekly Velcade injections along with dexamethasone 10 mg twice weekly. During that time, she had a follow-up with her orthopedic surgeon in [place], and she was told that she had 2 new vertebral compression fractures, presumably resulting from the fall. However, she was able to transition from the detention to assisted living. She was seen for a follow-up visit on 01/10/2019. At that point she appeared stable clinically and she continued with her 5th cycle of treatment with Velcade/dexamethasone. With that cycle, her 4th weekly dose of Velcade was omitted, as she was admitted to the hospital at day 22 with worsening congestive heart failure in association with an acute decline in her renal function. She then continued with cycle 6 on 02/21/2019. The day 22 Velcade was omitted with that cycle as well, as she was again admitted to the hospital with decompensated heart failure. With those episodes of congestive heart failure, her dexamethasone was changed to 1 mg daily. In the meantime, her protein electrophoresis studies from January showed her M band quantitating at 0.1 g/dL, and her serum free light chain assay showed her kappa light chain at 12.7 mg/L with lambda light chain 10.3 mg/L and kappa/lambda ratio normal at 1.23. She was seen again by Dr. Acevedo at [facility] on 04/04/2019. It was recommended that she transitioned to maintenance therapy with Velcade 1.3 mg/m??? by subcutaneous injection every 2 weeks together with lenalidomide 10 mg daily. Her repeat bone marrow aspiration/biopsy on 04/20/2019 showed cellularity ranging from 10 to 30% with normal trilineage hematopoiesis. There were just rare scattered plasma cells noted, estimated at 2 to 4% of the overall cellularity. On 05/16/2019 she began cycle 1 of maintenance therapy with Velcade 1.3 mg/m??? by subcutaneous injection every 2 weeks together with Revlimid 10 mg daily. Her repeat protein electrophoresis on 06/06/2019 reported an IgG kappa monoclonal protein band quantitating at 1.9 g/dL. The free light chain assay showed elevated kappa light chain at 128 mg/L with lambda light chain 26.9 mg/L and kappa/lambda ratio 4.77. At her follow-up visit on 06/13/2019 she appeared to be tolerating the treatment with acceptable toxicity, though her protein electrophoresis at that time reported a significant increase in her M protein to 1.9 g/dL. I opted to continue her same treatment and on her repeat SPEP the M protein was similar to the prior studies at 0.1 g/dL. However, she did have to stop the Revlimid due to multiple side effects including weakness/fatigue, anorexia, nausea, and insomnia, among others. She just did not feel good generally. She also was taken off dexamethasone due to fluid retention, but she was able to continue the Velcade injections every 2 weeks. Her other medical illnesses hypertension, chronic atrial fibrillation, congestive heart failure, GERD, degenerative arthritis, and glaucoma. Her prior surgeries include ORIF for left femur fracture in 2012 and right total knee arthroplasty in 2007. She is a nonsmoker. INTERIM HISTORY: Her repeat protein electrophoresis studies on 08/01/2019 showed no detectable monoclonal protein and the serum free light chain assay showed normal kappa/lambda ratio at 1.49. Her clinical status at that point appeared stable, and she continued Velcade 1.3 mg/m??? by subcutaneous injection every 2 weeks. As of 04/17/2020 she began cycle 21 of maintenance Velcade. Following her cycle 21-day 15 treatment on 05/01/2020 her Velcade was put on hold due to several episodes of nausea/vomiting, requiring IV hydration. Her denosumab also has been on hold. It was last administered on 04/03/2020. As of 06/27/2020 she was able to restart the Velcade at 1.3 mg by subcutaneous injection. She also restarted the denosumab. She was able to continue Velcade injections on 06/13/2020 and on 07/24/2020, but following that treatment she had developed significant pain in her legs and feet, and her next scheduled injection was held. Her treatment was restarted in August and then continued at 2-week intervals. She received cycle 26-day 15 Velcade on 10/30/2020. She is seen for a scheduled visit. She has been feeling okay, though she continues to have limited activity. She ambulates short distances with a walker. She is mostly sedentary. ECOG score is 3. She has good appetite. She has not had fever. She was having pretty bad night sweating for a while, but recently it has gotten better. Her breathing is sometimes a little heavy. She does not complain of cough and she has not been having chest pain. Her stomach feels kind of bloated. She has no other GI or complaints. Overall her pain is still pretty well controlled with medication, though lately she has been a little more achy. She does not complain of headache. She has occasional orthostatic lightheadedness. She has been having more numbness/tingling in her feet and she complains that her ankles feel tight. Her hands sometimes go to sleep. She has had more difficulty sleeping the last couple of weeks. Medications: Acyclovir 1 Tablet (of 400 mg) Oral daily, Amiodarone HCl 1 Tablet (of 200 mg) Oral daily, Betimol (0.5 %) Solution Ophthalmic daily, HYDROcodone-Acetaminophen 1 Tablet (of 5-325 mg) Oral q 6 hours PRN, Klor-Con M20 (10 meq) Tablet, controlled release Oral Take as Directed, Lasix 1 Tablet (of 40 mg) Oral every am, Meclizine HCl 1 Tablet (of 25 mg) Oral t.i.d. PRN, Mirtazapine 1 (15 mg) Tablet Oral at bedtime, Morphine Sulfate ER 1 Tablet (of 15 mg) Tablet SR 24 HR Oral b.i.d., Multiple Vitamins-Minerals 1 Tablet Oral daily, Pepcid 1 Tablet (of 20 mg) Oral at bedtime, Spironolactone 0.5 Tablet (of 50 mg) Oral daily, Systane Complete 1 Drop(s) Solution Ophthalmic PRN, Velcade 1 (3.5 mg) Injection q 7 days, Xarelto 1 Tablet (of 10 mg) Oral daily, Xgeva 1 Each (of 120 ) Subcutaneous q 30 days Allergies: Codeine Sulfate and Statins. Vital Signs: Performed on November 13, 2020 11:50 Height - 61.00 in Weight - 206 lbs (HIGH) BSA - 1.91 sq.m BMI - 38.92 (HIGH) Temperature - 98.7 F Pulse - 79 /min Respiration - 18 /min BP - 150/78 mm(hg) (HIGH) O2 Sat - 94 % (LOW) Pain - 4 Fatigue - 5 Physical Examination: Constitutional - She appears somewhat weak. generally, Eyes - Sclerae nonicteric. Conjunctivae appear clear, ENMT - No lesions noted in the oral cavity, Hematologic/Lymphatic - No cervical, clavicular, or axillary adenopathy, Respiratory - Lungs sound clear, Cardiovascular - Heart rhythm is regular. There is a II/ systolic murmur. There is no gallop or rub noted, Abdomen - Mildly distended. Liver and spleen are not enlarged. There is no abdominal mass or ascites noted and there is no inguinal adenopathy, Extremities - Mild edema, mainly on the left, Neurologic - No focal neurologic deficits noted. Lab/Imaging: Test performed on Sep 12, 2020 08:10 Sodium 139 mmol/L Potassium 4.5 mmol/L Chloride 102 mmol/L CO2 30 mmol/L Anion Gap 11.5 BUN 34 mg/dL Creatinine 1.6 mg/dL Cr Clearance (Est) 39.9300 mL/min Glucose 95 mg/dL Osmolality - Calculated 295 mOsm/kg Calcium 9.4 mg/dL Protein, Total 7.4 g/dL Albumin 4.1 g/dL Globulin 3.3 g/dL Bilirubin, Total 0.4 mg/dL ALT (SGPT) 14 U/L AST (SGOT) 15 U/L Alkaline Phosphatase 54 IU/L WBC 7.8 10 3/uL RBC 4.99 10 6/uL HGB 14.8 g/dL HCT 49.2 % MCV 98.6 fL MCH 29.7 pg MCHC 30.1 g/dL RDW 13.4 % Platelet Count 230 10 3/cmm MPV 11.9 fL Neutrophils 5.53 10 3/uL Lymphocytes 1.2 10 3/uL Monocytes 0.8 10 3/uL Eosinophils 0.1 10 3/uL Basophils 0.1 10 3/uL Neutrophil % 71.3 % Lymphocyte % 15.8 % Monocyte % 10.4 % Eosinophil % 1.4 % Basophils % 0.6 % NRBC % 0 % IgG 921 mg/dL [place] Free Light Chains 26.3 mg/L Lambda Free Light Chains 16.5 mg/L IgA 192 mg/dL [place]/Lambda Free Ratio 1.59 IgM 98 mg/dL Problem List: 1. 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 2. She had hypercalcemia, extensive lytic bone involvement, and multiple vertebral compression fractures at initial diagnosis in July 2018. 3. Hypertension. 4. Chronic atrial fibrillation. 5. Congestive heart failure. 6. Degenerative arthritis. 7. GERD. 8. Glaucoma. Problems Addressed with this Encounter and Plan: 1. 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 She had hypercalcemia, extensive lytic bone involvement, and multiple vertebral compression fractures at initial diagnosis in July 2018. She began treatment with weekly Velcade/dexamethasone in July 2018. She has had a very good clinical response, though her treatment was complicated by congestive heart failure, which ultimately resulted in her stopping dexamethasone. Following her visit at [facility] in March 2019 she began a trial of maintenance therapy with Velcade in combination with lenalidomide, but she had very poor tolerance for the lenalidomide, and she subsequently continued maintenance with Velcade monotherapy at 2-week intervals. However, at times she does report having nausea with it and following her injection in July she developed significant pain in the lower extremities. It was managed adequately with hydrocodone/APAP. I was uncertain to what extent it may have actually been treatment related. I did opt to hold 1 treatment. As of August she restarted the Velcade injections at 2-week intervals. She completed her cycle 26-day 15 treatment on 10/30/2020. At this point her blood counts are normal and her protein electrophoresis studies showed no evidence of progression of the myeloma. She does appear to be showing some decline in performance status, and she is having increased neuropathy symptoms. As such, I have not put her treatment on hold I will just plan to follow her expectantly now. She will be return in 1 month. 2. She has extensive lytic bone involvement with multiple vertebral compression fractures. She has continued treatment with denosumab on a 3-month schedule. She will be due for her next injection in January. Signed By: Beltran Resendez M.D. <<Signature on File>>
== END 2020-12-09 23:59 | disposition home or self-care (01) ==
LOC: ONCMED 07:32
PROVIDERS: Nurse Practitioner; PCP Family Medicine; Visit Provider Internal Medicine Medical Oncology
DX: C90.00 Multiple myeloma not having achieved remission (principal); C79.51 Secondary malignant neoplasm of bone; E83.52 Hypercalcemia; I10 Essential (primary) hypertension; I48.20 Chronic atrial fibrillation, unspecified; I50.9 Heart failure, unspecified; M19.90 Unspecified osteoarthritis, unspecified site; K21.9 Gastro-esophageal reflux disease without esophagitis; H40.9 Unspecified glaucoma; Z79.899 Other long term (current) drug therapy; Z79.52 Long term (current) use of systemic steroids
CPT/HCPCS: 80053; 82784; 83883; 84155; 84165; 85025; 99214

== ENCOUNTER 2020-12-02 11:04 | Outpatient (CLI) | payer MEDICARE, BC, SELFPAY ==
--- NOTE | 2020-12-02 11:10 | MM_ITS ---
WS: [id number] BILATERAL SCREENING DIGITAL MAMMOGRAM WITH CAD HISTORY: SCREENING COMPARISON: 09/20/2019, 06/23/2018 and 04/12/2017 Bilateral CC and MLO views submitted. Computer aided detection analyzed. Breast composition: There are scattered areas of fibroglandular density. No suspicious masses, microc alcifications or architectural distortion. Stable calcifications and parenchymal pattern. MM/[id number] IMPRESSION: BI-RADS: 2-Benign FOLLOW UP: 1 Year Follow-up
== END 2020-12-02 11:05 | disposition home or self-care (01) ==
LOC: RADSHAW 11:08
PROVIDERS: PCP Family Medicine; Visit Provider Family Medicine
DX: Z12.31 Encounter for screening mammogram for malignant neoplasm of breast (principal)
CPT/HCPCS: 77067

== ENCOUNTER 2021-01-08 05:43 | Outpatient (RCR) | payer MEDICARE, BC, SELFPAY ==
[2020-12-10 12:11] LABS: Basophils % 0.6 %; Eosinophils # 0.1 10^3/uL (0.0-0.8); Eosinophils % 0.7 %; Hematocrit 47.8 % (37.0-47.0); Hemoglobin 14.7 g/dL (11.5-15.3); Lymphocytes % 14.5 %; Mean Corpuscular HGB Conc 30.8 g/dL (30.0-36.0); Mean Corpuscular Hemoglobin 30.1 pg (28.0-34.0); Mean Corpuscular Volume 97.8 fL (81-99); Mean Platelet Volume 12.2 fL (7.4-10.4); Monocytes # 0.7 10^3/uL (0.2-0.9); Monocytes % 10.5 %; Neutrophils # 4.98 10^3/uL (1.8-7.7); Neutrophils % 72.4 %; Nucleated Red Blood Cells % 0 %; Platelet Count 195 10^3/cmm (130-400); Red Blood Count 4.89 10^6/uL (4.1-5.3); Red Cell Distribution Width 14.3 % (12.1-15.1); White Blood Count 6.9 10^3/uL (4.0-10.0)
[2020-12-10 12:56] LABS: Alanine Aminotransferase 19 U/L (0-33); Alkaline Phosphatase 57 IU/L (35-105); Aspartate Amino Transferase 19 U/L (0-32); Blood Urea Nitrogen 32 mg/dL (8-23); Calcium 8.8 mg/dL (8.5-10.5); Carbon Dioxide 28 mmol/L (22-29); Chloride 104 mmol/L (98-107); Globulin 2.6 g/dL (1.3-4.6); Glucose 91 mg/dL (65-115); Immunoglobulin IGA 193 mg/dL (70-400); Immunoglobulin IGG 852 mg/dL (700-1600); Immunoglobulin IGM 98 mg/dL (40-230); Osmolality Calculated 304 mOsm/kg (285-295); Sodium 144 mmol/L (136-145); Total Bilirubin 0.4 mg/dL (0.15-1.2); Total Protein 6.6 g/dL (6.6-8.7)
[2020-12-11 06:38] LABS: PROTEIN, TOTAL 6.6 g/dL (6.1-8.1)
[2020-12-11 12:43] LABS: KAPPA LIGHT CHAIN, FREE, SERUM 27.8 mg/L (3.3-19.4); KAPPA/LAMBDA LIGHT CHAINS FREE 1.44 (0.26-1.65); LAMBDA LIGHT CHAIN, FREE, SERU 19.3 mg/L (5.7-26.3)
[2020-12-11 16:08] LABS: ALBUMIN 3.7 g/dL (3.8-4.8); ALPHA 1 GLOBULIN 0.3 g/dL (0.2-0.3); BETA 1 GLOBULIN 0.4 g/dL (0.4-0.6); BETA 2 GLOBULIN 0.3 g/dL (0.2-0.5); GAMMA GLOBULIN 0.9 g/dL (0.8-1.7)
--- NOTE | 2020-12-14 11:28 | ONC FU_ITS ---
Dr. Resendez Patient Follow-Up Note Patient: Alcira Shirley Unit #: [id number]: 1940 Dicatated By: Beltran Resendez M.D.Date of Visit:Dec 11, 2020 Onc Med Follow-up/Prog Note Chief Complaint: Myeloma. History of Present Illness: This is a 80 year-old woman with IgG kappa myeloma, stage III. She had known osteoporosis and multiple vertebral compression fractures dating back to at least March 2018. In May 2018 she underwent further evaluation at the bone health clinic at [facility]. A protein electrophoresis at that time showed IgG kappa monoclonal protein quantitating at 0.5 g/dL. She had hematology consultation with Dr. Cecille Acevedo on 07/19/2018. Her laboratory studies at that time showed significant hypercalcemia with a serum calcium of 13.6 mg/dL. Her hemoglobin was normal at 15.0 g and her creatinine was borderline at 0.91 mg/dL. Her repeat protein electrophoresis showed her M protein quantitating at 0.6 g/dL. Her free light chain assay showed elevated kappa light chain at 524 mg/L and decreased lambda light chain at < 0.15 mg/L. Her skeletal survey showed innumerable lytic lesions throughout the apical and appendicular skeleton, compatible with multiple myeloma. Bone marrow aspiration/biopsy on 07/21/2018 showed a mildly hypercellular marrow with 60% involvement with plasma cell neoplasm, kappa restricted. 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 Further evaluation with PET/CT on 07/21/2018 showed a mildly FDG avid expansile lytic lesion of the right fourth rib consistent with a diagnosis of multiple myeloma. Also noted was a mottled appearance with lytic lesions seen throughout the axial and appendicular skeleton greatest in the skull and bilateral upper extremities, also consistent with myeloma. Multiple compression deformities were seen throughout the thoracic spine, greatest at T7. During that time she had been admitted to the hospital and she was treated with IV Zometa. She then began treatment with weekly Velcade and dexamethasone, cycle 1 day 1 on 08/03/2018. Her further clinical course was complicated by atrial fibrillation and congestive heart failure, requiring hospital admissions on 08/25/2018, on 09/01/2018 100 and on 09/09/2018. As a result, her cycle 2 of Velcade/dexamethasone was delayed. Despite the complications, she did have a good response with her M protein decreased to 0.3 g/dL and her free kappa light chain decreased to 2.00 mg/dL. Her kappa/lambda ratio normalized to 1.12. She then began cycle 2 on 09/27/2018 with Velcade continued at 1.3 mg/m??? by subcutaneous injection weekly and dexamethasone reduced to 20 mg weekly on a 4-week on/1-week off schedule. I had seen her initially on 10/27/2018. She had completed her 2nd cycle of treatment. Her clinical course, though, was further complicated [facility] resulting in a left inferior orbital wall depressed fracture and he C3 spinous process nondisplaced fracture, both of which were managed conservatively. She had follow-up at [facility] on 11/01/2018. At that point she was given a second infusion of Zometa, and she began cycle 3 of Velcade/dexamethasone. With that cycle she was able to complete 4 weekly Velcade injections together with dexamethasone 10 mg twice weekly followed by a 1 week rest. She continued with cycle 4 of Velcade/dexamethasone on 12/07/2018. She was again able to tolerate the for weekly Velcade injections along with dexamethasone 10 mg twice weekly. During that time, she had a follow-up with her orthopedic surgeon in [place], and she was told that she had 2 new vertebral compression fractures, presumably resulting from the fall. However, she was able [facility] to [facility] living. She was seen for a follow-up visit on 01/10/2019. At that point she appeared stable clinically and she continued with her 5th cycle of treatment with Velcade/dexamethasone. With that cycle, her 4th weekly dose of Velcade was omitted, as she was admitted to the hospital at day 22 with worsening congestive heart failure in association with an acute decline in her renal function. She then continued with cycle 6 on 02/21/2019. The day 22 Velcade was omitted with that cycle as well, as she was again admitted to the hospital with decompensated heart failure. With those episodes of congestive heart failure, her dexamethasone was changed to 1 mg daily. In the meantime, her protein electrophoresis studies from January showed her M band quantitating at 0.1 g/dL, and her serum free light chain assay showed her kappa light chain at 12.7 mg/L with lambda light chain 10.3 mg/L and kappa/lambda ratio normal at 1.23. She was seen again by Dr. Acevedo at [facility] on 04/04/2019. It was recommended that she transitioned to maintenance therapy with Velcade 1.3 mg/m??? by subcutaneous injection every 2 weeks together with lenalidomide 10 mg daily. Her repeat bone marrow aspiration/biopsy on 04/20/2019 showed cellularity ranging from 10 to 30% with normal trilineage hematopoiesis. There were just rare scattered plasma cells noted, estimated at 2 to 4% of the overall cellularity. On 05/16/2019 she began cycle 1 of maintenance therapy with Velcade 1.3 mg/m??? by subcutaneous injection every 2 weeks together with Revlimid 10 mg daily. Her repeat protein electrophoresis on 06/06/2019 reported an IgG kappa monoclonal protein band quantitating at 1.9 g/dL. The free light chain assay showed elevated kappa light chain at 128 mg/L with lambda light chain 26.9 mg/L and kappa/lambda ratio 4.77. At her follow-up visit on 06/13/2019 she appeared to be tolerating the treatment with acceptable toxicity, though her protein electrophoresis at that time reported a significant increase in her M protein to 1.9 g/dL. I opted to continue her same treatment and on her repeat SPEP the M protein was similar to the prior studies at 0.1 g/dL. However, she did have to stop the Revlimid due to multiple side effects including weakness/fatigue, anorexia, nausea, and insomnia, among others. She just did not feel good generally. She also was taken off dexamethasone due to fluid retention, but she was able to continue the Velcade injections every 2 weeks. Her other medical illnesses hypertension, chronic atrial fibrillation, congestive heart failure, GERD, degenerative arthritis, and glaucoma. Her prior surgeries include ORIF for left femur fracture in 2012 and right total knee arthroplasty in 2007. She is a nonsmoker. INTERIM HISTORY: Her repeat protein electrophoresis studies on 08/01/2019 showed no detectable monoclonal protein and the serum free light chain assay showed normal kappa/lambda ratio at 1.49. Her clinical status at that point appeared stable, and she continued Velcade 1.3 mg/m??? by subcutaneous injection every 2 weeks. As of 04/17/2020 she began cycle 21 of maintenance Velcade. Following her cycle 21-day 15 treatment on 05/01/2020 her Velcade was put on hold due to several episodes of nausea/vomiting, requiring IV hydration. Her denosumab also has been on hold. It was last administered on 04/03/2020. As of 06/27/2020 she was able to restart the Velcade at 1.3 mg by subcutaneous injection. She also restarted the denosumab. She was able to continue Velcade injections on 06/13/2020 and on 07/24/2020, but following that treatment she had developed significant pain in her legs and feet, and her next scheduled injection was held. Her treatment was restarted in August and then continued at 2-week intervals. She received cycle 26-day 15 Velcade on 10/30/2020. At her follow-up visit on 11/13/2020 she was having increased neuropathy symptoms and some decline in performance status, and they opted to put her treatment on hold. She is seen now for a follow-up visit. She is feeling better, though she still has limited activity. She says she can't walk very far or stand very long without her back hurting. She does not have much pain, though, if she is sitting or lying down. Her ECOG score is 2. She has good appetite. She has not had fever and she does not have much sweating. She continues to complain of having a drippy nose. She has not had sore mouth or throat. Her breathing is pretty good, though she has some shortness of breath with activity. She is using oxygen at night. She does not complain of cough and she has not been having chest pain. She has no GI or complaints. She does not complain of headache or dizziness. She has had improvement in her neuropathy symptoms. Medications: Acyclovir 1 Tablet (of 400 mg) Oral daily, Amiodarone HCl 1 Tablet (of 200 mg) Oral daily, Betimol (0.5 %) Solution Ophthalmic daily, HYDROcodone-Acetaminophen 1 Tablet (of 5-325 mg) Oral q 6 hours PRN, Klor-Con M20 (10 meq) Tablet, controlled release Oral Take as Directed, Lasix 1 Tablet (of 40 mg) Oral every am, Meclizine HCl 1 Tablet (of 25 mg) Oral t.i.d. PRN, Mirtazapine 1 (15 mg) Tablet Oral at bedtime, Morphine Sulfate ER 1 Tablet (of 15 mg) Tablet SR 24 HR Oral b.i.d., Multiple Vitamins-Minerals 1 Tablet Oral daily, Pepcid 1 Tablet (of 20 mg) Oral at bedtime, Spironolactone 0.5 Tablet (of 50 mg) Oral daily, Systane Complete 1 Drop(s) Solution Ophthalmic PRN, Velcade 1 (3.5 mg) Injection q 7 days, Xarelto 1 Tablet (of 10 mg) Oral daily, Xgeva 1 Each (of 120 ) Subcutaneous q 30 days Allergies: Codeine Sulfate, Statins, and Timolol Hemihydrate. Vital Signs: Performed on Dec 11, 2020 15:09 Height - 61.00 in Weight - 203.2 lbs (LOW) BSA - 1.90 sq.m BMI - 38.39 (HIGH) Temperature - 98.1 F (LOW) Pulse - 79 /min Respiration - 18 /min BP - 154/78 mm(hg) (HIGH) O2 Sat - 94 % (LOW) Pain - 0 Fatigue - 0 Physical Examination: Constitutional - She appears somewhat weak generally, Eyes - Sclerae nonicteric. Conjunctivae appear clear, ENMT - No lesions noted in the oral cavity, Hematologic/Lymphatic - No cervical, clavicular, or axillary adenopathy, Respiratory - Lungs sound clear, Cardiovascular - Heart rhythm is regular. There is a II/ systolic murmur. There is no gallop or rub noted, Abdomen - Mildly distended. Liver and spleen are not enlarged. There is no abdominal mass or ascites noted and there is no inguinal adenopathy, Extremities - No edema, Neurologic - No focal neurologic deficits noted. Lab/Imaging: Test performed on Dec 10, 2020 08:10 Sodium 144 mmol/L Potassium 5.0 mmol/L Chloride 104 mmol/L CO2 28 mmol/L Anion Gap 17.0 BUN 32 mg/dL Creatinine 1.5 mg/dL Cr Clearance (Est) 42.6000 mL/min Glucose 91 mg/dL Osmolality - Calculated 304 mOsm/kg Calcium 8.8 mg/dL Protein, Total 6.6 g/dL Albumin 4.0 g/dL Globulin 2.6 g/dL Bilirubin, Total 0.4 mg/dL ALT (SGPT) 19 U/L AST (SGOT) 19 U/L Alkaline Phosphatase 57 IU/L WBC 6.9 10 3/uL RBC 4.89 10 6/uL HGB 14.7 g/dL HCT 47.8 % MCV 97.8 fL MCH 30.1 pg MCHC 30.8 g/dL RDW 14.3 % Platelet Count 195 10 3/cmm MPV 12.2 fL Neutrophils 4.98 10 3/uL Lymphocytes 1.0 10 3/uL Monocytes 0.7 10 3/uL Eosinophils 0.1 10 3/uL Basophils 0.0 10 3/uL Neutrophil % 72.4 % Lymphocyte % 14.5 % Monocyte % 10.5 % Eosinophil % 0.7 % Basophils % 0.6 % NRBC % 0 % IgG 852 mg/dL IgA 193 mg/dL IgM 98 mg/dL Problem List: 1. 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 2. She had hypercalcemia, extensive lytic bone involvement, and multiple vertebral compression fractures at initial diagnosis in July 2018. 3. Hypertension. 4. Chronic atrial fibrillation. 5. Congestive heart failure. 6. Degenerative arthritis. 7. GERD. 8. Glaucoma. Problems Addressed with this Encounter and Plan: 1. 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 She had hypercalcemia, extensive lytic bone involvement, and multiple vertebral compression fractures at initial diagnosis in July 2018. She began treatment with weekly Velcade/dexamethasone in July 2018. She has had a very good clinical response, though her treatment was complicated by congestive heart failure, which ultimately resulted in her stopping dexamethasone. Following her visit at [facility] in March 2019 she began a trial of maintenance therapy with Velcade in combination with lenalidomide, but she had very poor tolerance for the lenalidomide, and she subsequently continued maintenance with Velcade monotherapy at 2-week intervals. During follow-up she had, at times, reported nausea/vomiting following her Velcade injections, and she did have occasional treatment delays. As of her follow-up visit on 11/13/2020 she reported increased neuropathy symptoms and at that point she also appeared to be showing some decline in her performance status. Her serum protein electrophoresis at that time showed no monoclonal protein and her serum free light chain assay showed just slightly elevated free kappa light chain at 28.7 mg/L with lambda light chain 18.0 mg/L and normal kappa/lambda ratio at 1.59. With those findings, I did opt to put her treatment on hold. She has since then continued to have limited activity, mainly due to to back pain when she is standing or walking. Her pain is otherwise managed adequately with medication. Overall, she has been feeling better generally since she has been off treatment. I discussed this with her at some length, in the absence of any evidence of disease progression, I think it will be best to just follow her expectantly. I will see her again in 1 month. 2. She has extensive lytic bone involvement with multiple vertebral compression fractures. She has continued treatment with denosumab on a 3-month schedule. She will be due for her next injection in January. Signed By: Beltran Resendez M.D. <<Signature on File>>
[2021-01-08 11:52] LABS: Basophils # 0.1 10^3/uL (0.0-0.1); Basophils % 0.5 %; Eosinophils % 0.3 %; Hematocrit 50.6 % (37.0-47.0); Hemoglobin 15.4 g/dL (11.5-15.3); Lymphocytes # 0.7 10^3/uL (0.8-4.8); Lymphocytes % 6.7 %; Mean Corpuscular HGB Conc 30.4 g/dL (30.0-36.0); Mean Corpuscular Volume 98.6 fL (81-99); Mean Platelet Volume 11.9 fL (7.4-10.4); Monocytes # 1.1 10^3/uL (0.2-0.9); Monocytes % 10.9 %; Neutrophils # 8.19 10^3/uL (1.8-7.7); Neutrophils % 81.2 %; Nucleated Red Blood Cells % 0 %; Platelet Count 185 10^3/cmm (130-400); Red Blood Count 5.13 10^6/uL (4.1-5.3); Red Cell Distribution Width 13.9 % (12.1-15.1); White Blood Count 10.1 10^3/uL (4.0-10.0)
[2021-01-08 12:17] LABS: Immunoglobulin IGA 198 mg/dL (70-400); Immunoglobulin IGG 901 mg/dL (700-1600); Immunoglobulin IGM 107 mg/dL (40-230)
[2021-01-08 12:22] LABS: Anion Gap 13.8 (5-19); Sodium 141 mmol/L (136-145)
[2021-01-08 12:23] LABS: Alanine Aminotransferase 20 U/L (0-33); Albumin Level 4.1 g/dL (3.5-5.2); Alkaline Phosphatase 63 IU/L (35-105); Aspartate Amino Transferase 18 U/L (0-32); Blood Urea Nitrogen 30 mg/dL (8-23); Calcium 8.8 mg/dL (8.5-10.5); Carbon Dioxide 27 mmol/L (22-29); Chloride 105 mmol/L (98-107); Globulin 2.5 g/dL (1.3-4.6); Glucose 117 mg/dL (65-115); Osmolality Calculated 299 mOsm/kg (285-295); Potassium 4.8 mmol/L (3.5-5.1); Total Bilirubin 0.4 mg/dL (0.15-1.2); Total Protein 6.6 g/dL (6.6-8.7)
[2021-01-09 06:46] LABS: PROTEIN, TOTAL 6.8 g/dL (6.1-8.1)
[2021-01-09 13:33] LABS: ALBUMIN 3.7 g/dL (3.8-4.8); ALPHA 1 GLOBULIN 0.4 g/dL (0.2-0.3); ALPHA 2 GLOBULIN 1.1 g/dL (0.5-0.9); BETA 1 GLOBULIN 0.4 g/dL (0.4-0.6); BETA 2 GLOBULIN 0.4 g/dL (0.2-0.5); GAMMA GLOBULIN 0.9 g/dL (0.8-1.7)
[2021-01-09 14:41] LABS: KAPPA LIGHT CHAIN, FREE, SERUM 26.9 mg/L (3.3-19.4); LAMBDA LIGHT CHAIN, FREE, SERU 20.7 mg/L (5.7-26.3)
== END 2021-01-08 23:59 | disposition home or self-care (01) ==
LOC: ONCMED 05:43
PROVIDERS: PCP Family Medicine; Visit Provider Internal Medicine Medical Oncology
DX: C90.01 Multiple myeloma in remission (principal); E83.52 Hypercalcemia; I48.20 Chronic atrial fibrillation, unspecified; I50.9 Heart failure, unspecified; M19.90 Unspecified osteoarthritis, unspecified site; K21.9 Gastro-esophageal reflux disease without esophagitis; H40.9 Unspecified glaucoma; Z79.899 Other long term (current) drug therapy; Z79.52 Long term (current) use of systemic steroids; Z92.21 Personal history of antineoplastic chemotherapy
CPT/HCPCS: 36415; 80053; 82784; 83883; 84155; 84165; 85025; 99214

== ENCOUNTER 2021-01-15 06:23 | Outpatient (RCR) | payer MEDICARE, BC, SELFPAY ==
--- NOTE | 2021-01-15 19:57 | ONC FU_ITS ---
Dr. Resendez Patient Follow-Up Note Patient: Alcira Shirley Unit #: [id number]: [id number] Dicatated By: Beltran Resendez M.D.Date of Visit:Jan 15, 2021 Onc Med Follow-up/Prog Note Chief Complaint: Myeloma. History of Present Illness: This is a 80 year-old woman with IgG kappa myeloma, stage III. She had known osteoporosis and multiple vertebral compression fractures dating back to at least March 2018. In May 2018 she underwent further evaluation at the bone health clinic at [facility]. A protein electrophoresis at that time showed IgG kappa monoclonal protein quantitating at 0.5 g/dL. She had hematology consultation with Dr. Cecille Acevedo on 07/19/2018. Her laboratory studies at that time showed significant hypercalcemia with a serum calcium of 13.6 mg/dL. Her hemoglobin was normal at 15.0 g and her creatinine was borderline at 0.91 mg/dL. Her repeat protein electrophoresis showed her M protein quantitating at 0.6 g/dL. Her free light chain assay showed elevated kappa light chain at 524 mg/L and decreased lambda light chain at < 0.15 mg/L. Her skeletal survey showed innumerable lytic lesions throughout the apical and appendicular skeleton, compatible with multiple myeloma. Bone marrow aspiration/biopsy on 07/21/2018 showed a mildly hypercellular marrow with 60% involvement with plasma cell neoplasm, kappa restricted. 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 Further evaluation with PET/CT on 07/21/2018 showed a mildly FDG avid expansile lytic lesion of the right fourth rib consistent with a diagnosis of multiple myeloma. Also noted was a mottled appearance with lytic lesions seen throughout the axial and appendicular skeleton greatest in the skull and bilateral upper extremities, also consistent with myeloma. Multiple compression deformities were seen throughout the thoracic spine, greatest at T7. During that time she had been admitted to the hospital and she was treated with IV Zometa. She then began treatment with weekly Velcade and dexamethasone, cycle 1 day 1 on 08/03/2018. Her further clinical course was complicated by atrial fibrillation and congestive heart failure, requiring hospital admissions on 08/25/2018, on 09/01/2018 100 and on 09/09/2018. As a result, her cycle 2 of Velcade/dexamethasone was delayed. Despite the complications, she did have a good response with her M protein decreased to 0.3 g/dL and her free kappa light chain decreased to 2.00 mg/dL. Her kappa/lambda ratio normalized to 1.12. She then began cycle 2 on 09/27/2018 with Velcade continued at 1.3 mg/m??? by subcutaneous injection weekly and dexamethasone reduced to 20 mg weekly on a 4-week on/1-week off schedule. I had seen her initially on 10/27/2018. She had completed her 2nd cycle of treatment. Her clinical course, though, was further complicated by a fall at the residential resulting in a left inferior orbital wall depressed fracture and he C3 spinous process nondisplaced fracture, both of which were managed conservatively. She had follow-up at [facility] on 11/01/2018. At that point she was given a second infusion of Zometa, and she began cycle 3 of Velcade/dexamethasone. With that cycle she was able to complete 4 weekly Velcade injections together with dexamethasone 10 mg twice weekly followed by a 1 week rest. She continued with cycle 4 of Velcade/dexamethasone on 12/07/2018. She was again able to tolerate the for weekly Velcade injections along with dexamethasone 10 mg twice weekly. During that time, she had a follow-up with her orthopedic surgeon in [place], and she was told that she had 2 new vertebral compression fractures, presumably resulting from the fall. However, she was able to transition from the residential to assisted living. She was seen for a follow-up visit on 01/10/2019. At that point she appeared stable clinically and she continued with her 5th cycle of treatment with Velcade/dexamethasone. With that cycle, her 4th weekly dose of Velcade was omitted, as she was admitted to the hospital at day 22 with worsening congestive heart failure in association with an acute decline in her renal function. She then continued with cycle 6 on 02/21/2019. The day 22 Velcade was omitted with that cycle as well, as she was again admitted to the hospital with decompensated heart failure. With those episodes of congestive heart failure, her dexamethasone was changed to 1 mg daily. In the meantime, her protein electrophoresis studies from January showed her M band quantitating at 0.1 g/dL, and her serum free light chain assay showed her kappa light chain at 12.7 mg/L with lambda light chain 10.3 mg/L and kappa/lambda ratio normal at 1.23. She was seen again by Dr. Acevedo at [facility] on 04/04/2019. It was recommended that she transitioned to maintenance therapy with Velcade 1.3 mg/m??? by subcutaneous injection every 2 weeks together with lenalidomide 10 mg daily. Her repeat bone marrow aspiration/biopsy on 04/20/2019 showed cellularity ranging from 10 to 30% with normal trilineage hematopoiesis. There were just rare scattered plasma cells noted, estimated at 2 to 4% of the overall cellularity. On 05/16/2019 she began cycle 1 of maintenance therapy with Velcade 1.3 mg/m??? by subcutaneous injection every 2 weeks together with Revlimid 10 mg daily. Her repeat protein electrophoresis on 06/06/2019 reported an IgG kappa monoclonal protein band quantitating at 1.9 g/dL. The free light chain assay showed elevated kappa light chain at 128 mg/L with lambda light chain 26.9 mg/L and kappa/lambda ratio 4.77. At her follow-up visit on 06/13/2019 she appeared to be tolerating the treatment with acceptable toxicity, though her protein electrophoresis at that time reported a significant increase in her M protein to 1.9 g/dL. I opted to continue her same treatment and on her repeat SPEP the M protein was similar to the prior studies at 0.1 g/dL. However, she did have to stop the Revlimid due to multiple side effects including weakness/fatigue, anorexia, nausea, and insomnia, among others. She just did not feel good generally. She also was taken off dexamethasone due to fluid retention, but she was able to continue the Velcade injections every 2 weeks. Her other medical illnesses hypertension, chronic atrial fibrillation, congestive heart failure, GERD, degenerative arthritis, and glaucoma. Her prior surgeries include ORIF for left femur fracture in 2012 and right total knee arthroplasty in 2007. She is a nonsmoker. INTERIM HISTORY: Her repeat protein electrophoresis studies on 08/01/2019 showed no detectable monoclonal protein and the serum free light chain assay showed normal kappa/lambda ratio at 1.49. Her clinical status at that point appeared stable, and she continued Velcade 1.3 mg/m??? by subcutaneous injection every 2 weeks. As of 04/17/2020 she began cycle 21 of maintenance Velcade. Following her cycle 21-day 15 treatment on 05/01/2020 her Velcade was put on hold due to several episodes of nausea/vomiting, requiring IV hydration. Her denosumab also has been on hold. It was last administered on 04/03/2020. As of 06/27/2020 she was able to restart the Velcade at 1.3 mg by subcutaneous injection. She also restarted the denosumab. She was able to continue Velcade injections on 06/13/2020 and on 07/24/2020, but following that treatment she had developed significant pain in her legs and feet, and her next scheduled injection was held. Her treatment was restarted in August and then continued at 2-week intervals. She received cycle 26-day 15 Velcade on 10/30/2020. At her follow-up visit on 11/13/2020 she was having increased neuropathy symptoms and some decline in performance status, and I opted to put her treatment on hold. She has since then been followed on expectant management. She is seen for a follow-up visit. She has been feeling okay, though she does complain that she sleeps a lot during the daytime. She does not have much activity due to her back pain. She is able to be up for only short periods of time. However, at rest her pain is adequately managed with her medication. Her ECOG score is 3. She has good appetite. She has not had fever. She does have some sweating at night. She complains that her nose runs a lot. She has not had sore throat or difficulty swallowing. Her breathing is heavy at times. She does not have cough and she does not complain of chest pain. She has no GI or complaints. She is not having any other joint or bone pain, but her ankles sometimes bother her a little due to swelling. She also continues to have some numbness/tingling in her ankles and feet. Medications: Acyclovir 1 Tablet (of 400 mg) Oral daily, Amiodarone HCl 1 Tablet (of 200 mg) Oral daily, Betimol (0.5 %) Solution Ophthalmic daily, HYDROcodone-Acetaminophen 1 Tablet (of 5-325 mg) Oral q 6 hours PRN, Klor-Con M20 (10 meq) Tablet, controlled release Oral Take as Directed, Lasix 1 Tablet (of 40 mg) Oral every am, Meclizine HCl 1 Tablet (of 25 mg) Oral t.i.d. PRN, Mirtazapine 1 (15 mg) Tablet Oral at bedtime, Morphine Sulfate ER 1 Tablet (of 15 mg) Tablet SR 24 HR Oral b.i.d., Multiple Vitamins-Minerals 1 Tablet Oral daily, Pepcid 1 Tablet (of 20 mg) Oral at bedtime, Spironolactone 0.5 Tablet (of 50 mg) Oral daily, Systane Complete 1 Drop(s) Solution Ophthalmic PRN, Velcade 1 (3.5 mg) Injection q 7 days, Xarelto 1 Tablet (of 10 mg) Oral daily, Xgeva 1 Each (of 120 ) Subcutaneous q 30 days Allergies: Codeine Sulfate, Statins, and Timolol Hemihydrate. Vital Signs: Performed on Jan 15, 2021 11:10 Height - 61.00 in Weight - 205 lbs (HIGH) BSA - 1.91 sq.m BMI - 38.73 (HIGH) Temperature - 98.4 F Pulse - 80 /min Respiration - 18 /min BP - 146/75 mm(hg) (HIGH) O2 Sat - 95 % (LOW) Pain - 5 Fatigue - 5 Physical Examination: Constitutional - She appears somewhat weak generally, Eyes - Sclerae nonicteric. Conjunctivae appear clear, ENMT - No lesions noted in the oral cavity, Hematologic/Lymphatic - No cervical, clavicular, or axillary adenopathy, Respiratory - Lungs sound clear, Cardiovascular - Heart rhythm is regular. There is a II/ systolic murmur. There is no gallop or rub noted, Abdomen - Mildly distended. Liver and spleen are not enlarged. There is no abdominal mass or ascites noted and there is no inguinal adenopathy, Extremities - No edema, Neurologic - No focal neurologic deficits noted. Lab/Imaging: Test performed on Jan 08, 2021 11:12 Sodium 141 mmol/L Potassium 4.8 mmol/L Chloride 105 mmol/L CO2 27 mmol/L Anion Gap 13.8 BUN 30 mg/dL Creatinine 1.4 mg/dL Cr Clearance (Est) 45.6400 mL/min Glucose 117 mg/dL Osmolality - Calculated 299 mOsm/kg Calcium 8.8 mg/dL Protein, Total 6.6 g/dL Albumin 4.1 g/dL Globulin 2.5 g/dL Bilirubin, Total 0.4 mg/dL ALT (SGPT) 20 U/L AST (SGOT) 18 U/L Alkaline Phosphatase 63 IU/L WBC 10.1 10 3/uL RBC 5.13 10 6/uL HGB 15.4 g/dL HCT 50.6 % MCV 98.6 fL MCH 30.0 pg MCHC 30.4 g/dL RDW 13.9 % Platelet Count 185 10 3/cmm MPV 11.9 fL Neutrophils 8.19 10 3/uL Lymphocytes 0.7 10 3/uL Monocytes 1.1 10 3/uL Eosinophils 0.0 10 3/uL Basophils 0.1 10 3/uL Neutrophil % 81.2 % Lymphocyte % 6.7 % Monocyte % 10.9 % Eosinophil % 0.3 % Basophils % 0.5 % NRBC % 0 % IgG 901 mg/dL Coral Free Light Chains 26.9 mg/L Lambda Free Light Chains 20.7 mg/L IgA 198 mg/dL Coral/Lambda Free Ratio 1.30 IgM 107 mg/dL Problem List: 1. 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 2. She had hypercalcemia, extensive lytic bone involvement, and multiple vertebral compression fractures at initial diagnosis in July 2018. 3. Hypertension. 4. Chronic atrial fibrillation. 5. Congestive heart failure. 6. Degenerative arthritis. 7. GERD. 8. Glaucoma. Problems Addressed with this Encounter and Plan: 1. 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 She had hypercalcemia, extensive lytic bone involvement, and multiple vertebral compression fractures at initial diagnosis in July 2018. She began treatment with weekly Velcade/dexamethasone in July 2018. She has had a very good clinical response, though her treatment was complicated by congestive heart failure, which ultimately resulted in her stopping dexamethasone. Following her visit at [facility] in March 2019 she began a trial of maintenance therapy with Velcade in combination with lenalidomide, but she had very poor tolerance for the lenalidomide, and she subsequently continued maintenance with Velcade monotherapy at 2-week intervals. During follow-up she had, at times, reported nausea/vomiting following her Velcade injections, and she did have occasional treatment delays. As of her follow-up visit on 11/13/2020 she reported increased neuropathy symptoms and at that point she also appeared to be showing some decline in her performance status. Her serum protein electrophoresis at that time showed no monoclonal protein and her serum free light chain assay showed just slightly elevated free kappa light chain at 28.7 mg/L with lambda light chain 18.0 mg/L and normal kappa/lambda ratio at 1.59. With those findings, I did opt to put her treatment on hold. During follow-up she has continued to have limited activity due to her back pain, but her pain is adequately managed with medication as long as she is sitting or lying. Her overall clinical status remains stable and thus far her protein electrophoresis studies have shown no evidence of progression of the myeloma. As such, she will continue on observation/symptomatic management. I will see her again in 1 month. 2. She has extensive lytic bone involvement with multiple vertebral compression fractures. She is currently on treatment with denosumab on a 3-month schedule, and that is due to be given now. Signed By: Beltran Resendez M.D. <<Signature on File>>
== END 2021-02-08 23:59 | disposition home or self-care (01) ==
LOC: ONCMED 06:23
PROVIDERS: PCP Family Medicine; Visit Provider Internal Medicine Medical Oncology
DX: C90.00 Multiple myeloma not having achieved remission (principal); C79.51 Secondary malignant neoplasm of bone; E83.52 Hypercalcemia; M48.50XA Collapsed vertebra, not elsewhere classified, site unspecified, initial encounter for fracture; I10 Essential (primary) hypertension; I48.20 Chronic atrial fibrillation, unspecified; I50.9 Heart failure, unspecified; M19.90 Unspecified osteoarthritis, unspecified site; K21.9 Gastro-esophageal reflux disease without esophagitis; H40.9 Unspecified glaucoma; Z79.899 Other long term (current) drug therapy
CPT/HCPCS: 99214

== ENCOUNTER 2021-02-19 05:41 | Outpatient (RCR) | payer MEDICARE, BC, SELFPAY ==
[2021-02-12 08:52] LABS: Basophils # 0.1 10^3/uL (0.0-0.1); Basophils % 0.6 %; Eosinophils % 0.3 %; Hematocrit 49.1 % (37.0-47.0); Hemoglobin 15.1 g/dL (11.5-15.3); Lymphocytes # 0.9 10^3/uL (0.8-4.8); Lymphocytes % 10.3 %; Mean Corpuscular HGB Conc 30.8 g/dL (30.0-36.0); Mean Corpuscular Volume 97.4 fL (81-99); Mean Platelet Volume 11.5 fL (7.4-10.4); Monocytes # 0.7 10^3/uL (0.2-0.9); Monocytes % 8.5 %; Neutrophils # 6.87 10^3/uL (1.8-7.7); Neutrophils % 79.8 %; Nucleated Red Blood Cells % 0 %; Platelet Count 204 10^3/cmm (130-400); Red Blood Count 5.04 10^6/uL (4.1-5.3); Red Cell Distribution Width 13.8 % (12.1-15.1); White Blood Count 8.6 10^3/uL (4.0-10.0)
[2021-02-12 09:34] LABS: Alanine Aminotransferase 16 U/L (0-33); Alkaline Phosphatase 59 IU/L (35-105); Anion Gap 12.4 (5-19); Aspartate Amino Transferase 17 U/L (0-32); Blood Urea Nitrogen 28 mg/dL (8-23); Carbon Dioxide 29 mmol/L (22-29); Chloride 102 mmol/L (98-107); Globulin 2.7 g/dL (1.3-4.6); Glucose 127 mg/dL (65-115); Immunoglobulin IGA 210 mg/dL (70-400); Immunoglobulin IGG 878 mg/dL (700-1600); Immunoglobulin IGM 126 mg/dL (40-230); Osmolality Calculated 295 mOsm/kg (285-295); Potassium 4.4 mmol/L (3.5-5.1); Sodium 139 mmol/L (136-145); Total Bilirubin 0.4 mg/dL (0.15-1.2); Total Protein 6.7 g/dL (6.6-8.7)
[2021-02-13 06:56] LABS: PROTEIN, TOTAL 6.8 g/dL (6.1-8.1)
[2021-02-13 15:26] LABS: ALBUMIN 3.8 g/dL (3.8-4.8); ALPHA 1 GLOBULIN 0.3 g/dL (0.2-0.3); BETA 1 GLOBULIN 0.4 g/dL (0.4-0.6); BETA 2 GLOBULIN 0.4 g/dL (0.2-0.5); GAMMA GLOBULIN 0.9 g/dL (0.8-1.7)
[2021-02-13 15:32] LABS: KAPPA LIGHT CHAIN, FREE, SERUM 28.6 mg/L (3.3-19.4); KAPPA/LAMBDA LIGHT CHAINS FREE 1.38 (0.26-1.65); LAMBDA LIGHT CHAIN, FREE, SERU 20.8 mg/L (5.7-26.3)
[2021-02-19] MEDS: denosumab 120 mg SDV SUBCUT (11:59)
--- NOTE | 2021-02-20 12:43 | ONC FU_ITS ---
Dr. Resendez Patient Follow-Up Note Patient: Alcira Shirley Unit #: [id number]: [id number] Dicatated By: Beltran Resendez M.D.Date of Visit:Feb 19, 2021 Onc Med Follow-up/Prog Note Chief Complaint: Myeloma. History of Present Illness: This is a 80 year-old woman with IgG kappa myeloma, stage III. She had known osteoporosis and multiple vertebral compression fractures dating back to at least March 2018. In May 2018 she underwent further evaluation at the bone health clinic at [facility]. A protein electrophoresis at that time showed IgG kappa monoclonal protein quantitating at 0.5 g/dL. She had hematology consultation with Dr. Cecille Acevedo on 07/19/2018. Her laboratory studies at that time showed significant hypercalcemia with a serum calcium of 13.6 mg/dL. Her hemoglobin was normal at 15.0 g and her creatinine was borderline at 0.91 mg/dL. Her repeat protein electrophoresis showed her M protein quantitating at 0.6 g/dL. Her free light chain assay showed elevated kappa light chain at 524 mg/L and decreased lambda light chain at < 0.15 mg/L. Her skeletal survey showed innumerable lytic lesions throughout the apical and appendicular skeleton, compatible with multiple myeloma. Bone marrow aspiration/biopsy on 07/21/2018 showed a mildly hypercellular marrow with 60% involvement with plasma cell neoplasm, kappa restricted. 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 Further evaluation with PET/CT on 07/21/2018 showed a mildly FDG avid expansile lytic lesion of the right fourth rib consistent with a diagnosis of multiple myeloma. Also noted was a mottled appearance with lytic lesions seen throughout the axial and appendicular skeleton greatest in the skull and bilateral upper extremities, also consistent with myeloma. Multiple compression deformities were seen throughout the thoracic spine, greatest at T7. During that time she had been admitted to the hospital and she was treated with IV Zometa. She then began treatment with weekly Velcade and dexamethasone, cycle 1 day 1 on 08/03/2018. Her further clinical course was complicated by atrial fibrillation and congestive heart failure, requiring hospital admissions on 08/25/2018, on 09/01/2018 100 and on 09/09/2018. As a result, her cycle 2 of Velcade/dexamethasone was delayed. Despite the complications, she did have a good response with her M protein decreased to 0.3 g/dL and her free kappa light chain decreased to 2.00 mg/dL. Her kappa/lambda ratio normalized to 1.12. She then began cycle 2 on 09/27/2018 with Velcade continued at 1.3 mg/m??? by subcutaneous injection weekly and dexamethasone reduced to 20 mg weekly on a 4-week on/1-week off schedule. I had seen her initially on 10/27/2018. She had completed her 2nd cycle of treatment. Her clinical course, though, was further complicated by a fall at the care home resulting in a left inferior orbital wall depressed fracture and he C3 spinous process nondisplaced fracture, both of which were managed conservatively. She had follow-up at [facility] on 11/01/2018. At that point she was given a second infusion of Zometa, and she began cycle 3 of Velcade/dexamethasone. With that cycle she was able to complete 4 weekly Velcade injections together with dexamethasone 10 mg twice weekly followed by a 1 week rest. She continued with cycle 4 of Velcade/dexamethasone on 12/07/2018. She was again able to tolerate the for weekly Velcade injections along with dexamethasone 10 mg twice weekly. During that time, she had a follow-up with her orthopedic surgeon in [place], and she was told that she had 2 new vertebral compression fractures, presumably resulting from the fall. However, she was able to transition from the care home to assisted living. She was seen for a follow-up visit on 01/10/2019. At that point she appeared stable clinically and she continued with her 5th cycle of treatment with Velcade/dexamethasone. With that cycle, her 4th weekly dose of Velcade was omitted, as she was admitted to the hospital at day 22 with worsening congestive heart failure in association with an acute decline in her renal function. She then continued with cycle 6 on 02/21/2019. The day 22 Velcade was omitted with that cycle as well, as she was again admitted to the hospital with decompensated heart failure. With those episodes of congestive heart failure, her dexamethasone was changed to 1 mg daily. In the meantime, her protein electrophoresis studies from January showed her M band quantitating at 0.1 g/dL, and her serum free light chain assay showed her kappa light chain at 12.7 mg/L with lambda light chain 10.3 mg/L and kappa/lambda ratio normal at 1.23. She was seen again by Dr. Acevedo at [facility] on 04/04/2019. It was recommended that she transitioned to maintenance therapy with Velcade 1.3 mg/m??? by subcutaneous injection every 2 weeks together with lenalidomide 10 mg daily. Her repeat bone marrow aspiration/biopsy on 04/20/2019 showed cellularity ranging from 10 to 30% with normal trilineage hematopoiesis. There were just rare scattered plasma cells noted, estimated at 2 to 4% of the overall cellularity. On 05/16/2019 she began cycle 1 of maintenance therapy with Velcade 1.3 mg/m??? by subcutaneous injection every 2 weeks together with Revlimid 10 mg daily. Her repeat protein electrophoresis on 06/06/2019 reported an IgG kappa monoclonal protein band quantitating at 1.9 g/dL. The free light chain assay showed elevated kappa light chain at 128 mg/L with lambda light chain 26.9 mg/L and kappa/lambda ratio 4.77. At her follow-up visit on 06/13/2019 she appeared to be tolerating the treatment with acceptable toxicity, though her protein electrophoresis at that time reported a significant increase in her M protein to 1.9 g/dL. I opted to continue her same treatment and on her repeat SPEP the M protein was similar to the prior studies at 0.1 g/dL. However, she did have to stop the Revlimid due to multiple side effects including weakness/fatigue, anorexia, nausea, and insomnia, among others. She just did not feel good generally. She also was taken off dexamethasone due to fluid retention, but she was able to continue the Velcade injections every 2 weeks. Her other medical illnesses hypertension, chronic atrial fibrillation, congestive heart failure, GERD, degenerative arthritis, and glaucoma. Her prior surgeries include ORIF for left femur fracture in 2012 and right total knee arthroplasty in 2007. She is a nonsmoker. INTERIM HISTORY: Her repeat protein electrophoresis studies on 08/01/2019 showed no detectable monoclonal protein and the serum free light chain assay showed normal kappa/lambda ratio at 1.49. Her clinical status at that point appeared stable, and she continued Velcade 1.3 mg/m??? by subcutaneous injection every 2 weeks. As of 04/17/2020 she began cycle 21 of maintenance Velcade. Following her cycle 21-day 15 treatment on 05/01/2020 her Velcade was put on hold due to several episodes of nausea/vomiting, requiring IV hydration. Her denosumab also has been on hold. It was last administered on 04/03/2020. As of 06/27/2020 she was able to restart the Velcade at 1.3 mg by subcutaneous injection. She also restarted the denosumab. She was able to continue Velcade injections on 06/13/2020 and on 07/24/2020, but following that treatment she had developed significant pain in her legs and feet, and her next scheduled injection was held. Her treatment was restarted in August and then continued at 2-week intervals. She received cycle 26-day 15 Velcade on 10/30/2020. At her follow-up visit on 11/13/2020 she was having increased neuropathy symptoms and some decline in performance status, and I opted to put her treatment on hold. She was then followed on expectant management. She is seen for a follow-up visit. She says she has been feeling pretty good, though occasionally she does feel washed out. She is able to ambulate with a walker. ECOG score is 2. She has good appetite. She has not had fever. She sometimes has sweating at night. She has had no mouth sores. She sometimes gets congested in the morning, but she does not have much cough and she does not complain of shortness of breath or chest pain. She has no GI/ complaints. Bowel function has been adequate with MiraLAX. She does have back pain if she is up for any length of time. She has no pain at all when she is sitting or lying. She does not complain of headache or dizziness. She does not have much numbness or tingling now. Medications: Acyclovir 1 Tablet (of 400 mg) Oral daily, Amiodarone HCl 1 Tablet (of 200 mg) Oral daily, HYDROcodone-Acetaminophen 1 Tablet (of 5-325 mg) Oral q 6 hours PRN, Klor-Con M20 (20 meq) Tablet, controlled release Oral Take as Directed, Lasix 1 Tablet (of 40 mg) Oral every am, Meclizine HCl 1 Tablet (of 25 mg) Oral t.i.d. PRN, MiraLax 1 Pack Oral daily, Mirtazapine 1 (15 mg) Tablet Oral at bedtime, Morphine Sulfate ER 1 Tablet (of 15 mg) Tablet SR 24 HR Oral b.i.d., Multiple Vitamins-Minerals 1 Tablet Oral daily, Pepcid 1 Tablet (of 20 mg) Oral at bedtime, Spironolactone 1 Tablet (of 25 mg) Oral daily, Systane Complete 1 Drop(s) Solution Ophthalmic PRN, Velcade 1 (3.5 mg) Injection q 7 days, Xarelto 1 Tablet (of 10 mg) Oral daily, Xgeva 1 Each (of 120 ) Subcutaneous q 30 days Allergies: Codeine Sulfate, Statins, and Timolol Hemihydrate. Vital Signs: Performed on Feb 19, 2021 11:23 Height - 61.00 in Weight - 203 lbs (LOW) BSA - 1.90 sq.m BMI - 38.36 (HIGH) Temperature - 97.2 F (LOW) Pulse - 80 /min Respiration - 18 /min BP - 117/82 mm(hg) O2 Sat - 93 % (LOW) Pain - 6 Physical Examination: Constitutional - She appears somewhat weak generally, Eyes - Sclerae nonicteric. Conjunctivae appear clear, ENMT - No lesions noted in the oral cavity, Hematologic/Lymphatic - No cervical, clavicular, or axillary adenopathy, Respiratory - Lungs sound clear, Cardiovascular - Heart rhythm is regular. There is a II/ systolic murmur. There is no gallop or rub noted, Abdomen - Mildly distended. Liver and spleen are not enlarged. There is no abdominal mass or ascites noted and there is no inguinal adenopathy, Extremities - No edema. There are scattered purpuric lesions on both arms, Neurologic - No focal neurologic deficits noted. Lab/Imaging: Test performed on Feb 12, 2021 08:22 Sodium 139 mmol/L Potassium 4.4 mmol/L Chloride 102 mmol/L CO2 29 mmol/L Anion Gap 12.4 BUN 28 mg/dL Creatinine 1.5 mg/dL Cr Clearance (Est) 42.6000 mL/min Glucose 127 mg/dL Osmolality - Calculated 295 mOsm/kg Calcium 9.0 mg/dL Protein, Total 6.7 g/dL Albumin 4.0 g/dL Globulin 2.7 g/dL Bilirubin, Total 0.4 mg/dL ALT (SGPT) 16 U/L AST (SGOT) 17 U/L Alkaline Phosphatase 59 IU/L WBC 8.6 10 3/uL RBC 5.04 10 6/uL HGB 15.1 g/dL HCT 49.1 % MCV 97.4 fL MCH 30.0 pg MCHC 30.8 g/dL RDW 13.8 % Platelet Count 204 10 3/cmm MPV 11.5 fL Neutrophils 6.87 10 3/uL Lymphocytes 0.9 10 3/uL Monocytes 0.7 10 3/uL Eosinophils 0.0 10 3/uL Basophils 0.1 10 3/uL Neutrophil % 79.8 % Lymphocyte % 10.3 % Monocyte % 8.5 % Eosinophil % 0.3 % Basophils % 0.6 % NRBC % 0 % IgG 878 mg/dL [place] Free Light Chains 28.6 mg/L Lambda Free Light Chains 20.8 mg/L IgA 210 mg/dL [place]/Lambda Free Ratio 1.38 IgM 126 mg/dL Problem List: 1. 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 2. She had hypercalcemia, extensive lytic bone involvement, and multiple vertebral compression fractures at initial diagnosis in July 2018. 3. Hypertension. 4. Chronic atrial fibrillation. 5. Congestive heart failure. 6. Degenerative arthritis. 7. GERD. 8. Glaucoma. Problems Addressed with this Encounter and Plan: 1. 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 She had hypercalcemia, extensive lytic bone involvement, and multiple vertebral compression fractures at initial diagnosis in July 2018. She began treatment with weekly Velcade/dexamethasone in July 2018. She has had a very good clinical response, though her treatment was complicated by congestive heart failure, which ultimately resulted in her stopping dexamethasone. Following her visit at [facility] in March 2019 she began a trial of maintenance therapy with Velcade in combination with lenalidomide, but she had very poor tolerance for the lenalidomide, and she subsequently continued maintenance with Velcade monotherapy at 2-week intervals. During follow-up she had, at times, reported nausea/vomiting following her Velcade injections, and she did have occasional treatment delays. As of her follow-up visit on 11/13/2020 she reported increased neuropathy symptoms and at that point she also appeared to be showing some decline in her performance status. Her serum protein electrophoresis at that time showed no monoclonal protein and her serum free light chain assay showed just slightly elevated free kappa light chain at 28.7 mg/L with lambda light chain 18.0 mg/L and normal kappa/lambda ratio at 1.59. With those findings, I did opt to put her treatment on hold. During follow-up she has continued to have limited activity due to her back pain, but her pain is adequately managed with medication. Her overall clinical status remains stable. Her protein electrophoresis shows no detectable monoclonal protein and her free kappa light chain level is stable. As such, she will continue on observation/symptomatic management for the myeloma. I will see her again in 1 month. 2. She has extensive lytic bone involvement with multiple vertebral compression fractures. She has been on treatment with denosumab, and that will be restarted now. Signed By: Beltran Resendez M.D. <<Signature on File>>
== END 2021-03-11 23:59 | disposition home or self-care (01) ==
LOC: ONCMED 05:41
PROVIDERS: PCP Family Medicine; Visit Provider Internal Medicine Medical Oncology
DX: Z51.11 Encounter for antineoplastic chemotherapy (principal); C90.00 Multiple myeloma not having achieved remission; C79.51 Secondary malignant neoplasm of bone; E83.52 Hypercalcemia; I10 Essential (primary) hypertension; I48.20 Chronic atrial fibrillation, unspecified; I50.9 Heart failure, unspecified; M19.90 Unspecified osteoarthritis, unspecified site; K21.9 Gastro-esophageal reflux disease without esophagitis; H40.9 Unspecified glaucoma; Z79.899 Other long term (current) drug therapy
CPT/HCPCS: 36415; 80053; 82784; 83883; 84155; 84165; 85025; 96372; 99214; J0897

== ENCOUNTER 2021-03-16 13:14 | Emergency (ER) | payer MEDICARE, BC, SELFPAY ==
[2021-03-16 14:05] VITALS: BP 148/79; PULSE 75; RESP 18; TEMP 37; O2SAT 96; BMI 32.3
[2021-03-16 14:33] VITALS: BP 141/77; PULSE 75; RESP 18; O2SAT 92
--- NOTE | 2021-03-16 14:36 | W.ED.SOB ---
HPI - SOB/Dyspnea General: Chief Complaint: Shortness of Breath/Dyspnea Stated Complaint: SOB/SENT FROM [facility]/FLUCTUATING HEART RATE Time Seen by Provider: 03/16/21 14:21 History of Present Illness: HPI Narrative: 81-year-old female with history of CHF A. fib and multiple myeloma presents shortness of breath. States that she has had progressive exertional shortness of breath for the past month that was worse today. Also reports some palpitations earlier. Now states the palpitations have resolved but still feels short of breath. Denies any fever cough chills. States she is compliant with medications. Family called cardiology clinic earlier today and she was instructed to increase her Lasix dose. She denies any dysuria. Denies any chest pain. Denies fevers or chills. Does report lightheadedness but denies vertigo. Denies focal numbness weakness or tingling. Review of Systems Narrative: - CONSTITUTIONAL: Denies weight loss, fever and chills. - HEENT: Denies changes in vision and hearing. - RESPIRATORY: Endorses shortness of breath - CV: Endorses palpitations, denies CP. - GI: Denies abdominal pain, nausea, vomiting and diarrhea. - : Denies dysuria and urinary frequency. - MSK: Denies myalgia and joint pain. - SKIN: Denies rash and pruritus. - NEUROLOGICAL: Denies headache, weakness, numbness and syncope. - PSYCHIATRIC: Denies suicidal ideation [facility] ED PFS: Medical History (Updated 03/16/21 @ 20:45 by Mario Marino MD) Aortic stenosis, moderate Atrial fibrillation Diastolic congestive heart failure GERD (gastroesophageal reflux disease) History of cardioversion HTN (hypertension) Status post closed fracture of femur Surgical History S/P eye surgery S/P knee replacement Family History Father , CHF age 91 CHF (congestive heart failure) Mother , Age 83 Heart disease Other Diabetes Social History Smoking and tobacco status: never smoked Physical Exam Narrative: EXAM NARRATIVE: - GENERAL: Alert and oriented x 3. No acute distress. Well-nourished. - EYES: EOMI. Anicteric. - HENT: Moist mucous membranes. No scleral icterus. No cervical lymphadenopathy. - LUNGS: Mild crackles, no wheezing. No accessory muscle use. - CARDIOVASCULAR: Regular rate and rhythm. No murmur. No JVD. - ABDOMEN: Soft, non-tender and non-distended. No palpable masses. - EXTREMITIES: No edema. Non-tender. - SKIN: No rashes or lesions. Warm. - NEUROLOGIC: No meningismus or focal neurological deficits. CN II-XII grossly intact. - PSYCHIATRIC: Cooperative. Appropriate mood and affect. Course Vital Signs: Vital signs: Vital Signs Temperature 98.6 F 03/16/21 14:05 Pulse Rate 79 03/16/21 18:00 Respiratory Rate 14 03/16/21 18:00 Blood Pressure 136/84 03/16/21 18:00 Pulse Oximetry 95 03/16/21 18:00 MDM - SOB/Dyspnea MDM Narrative: Medical decision making narrative: 81-year-old female presents due to shortness of breath. Does have history of A. fib. She is satting well on room air. He medically stable afebrile nontoxic-appearing. There are mild crackles on exam. X-ray does reveal mild volume overload. BNP however is within normal. Clinically this is still consistent with CHF. EKG and troponin do not reveal any sign of acute ischemia or other acute abnormality. High-sensitivity troponin is mildly elevated but repeat is downtrending. She does not have any chest pain. Does have CKD with creatinine to 1.6, this is similar to her previous baseline. Per cardiology's recommendation from earlier today we will keep her on short course of Lasix and have her follow-up with cardiology. Patient may require an echocardiogram in the future. D-dimer is negative. Remainder of lab work is unremarkable. At this time I believe patient would be safe for discharge and outpatient follow-up. Return precautions provided. Plan was reviewed with the patient who expressed understanding. Questions answered. Patient will follow up with cardiology and PCP. Patient discharged in stable condition. Lab Data: Labs: Lab Results 03/16/21 03/16/21 03/16/21 Range/Units 15:23 15:23 15:23 WBC 9.7 (4.0-10.0) 10^3/ uL RBC 5.49 H (4.1-5.3) 10^6/u L Hgb 16.4 H (11.5-15.3) g/dL Hct 54.0 H (37.0-47.0) % MCV 98.4 (81-99) fl MCH 29.9 (28.0-34.0) pg MCHC 30.4 (30.0-36.0) g/dL RDW 13.8 (12.1-15.1) % Plt Count 211 (130-400) 10^3/c mm MPV 11.9 H (7.4-10.4) fL Neut % (Auto) 79.3 % Lymph % (Auto) 9.1 % Armstrong % (Auto) 10.1 % Eos % (Auto) 0.4 % Baso % (Auto) 0.6 % Neut # (Auto) 7.70 (1.8-7.7) 10^3/u L Lymph # (Auto) 0.9 (0.8-4.8) 10^3/u L Armstrong # (Auto) 1.0 H (0.2-0.9) 10^3/u L Eos # (Auto) 0.0 (0.0-0.8) 10^3/u L Baso # (Auto) 0.1 (0.0-0.1) 10^3/u L Nucleated RBC % (a uto) 0 % Nucleated RBCs # 0.0 /100WBC PT 21.70 H (12.1-14.9) SECO NDS INR 1.84 H (0.8-1.2) APTT 40.8 H (23.9-36.7) SECO NDS D-Dimer 0.35 (0-0.59) ug/mIFE U Sodium 141 (136-145) mmol/L Potassium 4.6 (3.5-5.1) mmol/L Chloride 101 (98-107) mmol/L Carbon Dioxide 27 (22-29) mmol/L Anion Gap 17.6 (5-19) BUN 30 H (8-23) mg/dL Creatinine 1.6 H (0.5-0.9) mg/dL GFR Calculation Not Reportable Glucose 121 H (65-115) mg/dL Calculated Osmolal ity 299 H (285-295) mOsm/k g Calcium 9.5 (8.5-10.5) mg/dL Total Bilirubin 0.4 (0.15-1.2) mg/dL AST 20 (0-32) U/L ALT 23 (0-33) U/L Alkaline Phosphata se 66 (35-105) IU/L Troponin T Gen 5 n g/L (0-10) ng/L NT-Pro-B Natriuret Pep 113 (0-450) pg/mL Total Protein 7.3 (6.6-8.7) g/dL Albumin 3.9 (3.5-5.2) g/dL Globulin 3.4 (1.3-4.6) g/dL Urine Color (Yellow) Urine Appearance (CLEAR) Urine pH (5-7) Ur Specific Gravit y (1.005-1.030) Urine Protein (Negative) Urine Glucose (UA) (Normal) Urine Ketones (Negative) Urine Blood (Negative) Urine Nitrate (Negative) Urine Bilirubin (Negative) Urine Urobilinogen (Negative) mg/dL Ur Leukocyte Daisy ase (Negative) SARS-CoV-2 Ag (Rap id) (Negative) 03/16/21 03/16/21 03/16/21 Range/Units 15:23 15:49 16:18 WBC (4.0-10.0) 10^3/ uL RBC (4.1-5.3) 10^6/u L Hgb (11.5-15.3) g/dL Hct (37.0-47.0) % MCV (81-99) fl MCH (28.0-34.0) pg MCHC (30.0-36.0) g/dL RDW (12.1-15.1) % Plt Count (130-400) 10^3/c mm MPV (7.4-10.4) fL Neut % (Auto) % Lymph % (Auto) % Armstrong % (Auto) % Eos % (Auto) % Baso % (Auto) % Neut # (Auto) (1.8-7.7) 10^3/u L Lymph # (Auto) (0.8-4.8) 10^3/u L Armstrong # (Auto) (0.2-0.9) 10^3/u L Eos # (Auto) (0.0-0.8) 10^3/u L Baso # (Auto) (0.0-0.1) 10^3/u L Nucleated RBC % (a uto) % Nucleated RBCs # /100WBC PT (12.1-14.9) SECO NDS INR (0.8-1.2) APTT (23.9-36.7) SECO NDS D-Dimer (0-0.59) ug/mIFE U Sodium (136-145) mmol/L Potassium (3.5-5.1) mmol/L Chloride (98-107) mmol/L Carbon Dioxide (22-29) mmol/L Anion Gap (5-19) BUN (8-23) mg/dL Creatinine (0.5-0.9) mg/dL GFR Calculation Glucose (65-115) mg/dL Calculated Osmolal ity (285-295) mOsm/k g Calcium (8.5-10.5) mg/dL Total Bilirubin (0.15-1.2) mg/dL AST (0-32) U/L ALT (0-33) U/L Alkaline Phosphata se (35-105) IU/L Troponin T Gen 5 n g/L 29 H (0-10) ng/L NT-Pro-B Natriuret Pep (0-450) pg/mL Total Protein (6.6-8.7) g/dL Albumin (3.5-5.2) g/dL Globulin (1.3-4.6) g/dL Urine Color Yellow (Yellow) Urine Appearance Clear (CLEAR) Urine pH 5 (5-7) Ur Specific Gravit y 1.010 (1.005-1.030) Urine Protein Neg (Negative) Urine Glucose (UA) Norm (Normal) Urine Ketones Negative (Negative) Urine Blood Neg (Negative) Urine Nitrate Negative (Negative) Urine Bilirubin Neg (Negative) Urine Urobilinogen Norm (Negative) mg/dL Ur Leukocyte Daisy ase Negative (Negative) SARS-CoV-2 Ag (Rap id) Negative (Negative) 03/16/21 Range/Units 19:52 WBC (4.0-10.0) 10^3/ uL RBC (4.1-5.3) 10^6/u L Hgb (11.5-15.3) g/dL Hct (37.0-47.0) % MCV (81-99) fl MCH (28.0-34.0) pg MCHC (30.0-36.0) g/dL RDW (12.1-15.1) % Plt Count (130-400) 10^3/c mm MPV (7.4-10.4) fL Neut % (Auto) % Lymph % (Auto) % Armstrong % (Auto) % Eos % (Auto) % Baso % (Auto) % Neut # (Auto) (1.8-7.7) 10^3/u L Lymph # (Auto) (0.8-4.8) 10^3/u L Armstrong # (Auto) (0.2-0.9) 10^3/u L Eos # (Auto) (0.0-0.8) 10^3/u L Baso # (Auto) (0.0-0.1) 10^3/u L Nucleated RBC % (a uto) % Nucleated RBCs # /100WBC PT (12.1-14.9) SECO NDS INR (0.8-1.2) APTT (23.9-36.7) SECO NDS D-Dimer (0-0.59) ug/mIFE U Sodium (136-145) mmol/L Potassium (3.5-5.1) mmol/L Chloride (98-107) mmol/L Carbon Dioxide (22-29) mmol/L Anion Gap (5-19) BUN (8-23) mg/dL Creatinine (0.5-0.9) mg/dL GFR Calculation Glucose (65-115) mg/dL Calculated Osmolal ity (285-295) mOsm/k g Calcium (8.5-10.5) mg/dL Total Bilirubin (0.15-1.2) mg/dL AST (0-32) U/L ALT (0-33) U/L Alkaline Phosphata se (35-105) IU/L Troponin T Gen 5 n g/L 26 H (0-10) ng/L NT-Pro-B Natriuret Pep (0-450) pg/mL Total Protein (6.6-8.7) g/dL Albumin (3.5-5.2) g/dL Globulin (1.3-4.6) g/dL Urine Color (Yellow) Urine Appearance (CLEAR) Urine pH (5-7) Ur Specific Gravit y (1.005-1.030) Urine Protein (Negative) Urine Glucose (UA) (Normal) Urine Ketones (Negative) Urine Blood (Negative) Urine Nitrate (Negative) Urine Bilirubin (Negative) Urine Urobilinogen (Negative) mg/dL Ur Leukocyte Daisy ase (Negative) SARS-CoV-2 Ag (Rap id) (Negative) EKG Data^: X1413, sinus rhythm, rate of 74, anterior Q waves present, represent ischemia, no significant ischemia Q. O'Emeterio.: Other EKG Comments: Addendum to read above, Q waves are likely to represent remote ischemia, no significant signs of current ischemia is present. Discharge Plan Discharge Patient Disposition: Home Clinical Impression: Congestive heart failure, Shortness of breath Condition: Stable Prescriptions: No Action hydrocodone-acetaminophen 5-325 mg tablet 1 tab PO Q6H PRN (Reason: Pain) RF: 0 polyethylene glycol 3350 [Miralax] 17 gram/dose powder 17 gm PO DAILY PRN (Reason: Constipation) RF: 0 morphine 15 mg tablet extended release 15 mg PO Q12H RF: 0 meclizine 25 mg tablet 25 mg PO DAILY PRN (Reason: Dizziness) RF: 0 acyclovir 400 mg tablet 400 mg PO DAILY RF: 0 multivitamin Tablet 1 tab PO DAILY RF: 0 mirtazapine 15 mg tablet 15 mg PO BEDTIME RF: 0 Prolia 60 mg/mL syringe 120 mg SUBCUT Q30D RF: 0 famotidine [Acid [employer] Resources Communications Manager (famotidine)] 10 mg tablet 10 mg PO DAILY PRN (Reason: Acid Reflux) RF: 0 furosemide 40 mg tablet 40 mg PO BID PRN (Reason: edema) RF: 0 potassium chloride 10 mEq capsule, extended release 20 meq PO DAILY RF: 0 spironolactone 25 mg tablet 25 mg PO DAILY Qty: 90 RF: 3 Xarelto 10 mg tablet 10 mg PO DAILY RF: 0 amiodarone 200 mg tablet 200 mg PO DAILY RF: 0 Discharge Orders: Discharge ED (Routine); Ordered 03/16/21 Ordered By: Mario Marino Referrals: Asia Bennett MD [Physician] - 1-3 days Filemon Loaiza DO [Primary Care Provider] - 1-3 days Patient Instructions: Heart Failure (ED), Dyspnea (ED), Opioid Safety Coding Level of Care Code ED Label Paster for Hubert Beal
--- NOTE | 2021-03-16 14:51 | XRR_ITS ---
PROCEDURE INFORMATION: Exam: XR Chest Exam date and time: 03/16/2021 2:51 PM Age: 81 years old Clinical indication: Shortness of breath; Additional info: SOB TECHNIQUE: Imaging protocol: XR of the chest. Views: 1 view. COMPARISON: CR Chest 2 views* [id number] 03/31/2019 2:43 PM FINDINGS: Lungs: Hypoinflated lungs. No consolidation. Pleural spaces: Unremarkable. No pleural effusion. No pneumothorax. Heart/Mediastinum: Unremarkable. No cardiomegaly. Bones/joints: Visualized osseous structures are intact. XR/XR chest 1V portable [id number] IMPRESSION: Stable exam, no acute findings.
--- NOTE | 2021-03-16 14:51 | ECG_ITS ---
[facility] Test Date: 2021-03-16 Pat Name: Alcira Shirley Department: Room: Gender: Female [employer]: : 1940 Requested By: Mario Marino Order Number: [id number] Bhavya MD: KENNY TAN Measurements Intervals Douglas Rate: 74 P: -1 IL: 182 QRS: -8 QRSD: 87 T: 23 QT: 383 QTc: 426 Interpretive Statements SINUS RHYTHM ANTEROSEPTAL MYOCARDIAL INFARCTION [40+ ms Q WAVE IN V1-V4], OF INDETERMINATE AGE INTERPRETATION BASED ON A DEFAULT AGE OF 40 YEARS Compared to ECG 03/03/2019 20:02:27 No significant changes Electronically Signed On 03-17-2021 18:35:04 CDT by KENNY TAN [id number]
[2021-03-16] MEDS: aspirin 325 mg Tablet PO (15:20)
[2021-03-16] MEDS: FUROsemide 10 mg/mL SDV 4mL 40 MG IVP (15:20)
[2021-03-16 15:44] LABS: Basophils # 0.1 10^3/uL (0.0-0.1); Basophils % 0.6 %; Eosinophils % 0.4 %; Hemoglobin 16.4 g/dL (11.5-15.3); Lymphocytes # 0.9 10^3/uL (0.8-4.8); Lymphocytes % 9.1 %; Mean Corpuscular HGB Conc 30.4 g/dL (30.0-36.0); Mean Corpuscular Hemoglobin 29.9 pg (28.0-34.0); Mean Corpuscular Volume 98.4 fl (81-99); Mean Platelet Volume 11.9 fL (7.4-10.4); Monocytes % 10.1 %; Neutrophils % 79.3 %; Nucleated Red Blood Cells % 0 %; Platelet Count 211 10^3/cmm (130-400); Red Blood Count 5.49 10^6/uL (4.1-5.3); Red Cell Distribution Width 13.8 % (12.1-15.1); White Blood Count 9.7 10^3/uL (4.0-10.0)
[2021-03-16 15:58] LABS: INR 1.84 (0.8-1.2)
[2021-03-16 15:59] LABS: Partial Thromboplastin Time 40.8 SECONDS (23.9-36.7)
[2021-03-16 16:01] LABS: D Dimer 0.35 ug/mIFEU (0-0.59)
[2021-03-16 16:23] LABS: Alanine Aminotransferase 23 U/L (0-33); Albumin Level 3.9 g/dL (3.5-5.2); Alkaline Phosphatase 66 IU/L (35-105); Anion Gap 17.6 (5-19); Aspartate Amino Transferase 20 U/L (0-32); Blood Urea Nitrogen 30 mg/dL (8-23); Calcium 9.5 mg/dL (8.5-10.5); Carbon Dioxide 27 mmol/L (22-29); Chloride 101 mmol/L (98-107); Globulin 3.4 g/dL (1.3-4.6); Glucose 121 mg/dL (65-115); NT Pro B Type Natriuretic Pept 113 pg/mL (0-450); Osmolality Calculated 299 mOsm/kg (285-295); Potassium 4.6 mmol/L (3.5-5.1); Sodium 141 mmol/L (136-145); Total Bilirubin 0.4 mg/dL (0.15-1.2); Total Protein 7.3 g/dL (6.6-8.7)
[2021-03-16 16:30] LABS: Add Urine Microscopic? NO; Charge for UA Resulting for Rev
[2021-03-16 16:37] LABS: Bilirubin Urine Neg (Negative); Blood Urine Neg (Negative); Glucose Urine UA Norm (Normal); Ketones Urine Negative (Negative); Leukocyte Esterase Urine Negative (Negative); Nitrate Urine Negative (Negative); Protein Urine Neg (Negative); Urine Appearance Clear (CLEAR); Urine Color Yellow (Yellow); Urobilinogen Urine Norm (Negative); pH Urine 5 (5-7)
[2021-03-16 16:50] LABS: SARS Covid-2 Antigen Negative (Negative)
[2021-03-16 18:00] VITALS: BP 136/84; PULSE 79; RESP 14; O2SAT 95
[2021-03-16 19:06] LABS: Troponin T (5th) Once 29 ng/L (0-10)
[2021-03-16 20:00] VITALS: BP 113/76; PULSE 76; RESP 18; O2SAT 93
[2021-03-16 20:17] LABS: Troponin T (5th) Once 26 ng/L (0-10)
[2021-03-16 21:00] VITALS: BP 115/76; PULSE 94; RESP 16; O2SAT 94
== END 2021-03-16 21:07 | disposition home or self-care (01) ==
PROVIDERS: Emergency Provider Emergency Medicine; PCP Family Medicine
DX: I11.0 Hypertensive heart disease with heart failure (principal); I50.9 Heart failure, unspecified; R06.02 Shortness of breath; Z20.822 Contact with and (suspected) exposure to COVID-19
CPT/HCPCS: 71045; 80053; 81003; 83880; 84484; 85025; 85378; 85610; 85730; 87426; 93005; 96374; 99284; J1940

== ENCOUNTER 2021-03-19 06:21 | Outpatient (RCR) | payer MEDICARE, BC, SELFPAY ==
[2021-03-19] MEDS: denosumab 120 mg SDV SUBCUT (13:30)
== END 2021-03-31 15:25 | disposition home or self-care (01) ==
LOC: ONCMED 06:21
PROVIDERS: PCP Family Medicine; Visit Provider Internal Medicine Medical Oncology
DX: Z51.11 Encounter for antineoplastic chemotherapy (principal); C90.00 Multiple myeloma not having achieved remission; R22.42 Localized swelling, mass and lump, left lower limb; M25.572 Pain in left ankle and joints of left foot; Z79.899 Other long term (current) drug therapy
CPT/HCPCS: 96372; J0897

== ENCOUNTER 2021-03-31 15:27 | Outpatient (CLI) | payer MEDICARE, BC, SELFPAY ==
--- NOTE | 2021-03-31 15:00 | USCV_ITS ---
Casper Alcira Age: 81 Gender: F : 1940 Exam Date: 03/31/2021 15:48 Ordering Phys: Esme Norris Technologist: Jaimie Sal Exam Location: [facility] [place] Indication: AV AND MV DISORDER BP: 112 / 60 HR: 69 Rhythm: Sinus Technical Quality: Technically difficult study MEASUREMENTS (Male / Female) Normal Values 2D ECHO LV Diastolic Diameter PLAX 4.9 cm 4.2 - 5.9 / 3.9 - 5.3 cm LV Systolic Diameter PLAX 2.5 cm LV Chamber Size 3.3 cm IVS Diastolic Thickness 0.8 cm 0.6 - 1.0 / 0.6 - 0.9 cm IVS Systolic Thickness 1.7 cm LVPW Diastolic Thickness 1.3 cm 0.6 - 1.0 / 0.6 - 0.9 cm LVPW Systolic Thickness 1.5 cm RV Chamber Size 3.4 cm LVOT Diameter 2.0 cm LV Ejection Fraction 2D Teich 81.1 % LV Ejection Fraction MOD 2C 77.4 % LV Ejection Fraction 2C AL 78.1 % LA Diameter 5.0 cm LA Width 2.9 cm LA Height 4.5 cm RA Width 3.6 cm RA Height 4.5 cm Aorta at Sinotubular Diameter 2.5 cm M-MODE LV Diastolic Diameter MM 4.0 cm 4.2 - 5.9 / 3.9 - 5.3 cm LV Systolic Diameter MM 3.1 cm LV Ejection Fraction MM Teich 48.4 % IVS Diastolic Thickness MM 0.9 cm 0.6 - 1.0 / 0.6 - 0.9 cm IVS Systolic Thickness MM 1.1 cm LVPW Diastolic Thickness MM 1.0 cm 0.6 - 1.0 / 0.6 - 0.9 cm LVPW Systolic Thickness MM 1.7 cm Aortic Annulus Diameter 3.1 cm LA Ao Ratio MM 1.6 MV E Point Septal Separation 0.8 cm DOPPLER AV Peak Velocity 245.0 cm/s LVOT Peak Velocity 193.3 cm/s AV Area Cont Eq vti 1.0 cm squared AV Area Cont Eq pk 2.5 cm squared MV Peak Velocity 138.0 cm/s MV Area PHT 1.7 cm squared Mitral E to A Ratio 0.6 MV E' Velocity 79.0 cm/s TR Peak Velocity 202.6 cm/s TR Peak Gradient 16.4 mmHg TR Mean Velocity 132.2 cm/s TR Mean Gradient 8.8 mmHg TR Velocity Time Integral 49.2 cm TV Peak E Velocity 74.0 cm/s Right Atrial Pressure 3.0 mmHg Pulmonary Artery Systolic Pressu 19.4 mmHg PV Peak Velocity 74.0 cm/s RV Acceleration Time 0.1 s RV Ejection Time 0.4 s RV AcT/ET 0.3 FINDINGS Left Ventricle Normal left ventricular cavity size. Normal left ventricular systolic function. No regional wall motion abnormalities. Left ventricular ejection fraction is estimated at 60 %. Grade I/IV diastolic dysfunction (abnormal relaxation filling pattern), normal to mildly elevated filling pressures. Right Ventricle The right ventricle is normal in size and function. Right Atrium The right atrium is normal in size. Left Atrium The left atrium is normal in size. Mitral Valve Severely thickened mitral valve. Moderate mitral annular calcification. No mitral valve stenosis. No mitral valve regurgitation. Aortic Valve Severe aortic valve calcification. Moderate aortic valve stenosis, mean gradient 11.3 mmHg, TENZIN 1 cm squared. Trace aortic valve regurgitation. Tricuspid Valve Structurally normal tricuspid valve without significant stenosis or regurgitation. Pulmonary artery systolic pressure is normal. Pulmonic Valve Structurally normal pulmonic valve without significant stenosis. There is no pulmonic regurgitation. Pericardium Normal pericardium without effusion. Aorta Normal ascending aorta dimension. CONCLUSIONS 1-Normal left ventricular cavity size. Normal left ventricular systolic function. No regional wall motion abnormalities. Left ventricular ejection fraction is estimated at 60 %. Grade I/IV diastolic dysfunction (abnormal relaxation filling pattern), normal to mildly elevated filling pressures. 2-Severe aortic valve calcification. Moderate aortic valve stenosis, mean gradient 11.3 mmHg, TENZIN 1 cm squared. Trace aortic valve regurgitation. 3-Severely thickened mitral valve. Moderate mitral annular calcification. No mitral valve stenosis. No mitral valve regurgitation. 4-There is no pericardial effusion. 5-Pulmonary artery systolic pressure is within normal limits. 6-Right atrial pressure is around 5 mm of mercury. 7-When compared to the prior echocardiogram dated June 14 2020 there is mild deterioration of aortic stenosis still in moderate category. Asia Bennett MD (Electronically Signed) Final Date: 31 March 2021 18:08 S
== END 2021-03-31 15:28 | disposition home or self-care (01) ==
LOC: RAD 15:33
PROVIDERS: PCP Family Medicine; Visit Provider Nurse Practitioner Family
DX: I08.0 Rheumatic disorders of both mitral and aortic valves (principal); R06.02 Shortness of breath
CPT/HCPCS: 93306

== ENCOUNTER 2021-04-07 06:48 | Outpatient (RCR) | payer MEDICARE, BC, SELFPAY ==
[2021-04-07 09:38] LABS: Basophils # 0.1 10^3/uL (0.0-0.1); Basophils % 0.7 %; Eosinophils # 0.1 10^3/uL (0.0-0.8); Eosinophils % 0.8 %; Hematocrit 49.7 % (37.0-47.0); Hemoglobin 15.6 g/dL (11.5-15.3); Lymphocytes # 1.3 10^3/uL (0.8-4.8); Lymphocytes % 16.8 %; Mean Corpuscular HGB Conc 31.4 g/dL (30.0-36.0); Mean Corpuscular Hemoglobin 30.2 pg (28.0-34.0); Mean Corpuscular Volume 96.3 fl (81-99); Mean Platelet Volume 12.6 fL (7.4-10.4); Monocytes # 0.8 10^3/uL (0.2-0.9); Monocytes % 10.2 %; Neutrophils # 5.35 10^3/uL (1.8-7.7); Nucleated Red Blood Cells % 0 %; Platelet Count 184 10^3/cmm (130-400); Red Blood Count 5.16 10^6/uL (4.1-5.3); Red Cell Distribution Width 14.4 % (12.1-15.1); White Blood Count 7.5 10^3/uL (4.0-10.0)
[2021-04-07 10:14] LABS: Alanine Aminotransferase 21 U/L (0-33); Albumin Level 3.8 g/dL (3.5-5.2); Alkaline Phosphatase 54 IU/L (35-105); Anion Gap 15.6 (5-19); Aspartate Amino Transferase 17 U/L (0-32); Blood Urea Nitrogen 31 mg/dL (8-23); Carbon Dioxide 24 mmol/L (22-29); Chloride 103 mmol/L (98-107); Globulin 3.4 g/dL (1.3-4.6); Glucose 141 mg/dL (65-115); Immunoglobulin IGA 198 mg/dL (70-400); Immunoglobulin IGG 866 mg/dL (700-1600); Immunoglobulin IGM 119 mg/dL (40-230); Osmolality Calculated 295 mOsm/kg (285-295); Potassium 4.6 mmol/L (3.5-5.1); Sodium 138 mmol/L (136-145); Total Bilirubin 0.5 mg/dL (0.15-1.2); Total Protein 7.2 g/dL (6.6-8.7)
[2021-04-08 14:22] LABS: KAPPA/LAMBDA LIGHT CHAINS FREE 1.51 (0.26-1.65); LAMBDA LIGHT CHAIN, FREE, SERU 18.6 mg/L (5.7-26.3)
[2021-04-09 03:33] LABS: PROTEIN, TOTAL 6.7 g/dL (6.1-8.1)
[2021-04-09 11:47] LABS: ALBUMIN 3.6 g/dL (3.8-4.8); ALPHA 1 GLOBULIN 0.4 g/dL (0.2-0.3); ALPHA 2 GLOBULIN 1.1 g/dL (0.5-0.9); BETA 1 GLOBULIN 0.4 g/dL (0.4-0.6); BETA 2 GLOBULIN 0.3 g/dL (0.2-0.5); GAMMA GLOBULIN 0.9 g/dL (0.8-1.7)
== END 2021-04-10 23:59 | disposition home or self-care (01) ==
LOC: ONCMED 06:48
PROVIDERS: PCP Family Medicine; Visit Provider Internal Medicine Medical Oncology
DX: C90.00 Multiple myeloma not having achieved remission (principal)
CPT/HCPCS: 36415; 80053; 82784; 83883; 84155; 84165; 85025

== ENCOUNTER 2021-04-15 06:36 | Outpatient (RCR) | payer MEDICARE, BC, SELFPAY ==
[2021-04-15] MEDS: denosumab 120 mg SDV SUBCUT (16:18)
--- NOTE | 2021-04-16 06:54 | ONC FU_ITS ---
Dr. Resendez Patient Follow-Up Note Patient: Alcira Shirley Unit #: [id number]: [id number] Dicatated By: Beltran Resendez M.D.Date of Visit:Apr 15, 2021 Onc Med Follow-up/Prog Note Chief Complaint: Myeloma. History of Present Illness: This is an 81 year-old woman with IgG kappa myeloma, stage III. She had known osteoporosis and multiple vertebral compression fractures dating back to at least March 2018. In May 2018 she underwent further evaluation at the bone health clinic at [facility]. A protein electrophoresis at that time showed IgG kappa monoclonal protein quantitating at 0.5 g/dL. She had hematology consultation with Dr. Cecille Acevedo on 07/19/2018. Her laboratory studies at that time showed significant hypercalcemia with a serum calcium of 13.6 mg/dL. Her hemoglobin was normal at 15.0 g and her creatinine was borderline at 0.91 mg/dL. Her repeat protein electrophoresis showed her M protein quantitating at 0.6 g/dL. Her free light chain assay showed elevated kappa light chain at 524 mg/L and decreased lambda light chain at < 0.15 mg/L. Her skeletal survey showed innumerable lytic lesions throughout the apical and appendicular skeleton, compatible with multiple myeloma. Bone marrow aspiration/biopsy on 07/21/2018 showed a mildly hypercellular marrow with 60% involvement with plasma cell neoplasm, kappa restricted. 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 Further evaluation with PET/CT on 07/21/2018 showed a mildly FDG avid expansile lytic lesion of the right fourth rib consistent with a diagnosis of multiple myeloma. Also noted was a mottled appearance with lytic lesions seen throughout the axial and appendicular skeleton greatest in the skull and bilateral upper extremities, also consistent with myeloma. Multiple compression deformities were seen throughout the thoracic spine, greatest at T7. During that time she had been admitted to the hospital and she was treated with IV Zometa. She then began treatment with weekly Velcade and dexamethasone, cycle 1 day 1 on 08/03/2018. Her further clinical course was complicated by atrial fibrillation and congestive heart failure, requiring hospital admissions on 08/25/2018, on 09/01/2018 100 and on 09/09/2018. As a result, her cycle 2 of Velcade/dexamethasone was delayed. Despite the complications, she did have a good response with her M protein decreased to 0.3 g/dL and her free kappa light chain decreased to 2.00 mg/dL. Her kappa/lambda ratio normalized to 1.12. She then began cycle 2 on 09/27/2018 with Velcade continued at 1.3 mg/m??? by subcutaneous injection weekly and dexamethasone reduced to 20 mg weekly on a 4-week on/1-week off schedule. I had seen her initially on 10/27/2018. She had completed her 2nd cycle of treatment. Her clinical course, though, was further [facility] [place] [facility] resulting in a left inferior orbital wall depressed fracture and he C3 spinous process nondisplaced fracture, both of which were managed conservatively. She had follow-up at [facility] on 11/01/2018. At that point she was given a second infusion of Zometa, and she began cycle 3 of Velcade/dexamethasone. With that cycle she was able to complete 4 weekly Velcade injections together with dexamethasone 10 mg twice weekly followed by a 1 week rest. She continued with cycle 4 of Velcade/dexamethasone on 12/07/2018. She was again able to tolerate the for weekly Velcade injections along with dexamethasone 10 mg twice weekly. During that time, she had a follow-up with her orthopedic surgeon in [place], and she was told that she had 2 new vertebral compression fractures, presumably resulting from the fall. However, [facility] was [facility] to [facility] living. She was seen for a follow-up visit on 01/10/2019. At that point she appeared stable clinically and she continued with her 5th cycle of treatment with Velcade/dexamethasone. With that cycle, her 4th weekly dose of Velcade was omitted, as she was admitted to the hospital at day 22 with worsening congestive heart failure in association with an acute decline in her renal function. She then continued with cycle 6 on 02/21/2019. The day 22 Velcade was omitted with that cycle as well, as she was again admitted to the hospital with decompensated heart failure. With those episodes of congestive heart failure, her dexamethasone was changed to 1 mg daily. In the meantime, her protein electrophoresis studies from January showed her M band quantitating at 0.1 g/dL, and her serum free light chain assay showed her kappa light chain at 12.7 mg/L with lambda light chain 10.3 mg/L and kappa/lambda ratio normal at 1.23. She was seen again by Dr. Acevedo at [facility] on 04/04/2019. It was recommended that she transitioned to maintenance therapy with Velcade 1.3 mg/m??? by subcutaneous injection every 2 weeks together with lenalidomide 10 mg daily. Her repeat bone marrow aspiration/biopsy on 04/20/2019 showed cellularity ranging from 10 to 30% with normal trilineage hematopoiesis. There were just rare scattered plasma cells noted, estimated at 2 to 4% of the overall cellularity. On 05/16/2019 she began cycle 1 of maintenance therapy with Velcade 1.3 mg/m??? by subcutaneous injection every 2 weeks together with Revlimid 10 mg daily. Her repeat protein electrophoresis on 06/06/2019 reported an IgG kappa monoclonal protein band quantitating at 1.9 g/dL. The free light chain assay showed elevated kappa light chain at 128 mg/L with lambda light chain 26.9 mg/L and kappa/lambda ratio 4.77. At her follow-up visit on 06/13/2019 she appeared to be tolerating the treatment with acceptable toxicity, though her protein electrophoresis at that time reported a significant increase in her M protein to 1.9 g/dL. I opted to continue her same treatment and on her repeat SPEP the M protein was similar to the prior studies at 0.1 g/dL. However, she did have to stop the Revlimid due to multiple side effects including weakness/fatigue, anorexia, nausea, and insomnia, among others. She just did not feel good generally. She also was taken off dexamethasone due to fluid retention, but she was able to continue the Velcade injections every 2 weeks. INTERIM HISTORY: Her repeat protein electrophoresis studies on 08/01/2019 showed no detectable monoclonal protein and the serum free light chain assay showed normal kappa/lambda ratio at 1.49. Her clinical status at that point appeared stable, and she continued Velcade 1.3 mg/m??? by subcutaneous injection every 2 weeks. As of 04/17/2020 she began cycle 21 of maintenance Velcade. Following her cycle 21-day 15 treatment on 05/01/2020 her Velcade was put on hold due to several episodes of nausea/vomiting, requiring IV hydration. Her denosumab also has been on hold. It was last administered on 04/03/2020. As of 06/27/2020 she was able to restart the Velcade at 1.3 mg by subcutaneous injection. She also restarted the denosumab. She was able to continue Velcade injections on 06/13/2020 and on 07/24/2020, but following that treatment she had developed significant pain in her legs and feet, and her next scheduled injection was held. Her treatment was restarted in August and then continued at 2-week intervals. She received cycle 26-day 15 Velcade on 10/30/2020. At her follow-up visit on 11/13/2020 she was having increased neuropathy symptoms and some decline in performance status, and I opted to put her treatment on hold. She was then followed on expectant management. Her other medical illnesses hypertension, aortic stenosis, chronic atrial fibrillation, congestive heart failure, GERD, degenerative arthritis, and glaucoma. Her prior surgeries include ORIF for left femur fracture in 2012 and right total knee arthroplasty in 2007. She is a nonsmoker. INTERIM HISTORY: On 03/16/2021 she was seen in the emergency room with increasing shortness of breath. She was determined to be in congestive heart failure again. She was able to be managed as an outpatient. Her repeat echocardiogram on 03/31/2021 showed normal left ventricular ejection fraction at 60%. There was grade 1/4 diastolic dysfunction. The mitral valve was noted to be severely thickened but without valve stenosis or regurgitation. There was severe aortic valve calcification with moderate aortic valve stenosis, mean gradient 11.3 mmHg and TENZIN 1 cm???. She has continued cardiology follow-up with Dr. Bennett. She is seen for a follow-up visit. She continues to have limited activity, mainly due to her back pain. Her energy, though, is also not real good. She is up and around and able to ambulate with a walker. ECOG score is 2. Her appetite has been okay. She has not had fever. Her night sweating has improved. Her main complaint is that she still been having episodes of tightness in her chest and shortness of breath. These usually occur in the evening or at night when she is sitting in her chair. She also has shortness of breath with more prolonged activity. She does not complain of cough and she is otherwise not been having chest pain. She recently had nausea, but just 1 night. Bowel and bladder function remain adequate. She continues to have back pain with prolonged standing or walking, and it does limit her activity. She has no pain when she is sitting or lying. She does not complain of headache or dizziness, and she currently does not complain of numbness/paresthesia. Medications: Acyclovir 1 Tablet (of 400 mg) Oral daily, Amiodarone HCl 1 Tablet (of 200 mg) Oral daily, Furosemide 1 Tablet (of 20 mg) Oral b.i.d., HYDROcodone-Acetaminophen 1 Tablet (of 5-325 mg) Oral q 6 hours PRN, Lasix 1 Tablet (of 40 mg) Oral every am, Meclizine HCl 1 Tablet (of 25 mg) Oral t.i.d. PRN, MiraLax 1 Pack Oral daily, Mirtazapine 1 (15 mg) Tablet Oral at bedtime, Morphine Sulfate ER 1 Tablet (of 15 mg) Tablet SR 24 HR Oral b.i.d., Multiple Vitamins-Minerals 1 Tablet Oral daily, Pepcid 1 Tablet (of 20 mg) Oral at bedtime, Potassium Chloride Farhana ER 1 Tablet (of 10 meq) Tablet, controlled release Oral b.i.d., Spironolactone 1 Tablet (of 25 mg) Oral daily, Systane Complete 1 Drop(s) Solution Ophthalmic PRN, Velcade 1 (3.5 mg) Injection q 7 days, Xarelto 1 Tablet (of 10 mg) Oral daily, Xgeva 1 Each (of 120 ) Subcutaneous q 30 days Allergies: Codeine Sulfate, Statins, and Timolol Hemihydrate. Vital Signs: Performed on Apr 15, 2021 15:51 Height - 61.00 in Weight - 200.4 lbs (LOW) BSA - 1.89 sq.m BMI - 37.87 (HIGH) Temperature - 98.7 F Pulse - 78 /min Respiration - 16 /min BP - 144/81 mm(hg) (HIGH) O2 Sat - 95 % (LOW) Pain - 0 Fatigue - 6 Physical Examination: Constitutional - She appears somewhat weak generally, Eyes - Sclerae nonicteric. Conjunctivae appear clear, ENMT - No lesions noted in the oral cavity, Hematologic/Lymphatic - No cervical, clavicular, or axillary adenopathy, Respiratory - Lungs sound clear, Cardiovascular - Heart rhythm is regular. There is a III/ systolic murmur. There is no gallop or rub noted, Abdomen - Mildly distended. Liver and spleen are not enlarged. There is no abdominal mass or ascites noted and there is no inguinal adenopathy, Extremities - No edema. There are scattered purpuric lesions on both arms, Neurologic - No focal neurologic deficits noted. Lab/Imaging: Test performed on Apr 07, 2021 08:50 Sodium 138 mmol/L Potassium 4.6 mmol/L Chloride 103 mmol/L CO2 24 mmol/L Anion Gap 15.6 BUN 31 mg/dL Creatinine 1.5 mg/dL Cr Clearance (Est) 41.9000 mL/min Glucose 141 mg/dL Osmolality - Calculated 295 mOsm/kg Calcium 9.0 mg/dL Protein, Total 7.2 g/dL Albumin 3.8 g/dL Globulin 3.4 g/dL Bilirubin, Total 0.5 mg/dL ALT (SGPT) 21 U/L AST (SGOT) 17 U/L Alkaline Phosphatase 54 IU/L WBC 7.5 10 3/uL RBC 5.16 10 6/uL HGB 15.6 g/dL HCT 49.7 % MCV 96.3 fl MCH 30.2 pg MCHC 31.4 g/dL RDW 14.4 % Platelet Count 184 10 3/cmm MPV 12.6 fL Neutrophils 5.35 10 3/uL Lymphocytes 1.3 10 3/uL Monocytes 0.8 10 3/uL Eosinophils 0.1 10 3/uL Basophils 0.1 10 3/uL Neutrophil % 71.0 % Lymphocyte % 16.8 % Monocyte % 10.2 % Eosinophil % 0.8 % Basophils % 0.7 % NRBC % 0 % [place] Free Light Chains 28.0 mg/L Lambda Free Light Chains 18.6 mg/L IgA 198 mg/dL [place]/Lambda Free Ratio 1.51 Problem List: 1. 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 2. She had hypercalcemia, extensive lytic bone involvement, and multiple vertebral compression fractures at initial diagnosis in July 2018. 3. Hypertension. 4. Chronic atrial fibrillation. 5. Congestive heart failure. 6. Degenerative arthritis. 7. GERD. 8. Glaucoma. Problems Addressed with this Encounter and Plan: 1. 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 She had hypercalcemia, extensive lytic bone involvement, and multiple vertebral compression fractures at initial diagnosis in July 2018. She began treatment with weekly Velcade/dexamethasone in July 2018. She has had a very good clinical response, though her treatment was complicated by congestive heart failure, which ultimately resulted in her stopping dexamethasone. Following her visit at [facility] in March 2019 she began a trial of maintenance therapy with Velcade in combination with lenalidomide, but she had very poor tolerance for the lenalidomide, and she subsequently continued maintenance with Velcade monotherapy at 2-week intervals. During follow-up she had, at times, reported nausea/vomiting following her Velcade injections, and she did have occasional treatment delays. As of her follow-up visit on 11/13/2020 she reported increased neuropathy symptoms and at that point she also appeared to be showing some decline in her performance status. Her serum protein electrophoresis at that time showed no monoclonal protein and her serum free light chain assay showed just slightly elevated free kappa light chain at 28.7 mg/L with lambda light chain 18.0 mg/L and normal kappa/lambda ratio at 1.59. With those findings, I did opt to put her treatment on hold. During follow-up she has continued to have limited activity due to her back pain, but her pain is adequately managed with medication. She also has had some ongoing issues with congestive heart failure. Her overall clinical status otherwise appears stable Her protein electrophoresis shows no detectable monoclonal protein and her free kappa light chain level remains stable. As such, she will continue on observation/symptomatic management for the myeloma. I will see her again in 3 months or sooner as needed. 2. She has extensive lytic bone involvement with multiple vertebral compression fractures. She will be given denosumab 120 mg by subcutaneous injection, and I will now plan to repeat that at 3-month intervals. Signed By: Beltran Resendez M.D. <<Signature on File>>
== END 2021-05-11 23:59 | disposition home or self-care (01) ==
LOC: ONCMED 06:36
PROVIDERS: PCP Family Medicine; Visit Provider Internal Medicine Medical Oncology
DX: C90.00 Multiple myeloma not having achieved remission (principal); C79.51 Secondary malignant neoplasm of bone; E83.52 Hypercalcemia; I10 Essential (primary) hypertension; I48.20 Chronic atrial fibrillation, unspecified; I50.9 Heart failure, unspecified; M19.90 Unspecified osteoarthritis, unspecified site; K21.9 Gastro-esophageal reflux disease without esophagitis; H40.9 Unspecified glaucoma; Z79.899 Other long term (current) drug therapy
CPT/HCPCS: 90471; 90686; 96372; 99215; J0897

== ENCOUNTER 2021-07-15 14:08 | Outpatient (CLI) | payer MEDICARE, BC, SELFPAY ==
[2021-07-15 14:44] LABS: Basophils % 0.4 %; Eosinophils % 0.5 %; Hematocrit 50.4 % (37.0-47.0); Hemoglobin 15.8 g/dL (11.5-15.3); Lymphocytes # 0.9 10^3/uL (0.8-4.8); Lymphocytes % 11.2 %; Mean Corpuscular HGB Conc 31.3 g/dL (30.0-36.0); Mean Corpuscular Hemoglobin 30.3 pg (28.0-34.0); Mean Corpuscular Volume 96.7 fl (81-99); Mean Platelet Volume 12.2 fL (7.4-10.4); Monocytes # 0.8 10^3/uL (0.2-0.9); Monocytes % 10.2 %; Neutrophils # 6.11 10^3/uL (1.8-7.7); Neutrophils % 77.2 %; Nucleated Red Blood Cells % 0 %; Platelet Count 203 10^3/cmm (130-400); Red Blood Count 5.21 10^6/uL (4.1-5.3); Red Cell Distribution Width 14.1 % (12.1-15.1); White Blood Count 7.9 10^3/uL (4.0-10.0)
[2021-07-15 15:12] LABS: Alanine Aminotransferase 20 U/L (0-33); Albumin Level 4.1 g/dL (3.5-5.2); Alkaline Phosphatase 52 IU/L (35-105); Aspartate Amino Transferase 23 U/L (0-32); Blood Urea Nitrogen 32 mg/dL (8-23); Calcium 8.6 mg/dL (8.5-10.5); Carbon Dioxide 24 mmol/L (22-29); Globulin 3.2 g/dL (1.3-4.6); Glucose 113 mg/dL (65-115); Total Bilirubin 0.4 mg/dL (0.15-1.2); Total Protein 7.3 g/dL (6.6-8.7)
[2021-07-15 15:51] LABS: Immunoglobulin IGA 216 mg/dL (70-400); Immunoglobulin IGG 922 mg/dL (700-1600); Immunoglobulin IGM 121 mg/dL (40-230)
[2021-07-15 15:52] LABS: Osmolality Calculated 302 mOsm/kg (285-295)
[2021-07-15 15:53] LABS: Chloride 103 mmol/L (98-107); Sodium 142 mmol/L (136-145)
[2021-07-16 13:17] LABS: KAPPA LIGHT CHAIN, FREE, SERUM 42.7 mg/L (3.3-19.4); KAPPA/LAMBDA LIGHT CHAINS FREE 2.21 (0.26-1.65); LAMBDA LIGHT CHAIN, FREE, SERU 19.3 mg/L (5.7-26.3)
[2021-07-16 14:37] LABS: ALBUMIN 3.8 g/dL (3.8-4.8); ALPHA 1 GLOBULIN 0.4 g/dL (0.2-0.3); ALPHA 2 GLOBULIN 1.1 g/dL (0.5-0.9); BETA 1 GLOBULIN 0.5 g/dL (0.4-0.6); BETA 2 GLOBULIN 0.4 g/dL (0.2-0.5); GAMMA GLOBULIN 0.9 g/dL (0.8-1.7)
== END 2021-07-15 14:09 | disposition home or self-care (01) ==
LOC: ONCMED 14:12
PROVIDERS: PCP Family Medicine; Visit Provider Internal Medicine Medical Oncology
DX: C90.00 Multiple myeloma not having achieved remission (principal)
CPT/HCPCS: 36415; 80053; 82784; 83883; 84155; 84165; 85025

== ENCOUNTER 2021-07-21 06:39 | Outpatient (CLI) | payer MEDICARE, BC, SELFPAY ==
[2021-07-21] MEDS: denosumab 120 mg SDV SUBCUT (13:40)
--- NOTE | 2021-07-22 06:46 | ONC FU_ITS ---
Dr. Resendez Patient Follow-Up Note Patient: Alcira Shirley Unit #: [id number]: 1940 Dicatated By: Beltran Resendez M.D.Date of Visit:Jul 21, 2021 Onc Med Follow-up/Prog Note Chief Complaint: Myeloma. History of Present Illness: This is an 81 year-old woman with IgG kappa myeloma, stage III. She had known osteoporosis and multiple vertebral compression fractures dating back to at least March 2018. In May 2018 she underwent further evaluation at the bone health clinic at [facility]. A protein electrophoresis at that time showed IgG kappa monoclonal protein quantitating at 0.5 g/dL. She had hematology consultation with Dr. Cecille Acevedo on 07/19/2018. Her laboratory studies at that time showed significant hypercalcemia with a serum calcium of 13.6 mg/dL. Her hemoglobin was normal at 15.0 g and her creatinine was borderline at 0.91 mg/dL. Her repeat protein electrophoresis showed her M protein quantitating at 0.6 g/dL. Her free light chain assay showed elevated kappa light chain at 524 mg/L and decreased lambda light chain at < 0.15 mg/L. Her skeletal survey showed innumerable lytic lesions throughout the apical and appendicular skeleton, compatible with multiple myeloma. Bone marrow aspiration/biopsy on 07/21/2018 showed a mildly hypercellular marrow with 60% involvement with plasma cell neoplasm, kappa restricted. 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 Further evaluation with PET/CT on 07/21/2018 showed a mildly FDG avid expansile lytic lesion of the right fourth rib consistent with a diagnosis of multiple myeloma. Also noted was a mottled appearance with lytic lesions seen throughout the axial and appendicular skeleton greatest in the skull and bilateral upper extremities, also consistent with myeloma. Multiple compression deformities were seen throughout the thoracic spine, greatest at T7. During that time she had been admitted to the hospital and she was treated with IV Zometa. She then began treatment with weekly Velcade and dexamethasone, cycle 1 day 1 on 08/03/2018. Her further clinical course was complicated by atrial fibrillation and congestive heart failure, requiring hospital admissions on 08/25/2018, on 09/01/2018 100 and on 09/09/2018. As a result, her cycle 2 of Velcade/dexamethasone was delayed. Despite the complications, she did have a good response with her M protein decreased to 0.3 g/dL and her free kappa light chain decreased to 2.00 mg/dL. Her kappa/lambda ratio normalized to 1.12. She then began cycle 2 on 09/27/2018 with Velcade continued at 1.3 mg/m??? by subcutaneous injection weekly and dexamethasone reduced to 20 mg weekly on a 4-week on/1-week off schedule. I had seen her initially on 10/27/2018. She had completed her 2nd cycle of treatment. Her clinical course, though, was further complicated [facility] resulting in a left inferior orbital wall depressed fracture and he C3 spinous process nondisplaced fracture, both of which were managed conservatively. She had follow-up at [facility] on 11/01/2018. At that point she was given a second infusion of Zometa, and she began cycle 3 of Velcade/dexamethasone. With that cycle she was able to complete 4 weekly Velcade injections together with dexamethasone 10 mg twice weekly followed by a 1 week rest. She continued with cycle 4 of Velcade/dexamethasone on 12/07/2018. She was again able to tolerate the for weekly Velcade injections along with dexamethasone 10 mg twice weekly. During that time, she had a follow-up with her orthopedic surgeon in [place], and she was told that she had 2 new vertebral compression fractures, presumably resulting from the fall. However, she was able [facility] to [facility] living. She was seen for a follow-up visit on 01/10/2019. At that point she appeared stable clinically and she continued with her 5th cycle of treatment with Velcade/dexamethasone. With that cycle, her 4th weekly dose of Velcade was omitted, as she was admitted to the hospital at day 22 with worsening congestive heart failure in association with an acute decline in her renal function. She then continued with cycle 6 on 02/21/2019. The day 22 Velcade was omitted with that cycle as well, as she was again admitted to the hospital with decompensated heart failure. With those episodes of congestive heart failure, her dexamethasone was changed to 1 mg daily. In the meantime, her protein electrophoresis studies from January showed her M band quantitating at 0.1 g/dL, and her serum free light chain assay showed her kappa light chain at 12.7 mg/L with lambda light chain 10.3 mg/L and kappa/lambda ratio normal at 1.23. She was seen again by Dr. Acevedo at [facility] on 04/04/2019. It was recommended that she transitioned to maintenance therapy with Velcade 1.3 mg/m??? by subcutaneous injection every 2 weeks together with lenalidomide 10 mg daily. Her repeat bone marrow aspiration/biopsy on 04/20/2019 showed cellularity ranging from 10 to 30% with normal trilineage hematopoiesis. There were just rare scattered plasma cells noted, estimated at 2 to 4% of the overall cellularity. On 05/16/2019 she began cycle 1 of maintenance therapy with Velcade 1.3 mg/m??? by subcutaneous injection every 2 weeks together with Revlimid 10 mg daily. Her repeat protein electrophoresis on 06/06/2019 reported an IgG kappa monoclonal protein band quantitating at 1.9 g/dL. The free light chain assay showed elevated kappa light chain at 128 mg/L with lambda light chain 26.9 mg/L and kappa/lambda ratio 4.77. At her follow-up visit on 06/13/2019 she appeared to be tolerating the treatment with acceptable toxicity, though her protein electrophoresis at that time reported a significant increase in her M protein to 1.9 g/dL. I opted to continue her same treatment and on her repeat SPEP the M protein was similar to the prior studies at 0.1 g/dL. However, she did have to stop the Revlimid due to multiple side effects including weakness/fatigue, anorexia, nausea, and insomnia, among others. She just did not feel good generally. She also was taken off dexamethasone due to fluid retention, but she was able to continue the Velcade injections every 2 weeks. INTERIM HISTORY: Her repeat protein electrophoresis studies on 08/01/2019 showed no detectable monoclonal protein and the serum free light chain assay showed normal kappa/lambda ratio at 1.49. Her clinical status at that point appeared stable, and she continued Velcade 1.3 mg/m??? by subcutaneous injection every 2 weeks. As of 04/17/2020 she began cycle 21 of maintenance Velcade. Following her cycle 21-day 15 treatment on 05/01/2020 her Velcade was put on hold due to several episodes of nausea/vomiting, requiring IV hydration. Her denosumab also has been on hold. It was last administered on 04/03/2020. As of 06/27/2020 she was able to restart the Velcade at 1.3 mg by subcutaneous injection. She also restarted the denosumab. She was able to continue Velcade injections on 06/13/2020 and on 07/24/2020, but following that treatment she had developed significant pain in her legs and feet, and her next scheduled injection was held. Her treatment was restarted in August and then continued at 2-week intervals. She received cycle 26-day 15 Velcade on 10/30/2020. At her follow-up visit on 11/13/2020 she was having increased neuropathy symptoms and some decline in performance status, and I opted to put her treatment on hold. She was then followed on expectant management. Her other medical illnesses hypertension, aortic stenosis, chronic atrial fibrillation, congestive heart failure, GERD, degenerative arthritis, and glaucoma. Her prior surgeries include ORIF for left femur fracture in 2012 and right total knee arthroplasty in 2007. She is a nonsmoker. INTERIM HISTORY: On 03/16/2021 she was seen in the emergency room with increasing shortness of breath. She was determined to be in congestive heart failure again. She was able to be managed as an outpatient. Her repeat echocardiogram on 03/31/2021 showed normal left ventricular ejection fraction at 60%. There was grade 1/4 diastolic dysfunction. The mitral valve was noted to be severely thickened but without valve stenosis or regurgitation. There was severe aortic valve calcification with moderate aortic valve stenosis, mean gradient 11.3 mmHg and TENZIN 1 cm???. She continued cardiology follow-up with Dr. Bennett. As of her visit here on 04/15/2021 her overall clinical status appeared stable. There was no evidence of progression of the myeloma, and she continued on expectant management. She is seen for a follow-up visit. She has been feeling pretty good generally. Her activity remains limited due to her back pain. She is able to ambulate short distances with a walker. ECOG score is 2. Her appetite is good. She has not had fever. She does have some night sweating. She has not having bleeding from her right nostril when she first gets up in the morning, but it does not last long. She has not had sore mouth or throat. She has a little bit of cough. She does not complain of shortness of breath or chest pain. She has no GI or complaints. Recently she has been having a little bit of pain in her lower legs. She does not complain of headache or dizziness. She has some numbness/tingling in her toes. Medications: Acyclovir 1 Tablet (of 400 mg) Oral daily, Amiodarone HCl 1 Tablet (of 200 mg) Oral daily, Furosemide 1 Tablet (of 20 mg) Oral b.i.d., HYDROcodone-Acetaminophen 1 Tablet (of 5-325 mg) Oral q 6 hours PRN, Lasix 1 Tablet (of 40 mg) Oral every am, Meclizine HCl 1 Tablet (of 25 mg) Oral t.i.d. PRN, MiraLax 1 Pack Oral daily, Mirtazapine 1 (15 mg) Tablet Oral at bedtime, Morphine Sulfate ER 1 Tablet (of 15 mg) Tablet SR 24 HR Oral b.i.d., Multiple Vitamins-Minerals 1 Tablet Oral daily, Pepcid 1 Tablet (of 20 mg) Oral at bedtime, Potassium Chloride Farhana ER 1 Tablet (of 10 meq) Tablet, controlled release Oral b.i.d., Spironolactone 1 Tablet (of 25 mg) Oral daily, Systane Complete 1 Drop(s) Solution Ophthalmic PRN, Velcade 1 (3.5 mg) Injection q 7 days, Xarelto 1 Tablet (of 10 mg) Oral daily, Xgeva 1 Each (of 120 ) Subcutaneous q 30 days Allergies: Codeine Sulfate, Statins, and Timolol Hemihydrate. Vital Signs: Performed on Jul 21, 2021 13:08 Height - 61.00 in Weight - 201.8 lbs (HIGH) BSA - 1.90 sq.m BMI - 38.13 (HIGH) Temperature - 98.6 F Pulse - 72 /min Respiration - 19 /min BP - 137/78 mm(hg) O2 Sat - 96 % Pain - 0 Fatigue - 0 Physical Examination: Constitutional - She appears somewhat frail generally, Eyes - Sclerae nonicteric. Conjunctivae appear clear, ENMT - No lesions noted in the oral cavity, Hematologic/Lymphatic - No cervical, clavicular, or axillary adenopathy, Respiratory - Lungs sound clear, Cardiovascular - Heart rhythm is regular. There is a III/ systolic murmur. There is no gallop or rub noted, Abdomen - Mildly distended but soft. Liver and spleen are not enlarged. There is no abdominal mass or ascites noted and there is no inguinal adenopathy, Extremities - No edema, Neurologic - No focal neurologic deficits noted. Lab/Imaging: Test performed on Jul 15, 2021 14:36 Sodium 142 mmol/L Potassium 5.0 mmol/L Chloride 103 mmol/L CO2 24 mmol/L Anion Gap 20.0 BUN 32 mg/dL Creatinine 1.5 mg/dL Cr Clearance (Est) 41.9000 mL/min Glucose 113 mg/dL Osmolality - Calculated 302 mOsm/kg Calcium 8.6 mg/dL Protein, Total 7.3 g/dL Albumin 4.1 g/dL Globulin 3.2 g/dL Bilirubin, Total 0.4 mg/dL ALT (SGPT) 20 U/L AST (SGOT) 23 U/L Alkaline Phosphatase 52 IU/L WBC 7.9 10 3/uL RBC 5.21 10 6/uL HGB 15.8 g/dL HCT 50.4 % MCV 96.7 fl MCH 30.3 pg MCHC 31.3 g/dL RDW 14.1 % Platelet Count 203 10 3/cmm MPV 12.2 fL Neutrophils 6.11 10 3/uL Lymphocytes 0.9 10 3/uL Monocytes 0.8 10 3/uL Eosinophils 0.0 10 3/uL Basophils 0.0 10 3/uL Neutrophil % 77.2 % Lymphocyte % 11.2 % Monocyte % 10.2 % Eosinophil % 0.5 % Basophils % 0.4 % NRBC % 0 % [place] Free Light Chains 42.7 mg/L Lambda Free Light Chains 19.3 mg/L IgA 216 mg/dL [place]/Lambda Free Ratio 2.21 Problem List: 1. 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 2. She had hypercalcemia, extensive lytic bone involvement, and multiple vertebral compression fractures at initial diagnosis in July 2018. 3. Hypertension. 4. Chronic atrial fibrillation. 5. Congestive heart failure. 6. Degenerative arthritis. 7. GERD. 8. Glaucoma. Problems Addressed with this Encounter and Plan: 1. 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 She had hypercalcemia, extensive lytic bone involvement, and multiple vertebral compression fractures at initial diagnosis in July 2018. She began treatment with weekly Velcade/dexamethasone in July 2018. She has had a very good clinical response, though her treatment was complicated by congestive heart failure, which ultimately resulted in her stopping dexamethasone. Following her visit at [facility] in March 2019 she began a trial of maintenance therapy with Velcade in combination with lenalidomide, but she had very poor tolerance for the lenalidomide, and she subsequently continued maintenance with Velcade monotherapy at 2-week intervals. During follow-up she had, at times, reported nausea/vomiting following her Velcade injections, and she did have occasional treatment delays. As of her follow-up visit on 11/13/2020 she reported increased neuropathy symptoms and at that point she also appeared to be showing some decline in her performance status. Her serum protein electrophoresis at that time showed no monoclonal protein and her serum free light chain assay showed just slightly elevated free kappa light chain at 28.7 mg/L with lambda light chain 18.0 mg/L and normal kappa/lambda ratio at 1.59. With those findings, I did opt to put her treatment on hold. During follow-up she has continued to have limited activity due to her back pain, but her pain has been adequately managed with medication. Her protein electrophoresis continues to show no detectable monoclonal protein, but the current free light chain assay does show [place] increase in the free kappa light chain. Is yet the significance of that is uncertain. For now, she will continue on observation/symptomatic management for the myeloma. I will see her again in 3 months or sooner as needed. 2. She has extensive lytic bone involvement with multiple vertebral compression fractures. She will be given denosumab 120 mg by subcutaneous injection. 3. She has been having epistaxis from the right nostril. I will arrange for consultation with Dr. Merritt, as this is most likely a local bleeding issue. Signed By: Beltran Resendez M.D. <<Signature on File>>
== END 2021-07-21 06:40 | disposition home or self-care (01) ==
LOC: ONCMED 06:40
PROVIDERS: PCP Family Medicine; Visit Provider Internal Medicine Medical Oncology
DX: Z51.11 Encounter for antineoplastic chemotherapy (principal); C90.00 Multiple myeloma not having achieved remission; E83.52 Hypercalcemia; I10 Essential (primary) hypertension; I48.20 Chronic atrial fibrillation, unspecified; I50.9 Heart failure, unspecified; M19.90 Unspecified osteoarthritis, unspecified site; K21.9 Gastro-esophageal reflux disease without esophagitis; H40.9 Unspecified glaucoma; R04.0 Epistaxis
CPT/HCPCS: 96372; 99215; J0897

== ENCOUNTER → 2021-09-16 08:40 | Outpatient (BNVA) | payer MEDICARE, BC, SELFPAY | PROVIDERS: PCP Family Medicine; Visit Provider Nurse Practitioner Family | DX: I35.0 Nonrheumatic aortic (valve) stenosis (principal); I11.0 Hypertensive heart disease with heart failure; I50.32 Chronic diastolic (congestive) heart failure | CPT/HCPCS: 99214 ==

== ENCOUNTER 2021-10-15 14:03 | Outpatient (CLI) | payer MEDICARE, BC, SELFPAY ==
[2021-10-15 14:37] LABS: Basophils # 0.1 10^3/uL (0.0-0.1); Basophils % 0.5 %; Eosinophils % 0.2 %; Hematocrit 50.3 % (37.0-47.0); Hemoglobin 15.8 g/dL (11.5-15.3); Lymphocytes # 0.8 10^3/uL (0.8-4.8); Lymphocytes % 8.8 %; Mean Corpuscular HGB Conc 31.4 g/dL (30.0-36.0); Mean Corpuscular Hemoglobin 29.8 pg (28.0-34.0); Mean Corpuscular Volume 94.9 fl (81-99); Mean Platelet Volume 12.2 fL (7.4-10.4); Monocytes # 0.8 10^3/uL (0.2-0.9); Monocytes % 8.4 %; Neutrophils # 7.83 10^3/uL (1.8-7.7); Neutrophils % 81.8 %; Nucleated Red Blood Cells % 0 %; Platelet Count 193 10^3/cmm (130-400); Red Cell Distribution Width 13.9 % (12.1-15.1); White Blood Count 9.6 10^3/uL (4.0-10.0)
[2021-10-15 14:59] LABS: Alanine Aminotransferase 32 U/L (0-33); Albumin Level 4.2 g/dL (3.5-5.2); Alkaline Phosphatase 60 IU/L (35-105); Anion Gap 14.6 (5-19); Aspartate Amino Transferase 25 U/L (0-32); Blood Urea Nitrogen 32 mg/dL (8-23); Calcium 9.6 mg/dL (8.5-10.5); Carbon Dioxide 25 mmol/L (22-29); Chloride 104 mmol/L (98-107); Globulin 2.7 g/dL (1.3-4.6); Glucose 136 mg/dL (65-115); Immunoglobulin IGA 214 mg/dL (70-400); Immunoglobulin IGG 833 mg/dL (700-1600); Immunoglobulin IGM 120 mg/dL (40-230); Osmolality Calculated 297 mOsm/kg (285-295); Potassium 4.6 mmol/L (3.5-5.1); Sodium 139 mmol/L (136-145); Total Bilirubin 0.5 mg/dL (0.15-1.2); Total Protein 6.9 g/dL (6.6-8.7)
[2021-10-18 01:53] LABS: PROTEIN, TOTAL 6.9 g/dL (6.1-8.1)
[2021-10-20 11:57] LABS: KAPPA LIGHT CHAIN, FREE, SERUM 51.4 mg/L (3.3-19.4); KAPPA/LAMBDA LIGHT CHAINS FREE 2.86 (0.26-1.65)
[2021-10-20 16:57] LABS: ALBUMIN 3.8 g/dL (3.8-4.8); ALPHA 1 GLOBULIN 0.4 g/dL (0.2-0.3); ALPHA 2 GLOBULIN 1.1 g/dL (0.5-0.9); BETA 1 GLOBULIN 0.5 g/dL (0.4-0.6); BETA 2 GLOBULIN 0.3 g/dL (0.2-0.5); GAMMA GLOBULIN 0.9 g/dL (0.8-1.7)
== END 2021-10-15 14:04 | disposition home or self-care (01) ==
PROVIDERS: PCP Family Medicine; Visit Provider Internal Medicine Medical Oncology
DX: C90.00 Multiple myeloma not having achieved remission (principal); E83.52 Hypercalcemia; I10 Essential (primary) hypertension; I48.91 Unspecified atrial fibrillation; I50.9 Heart failure, unspecified; K21.9 Gastro-esophageal reflux disease without esophagitis; H40.9 Unspecified glaucoma; M48.50XA Collapsed vertebra, not elsewhere classified, site unspecified, initial encounter for fracture; Z79.899 Other long term (current) drug therapy
CPT/HCPCS: 36415; 80053; 82784; 83883; 84155; 84165; 85025

== ENCOUNTER 2021-10-20 11:03 | Outpatient (CLI) | payer MEDICARE, BC, SELFPAY ==
--- NOTE | 2021-10-20 11:15 | USCV_ITS ---
Alcira Shirley Age: 81 Gender: F : 1940 Exam Date: 10/20/2021 11:24 Ordering Phys: Esme Norris Technologist: Jaimie Sal [place] [facility] [place]: Shortness of breath, aortic stenosis BP: 141 / 73 HR: 65 Rhythm: Sinus Technical Quality: Adequate MEASUREMENTS (Male / Female) Normal Values 2D ECHO LV Diastolic Diameter PLAX 3.9 cm 4.2 - 5.9 / 3.9 - 5.3 cm LV Systolic Diameter PLAX 2.1 cm LV Chamber Size 3.1 cm IVS Diastolic Thickness 1.2 cm 0.6 - 1.0 / 0.6 - 0.9 cm IVS Systolic Thickness 1.5 cm LVPW Diastolic Thickness 1.0 cm 0.6 - 1.0 / 0.6 - 0.9 cm LVPW Systolic Thickness 1.2 cm RV Chamber Size 3.2 cm LVOT Diameter 2.0 cm LV Ejection Fraction 2D Teich 79.2 % LV Ejection Fraction MOD 2C 60.7 % LV Ejection Fraction 2C AL 60.9 % LA Diameter 4.8 cm LA Width 2.8 cm LA Height 4.8 cm RA Width 2.5 cm RA Height 4.0 cm Aorta at Sinotubular Diameter 2.6 cm M-MODE Aortic Annulus Diameter 3.3 cm LA Ao Ratio MM 1.6 MV E Point Septal Separation 1.1 cm DOPPLER AV Peak Velocity 295.7 cm/s LVOT Peak Velocity 96.3 cm/s AV Area Cont Eq vti 1.1 cm squared AV Area Cont Eq pk 1.0 cm squared MV Peak Velocity 152.0 cm/s MV Area PHT 1.8 cm squared Mitral E to A Ratio 0.6 MV E' Velocity 52.0 cm/s Mitral E to MV E' Ratio 9.6 Mitral E to LV E' Lateral Ratio 7.2 Mitral E to LV E' Septal Ratio 14.5 TR Peak Velocity 234.5 cm/s TR Peak Gradient 22.0 mmHg TR Mean Velocity 208.3 cm/s TR Mean Gradient 18.9 mmHg TR Velocity Time Integral 76.6 cm TV Peak E Velocity 84.0 cm/s Right Atrial Pressure 3.0 mmHg Pulmonary Artery Systolic Pressu 25.0 mmHg PV Peak Velocity 68.0 cm/s RV Acceleration Time 0.1 s RV Ejection Time 0.3 s RV AcT/ET 0.3 FINDINGS Left Ventricle Normal left ventricular cavity size. Increased left ventricular wall thickness. Normal left ventricular systolic function. Left ventricular ejection fraction is estimated at 60 %. No regional wall motion abnormalities. Grade I diastolic dysfunction (abnormal relaxation filling pattern), normal to mildly elevated filling pressures. Right Ventricle Normal right ventricular size and systolic function. Right ventricular systolic pressure 39 mmHg. Right Atrium Normal right atrial size. Left Atrium Mildly increased left atrial size. Mitral Valve Moderate mitral annular calcification. No mitral valve stenosis. No mitral valve regurgitation. Aortic Valve Markedly thickened and calcified trileaflet aortic valve. Moderate to severe aortic valve stenosis, peak velocity 2.9 m/s, peak gradient 34 mmHg, mean gradient 17 mmHg, TENZIN 1 centimeter square (LVOT=20 mm). Dimensionless valve index 0.27. No aortic valve regurgitation. Tricuspid Valve Structurally normal tricuspid valve. No tricuspid valve stenosis. Trace tricuspid valve regurgitation. Pulmonic Valve Pulmonic valve not well visualized. No pulmonary valve stenosis. No pulmonary valve regurgitation. Pericardium No pericardial effusion. Aorta Normal size aortic root and proximal ascending aorta. CONCLUSIONS 1. Normal left ventricular cavity size and systolic function. Increased left ventricular wall thickness. Left ventricular ejection fraction is estimated at 60 %. No regional wall motion abnormalities. Grade I diastolic dysfunction (abnormal relaxation filling pattern), normal to mildly elevated filling pressures. 2. Moderate to severe aortic valve stenosis, peak velocity 2.9 m/s, peak gradient 34 mmHg, mean gradient 17 mmHg, TENZIN 1 cm squared (LVOT=20 mm). Dimensionless valve index 0.27. 3. Mild pulmonary hypertension with pulmonary pressure estimated at 39 mm Hg. 4. When compared to previous echocardiogram dated 03/31/2021, aortic stenosis seems to be have worsened somewhat. Karlene Alicea MD (Electronically Signed) Final Date: 22 October 2021 18:26 S
== END 2021-10-20 11:04 | disposition home or self-care (01) ==
PROVIDERS: PCP Family Medicine; Visit Provider Nurse Practitioner Family
DX: I35.0 Nonrheumatic aortic (valve) stenosis (principal); R06.02 Shortness of breath; I27.20 Pulmonary hypertension, unspecified
CPT/HCPCS: 93306

== ENCOUNTER 2021-10-20 13:12 | Outpatient (CLI) | payer MEDICARE, BC, SELFPAY ==
[2021-10-20] MEDS: denosumab 120 mg SDV SUBCUT (14:25)
--- NOTE | 2021-10-20 14:36 | ONC FU_ITS ---
Summer Ray Progress Note Patient: Alcira Shirley Unit #: [id number]: 1940 Dicatated By: Summer Ray N.P.Date of Visit:Oct 20, 2021 Onc MED Follow-up/Prog Note Chief Complaint: Myeloma. History of Present Illness: This is an 81 year-old woman with IgG kappa myeloma, stage III. She had known osteoporosis and multiple vertebral compression fractures dating back to at least March 2018. In May 2018 she underwent further evaluation at the bone health clinic at [facility]. A protein electrophoresis at that time showed IgG kappa monoclonal protein quantitating at 0.5 g/dL. She had hematology consultation with Dr. Cecille Acevedo on 07/19/2018. Her laboratory studies at that time showed significant hypercalcemia with a serum calcium of 13.6 mg/dL. Her hemoglobin was normal at 15.0 g and her creatinine was borderline at 0.91 mg/dL. Her repeat protein electrophoresis showed her M protein quantitating at 0.6 g/dL. Her free light chain assay showed elevated kappa light chain at 524 mg/L and decreased lambda light chain at < 0.15 mg/L. Her skeletal survey showed innumerable lytic lesions throughout the apical and appendicular skeleton, compatible with multiple myeloma. Bone marrow aspiration/biopsy on 07/21/2018 showed a mildly hypercellular marrow with 60% involvement with plasma cell neoplasm, kappa restricted. 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 Further evaluation with PET/CT on 07/21/2018 showed a mildly FDG avid expansile lytic lesion of the right fourth rib consistent with a diagnosis of multiple myeloma. Also noted was a mottled appearance with lytic lesions seen throughout the axial and appendicular skeleton greatest in the skull and bilateral upper extremities, also consistent with myeloma. Multiple compression deformities were seen throughout the thoracic spine, greatest at T7. During that time she had been admitted to the hospital and she was treated with IV Zometa. She then began treatment with weekly Velcade and dexamethasone, cycle 1 day 1 on 08/03/2018. Her further clinical course was complicated by atrial fibrillation and congestive heart failure, requiring hospital admissions on 08/25/2018, on 09/01/2018 100 and on 09/09/2018. As a result, her cycle 2 of Velcade/dexamethasone was delayed. Despite the complications, she did have a good response with her M protein decreased to 0.3 g/dL and her free kappa light chain decreased to 2.00 mg/dL. Her kappa/lambda ratio normalized to 1.12. She then began cycle 2 on 09/27/2018 with Velcade continued at 1.3 mg/m??? by subcutaneous injection weekly and dexamethasone reduced to 20 mg weekly on a 4-week on/1-week off schedule. I had seen her initially on 10/27/2018. She had completed her 2nd cycle of treatment. Her clinical course, though, was further complicated [facility] in a left inferior orbital wall depressed fracture and he C3 spinous process nondisplaced fracture, both of which were managed conservatively. She had follow-up at [facility] on 11/01/2018. At that point she was given a second infusion of Zometa, and she began cycle 3 of Velcade/dexamethasone. With that cycle she was able to complete 4 weekly Velcade injections together with dexamethasone 10 mg twice weekly followed by a 1 week rest. She continued with cycle 4 of Velcade/dexamethasone on 12/07/2018. She was again able to tolerate the for weekly Velcade injections along with dexamethasone 10 mg twice weekly. During that time, she had a follow-up with her orthopedic surgeon in [place], and she was told that she had 2 new vertebral compression fractures, presumably resulting from the fall. However, she was [facility]. She was seen for a follow-up visit on 01/10/2019. At that point she appeared stable clinically and she continued with her 5th cycle of treatment with Velcade/dexamethasone. With that cycle, her 4th weekly dose of Velcade was omitted, as she was admitted to the hospital at day 22 with worsening congestive heart failure in association with an acute decline in her renal function. She then continued with cycle 6 on 02/21/2019. The day 22 Velcade was omitted with that cycle as well, as she was again admitted to the hospital with decompensated heart failure. With those episodes of congestive heart failure, her dexamethasone was changed to 1 mg daily. In the meantime, her protein electrophoresis studies from January showed her M band quantitating at 0.1 g/dL, and her serum free light chain assay showed her kappa light chain at 12.7 mg/L with lambda light chain 10.3 mg/L and kappa/lambda ratio normal at 1.23. She was seen again by Dr. Acevedo at [facility] on 04/04/2019. It was recommended that she transitioned to maintenance therapy with Velcade 1.3 mg/m??? by subcutaneous injection every 2 weeks together with lenalidomide 10 mg daily. Her repeat bone marrow aspiration/biopsy on 04/20/2019 showed cellularity ranging from 10 to 30% with normal trilineage hematopoiesis. There were just rare scattered plasma cells noted, estimated at 2 to 4% of the overall cellularity. On 05/16/2019 she began cycle 1 of maintenance therapy with Velcade 1.3 mg/m??? by subcutaneous injection every 2 weeks together with Revlimid 10 mg daily. Her repeat protein electrophoresis on 06/06/2019 reported an IgG kappa monoclonal protein band quantitating at 1.9 g/dL. The free light chain assay showed elevated kappa light chain at 128 mg/L with lambda light chain 26.9 mg/L and kappa/lambda ratio 4.77. At her follow-up visit on 06/13/2019 she appeared to be tolerating the treatment with acceptable toxicity, though her protein electrophoresis at that time reported a significant increase in her M protein to 1.9 g/dL. I opted to continue her same treatment and on her repeat SPEP the M protein was similar to the prior studies at 0.1 g/dL. However, she did have to stop the Revlimid due to multiple side effects including weakness/fatigue, anorexia, nausea, and insomnia, among others. She just did not feel good generally. She also was taken off dexamethasone due to fluid retention, but she was able to continue the Velcade injections every 2 weeks. INTERIM HISTORY: Her repeat protein electrophoresis studies on 08/01/2019 showed no detectable monoclonal protein and the serum free light chain assay showed normal kappa/lambda ratio at 1.49. Her clinical status at that point appeared stable, and she continued Velcade 1.3 mg/m??? by subcutaneous injection every 2 weeks. As of 04/17/2020 she began cycle 21 of maintenance Velcade. Following her cycle 21-day 15 treatment on 05/01/2020 her Velcade was put on hold due to several episodes of nausea/vomiting, requiring IV hydration. Her denosumab also has been on hold. It was last administered on 04/03/2020. As of 06/27/2020 she was able to restart the Velcade at 1.3 mg by subcutaneous injection. She also restarted the denosumab. She was able to continue Velcade injections on 06/13/2020 and on 07/24/2020, but following that treatment she had developed significant pain in her legs and feet, and her next scheduled injection was held. Her treatment was restarted in August and then continued at 2-week intervals. She received cycle 26-day 15 Velcade on 10/30/2020. At her follow-up visit on 11/13/2020 she was having increased neuropathy symptoms and some decline in performance status, and I opted to put her treatment on hold. She was then followed on expectant management. Her other medical illnesses hypertension, aortic stenosis, chronic atrial fibrillation, congestive heart failure, GERD, degenerative arthritis, and glaucoma. Her prior surgeries include ORIF for left femur fracture in 2012 and right total knee arthroplasty in 2007. She is a nonsmoker. INTERIM HISTORY: On 03/16/2021 she was seen in the emergency room with increasing shortness of breath. She was determined to be in congestive heart failure again. She was able to be managed as an outpatient. Her repeat echocardiogram on 03/31/2021 showed normal left ventricular ejection fraction at 60%. There was grade 1/4 diastolic dysfunction. The mitral valve was noted to be severely thickened but without valve stenosis or regurgitation. There was severe aortic valve calcification with moderate aortic valve stenosis, mean gradient 11.3 mmHg and TENZIN 1 cm???. She continued cardiology follow-up with Dr. Bennett. As of her visit here on 04/15/2021 her overall clinical status appeared stable. There was no evidence of progression of the myeloma, and she continued on expectant management. Patient presents to follow-up visit. She states she feels about the same. She has a moderate amount of fatigue. Her appetite is good. No fever, chills, night sweats. No sinus drainage or sore throat. No cough or chest pain. No GI or problems. She does have chronic back pain but it is well controlled with pain medication. No headaches or dizziness. She does have some numbness and tingling in her bilateral feet. Review Of Symptoms: See above. Past Medical History: Aortic stenosis Atrial fibrillation Congestive heart failure Gastroesophageal reflux disease Glaucoma Hypertension Multiple vertebral compression fractures Osteoarthritis Osteoporosis Past Surgical History: Flu Vaccine in 2020 - Given in left deltoid/lc COVID VACCINE X 2 ( [employer] / [employer]) in 2020 Covid vaccine #1 in 2020 Flu vaccine 20-21 in 2019 ORIF for left femur fracture in 2012 Right total knee arthroplasty in 2007 Allergies: Codeine Sulfate, Statins, and Timolol Hemihydrate. Medications: Acyclovir 1 Tablet (of 400 mg) Oral daily Amiodarone HCl 1 Tablet (of 200 mg) Oral daily Furosemide 1 Tablet (of 20 mg) Oral b.i.d. HYDROcodone-Acetaminophen 1 Tablet (of 5-325 mg) Oral q 6 hours PRN Lasix 1 Tablet (of 40 mg) Oral every am Meclizine HCl 1 Tablet (of 25 mg) Oral t.i.d. PRN MiraLax 1 Pack Oral daily Mirtazapine 1 (15 mg) Tablet Oral at bedtime Morphine Sulfate ER 1 Tablet (of 15 mg) Tablet SR 24 HR Oral b.i.d. Multiple Vitamins-Minerals 1 Tablet Oral daily Pepcid 1 Tablet (of 20 mg) Oral at bedtime Potassium Chloride Farhana ER 1 Tablet (of 10 meq) Tablet, controlled release Oral b.i.d. Spironolactone 1 Tablet (of 25 mg) Oral daily Systane Complete 1 Drop(s) Solution Ophthalmic PRN Velcade 1 (3.5 mg) Injection q 7 days Xarelto 1 Tablet (of 10 mg) Oral daily Xgeva 1 Each (of 120 ) Subcutaneous q 30 days Family History: Ms. Shirley's mother is . Ms. Shirley's father is . Ms. Shirley has 2 brothers: 2 alive. Ms. Shirley's first brother's stroke. Both parents with heart disease. A brother has had a stroke. Social History: Ms. Shirley is and she is retired. Ms. Shirley has never smoked. She has no history of drinking. Ms. Shirley reports the following support systems: lives in own house, supportive family/friends willing to assist with needs, and adequate transportation available for expected visits. Her diet consists of regular meals and nutritional supplements. She indicates her activity level as: sedentary. She is a nonsmoker. She does not drink alcohol. Physical Examination: Performed on Oct 20, 2021 13:25: Height - 61.00 in, Weight - 201.6 lbs (LOW), BSA - 1.90 sq.m, BMI - 38.09 (HIGH), Temperature - 98.3 F (LOW), Pulse - 73 /min, Respiration - 16 /min, BP - 139/69 mm(hg), O2 Sat - 94 % (LOW), Pain - 0, and Fatigue - 6. Performance Status: 2 - Ambulatory/capable of all self-care, unable to perform any work activities. Up and about more than 50% of waking hours. (ECOG) Constitutional Alert, cooperative, oriented. Mood and affect appropriate. Appears close to chronological age. Well nourished. Well developed. Head Normocephalic; no scars. Respiratory Lungs are clear to auscultation without rhonchi or wheezing. Cardiovascular Regular rate and rhythm of heart without murmurs, gallops or rubs. Abdomen Non-tender, non-distended, no masses, ascites or hepatosplenomegaly. Good bowel sounds. No guarding or rebound tenderness. Musculoskeletal Generalized weakness and requires a walker for ambulation. Psychiatric Alert and oriented times three. Coherent speech. Verbalizes understanding of our discussions today. Laboratory: Test performed on Jul 15, 2021 14:36 Sodium 142 mmol/L Potassium 5.0 mmol/L Chloride 103 mmol/L CO2 24 mmol/L Anion Gap 20.0 BUN 32 mg/dL Creatinine 1.5 mg/dL Cr Clearance (Est) 41.9000 mL/min Glucose 113 mg/dL Osmolality - Calculated 302 mOsm/kg Calcium 8.6 mg/dL Protein, Total 7.3 g/dL Albumin 4.1 g/dL Globulin 3.2 g/dL Bilirubin, Total 0.4 mg/dL ALT (SGPT) 20 U/L AST (SGOT) 23 U/L Alkaline Phosphatase 52 IU/L WBC 7.9 10 3/uL RBC 5.21 10 6/uL HGB 15.8 g/dL HCT 50.4 % MCV 96.7 fl MCH 30.3 pg MCHC 31.3 g/dL RDW 14.1 % Platelet Count 203 10 3/cmm MPV 12.2 fL Neutrophils 6.11 10 3/uL Lymphocytes 0.9 10 3/uL Monocytes 0.8 10 3/uL Eosinophils 0.0 10 3/uL Basophils 0.0 10 3/uL Neutrophil % 77.2 % Lymphocyte % 11.2 % Monocyte % 10.2 % Eosinophil % 0.5 % Basophils % 0.4 % NRBC % 0 % [place] Free Light Chains 42.7 mg/L Lambda Free Light Chains 19.3 mg/L IgA 216 mg/dL [place]/Lambda Free Ratio 2.21 Impression: 1. 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 2. She had hypercalcemia, extensive lytic bone involvement, and multiple vertebral compression fractures at initial diagnosis in July 2018. 3. Hypertension. 4. Chronic atrial fibrillation. 5. Congestive heart failure. 6. Degenerative arthritis. 7. GERD. 8. Glaucoma. Plan: 1. 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 She had hypercalcemia, extensive lytic bone involvement, and multiple vertebral compression fractures at initial diagnosis in July 2018. She began treatment with weekly Velcade/dexamethasone in July 2018. She has had a very good clinical response, though her treatment was complicated by congestive heart failure, which ultimately resulted in her stopping dexamethasone. Following her visit at [facility] in March 2019 she began a trial of maintenance therapy with Velcade in combination with lenalidomide, but she had very poor tolerance for the lenalidomide, and she subsequently continued maintenance with Velcade monotherapy at 2-week intervals. During follow-up she had, at times, reported nausea/vomiting following her Velcade injections, and she did have occasional treatment delays. As of her follow-up visit on 11/13/2020 she reported increased neuropathy symptoms and at that point she also appeared to be showing some decline in her performance status. Her serum protein electrophoresis at that time showed no monoclonal protein and her serum free light chain assay showed just slightly elevated free kappa light chain at 28.7 mg/L with lambda light chain 18.0 mg/L and normal kappa/lambda ratio at 1.59. With those findings, I did opt to put her treatment on hold. Patient presents today for follow-up. He continued to use a walker for ambulation due to her low back pain. Her kappa free light chains continue to gradually increase it is at 51.4 today. And her kappa lambda free ratio is increased from 2.21-2.8's visit. Her monoclonal protein is pending. We discussed findings and we will continue to monitor. She will return to the clinic in 3 months with labs and 24-hour urine. 2. She has extensive lytic bone involvement with multiple vertebral compression fractures. She will be given denosumab 120 mg by subcutaneous injection. Signed By: Summer Ray N.P. <<Signature on File>>
== END 2021-10-20 13:13 | disposition home or self-care (01) ==
LOC: ONCMED 13:13
PROVIDERS: PCP Family Medicine; Visit Provider Nurse Practitioner Family
DX: C90.00 Multiple myeloma not having achieved remission (principal); E83.52 Hypercalcemia; I10 Essential (primary) hypertension; I48.91 Unspecified atrial fibrillation; I50.9 Heart failure, unspecified; K21.9 Gastro-esophageal reflux disease without esophagitis; H40.9 Unspecified glaucoma; M48.50XA Collapsed vertebra, not elsewhere classified, site unspecified, initial encounter for fracture; Z79.899 Other long term (current) drug therapy
CPT/HCPCS: 96372; 99215; J0897

== ENCOUNTER → 2021-12-09 14:10 | Outpatient (BNVA) | payer MEDICARE, BC, SELFPAY | PROVIDERS: PCP Family Medicine; Visit Provider Nurse Practitioner Family | DX: I35.0 Nonrheumatic aortic (valve) stenosis (principal) | CPT/HCPCS: 80048; 99213; 99214 ==

== ENCOUNTER 2022-01-11 00:24 | Emergency (ER) | payer MEDICARE, BC, SELFPAY ==
[2022-01-11 00:25] VITALS: BP 160/96; PULSE 79; RESP 18; TEMP 36.6; O2SAT 93
--- NOTE | 2022-01-11 00:31 | ECG_ITS ---
[facility] Test Date: 2022-01-11 Pat Name: Alcira Shirley Department: Room: Gender: Female [place]: : 1940 Requested By: Maikol Chew Order Number: [id number] Bhavya MD: Marvin Harvey M.D. Measurements Intervals [place] Rate: 78 P: -1 VT: 165 QRS: -4 QRSD: 94 T: 26 QT: 381 QTc: 436 Interpretive Statements SINUS RHYTHM WITH OCCASIONAL VENTRICULAR PREMATURE COMPLEXES INFERIOR MYOCARDIAL INFARCTION , PROBABLY OLD [40+ ms Q WAVE AND/OR ST/T ABNORMALITY IN II/aVF] Compared to ECG 03/16/2021 14:13:43 Ventricular premature complex(es) now present Myocardial infarct finding still present Electronically Signed On 01-11-2022 8:37:33 CDT by Marvin Harvey M.D. [id number]
[2022-01-11 00:51] LABS: Basophils % 0.4 %; Eosinophils % 0.4 %; Hematocrit 47.6 % (37.0-47.0); Hemoglobin 15.5 g/dL (11.5-15.3); Lymphocytes % 10.3 %; Mean Corpuscular HGB Conc 32.6 g/dL (30.0-36.0); Mean Corpuscular Hemoglobin 30.3 pg (28.0-34.0); Mean Platelet Volume 12.2 fL (7.4-10.4); Monocytes % 10.1 %; Neutrophils # 7.94 10^3/uL (1.8-7.7); Neutrophils % 78.2 %; Nucleated Red Blood Cells % 0 %; Platelet Count 177 10^3/cmm (130-400); Red Blood Count 5.12 10^6/uL (4.1-5.3); Red Cell Distribution Width 13.9 % (12.1-15.1); White Blood Count 10.1 10^3/uL (4.0-10.0)
--- NOTE | 2022-01-11 01:00 | XRR_ITS ---
PROCEDURE INFORMATION: Exam: XR Chest Exam date and time: 01/11/2022 1:20 AM Age: 81 years old Clinical indication: Angina pectoris; Patient HX: Chest pain with history of cardiac problems. ; Additional info: Cp TECHNIQUE: Imaging protocol: Radiologic exam of the chest. Views: 1 view. COMPARISON: CR XR chest 1V portable [id number] 03/16/2021 2:58 PM FINDINGS: Tubes, catheters and devices: Monitor leads project over the chest. Lungs: Mild bibasilar atelectasis or scarring. No consolidation. Pleural spaces: No significant costophrenic angle blunting. No pneumothorax. Heart/Mediastinum: Heart size is stable. Vasculature: Atherosclerotic tortuosity of the thoracic aorta. Bones/joints: Bony demineralization and degenerative bony changes. Soft tissues: Large body habitus. XR/XR chest 1V portable [id number] IMPRESSION: Mild bibasilar atelectasis or scarring.
--- NOTE | 2022-01-11 01:00 | USR_ITS ---
PROCEDURE INFORMATION: Exam: US Abdomen, Limited; Right Upper Quadrant Exam date and time: 01/11/2022 1:26 AM Age: 81 years old Clinical indication: Abdominal pain; Additional info: Ruq pain TECHNIQUE: Imaging protocol: Real time ultrasound of the abdomen with image documentation. Limited exam focused on the right upper quadrant. COMPARISON: US Abdomen* [id number] 12/27/2018 12:08 PM FINDINGS: Liver: Limited images of the liver demonstrate no acute abnormality. Gallbladder: Cholelithiasis with distended gallbladder filled with biliary sludge and shadowing gallstones. No gallbladder wall thickening or pericholecystic fluid. Biliary ducts: Common bile duct measures 8 mm in diameter. Pancreas: Pancreas not visualized. US/US gall bladder [id number] IMPRESSION: Cholelithiasis with distended gallbladder filled with biliary sludge and shadowing gallstones.
[2022-01-11 01:12] VITALS: RESP 16
[2022-01-11] MEDS: morphine 4 mg/mL SDV 1 mL IVP (01:12)
[2022-01-11] MEDS: ondansetron 2 mg/ML SDV 2 mL 4 MG IVP (01:12)
[2022-01-11 01:26] LABS: INR 1.28 (0.8-1.2)
[2022-01-11 01:27] LABS: Partial Thromboplastin Time 37.2 SECONDS (23.9-36.7)
[2022-01-11 01:29] LABS: D Dimer 0.31 ug/mIFEU (0-0.59)
[2022-01-11 01:32] LABS: Alanine Aminotransferase 15 U/L (0-33); Albumin Level 3.9 g/dL (3.5-5.2); Alkaline Phosphatase 56 IU/L (35-105); Anion Gap 14.9 (5-19); Aspartate Amino Transferase 16 U/L (0-32); Blood Urea Nitrogen 30 mg/dL (8-23); Calcium 8.7 mg/dL (8.5-10.5); Carbon Dioxide 25 mmol/L (22-29); Chloride 104 mmol/L (98-107); Globulin 3.3 g/dL (1.3-4.6); Glucose 126 mg/dL (65-115); Lipase 22 U/L (13-60); Osmolality Calculated 296 mOsm/kg (285-295); Potassium 4.9 mmol/L (3.5-5.1); Sodium 139 mmol/L (136-145); Total Bilirubin 0.3 mg/dL (0.15-1.2); Total Protein 7.2 g/dL (6.6-8.7)
[2022-01-11 01:34] LABS: Troponin(5th) Baseline 25 ng/L (0-10)
--- NOTE | 2022-01-11 02:39 | PC.NURSE ---
Performed EKG and blood draw for trop.
[2022-01-11 02:47] VITALS: BP 119/81; PULSE 70; RESP 18; O2SAT 92
[2022-01-11] MEDS: ketorolac 30 mg/mL INJ 15 MG IVP (02:53)
--- NOTE | 2022-01-11 02:53 | ED_ITS ---
HPI - Chest Pain General: Chief Complaint: Chest Pain Stated Complaint: CP Time Seen by Provider: 01/11/22 00:47 Source: patient and family History of Present Illness: 81-year-old female with a history of aortic stenosis. She does not have a history of coronary disease, but does have a history of congestive heart failure. She presents with epigastric, right upper quadrant, and chest discomfort starting this evening while at rest. She was mildly nauseated. She was not more short of breath than normal. She felt well earlier in the day. She took a hydrocodone at home with some relief. The pain seemed to radiate to her shoulders bilaterally. She has not really had pain like this before. MD complaint: chest pain Pertinent past history: other Onset (ago): hour(s) Timing of current episode: constant and still present Prior episodes: No Onset: during rest Pain location: epigastric Pain radiation: back, left scapula and right scapula Quality: aching Relieving factors: medication-other Exacerbating factors: nothing Associated symptoms: Reports abdominal pain and nausea; Deny dyspnea, fever(s), leg edema, syncope or vomiting Treatment prior to arrival: other Review of Systems Const: Denies: fever(s) Card: Reports: chest pain and irregular heart rhythm; Denies: swelling of feet/ankles or syncope Resp: Denies: dyspnea GI: Reports: abdominal pain and nausea; Denies: vomiting [facility] ED PFSH: Medical History Aortic stenosis, moderate Atrial fibrillation Diastolic congestive heart failure GERD (gastroesophageal reflux disease) History of cardioversion HTN (hypertension) Status post closed fracture of femur Surgical History S/P eye surgery S/P knee replacement Family History Father , CHF age 91 CHF (congestive heart failure) Mother , Age 83 Heart disease Other Diabetes Social History Smoking and tobacco status: never smoked Physical Exam Const: GENERAL APPEARANCE: cooperative and frail appearing (Mildly) HENMT: COMMON NORMALS: normocephalic HEAD & SCALP: normocephalic FACE & SINUS: normal facial exam and face symmetric Eye: COMMON NORMALS: Equal, round and reactive pupils present and EOMs intact bilaterally PUPIL: Yes Equal, round and reactive pupils present Chest: CHEST: Yes Symmetrical chest wall rise Resp: COMMON NORMALS: normal respiratory effort, No retractions, No use of accessory muscles and clear to auscultation bilaterally AUSCULTATION: clear to auscultation bilaterally Cardio: COMMON NORMALS: regular rate and regular rhythm RATE: regular rate RHYTHM: regular rhythm GI: COMMON NORMALS: Normal to inspection, nondistended, normoactive bowel sounds present PALPATION: Yes Tenderness to palpation present (GI) Details: RUQ Neuro: MACEY COMA SCALE: document GCS findings Grants coma scale eye opening: Spontaneous Grants coma scale verbal response: Orientated Macey coma scale motor response: Obey commands Macey coma scale total score: 15 Course Vital Signs: Vital signs: Vital Signs Temperature 97.8 F 01/11/22 00:25 Pulse Rate 65 01/11/22 04:30 Respiratory Rate 16 01/11/22 04:30 Blood Pressure 133/79 01/11/22 04:30 Pulse Oximetry 99 01/11/22 04:30 MDM - Chest Pain Medical Decision Making EKG shows sinus rhythm currently, no acute ST changes. Mildly hypertensive on the monitor. Her white blood cell count is 10. Hemoglobin 15. Creatinine is 1.3 which appears to be her baseline. Her first troponin is 25. Second t roponin is pending. She is tender in her right upper quadrant. Ultrasound shows cholelithiasis with a distended gallbladder and stones. There is no wall thickening or biliary duct dilatation. No pericholecystic fluid. Pain is relieved after morphine and Zofran here. Lab Data : 01/11/22 00:40 01/11/22 01:06 Radiology Impressions Chest X-Ray 01/11/22 01:00 IMPRESSION: Mild bibasilar atelectasis or scarring. Gallbladder Ultrasound 01/11/22 01:00 IMPRESSION: Cholelithiasis with distended gallbladder filled with biliary sludge and shadowing gallstones. Laboratory Results WBC 10.1 10^3/uL (4.0-10.0) H 01/11/22 00:40 RBC 5.12 10^6/uL (4.1-5.3) 01/11/22 00:40 Hgb 15.5 g/dL (11.5-15.3) H 01/11/22 00:40 Hct 47.6 % (37.0-47.0) H 01/11/22 00:40 MCV 93.0 fl (81-99) 01/11/22 00:40 MCH 30.3 pg (28.0-34.0) 01/11/22 00:40 MCHC 32.6 g/dL (30.0-36.0) 01/11/22 00:40 RDW 13.9 % (12.1-15.1) 01/11/22 00:40 Plt Count 177 10^3/cmm (130-400) 01/11/22 00:40 MPV 12.2 fL (7.4-10.4) H 01/11/22 00:40 Neut % (Auto) 78.2 % 01/11/22 00:40 Lymph % (Auto) 10.3 % 01/11/22 00:40 [place] % (Auto) 10.1 % 01/11/22 00:40 Eos % (Auto) 0.4 % 01/11/22 00:40 Baso % (Auto) 0.4 % 01/11/22 00:40 Neut # (Auto) 7.94 10^3/uL (1.8-7.7) H 01/11/22 00:40 Lymph # (Auto) 1.0 10^3/uL (0.8-4.8) 01/11/22 00:40 [place] # (Auto) 1.0 10^3/uL (0.2-0.9) H 01/11/22 00:40 Eos # (Auto) 0.0 10^3/uL (0.0-0.8) 01/11/22 00:40 Baso # (Auto) 0.0 10^3/uL (0.0-0.1) 01/11/22 00:40 Nucleated RBC % (auto) 0 % 01/11/22 00:40 Nucleated RBCs # 0.0 /100WBC 01/11/22 00:40 PT 16.40 SECONDS (12.1-14.9) H 01/11/22 01:06 INR 1.28 (0.8-1.2) H 01/11/22 01:06 APTT 37.2 SECONDS (23.9-36.7) H 01/11/22 01:06 D-Dimer 0.31 ug/mIFEU (0-0.59) 01/11/22 01:06 Sodium 139 mmol/L (136-145) 01/11/22 01:06 Potassium 4.9 mmol/L (3.5-5.1) 01/11/22 01:06 Chloride 104 mmol/L (98-107) 01/11/22 01:06 Carbon Dioxide 25 mmol/L (22-29) 01/11/22 01:06 Anion Gap 14.9 (5-19) 01/11/22 01:06 BUN 30 mg/dL (8-23) H 01/11/22 01:06 Creatinine 1.3 mg/dL (0.5-0.9) H 01/11/22 01:06 GFR Calculation Not Reportable 01/11/22 01:06 Glucose 126 mg/dL (65-115) H 01/11/22 01:06 Calculated Osmolality 296 mOsm/kg (285-295) H 01/11/22 01:06 Calcium 8.7 mg/dL (8.5-10.5) 01/11/22 01:06 Total Bilirubin 0.3 mg/dL (0.15-1.2) 01/11/22 01:06 Direct Bilirubin 0.20 mg/dL (0.00-0.30) 01/11/22 01:06 AST 16 U/L (0-32) 01/11/22 01:06 ALT 15 U/L (0-33) 01/11/22 01:06 Alkaline Phosphatase 56 IU/L (35-105) 01/11/22 01:06 Troponin T Baseline 25 ng/L (0-10) H 01/11/22 01:06 Troponin T 120 Minute 24.99 ng/L (0-10) H 01/11/22 02:32 Delta Troponin T -0.01 ABS# (0-10) L 01/11/22 02:32 Total Protein 7.2 g/dL (6.6-8.7) 01/11/22 01:06 Albumin 3.9 g/dL (3.5-5.2) 01/11/22 01:06 Globulin 3.3 g/dL (1.3-4.6) 01/11/22 01:06 Lipase 22 U/L (13-60) 01/11/22 01:06 Discharge Plan Discharge Patient Disposition: Home Clinical Impression: Aortic stenosis, moderate, Chest pain, Biliary colic Condition: Stable Prescriptions: New ketorolac 10 mg tablet 10 mg PO TID PRN (Reason: pain) Qty: 10 0RF No Action polyethylene glycol 3350 [Miralax] 17 gram/dose powder 17 gm PO DAILY PRN (Reason: Constipation) 0RF meclizine 25 mg tablet 25 mg PO DAILY PRN (Reason: Dizziness) 0RF acyclovir 400 mg tablet 400 mg PO DAILY 0RF multivitamin Tablet 1 tab PO DAILY 0RF mirtazapine 15 mg tablet 15 mg PO BEDTIME 0RF Prolia 60 mg/mL syringe 120 mg SUBCUT Q30D 0RF famotidine [Acid Title Insurance Sales Representative (famotidine)] 10 mg tablet 20 mg PO DAILY PRN (Reason: Acid Reflux) 0RF furosemide 40 mg tablet 40 mg PO DAILY 0RF potassium chloride 10 mEq capsule, extended release 10 meq PO DAILY 0RF amiodarone 200 mg tablet See Rx Instructions .ROUTE .COMPLEX Qty: 90 3RF Dose Instruction: TAKE 1 TABLET BY MOUTH EVERY DAY Rx Instructions: TAKE 1 TABLET BY MOUTH EVERY DAY Xarelto 10 mg tablet 10 mg PO DAILY Qty: 30 3RF spironolactone 25 mg tablet 25 mg PO DAILY Qty: 90 3RF morphine 15 mg tablet extended release 15 mg PO Q12H 30 Days Qty: 60 0RF Discharge Orders: Discharge ED (Routine); Ordered 01/11/22 Ordered By: Maikol Altamirano Referrals: Saulo Us DO [Physician] - 4-7 days Peng Cabezas MD [Physician] - Filemon Loaiza DO [Primary Care Provider] - 1-3 days Patient Instructions: Biliary Colic (ED), Opioid Safety Activity Restrictions/Additional Instructions: Return for return of or worsening pain, shortness of breath, fever greater than 100, any other concerning symptoms. See your doctor this coming week. Follow- up with a surgeon of your choice as well. Only use medication for pain similar to the pain you presented with. Do not take scheduled on a regular basis. Coding Level of Care Code ED Machine Candle Molder for Chg Fwd Exam Comprehensive
[2022-01-11 02:59] LABS: Troponin 5 2HR 24.99 ng/L (0-10)
--- NOTE | 2022-01-11 02:59 | ECG_ITS ---
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 Measurements Intervals [place] Rate: 66 P: -1 TN: 179 QRS: -4 QRSD: 82 T: 19 QT: 412 QTc: 435 Interpretive Statements SINUS RHYTHM INFERIOR MYOCARDIAL INFARCTION , PROBABLY OLD [40+ ms Q WAVE AND/OR ST/T ABNORMALITY IN II/aVF] Compared to ECG 01/11/2022 00:31:15 Ventricular premature complex(es) no longer present Myocardial infarct finding still present Electronically Signed On 01-11-2022 8:40:05 CDT by Marvin Harvey M.D. [email or web address]
[2022-01-11 03:06] LABS: Troponin 5 2HR Delta -0.01 ABS# (0-10)
--- NOTE | 2022-01-11 03:59 | PC.NURSE ---
patient ambulated to bathroom with assist x 2 with steady gait.
[2022-01-11 04:30] VITALS: BP 133/79; PULSE 65; RESP 16; O2SAT 99
== END 2022-01-11 04:31 | disposition home or self-care (01) ==
PROVIDERS: Emergency Provider Emergency Medicine; PCP Family Medicine
DX: R07.9 Chest pain, unspecified (principal); I35.0 Nonrheumatic aortic (valve) stenosis; K80.50 Calculus of bile duct without cholangitis or cholecystitis without obstruction; I11.0 Hypertensive heart disease with heart failure; I50.30 Unspecified diastolic (congestive) heart failure
CPT/HCPCS: 71045; 76705; 80048; 80076; 83690; 84484; 85025; 85378; 85610; 85730; 93005; 96374; 96375; 99284; J1885; J2270; J2405

== ENCOUNTER 2022-01-21 14:00 | Oncology outpatient (recurring) (ONCR) | payer MEDICARE, BC, SELFPAY ==
[2022-01-14 14:45] LABS: Basophils # 0.1 10^3/uL (0.0-0.1); Basophils % 0.6 %; Eosinophils % 0.4 %; Hematocrit 46.5 % (37.0-47.0); Hemoglobin 14.8 g/dL (11.5-15.3); Lymphocytes # 0.8 10^3/uL (0.8-4.8); Lymphocytes % 8.3 %; Mean Corpuscular HGB Conc 31.8 g/dL (30.0-36.0); Mean Corpuscular Volume 94.3 fl (81-99); Mean Platelet Volume 12.2 fL (7.4-10.4); Monocytes % 10.7 %; Neutrophils # 7.74 10^3/uL (1.8-7.7); Neutrophils % 79.4 %; Nucleated Red Blood Cells % 0 %; Platelet Count 208 10^3/cmm (130-400); Red Blood Count 4.93 10^6/uL (4.1-5.3); White Blood Count 9.8 10^3/uL (4.0-10.0)
[2022-01-14 15:05] LABS: Alanine Aminotransferase 15 U/L (0-33); Albumin Level 3.9 g/dL (3.5-5.2); Alkaline Phosphatase 55 IU/L (35-105); Anion Gap 15.7 (5-19); Aspartate Amino Transferase 19 U/L (0-32); Blood Urea Nitrogen 29 mg/dL (8-23); Calcium 8.9 mg/dL (8.5-10.5); Carbon Dioxide 27 mmol/L (22-29); Chloride 102 mmol/L (98-107); Globulin 3.4 g/dL (1.3-4.6); Glucose 109 mg/dL (65-115); Immunoglobulin IGA 192 mg/dL (70-400); Immunoglobulin IGG 789 mg/dL (700-1600); Immunoglobulin IGM 103 mg/dL (40-230); Osmolality Calculated 296 mOsm/kg (285-295); Potassium 4.7 mmol/L (3.5-5.1); Sodium 140 mmol/L (136-145); Total Bilirubin 0.3 mg/dL (0.15-1.2); Total Protein 7.3 g/dL (6.6-8.7)
[2022-01-15 10:17] LABS: PROTEIN, TOTAL 6.7 g/dL (6.1-8.1)
[2022-01-15 14:33] LABS: KAPPA LIGHT CHAIN, FREE, SERUM 139.2 mg/L (3.3-19.4); KAPPA/LAMBDA LIGHT CHAINS FREE 7.03 (0.26-1.65); LAMBDA LIGHT CHAIN, FREE, SERU 19.8 mg/L (5.7-26.3)
[2022-01-15 15:28] LABS: ALBUMIN 3.5 g/dL (3.8-4.8); ALPHA 1 GLOBULIN 0.4 g/dL (0.2-0.3); ALPHA 2 GLOBULIN 1.2 g/dL (0.5-0.9); BETA 1 GLOBULIN 0.4 g/dL (0.4-0.6); BETA 2 GLOBULIN 0.4 g/dL (0.2-0.5); GAMMA GLOBULIN 0.8 g/dL (0.8-1.7)
[2022-01-21] MEDS: denosumab 120 mg SDV SUBCUT (15:37)
== END 2022-02-08 23:59 | disposition home or self-care (01) ==
PROVIDERS: Nurse Practitioner Family; PCP Family Medicine; Visit Provider Internal Medicine Medical Oncology
DX: C90.02 Multiple myeloma in relapse (principal); E83.52 Hypercalcemia; M89.9 Disorder of bone, unspecified; Z79.899 Other long term (current) drug therapy; Z92.21 Personal history of antineoplastic chemotherapy
CPT/HCPCS: 36415; 80053; 82784; 83883; 84155; 84156; 84165; 84166; 85025; 96372; 99215; J0897

== ENCOUNTER 2022-03-11 13:30 | Oncology outpatient (recurring) (ONCR) | payer MEDICARE, BC, SELFPAY ==
[2022-03-04 13:16] LABS: Basophils % 0.3 %; Eosinophils % 0.3 %; Hematocrit 47.6 % (37.0-47.0); Hemoglobin 14.6 g/dL (11.5-15.3); Lymphocytes # 0.8 10^3/uL (0.8-4.8); Lymphocytes % 10.7 %; Mean Corpuscular HGB Conc 30.7 g/dL (30.0-36.0); Mean Corpuscular Hemoglobin 29.5 pg (28.0-34.0); Mean Corpuscular Volume 96.2 fl (81-99); Mean Platelet Volume 11.3 fL (7.4-10.4); Monocytes # 0.7 10^3/uL (0.2-0.9); Monocytes % 8.6 %; Neutrophils # 6.12 10^3/uL (1.8-7.7); Neutrophils % 79.7 %; Nucleated Red Blood Cells % 0 %; Platelet Count 202 10^3/cmm (130-400); Red Blood Count 4.95 10^6/uL (4.1-5.3); Red Cell Distribution Width 14.1 % (12.1-15.1); White Blood Count 7.7 10^3/uL (4.0-10.0)
[2022-03-04 13:35] LABS: Alanine Aminotransferase 19 U/L (0-33); Albumin Level 3.8 g/dL (3.5-5.2); Alkaline Phosphatase 49 U/L (35-105); Anion Gap 15.8 (5-19); Aspartate Amino Transferase 17 U/L (0-32); Blood Urea Nitrogen 27 mg/dL (8-23); Calcium 8.9 mg/dL (8.5-10.5); Carbon Dioxide 28 mmol/L (22-29); Chloride 105 mmol/L (98-107); Globulin 3.1 g/dL (1.3-4.6); Glucose 101 mg/dL (65-115); Immunoglobulin IGA 191 mg/dL (70-400); Immunoglobulin IGG 715 mg/dL (700-1600); Immunoglobulin IGM 98 mg/dL (40-230); Osmolality Calculated 303 mOsm/kg (285-295); Potassium 4.8 mmol/L (3.5-5.1); Sodium 144 mmol/L (136-145); Total Bilirubin 0.4 mg/dL (0.15-1.2); Total Protein 6.9 g/dL (6.6-8.7)
[2022-03-04] MEDS: acetaminophen 325 mg Tablet 650 MG PO (14:37)
[2022-03-04] MEDS: diphenhydrAMINE 25 mg Capsule 50 MG PO (14:37)
[2022-03-04] MEDS: daratumumab-hyaluronidase-fihj 1,800 mg/15 mL SDV 1800 MG SUBCUT (14:44)
[2022-03-05 07:57] LABS: PROTEIN, TOTAL 6.5 g/dL (6.1-8.1)
[2022-03-05 11:27] LABS: KAPPA LIGHT CHAIN, FREE, SERUM 207.3 mg/L (3.3-19.4); KAPPA/LAMBDA LIGHT CHAINS FREE 14.01 (0.26-1.65); LAMBDA LIGHT CHAIN, FREE, SERU 14.8 mg/L (5.7-26.3)
[2022-03-06 07:42] LABS: ALBUMIN 3.6 g/dL (3.8-4.8); ALPHA 1 GLOBULIN 0.4 g/dL (0.2-0.3); BETA 1 GLOBULIN 0.4 g/dL (0.4-0.6); BETA 2 GLOBULIN 0.3 g/dL (0.2-0.5); GAMMA GLOBULIN 0.8 g/dL (0.8-1.7)
[2022-03-11 14:31] LABS: Basophils % 0.3 %; Eosinophils # 0.1 10^3/uL (0.0-0.8); Eosinophils % 1.3 %; Hematocrit 49.3 % (37.0-47.0); Hemoglobin 15.3 g/dL (11.5-15.3); Lymphocytes # 0.7 10^3/uL (0.8-4.8); Lymphocytes % 10.4 %; Mean Corpuscular Hemoglobin 29.7 pg (28.0-34.0); Mean Corpuscular Volume 95.5 fl (81-99); Mean Platelet Volume 11.4 fL (7.4-10.4); Monocytes # 0.9 10^3/uL (0.2-0.9); Monocytes % 12.3 %; Neutrophils # 5.35 10^3/uL (1.8-7.7); Neutrophils % 75.4 %; Nucleated Red Blood Cells % 0 %; Platelet Count 186 10^3/cmm (130-400); Red Blood Count 5.16 10^6/uL (4.1-5.3); White Blood Count 7.1 10^3/uL (4.0-10.0)
[2022-03-11 14:43] VITALS: BP 124/70; PULSE 69; RESP 18; TEMP 36.6; O2SAT 94
[2022-03-11 14:48] LABS: Alanine Aminotransferase 40 U/L (0-33); Alkaline Phosphatase 56 U/L (35-105); Anion Gap 14.4 (5-19); Aspartate Amino Transferase 26 U/L (0-32); Blood Urea Nitrogen 30 mg/dL (8-23); Calcium 9.6 mg/dL (8.5-10.5); Carbon Dioxide 27 mmol/L (22-29); Chloride 105 mmol/L (98-107); Globulin 2.6 g/dL (1.3-4.6); Glucose 132 mg/dL (65-115); Osmolality Calculated 302 mOsm/kg (285-295); Potassium 4.4 mmol/L (3.5-5.1); Sodium 142 mmol/L (136-145); Total Bilirubin 0.3 mg/dL (0.15-1.2); Total Protein 6.6 g/dL (6.6-8.7)
[2022-03-11] MEDS: ondansetron 4 MG Tablet 8 MG PO (15:12)
[2022-03-11] MEDS: acetaminophen 325 mg Tablet 650 MG PO (15:17)
[2022-03-11] MEDS: diphenhydrAMINE 25 mg Capsule 50 MG PO (15:17)
[2022-03-11] MEDS: daratumumab-hyaluronidase-fihj 1,800 mg/15 mL SDV 1800 MG SUBCUT (15:48)
[2022-03-11 16:08] VITALS: BP 124/78; PULSE 68; RESP 18; TEMP 36.5; O2SAT 98
== END 2022-03-11 23:59 | disposition home or self-care (01) ==
PROVIDERS: Nurse Practitioner Family; PCP Family Medicine; Visit Provider Internal Medicine Medical Oncology
DX: C90.02 Multiple myeloma in relapse (principal); E83.52 Hypercalcemia; M89.9 Disorder of bone, unspecified; Z79.899 Other long term (current) drug therapy; Z92.21 Personal history of antineoplastic chemotherapy; Z53.9 Procedure and treatment not carried out, unspecified reason; C90.00 Multiple myeloma not having achieved remission
CPT/HCPCS: 80053; 82784; 83883; 84155; 84165; 85025; 96401; 96402; 99214; 99215; J9144; Q0162

== ENCOUNTER → 2022-04-03 10:09 | Outpatient (BNVA) | payer MEDICARE, BC, SELFPAY | PROVIDERS: PCP Family Medicine; Visit Provider Internal Medicine Cardiovascular Disease | DX: I48.91 Unspecified atrial fibrillation (principal); I35.0 Nonrheumatic aortic (valve) stenosis; I11.0 Hypertensive heart disease with heart failure; I50.32 Chronic diastolic (congestive) heart failure; C90.00 Multiple myeloma not having achieved remission; Z99.81 Dependence on supplemental oxygen | CPT/HCPCS: 99214 ==

== ENCOUNTER 2022-04-07 10:31 | Outpatient (CLI) | payer MEDICARE, BC, SELFPAY ==
--- NOTE | 2022-04-07 10:45 | XR_ITS ---
WS: [email or web address] Exam: XR hip RT 2-3V wo/w pel* [id number] Date/Time of Exam: 04/07/2022 10:50 AM Reason For Exam: hip pain No fracture or dislocation. Moderate degenerative change of the joint compartment. Osteopenia. No sig n of bone destruction. XR/XR hip RT 2-3V wo/w pel* [id number] IMPRESSION: 1. Moderate degenerative change and osteopenia. 2. No fracture or bone destruction.
== END 2022-04-07 10:32 | disposition home or self-care (01) ==
LOC: RAD 10:33
PROVIDERS: PCP Family Medicine; Visit Provider Internal Medicine Medical Oncology
DX: M16.12 Unilateral primary osteoarthritis, left hip (principal); M85.88 Other specified disorders of bone density and structure, other site
CPT/HCPCS: 73502

== ENCOUNTER 2022-04-08 11:30 | Oncology outpatient (recurring) (ONCR) | payer MEDICARE, BC, SELFPAY ==
[2022-03-18 08:36] LABS: Basophils % 0.4 %; Eosinophils % 0.3 %; Hematocrit 50.8 % (37.0-47.0); Hemoglobin 15.4 g/dL (11.5-15.3); Lymphocytes # 0.9 10^3/uL (0.8-4.8); Lymphocytes % 12.1 %; Mean Corpuscular HGB Conc 30.3 g/dL (30.0-36.0); Mean Corpuscular Hemoglobin 29.8 pg (28.0-34.0); Mean Corpuscular Volume 98.3 fl (81-99); Mean Platelet Volume 11.1 fL (7.4-10.4); Monocytes # 0.8 10^3/uL (0.2-0.9); Monocytes % 10.9 %; Neutrophils # 5.66 10^3/uL (1.8-7.7); Neutrophils % 75.9 %; Nucleated Red Blood Cells % 0 %; Platelet Count 242 10^3/cmm (130-400); Red Blood Count 5.17 10^6/uL (4.1-5.3); Red Cell Distribution Width 14.1 % (12.1-15.1); White Blood Count 7.5 10^3/uL (4.0-10.0)
[2022-03-18 08:47] LABS: Alanine Aminotransferase 19 U/L (0-33); Alkaline Phosphatase 57 U/L (35-105); Anion Gap 13.5 (5-19); Aspartate Amino Transferase 21 U/L (0-32); Blood Urea Nitrogen 23 mg/dL (8-23); Calcium 9.2 mg/dL (8.5-10.5); Carbon Dioxide 27 mmol/L (22-29); Chloride 103 mmol/L (98-107); Globulin 2.9 g/dL (1.3-4.6); Glucose 124 mg/dL (65-115); Osmolality Calculated 293 mOsm/kg (285-295); Potassium 4.5 mmol/L (3.5-5.1); Sodium 139 mmol/L (136-145); Total Bilirubin 0.6 mg/dL (0.15-1.2); Total Protein 6.9 g/dL (6.6-8.7)
[2022-03-18] MEDS: acetaminophen 325 mg Tablet 650 MG PO (10:03)
[2022-03-18] MEDS: diphenhydrAMINE 25 mg Capsule 50 MG PO (10:03)
[2022-03-18] MEDS: ondansetron 4 MG Tablet 8 MG PO (10:03)
[2022-03-18] MEDS: daratumumab-hyaluronidase-fihj 1,800 mg/15 mL SDV 1800 MG SUBCUT (10:29)
[2022-03-18 10:55] VITALS: BP 140/62; PULSE 62; RESP 16; TEMP 36.2; O2SAT 93
[2022-03-25] MEDS: diphenhydrAMINE 25 mg Capsule 50 MG PO (15:29)
[2022-03-25] MEDS: ondansetron 4 MG Tablet 8 MG PO (15:30)
[2022-03-25] MEDS: acetaminophen 325 mg Tablet 650 MG PO (15:30)
[2022-03-25] MEDS: daratumumab-hyaluronidase-fihj 1,800 mg/15 mL SDV 1800 MG SUBCUT (15:42)
[2022-04-01 08:36] LABS: Basophils % 0.3 %; Hematocrit 49.1 % (37.0-47.0); Hemoglobin 15.3 g/dL (11.5-15.3); Lymphocytes # 0.8 10^3/uL (0.8-4.8); Lymphocytes % 12.1 %; Mean Corpuscular HGB Conc 31.2 g/dL (30.0-36.0); Mean Corpuscular Hemoglobin 29.7 pg (28.0-34.0); Mean Corpuscular Volume 95.3 fl (81-99); Mean Platelet Volume 11.4 fL (7.4-10.4); Monocytes # 0.8 10^3/uL (0.2-0.9); Monocytes % 12.8 %; Neutrophils # 4.86 10^3/uL (1.8-7.7); Neutrophils % 74.3 %; Nucleated Red Blood Cells % 0 %; Platelet Count 169 10^3/cmm (130-400); Red Blood Count 5.15 10^6/uL (4.1-5.3); Red Cell Distribution Width 14.6 % (12.1-15.1); White Blood Count 6.5 10^3/uL (4.0-10.0)
[2022-04-01 08:55] LABS: Alanine Aminotransferase 24 U/L (0-33); Albumin Level 4.1 g/dL (3.5-5.2); Alkaline Phosphatase 60 U/L (35-105); Anion Gap 15.1 (5-19); Aspartate Amino Transferase 19 U/L (0-32); Blood Urea Nitrogen 34 mg/dL (8-23); Calcium 9.7 mg/dL (8.5-10.5); Carbon Dioxide 28 mmol/L (22-29); Chloride 102 mmol/L (98-107); Globulin 2.9 g/dL (1.3-4.6); Glucose 114 mg/dL (65-115); Osmolality Calculated 300 mOsm/kg (285-295); Potassium 4.1 mmol/L (3.5-5.1); Sodium 141 mmol/L (136-145); Total Bilirubin 0.5 mg/dL (0.15-1.2)
[2022-04-01] MEDS: acetaminophen 325 mg Tablet 650 MG PO (10:37)
[2022-04-01] MEDS: diphenhydrAMINE 25 mg Capsule 50 MG PO (10:37)
[2022-04-01] MEDS: ondansetron 4 MG Tablet 8 MG PO (10:37)
[2022-04-01] MEDS: daratumumab-hyaluronidase-fihj 1,800 mg/15 mL SDV 1800 MG SUBCUT (11:03)
[2022-04-08 12:05] LABS: Basophils % 0.3 %; Hematocrit 47.6 % (37.0-47.0); Hemoglobin 15.1 g/dL (11.5-15.3); Lymphocytes # 0.6 10^3/uL (0.8-4.8); Lymphocytes % 7.5 %; Mean Corpuscular HGB Conc 31.7 g/dL (30.0-36.0); Mean Corpuscular Volume 94.6 fl (81-99); Mean Platelet Volume 11.4 fL (7.4-10.4); Monocytes # 0.8 10^3/uL (0.2-0.9); Monocytes % 10.4 %; Neutrophils # 6.48 10^3/uL (1.8-7.7); Neutrophils % 81.5 %; Nucleated Red Blood Cells % 0 %; Platelet Count 178 10^3/cmm (130-400); Red Blood Count 5.03 10^6/uL (4.1-5.3); Red Cell Distribution Width 14.9 % (12.1-15.1)
[2022-04-08 12:30] LABS: Alanine Aminotransferase 24 U/L (0-33); Albumin Level 3.9 g/dL (3.5-5.2); Alkaline Phosphatase 63 U/L (35-105); Blood Urea Nitrogen 32 mg/dL (8-23); Calcium 9.1 mg/dL (8.5-10.5); Carbon Dioxide 29 mmol/L (22-29); Chloride 101 mmol/L (98-107); Glucose 106 mg/dL (65-115); Osmolality Calculated 295 mOsm/kg (285-295); Sodium 139 mmol/L (136-145); Total Bilirubin 0.4 mg/dL (0.15-1.2); Total Protein 6.9 g/dL (6.6-8.7)
[2022-04-08] MEDS: acetaminophen 325 mg Tablet 650 MG PO (12:31)
[2022-04-08] MEDS: diphenhydrAMINE 25 mg Capsule 50 MG PO (12:32)
[2022-04-08] MEDS: ondansetron 4 MG Tablet 8 MG PO (12:33)
[2022-04-08 12:40] LABS: Anion Gap 13.8 (5-19); Aspartate Amino Transferase 30 U/L (0-32); Potassium 4.8 mmol/L (3.5-5.1)
[2022-04-08] MEDS: daratumumab-hyaluronidase-fihj 1,800 mg/15 mL SDV 1800 MG SUBCUT (12:57)
[2022-04-08 13:46] VITALS: BP 102/66; PULSE 66; RESP 18; TEMP 36.4; O2SAT 98
== END 2022-04-09 09:12 | disposition home or self-care (01) ==
PROVIDERS: Nurse Practitioner; Nurse Practitioner Family; PCP Family Medicine; Visit Provider Internal Medicine Medical Oncology
DX: Z51.12 Encounter for antineoplastic immunotherapy (principal); C90.00 Multiple myeloma not having achieved remission
CPT/HCPCS: 36415; 80053; 85025; 96401; 99214; J9144; Q0162

== ENCOUNTER → 2022-04-15 09:53 | Outpatient (BNVA) | payer MEDICARE, BC, SELFPAY | PROVIDERS: PCP Family Medicine; Visit Provider Nurse Practitioner | DX: C90.00 Multiple myeloma not having achieved remission (principal); M89.9 Disorder of bone, unspecified; M48.50XA Collapsed vertebra, not elsewhere classified, site unspecified, initial encounter for fracture; R11.0 Nausea; E86.0 Dehydration; Z79.899 Other long term (current) drug therapy | CPT/HCPCS: 99214 ==

== ENCOUNTER 2022-04-17 15:13 | Outpatient (CLI) | payer MEDICARE, BC, SELFPAY ==
--- NOTE | 2022-04-17 15:00 | CT_ITS ---
WS: [email or web address] NONCONTRAST CT RIGHT HIP TECHNIQUE: Noncontrast CT RIGHT hip with coronal and sagittal reformatted images. CLINICAL INFORMATION: Right hip/groin pain COMPARISON: PET/CT February 14, 2022 and radiograph April 07, 2022 DLP: [address] scans at [facility] use at least one of these dose optimization techniques: automated e xposure control; mA and/or kV adjustment per patient size (includes targeted exams where dose is matc hed to clinical indication); or iterative reconstruction. FINDINGS: Osteopenia. Normal anatomic alignment. No acute fractures. Moderate degenerative arthritis RIGHT hip. Normal visualized RIGHT pubic rami and acetabulum. Degenerative arthritis RIGHT sacroiliac joint. Va scular calcification. No metastatic lesions in the RIGHT hip. CT/CT hip RT wo con* [id number] IMPRESSION: No acute findings RIGHT hip.
--- NOTE | 2022-04-17 15:30 | CT_ITS ---
WS: [email or web address] CT PELVIS TECHNIQUE: Noncontrast CT of the pelvis with coronal and sagittal reformatted images. CLINICAL INFORMATION: Right hip/groin pain COMPARISON: PET CT February 14, 2022 DLP: 1925.[address] scans at [facility] use at least one of these dose optimization techniques: automated e xposure control; mA and/or kV adjustment per patient size (includes targeted exams where dose is matc hed to clinical indication); or iterative reconstruction. FINDINGS: Osteopenia. Disc space narrowing lower lumbar spine with vacuum disc phenomenon. No metastatic lesion s in the RIGHT hip. Degenerative arthritis both sacroiliac joints. Vascular calcification. Normal pub ic rami. Moderate degenerative arthritis both hips with joint space narrowing. No visualized metastat ic lesions in the bony structures. Sacrum and coccyx appears normal. Sigmoid diverticulosis. Fat-cont aining umbilical hernia. No inguinal lymphadenopathy. Partially visualized RIGHT renal cyst. CT/CT pelvis wo con [id number] IMPRESSION: 1. No visualized metastatic lesions in the bony pelvis or RIGHT hip. 2. Osteopenia. 3. Moderate degenerative arthritis both hips with joint space narrowing. 4. Normal visualized soft tissues. 5. Vacuum disc phenomenon and disc space narrowing lower lumbar spine L4-L5 an d L5-S1. 6. No other significant findings.
== END 2022-04-17 15:14 | disposition home or self-care (01) ==
LOC: RAD 15:15
PROVIDERS: PCP Family Medicine; Visit Provider Internal Medicine Medical Oncology
DX: M85.80 Other specified disorders of bone density and structure, unspecified site; M16.0 Bilateral primary osteoarthritis of hip; M51.37 Other intervertebral disc degeneration, lumbosacral region
CPT/HCPCS: 72192; 73700

== ENCOUNTER 2022-04-22 09:30 | Oncology outpatient (recurring) (ONCR) | payer MEDICARE, BC, SELFPAY ==
[2022-04-15 10:51] LABS: Immunoglobulin IGG 559 mg/dL (700-1600); Immunoglobulin IGM 45 mg/dL (40-230)
[2022-04-15 11:09] LABS: Immunoglobulin IGA < 50 mg/dL (70-400)
[2022-04-15 11:33] LABS: Basophils % 0.3 %; Hematocrit 47.1 % (37.0-47.0); Hemoglobin 15.1 g/dL (11.5-15.3); Lymphocytes # 0.6 10^3/uL (0.8-4.8); Mean Corpuscular HGB Conc 32.1 g/dL (30.0-36.0); Mean Corpuscular Hemoglobin 30.5 pg (28.0-34.0); Mean Corpuscular Volume 95.2 fl (81-99); Mean Platelet Volume 10.9 fL (7.4-10.4); Monocytes # 0.7 10^3/uL (0.2-0.9); Monocytes % 11.1 %; Neutrophils # 4.92 10^3/uL (1.8-7.7); Neutrophils % 78.4 %; Nucleated Red Blood Cells % 0 %; Platelet Count 222 10^3/cmm (130-400); Red Blood Count 4.95 10^6/uL (4.1-5.3); Red Cell Distribution Width 15.5 % (12.1-15.1); White Blood Count 6.3 10^3/uL (4.0-10.0)
[2022-04-15 11:48] LABS: Alanine Aminotransferase 40 U/L (0-33); Albumin Level 3.8 g/dL (3.5-5.2); Alkaline Phosphatase 67 U/L (35-105); Aspartate Amino Transferase 30 U/L (0-32); Blood Urea Nitrogen 34 mg/dL (8-23); Calcium 9.2 mg/dL (8.5-10.5); Carbon Dioxide 26 mmol/L (22-29); Chloride 102 mmol/L (98-107); Globulin 2.7 g/dL (1.3-4.6); Glucose 112 mg/dL (65-115); Osmolality Calculated 298 mOsm/kg (285-295); Sodium 140 mmol/L (136-145); Total Bilirubin 0.5 mg/dL (0.15-1.2); Total Protein 6.5 g/dL (6.6-8.7)
[2022-04-15 11:58] LABS: Anion Gap 16.3 (5-19); Potassium 4.3 mmol/L (3.5-5.1)
[2022-04-15] MEDS: ondansetron 4 MG Tablet 8 MG PO (12:22)
[2022-04-15] MEDS: diphenhydrAMINE 25 mg Capsule 50 MG PO (12:22)
[2022-04-15] MEDS: acetaminophen 325 mg Tablet 650 MG PO (12:23)
[2022-04-15] MEDS: daratumumab-hyaluronidase-fihj 1,800 mg/15 mL SDV 1800 MG SUBCUT (12:26)
[2022-04-16 11:12] LABS: KAPPA LIGHT CHAIN, FREE, SERUM 15.9 mg/L (3.3-19.4); KAPPA/LAMBDA LIGHT CHAINS FREE 1.56 (0.26-1.65); LAMBDA LIGHT CHAIN, FREE, SERU 10.2 mg/L (5.7-26.3)
[2022-04-16 11:27] LABS: PROTEIN, TOTAL 6.3 g/dL (6.1-8.1)
[2022-04-16 15:58] LABS: ABNORMAL PROTEIN BAND 1 0.2 g/dL (NONE DETECTED); ALBUMIN 3.7 g/dL (3.8-4.8); ALPHA 1 GLOBULIN 0.4 g/dL (0.2-0.3); ALPHA 2 GLOBULIN 1.1 g/dL (0.5-0.9); BETA 1 GLOBULIN 0.4 g/dL (0.4-0.6); BETA 2 GLOBULIN 0.3 g/dL (0.2-0.5); GAMMA GLOBULIN 0.5 g/dL (0.8-1.7)
[2022-04-22 10:52] LABS: Basophils % 0.4 %; Hematocrit 44.8 % (37.0-47.0); Hemoglobin 14.2 g/dL (11.5-15.3); Lymphocytes # 0.5 10^3/uL (0.8-4.8); Lymphocytes % 9.3 %; Mean Corpuscular HGB Conc 31.7 g/dL (30.0-36.0); Mean Corpuscular Hemoglobin 30.3 pg (28.0-34.0); Mean Corpuscular Volume 95.7 fl (81-99); Mean Platelet Volume 11.4 fL (7.4-10.4); Monocytes # 0.6 10^3/uL (0.2-0.9); Monocytes % 11.9 %; Neutrophils # 4.01 10^3/uL (1.8-7.7); Nucleated Red Blood Cells % 0 %; Platelet Count 190 10^3/cmm (130-400); Red Blood Count 4.68 10^6/uL (4.1-5.3); Red Cell Distribution Width 15.7 % (12.1-15.1); White Blood Count 5.1 10^3/uL (4.0-10.0)
[2022-04-22 11:01] LABS: Alanine Aminotransferase 58 U/L (0-33); Albumin Level 3.8 g/dL (3.5-5.2); Alkaline Phosphatase 87 U/L (35-105); Anion Gap 14.4 (5-19); Aspartate Amino Transferase 25 U/L (0-32); Blood Urea Nitrogen 24 mg/dL (8-23); Calcium 8.8 mg/dL (8.5-10.5); Carbon Dioxide 26 mmol/L (22-29); Chloride 104 mmol/L (98-107); Globulin 2.5 g/dL (1.3-4.6); Glucose 120 mg/dL (65-115); Osmolality Calculated 295 mOsm/kg (285-295); Potassium 4.4 mmol/L (3.5-5.1); Sodium 140 mmol/L (136-145); Total Bilirubin 0.4 mg/dL (0.15-1.2); Total Protein 6.3 g/dL (6.6-8.7)
[2022-04-22] MEDS: ondansetron 4 MG Tablet 8 MG PO (11:46)
[2022-04-22] MEDS: diphenhydrAMINE 25 mg Capsule 50 MG PO (11:46)
[2022-04-22] MEDS: acetaminophen 325 mg Tablet 650 MG PO (11:59)
[2022-04-22] MEDS: daratumumab-hyaluronidase-fihj 1,800 mg/15 mL SDV 1800 MG SUBCUT (12:07)
== END 2022-04-23 10:02 | disposition home or self-care (01) ==
PROVIDERS: Nurse Practitioner; PCP Family Medicine; Visit Provider Internal Medicine Medical Oncology
DX: Z51.12 Encounter for antineoplastic immunotherapy (principal); C90.00 Multiple myeloma not having achieved remission; Z79.52 Long term (current) use of systemic steroids; Z79.899 Other long term (current) drug therapy
CPT/HCPCS: 36415; 80053; 82784; 83883; 84155; 84165; 85025; 96401; 99214; J9144; Q0162

== ENCOUNTER 2022-04-29 11:09 | Oncology outpatient (recurring) (ONCR) | payer MEDICARE, BC, SELFPAY ==
[2022-04-29 12:19] LABS: Basophils % 0.3 %; Hematocrit 45.6 % (37.0-47.0); Hemoglobin 14.3 g/dL (11.5-15.3); Lymphocytes # 0.7 10^3/uL (0.8-4.8); Lymphocytes % 11.1 %; Mean Corpuscular HGB Conc 31.4 g/dL (30.0-36.0); Mean Corpuscular Hemoglobin 30.2 pg (28.0-34.0); Mean Corpuscular Volume 96.2 fl (81-99); Mean Platelet Volume 11.8 fL (7.4-10.4); Monocytes # 0.8 10^3/uL (0.2-0.9); Monocytes % 12.4 %; Neutrophils # 4.73 10^3/uL (1.8-7.7); Neutrophils % 75.9 %; Nucleated Red Blood Cells % 0 %; Platelet Count 182 10^3/cmm (130-400); Red Blood Count 4.74 10^6/uL (4.1-5.3); Red Cell Distribution Width 15.4 % (12.1-15.1); White Blood Count 6.2 10^3/uL (4.0-10.0)
[2022-04-29 12:54] VITALS: BP 137/75; PULSE 61; RESP 16; TEMP 37; O2SAT 95
[2022-04-29] MEDS: acetaminophen 325 mg Tablet 650 MG PO (13:11)
[2022-04-29] MEDS: diphenhydrAMINE 25 mg Capsule 50 MG PO (13:12)
[2022-04-29] MEDS: ondansetron 4 MG Tablet 8 MG PO (13:16)
[2022-04-29] MEDS: daratumumab-hyaluronidase-fihj 1,800 mg/15 mL SDV 1800 MG SUBCUT (13:31)
== END 2022-05-11 23:59 | disposition home or self-care (01) ==
PROVIDERS: PCP Family Medicine; Visit Provider Internal Medicine Medical Oncology
DX: Z51.12 Encounter for antineoplastic immunotherapy (principal); C90.00 Multiple myeloma not having achieved remission
CPT/HCPCS: 36415; 85025; 96401; J9144; Q0162

== ENCOUNTER 2022-05-27 12:00 | Oncology outpatient (recurring) (ONCR) | payer MEDICARE, BC, SELFPAY ==
[2022-05-13 13:58] LABS: Basophils % 0.3 %; Eosinophils % 0.1 %; Hematocrit 47.9 % (37.0-47.0); Lymphocytes % 14.7 %; Mean Corpuscular HGB Conc 31.3 g/dL (30.0-36.0); Mean Corpuscular Hemoglobin 30.2 pg (28.0-34.0); Mean Corpuscular Volume 96.6 fl (81-99); Mean Platelet Volume 11.7 fL (7.4-10.4); Monocytes # 0.8 10^3/uL (0.2-0.9); Neutrophils # 5.04 10^3/uL (1.8-7.7); Neutrophils % 72.6 %; Nucleated Red Blood Cells % 0 %; Platelet Count 201 10^3/cmm (130-400); Red Blood Count 4.96 10^6/uL (4.1-5.3); Red Cell Distribution Width 15.3 % (12.1-15.1); White Blood Count 6.9 10^3/uL (4.0-10.0)
[2022-05-13 14:24] LABS: Alanine Aminotransferase 46 U/L (0-33); Albumin Level 4.1 g/dL (3.5-5.2); Alkaline Phosphatase 91 U/L (35-105); Anion Gap 14.7 (5-19); Aspartate Amino Transferase 29 U/L (0-32); Blood Urea Nitrogen 35 mg/dL (8-23); Calcium 9.4 mg/dL (8.5-10.5); Carbon Dioxide 27 mmol/L (22-29); Chloride 103 mmol/L (98-107); Globulin 2.6 g/dL (1.3-4.6); Glucose 109 mg/dL (65-115); Osmolality Calculated 299 mOsm/kg (285-295); Potassium 4.7 mmol/L (3.5-5.1); Sodium 140 mmol/L (136-145); Total Bilirubin 0.4 mg/dL (0.15-1.2); Total Protein 6.7 g/dL (6.6-8.7)
[2022-05-13] MEDS: acetaminophen 325 mg Tablet 650 MG PO (15:06)
[2022-05-13] MEDS: diphenhydrAMINE 25 mg Capsule 50 MG PO (15:06)
[2022-05-13] MEDS: ondansetron 4 MG Tablet 8 MG PO (15:10)
[2022-05-13 15:12] VITALS: BP 117/75; PULSE 61; RESP 16; TEMP 36.4; O2SAT 93
[2022-05-13] MEDS: daratumumab-hyaluronidase-fihj 1,800 mg/15 mL SDV 1800 MG SUBCUT (15:15)
[2022-05-27 11:26] LABS: Basophils % 0.3 %; Eosinophils % 0.1 %; Hematocrit 47.7 % (37.0-47.0); Hemoglobin 15.1 g/dL (11.5-15.3); Lymphocytes % 12.6 %; Mean Corpuscular HGB Conc 31.7 g/dL (30.0-36.0); Mean Corpuscular Hemoglobin 30.7 pg (28.0-34.0); Mean Platelet Volume 11.2 fL (7.4-10.4); Monocytes # 0.8 10^3/uL (0.2-0.9); Monocytes % 9.7 %; Neutrophils # 5.94 10^3/uL (1.8-7.7); Nucleated Red Blood Cells % 0 %; Platelet Count 197 10^3/cmm (130-400); Red Blood Count 4.92 10^6/uL (4.1-5.3); Red Cell Distribution Width 14.8 % (12.1-15.1); White Blood Count 7.7 10^3/uL (4.0-10.0)
[2022-05-27 11:45] LABS: Alanine Aminotransferase 24 U/L (0-33); Alkaline Phosphatase 75 U/L (35-105); Anion Gap 14.7 (5-19); Aspartate Amino Transferase 22 U/L (0-32); Blood Urea Nitrogen 36 mg/dL (8-23); Calcium 9.4 mg/dL (8.5-10.5); Carbon Dioxide 29 mmol/L (22-29); Chloride 105 mmol/L (98-107); Globulin 2.6 g/dL (1.3-4.6); Glucose 108 mg/dL (65-115); Osmolality Calculated 307 mOsm/kg (285-295); Potassium 4.7 mmol/L (3.5-5.1); Sodium 144 mmol/L (136-145); Total Bilirubin 0.5 mg/dL (0.15-1.2); Total Protein 6.6 g/dL (6.6-8.7)
[2022-05-27] MEDS: daratumumab-hyaluronidase-fihj 1,800 mg/15 mL SDV 1800 MG SUBCUT (14:14)
[2022-05-27] MEDS: acetaminophen 325 mg Tablet 650 MG PO (14:17)
[2022-05-27] MEDS: diphenhydrAMINE 25 mg Capsule 50 MG PO (14:18)
[2022-05-28 11:33] LABS: KAPPA/LAMBDA LIGHT CHAINS FREE 1.46 (0.26-1.65); LAMBDA LIGHT CHAIN, FREE, SERU 9.6 mg/L (5.7-26.3)
[2022-05-29 05:27] LABS: PROTEIN, TOTAL 6.2 g/dL (6.1-8.1)
[2022-05-29 15:17] LABS: ABNORMAL PROTEIN BAND 1 0.2 g/dL (NONE DETECTED); ALBUMIN 3.7 g/dL (3.8-4.8); ALPHA 1 GLOBULIN 0.4 g/dL (0.2-0.3); BETA 1 GLOBULIN 0.4 g/dL (0.4-0.6); BETA 2 GLOBULIN 0.2 g/dL (0.2-0.5); GAMMA GLOBULIN 0.5 g/dL (0.8-1.7)
== END 2022-05-28 10:49 | disposition home or self-care (01) ==
PROVIDERS: PCP Family Medicine; Visit Provider Internal Medicine Medical Oncology
DX: C90.00 Multiple myeloma not having achieved remission; Z51.12 Encounter for antineoplastic immunotherapy; C90.02 Multiple myeloma in relapse; R10.31 Right lower quadrant pain; Z79.891 Long term (current) use of opiate analgesic; Z79.899 Other long term (current) drug therapy
CPT/HCPCS: 36415; 80053; 83883; 84155; 84165; 85025; 96401; 99213; 99214; J9144; Q0162

== ENCOUNTER 2022-06-10 12:59 | Oncology outpatient (recurring) (ONCR) | payer MEDICARE, BC, SELFPAY ==
[2022-06-10 13:21] LABS: Basophils % 0.3 %; Eosinophils % 0.3 %; Hematocrit 48.4 % (37.0-47.0); Hemoglobin 15.1 g/dL (11.5-15.3); Lymphocytes # 0.8 10^3/uL (0.8-4.8); Lymphocytes % 10.9 %; Mean Corpuscular HGB Conc 31.2 g/dL (30.0-36.0); Mean Corpuscular Hemoglobin 30.3 pg (28.0-34.0); Mean Platelet Volume 11.7 fL (7.4-10.4); Monocytes # 0.9 10^3/uL (0.2-0.9); Monocytes % 11.4 %; Neutrophils # 5.93 10^3/uL (1.8-7.7); Neutrophils % 76.8 %; Nucleated Red Blood Cells % 0 %; Platelet Count 205 10^3/cmm (130-400); Red Blood Count 4.99 10^6/uL (4.1-5.3); Red Cell Distribution Width 14.4 % (12.1-15.1); White Blood Count 7.7 10^3/uL (4.0-10.0)
[2022-06-10 13:42] LABS: Alanine Aminotransferase 37 U/L (0-33); Alkaline Phosphatase 75 U/L (35-105); Anion Gap 12.8 (5-19); Aspartate Amino Transferase 20 U/L (0-32); Blood Urea Nitrogen 35 mg/dL (8-23); Calcium 9.4 mg/dL (8.5-10.5); Carbon Dioxide 27 mmol/L (22-29); Chloride 107 mmol/L (98-107); Globulin 2.6 g/dL (1.3-4.6); Glucose 118 mg/dL (65-115); Osmolality Calculated 303 mOsm/kg (285-295); Potassium 4.8 mmol/L (3.5-5.1); Sodium 142 mmol/L (136-145); Total Bilirubin 0.4 mg/dL (0.15-1.2); Total Protein 6.6 g/dL (6.6-8.7)
[2022-06-10] MEDS: acetaminophen 325 mg Tablet 650 MG PO (14:55)
[2022-06-10] MEDS: daratumumab-hyaluronidase-fihj 1,800 mg/15 mL SDV 1800 MG SUBCUT (15:08)
[2022-06-10] MEDS: diphenhydrAMINE 25 mg Capsule 50 MG PO (15:16)
[2022-06-10] MEDS: ondansetron 4 MG Tablet 8 MG PO (15:16)
== END 2022-06-10 23:59 | disposition home or self-care (01) ==
PROVIDERS: Nurse Practitioner; PCP Family Medicine; Visit Provider Internal Medicine Medical Oncology
DX: Z51.12 Encounter for antineoplastic immunotherapy (principal); C90.02 Multiple myeloma in relapse; R10.31 Right lower quadrant pain; Z79.891 Long term (current) use of opiate analgesic; Z79.899 Other long term (current) drug therapy
CPT/HCPCS: 36415; 80053; 85025; 96401; 99214; J9144; Q0162

== ENCOUNTER 2022-06-17 12:19 | Outpatient (CLI) | payer MEDICARE, BC, SELFPAY ==
--- NOTE | 2022-06-17 12:33 | XR_ITS ---
WS: [email or web address] EXAMINATION: XR pelvis 1-2V* [id number] REASON FOR EXAM: hip pain COMPARISON: 04/07/2022 ORDER DATE: 06/17/2022 12:33 PM FINDINGS: There is no sign of any acute osseous or articular abnormality. Moderate chronic bilateral hip joint narrowing. There are no specific soft tissue abnormalities. Surgical plate noted in the proximal left femur. XR/XR pelvis 1-2V* [id number] IMPRESSION: No acute osseous change
== END 2022-06-17 12:20 | disposition home or self-care (01) ==
LOC: RAD 12:22
PROVIDERS: PCP Family Medicine; Visit Provider Internal Medicine Medical Oncology
DX: M25.559 Pain in unspecified hip (principal)
CPT/HCPCS: 72170

== ENCOUNTER 2022-07-08 13:00 | Oncology outpatient (recurring) (ONCR) | payer MEDICARE, BC, SELFPAY ==
[2022-06-24 12:31] LABS: Basophils % 0.3 %; Eosinophils % 0.3 %; Hematocrit 47.5 % (37.0-47.0); Hemoglobin 15.1 g/dL (11.5-15.3); Lymphocytes % 13.4 %; Mean Corpuscular HGB Conc 31.8 g/dL (30.0-36.0); Mean Corpuscular Hemoglobin 31.1 pg (28.0-34.0); Mean Corpuscular Volume 97.9 fl (81-99); Mean Platelet Volume 11.6 fL (7.4-10.4); Monocytes # 0.8 10^3/uL (0.2-0.9); Monocytes % 10.7 %; Neutrophils # 5.58 10^3/uL (1.8-7.7); Neutrophils % 74.9 %; Nucleated Red Blood Cells % 0 %; Platelet Count 204 10^3/cmm (130-400); Red Blood Count 4.85 10^6/uL (4.1-5.3); White Blood Count 7.5 10^3/uL (4.0-10.0)
[2022-06-24 12:49] LABS: Alanine Aminotransferase 18 U/L (0-33); Albumin Level 4.1 g/dL (3.5-5.2); Alkaline Phosphatase 100 U/L (35-105); Anion Gap 14.5 (5-19); Aspartate Amino Transferase 17 U/L (0-32); Blood Urea Nitrogen 29 mg/dL (8-23); Calcium 9.2 mg/dL (8.5-10.5); Carbon Dioxide 29 mmol/L (22-29); Chloride 103 mmol/L (98-107); Globulin 2.5 g/dL (1.3-4.6); Glucose 116 mg/dL (65-115); Osmolality Calculated 301 mOsm/kg (285-295); Potassium 4.5 mmol/L (3.5-5.1); Sodium 142 mmol/L (136-145); Total Bilirubin 0.4 mg/dL (0.15-1.2); Total Protein 6.6 g/dL (6.6-8.7)
[2022-06-24] MEDS: diphenhydrAMINE 25 mg Capsule 50 MG PO (14:22)
[2022-06-24] MEDS: acetaminophen 325 mg Tablet 650 MG PO (14:22)
[2022-06-24] MEDS: ondansetron 4 MG Tablet 8 MG PO (14:22)
[2022-06-24] MEDS: daratumumab-hyaluronidase-fihj 1,800 mg/15 mL SDV 1800 MG SUBCUT (14:33)
[2022-07-08 13:15] VITALS: BP 120/76; PULSE 66; RESP 16; TEMP 36.4; O2SAT 95
[2022-07-08] MEDS: acetaminophen 325 mg Tablet 650 MG PO (13:16)
[2022-07-08] MEDS: ondansetron 4 MG Tablet 8 MG PO (13:16)
[2022-07-08] MEDS: diphenhydrAMINE 25 mg Capsule 50 MG PO (13:17)
[2022-07-08] MEDS: daratumumab-hyaluronidase-fihj 1,800 mg/15 mL SDV 1800 MG SUBCUT (13:54)
== END 2022-07-11 23:59 | disposition home or self-care (01) ==
PROVIDERS: Nurse Practitioner; PCP Family Medicine; Visit Provider Internal Medicine Medical Oncology
DX: Z51.12 Encounter for antineoplastic immunotherapy (principal); C90.00 Multiple myeloma not having achieved remission; Z79.899 Other long term (current) drug therapy
CPT/HCPCS: 80053; 85025; 96401; 99214; J9144; Q0162

== ENCOUNTER 2022-08-04 11:30 | Oncology outpatient (recurring) (ONCR) | payer MEDICARE, SELFPAY ==
[2022-07-22 15:03] LABS: Basophils % 0.2 %; Eosinophils % 0.2 %; Hematocrit 49.1 % (37.0-47.0); Hemoglobin 14.9 g/dL (11.5-15.3); Lymphocytes % 12.3 %; Mean Corpuscular HGB Conc 30.3 g/dL (30.0-36.0); Mean Corpuscular Hemoglobin 30.3 pg (28.0-34.0); Mean Platelet Volume 11.1 fL (7.4-10.4); Monocytes # 0.8 10^3/uL (0.2-0.9); Monocytes % 9.6 %; Neutrophils # 6.22 10^3/uL (1.8-7.7); Neutrophils % 77.3 %; Nucleated Red Blood Cells % 0 %; Platelet Count 218 10^3/cmm (130-400); Red Blood Count 4.91 10^6/uL (4.1-5.3); Red Cell Distribution Width 13.3 % (12.1-15.1); White Blood Count 8.1 10^3/uL (4.0-10.0)
[2022-07-22 15:31] LABS: Alanine Aminotransferase 24 U/L (0-33); Alkaline Phosphatase 107 U/L (35-105); Anion Gap 11.6 (5-19); Aspartate Amino Transferase 21 U/L (0-32); Blood Urea Nitrogen 31 mg/dL (8-23); Calcium 9.6 mg/dL (8.5-10.5); Carbon Dioxide 31 mmol/L (22-29); Chloride 105 mmol/L (98-107); Globulin 2.6 g/dL (1.3-4.6); Glucose 117 mg/dL (65-115); Osmolality Calculated 304 mOsm/kg (285-295); Potassium 4.6 mmol/L (3.5-5.1); Sodium 143 mmol/L (136-145); Total Bilirubin 0.4 mg/dL (0.15-1.2); Total Protein 6.6 g/dL (6.6-8.7)
[2022-07-22] MEDS: ondansetron 4 MG Tablet 8 MG PO (15:54)
[2022-07-22] MEDS: diphenhydrAMINE 25 mg Capsule 50 MG PO (15:54)
[2022-07-22] MEDS: acetaminophen 325 mg Tablet 650 MG PO (15:54)
[2022-07-22] MEDS: daratumumab-hyaluronidase-fihj 1,800 mg/15 mL SDV 1800 MG SUBCUT (16:01)
[2022-08-04 11:55] LABS: Basophils % 0.2 %; Eosinophils % 0.4 %; Hematocrit 49.5 % (37.0-47.0); Hemoglobin 15.4 g/dL (11.5-15.3); Lymphocytes % 11.4 %; Mean Corpuscular HGB Conc 31.1 g/dL (30.0-36.0); Mean Corpuscular Hemoglobin 30.3 pg (28.0-34.0); Mean Corpuscular Volume 97.4 fl (81-99); Mean Platelet Volume 11.6 fL (7.4-10.4); Monocytes # 0.8 10^3/uL (0.2-0.9); Monocytes % 9.6 %; Neutrophils # 6.59 10^3/uL (1.8-7.7); Neutrophils % 77.9 %; Nucleated Red Blood Cells % 0 %; Platelet Count 194 10^3/cmm (130-400); Red Blood Count 5.08 10^6/uL (4.1-5.3); White Blood Count 8.5 10^3/uL (4.0-10.0)
[2022-08-04 12:18] LABS: Alanine Aminotransferase 29 U/L (0-33); Albumin Level 4.3 g/dL (3.5-5.2); Alkaline Phosphatase 89 U/L (35-105); Anion Gap 14.5 (5-19); Aspartate Amino Transferase 26 U/L (0-32); Blood Urea Nitrogen 34 mg/dL (8-23); Calcium 9.3 mg/dL (8.5-10.5); Carbon Dioxide 28 mmol/L (22-29); Chloride 102 mmol/L (98-107); Globulin 2.6 g/dL (1.3-4.6); Glucose 124 mg/dL (65-115); Immunoglobulin IGA 50 mg/dL (70-400); Immunoglobulin IGG 536 mg/dL (700-1600); Immunoglobulin IGM 44 mg/dL (40-230); Osmolality Calculated 299 mOsm/kg (285-295); Potassium 4.5 mmol/L (3.5-5.1); Sodium 140 mmol/L (136-145); Total Bilirubin 0.5 mg/dL (0.15-1.2); Total Protein 6.9 g/dL (6.6-8.7)
[2022-08-04 12:23] VITALS: BP 132/61; PULSE 66; RESP 16; TEMP 36.4; O2SAT 66
[2022-08-04] MEDS: diphenhydrAMINE 25 mg Capsule 50 MG PO (13:32)
[2022-08-04] MEDS: ondansetron 4 MG Tablet 8 MG PO (13:32)
[2022-08-04] MEDS: acetaminophen 325 mg Tablet 650 MG PO (13:32)
[2022-08-04] MEDS: daratumumab-hyaluronidase-fihj 1,800 mg/15 mL SDV 1800 MG SUBCUT (13:35)
[2022-08-05 12:18] LABS: PROTEIN, TOTAL 6.5 g/dL (6.1-8.1)
[2022-08-05 13:48] LABS: KAPPA LIGHT CHAIN, FREE, SERUM 14.9 mg/L (3.3-19.4); KAPPA/LAMBDA LIGHT CHAINS FREE 1.41 (0.26-1.65); LAMBDA LIGHT CHAIN, FREE, SERU 10.6 mg/L (5.7-26.3)
[2022-08-05 15:34] LABS: ABNORMAL PROTEIN BAND 1 0.2 g/dL (NONE DETECTED); ALBUMIN 3.9 g/dL (3.8-4.8); ALPHA 1 GLOBULIN 0.4 g/dL (0.2-0.3); ALPHA 2 GLOBULIN 1.1 g/dL (0.5-0.9); BETA 1 GLOBULIN 0.4 g/dL (0.4-0.6); BETA 2 GLOBULIN 0.2 g/dL (0.2-0.5); GAMMA GLOBULIN 0.5 g/dL (0.8-1.7)
== END 2022-08-11 23:59 | disposition home or self-care (01) ==
PROVIDERS: Nurse Practitioner; PCP Family Medicine; Visit Provider Internal Medicine Medical Oncology
DX: Z51.12 Encounter for antineoplastic immunotherapy (principal); C90.02 Multiple myeloma in relapse; Z79.899 Other long term (current) drug therapy
CPT/HCPCS: 36415; 80053; 82784; 83883; 84155; 84165; 85025; 96401; 99213; 99214; J9144; Q0162

== ENCOUNTER 2022-08-17 10:24 | Outpatient (CLI) | payer MEDICARE, SELFPAY ==
--- NOTE | 2022-08-17 10:35 | MM_ITS ---
WS: [email or web address] BILATERAL SCREENING DIGITAL MAMMOGRAM WITH CAD HISTORY: SCREENING COMPARISON: None available. Bilateral CC and MLO views submitted. Computer aided detection analyzed. Breast composition: There are scattered areas of fibroglandular density. No suspicious masses, microc alcifications or architectural distortion. Long-term stability nodule and calcification medial LEFT b reast. MM/[place] [id number] IMPRESSION: BI-RADS: 2-Benign FOLLOW UP: 1 Year Follow-up
== END 2022-08-17 10:25 | disposition home or self-care (01) ==
LOC: RAD 10:27
PROVIDERS: PCP Family Medicine; Visit Provider Family Medicine
DX: Z12.31 Encounter for screening mammogram for malignant neoplasm of breast (principal)
CPT/HCPCS: 77067

== ENCOUNTER 2022-08-19 12:07 | Oncology outpatient (recurring) (ONCR) | payer MEDICARE, SELFPAY ==
[2022-08-19 12:50] LABS: Basophils % 0.3 %; Eosinophils % 0.4 %; Hematocrit 47.6 % (37.0-47.0); Hemoglobin 14.8 g/dL (11.5-15.3); Lymphocytes # 0.9 10^3/uL (0.8-4.8); Lymphocytes % 12.7 %; Mean Corpuscular HGB Conc 31.1 g/dL (30.0-36.0); Mean Corpuscular Hemoglobin 30.4 pg (28.0-34.0); Mean Corpuscular Volume 97.7 fl (81-99); Mean Platelet Volume 11.2 fL (7.4-10.4); Monocytes # 0.8 10^3/uL (0.2-0.9); Monocytes % 11.5 %; Neutrophils # 5.38 10^3/uL (1.8-7.7); Neutrophils % 74.8 %; Nucleated Red Blood Cells % 0 %; Platelet Count 208 10^3/cmm (130-400); Red Blood Count 4.87 10^6/uL (4.1-5.3); Red Cell Distribution Width 13.3 % (12.1-15.1); White Blood Count 7.2 10^3/uL (4.0-10.0)
[2022-08-19 13:19] LABS: Alanine Aminotransferase 17 U/L (0-33); Alkaline Phosphatase 78 U/L (35-105); Anion Gap 12.7 (5-19); Aspartate Amino Transferase 17 U/L (0-32); Blood Urea Nitrogen 32 mg/dL (8-23); Calcium 9.6 mg/dL (8.5-10.5); Carbon Dioxide 32 mmol/L (22-29); Chloride 104 mmol/L (98-107); Globulin 2.3 g/dL (1.3-4.6); Glucose 108 mg/dL (65-115); Osmolality Calculated 305 mOsm/kg (285-295); Potassium 4.7 mmol/L (3.5-5.1); Sodium 144 mmol/L (136-145); Total Bilirubin 0.5 mg/dL (0.15-1.2); Total Protein 6.3 g/dL (6.6-8.7)
[2022-08-19] MEDS: acetaminophen 325 mg Tablet 650 MG PO (14:48)
[2022-08-19] MEDS: diphenhydrAMINE 25 mg Capsule 50 MG PO (14:48)
[2022-08-19] MEDS: ondansetron 4 MG Tablet 8 MG PO (14:50)
[2022-08-19] MEDS: daratumumab-hyaluronidase-fihj 1,800 mg/15 mL SDV 1800 MG SUBCUT (14:52)
== END 2022-09-08 23:59 | disposition home or self-care (01) ==
PROVIDERS: Nurse Practitioner; PCP Family Medicine; Visit Provider Internal Medicine Medical Oncology
DX: Z51.12 Encounter for antineoplastic immunotherapy (principal); C90.00 Multiple myeloma not having achieved remission; Z79.899 Other long term (current) drug therapy; Z92.21 Personal history of antineoplastic chemotherapy
CPT/HCPCS: 80053; 85025; 96401; 99214; J9144; Q0162

== ENCOUNTER 2022-09-04 06:56 | Outpatient (CLI) | payer MEDICARE, SELFPAY ==
[2022-09-05 12:34] LABS: CREATININE, 24 HOUR URINE 0.89 g/24 h (0.50-2.15); PROTEIN, TOTAL, 24 HR UR 72 mg/24 h (<150); Protein/Creatinine Ratio 0.081 (<0.150); Protein/Creatinine Ratio 81 mg/g creat (<150)
[2022-09-08 09:05] LABS: ALBUMIN 0 %; ALPHA-1-GLOBULINS 0 %; ALPHA-2-GLOBULINS 0 %; BETA GLOBULINS 0 %; GAMMA GLOBULINS 0 %
== END 2022-09-04 06:57 | disposition home or self-care (01) ==
PROVIDERS: PCP Family Medicine; Visit Provider Nurse Practitioner Family
DX: C90.02 Multiple myeloma in relapse (principal)
CPT/HCPCS: 84156; 84166

== ENCOUNTER 2022-09-16 12:08 | Oncology outpatient (recurring) (ONCR) | payer MEDICARE, SELFPAY ==
[2022-09-16 12:32] LABS: Basophils % 0.4 %; Eosinophils % 0.4 %; Hematocrit 49.2 % (37.0-47.0); Hemoglobin 15.5 g/dL (11.5-15.3); Lymphocytes # 1.1 10^3/uL (0.8-4.8); Lymphocytes % 13.6 %; Mean Corpuscular HGB Conc 31.5 g/dL (30.0-36.0); Mean Corpuscular Hemoglobin 30.4 pg (28.0-34.0); Mean Corpuscular Volume 96.5 fl (81-99); Mean Platelet Volume 11.7 fL (7.4-10.4); Monocytes # 0.8 10^3/uL (0.2-0.9); Neutrophils % 75.2 %; Nucleated Red Blood Cells % 0 %; Platelet Count 185 10^3/cmm (130-400); Red Cell Distribution Width 13.4 % (12.1-15.1)
[2022-09-16 13:09] LABS: Alanine Aminotransferase 23 U/L (0-33); Albumin Level 3.9 g/dL (3.5-5.2); Alkaline Phosphatase 65 U/L (35-105); Anion Gap 14.6 (5-19); Aspartate Amino Transferase 20 U/L (0-32); Blood Urea Nitrogen 32 mg/dL (8-23); Calcium 9.3 mg/dL (8.5-10.5); Carbon Dioxide 28 mmol/L (22-29); Chloride 103 mmol/L (98-107); Globulin 2.8 g/dL (1.3-4.6); Glucose 118 mg/dL (65-115); Immunoglobulin IGG 526 mg/dL (700-1600); Immunoglobulin IGM 39 mg/dL (40-230); Osmolality Calculated 300 mOsm/kg (285-295); Potassium 4.6 mmol/L (3.5-5.1); Sodium 141 mmol/L (136-145); Total Bilirubin 0.4 mg/dL (0.15-1.2); Total Protein 6.7 g/dL (6.6-8.7)
[2022-09-16 13:27] LABS: Immunoglobulin IGA 38 mg/dL (70-400)
[2022-09-16] MEDS: diphenhydrAMINE 25 mg Capsule 50 MG PO (14:48)
[2022-09-16] MEDS: acetaminophen 325 mg Tablet 650 MG PO (14:48)
[2022-09-16] MEDS: ondansetron 4 MG Tablet 8 MG PO (14:48)
[2022-09-16] MEDS: daratumumab-hyaluronidase-fihj 1,800 mg/15 mL SDV 1800 MG SUBCUT (15:03)
[2022-09-17 12:40] LABS: KAPPA LIGHT CHAIN, FREE, SERUM 12.8 mg/L (3.3-19.4); KAPPA/LAMBDA LIGHT CHAINS FREE 1.49 (0.26-1.65); LAMBDA LIGHT CHAIN, FREE, SERU 8.6 mg/L (5.7-26.3)
[2022-09-17 13:09] LABS: PROTEIN, TOTAL 6.2 g/dL (6.1-8.1)
[2022-09-17 15:48] LABS: ABNORMAL PROTEIN BAND 1 0.2 g/dL (NONE DETECTED); ALBUMIN 3.7 g/dL (3.8-4.8); ALPHA 1 GLOBULIN 0.4 g/dL (0.2-0.3); BETA 1 GLOBULIN 0.4 g/dL (0.4-0.6); BETA 2 GLOBULIN 0.2 g/dL (0.2-0.5); GAMMA GLOBULIN 0.5 g/dL (0.8-1.7)
== END 2022-10-09 23:59 | disposition home or self-care (01) ==
PROVIDERS: Nurse Practitioner Family; PCP Family Medicine; Visit Provider Internal Medicine Medical Oncology
DX: Z51.12 Encounter for antineoplastic immunotherapy (principal); C90.02 Multiple myeloma in relapse; E83.52 Hypercalcemia; R74.8 Abnormal levels of other serum enzymes; M25.551 Pain in right hip; M89.9 Disorder of bone, unspecified; M54.50 Low back pain, unspecified; G89.29 Other chronic pain; R53.83 Other fatigue; Z79.899 Other long term (current) drug therapy
CPT/HCPCS: 36415; 80053; 82784; 83883; 84155; 84165; 85025; 96401; 99214; J9144; Q0162

== ENCOUNTER → 2022-10-07 12:52 | Outpatient (BNVA) | payer MEDICARE, SELFPAY | PROVIDERS: PCP Family Medicine; Visit Provider Nurse Practitioner Family | DX: I35.0 Nonrheumatic aortic (valve) stenosis (principal); I48.91 Unspecified atrial fibrillation; I11.0 Hypertensive heart disease with heart failure; I50.32 Chronic diastolic (congestive) heart failure | CPT/HCPCS: 99214 ==

== ENCOUNTER 2022-10-14 09:22 | Oncology outpatient (recurring) (ONCR) | payer MEDICARE, SELFPAY ==
[2022-10-14 10:13] LABS: Basophils % 0.2 %; Eosinophils % 0.1 %; Hematocrit 48.6 % (37.0-47.0); Hemoglobin 15.3 g/dL (11.5-15.3); Lymphocytes # 1.1 10^3/uL (0.8-4.8); Lymphocytes % 13.6 %; Mean Corpuscular HGB Conc 31.5 g/dL (30.0-36.0); Mean Corpuscular Hemoglobin 30.5 pg (28.0-34.0); Mean Corpuscular Volume 96.8 fl (81-99); Mean Platelet Volume 11.7 fL (7.4-10.4); Monocytes # 0.8 10^3/uL (0.2-0.9); Monocytes % 10.1 %; Neutrophils % 75.4 %; Nucleated Red Blood Cells % 0 %; Platelet Count 194 10^3/cmm (130-400); Red Blood Count 5.02 10^6/uL (4.1-5.3); Red Cell Distribution Width 13.7 % (12.1-15.1); White Blood Count 8.1 10^3/uL (4.0-10.0)
[2022-10-14 11:02] LABS: 25 Hydroxy Vitamin D 24 ng/mL (30-100); Alanine Aminotransferase 15 U/L (0-33); Albumin Level 4.1 g/dL (3.5-5.2); Alkaline Phosphatase 61 U/L (35-105); Anion Gap 13.5 (5-19); Aspartate Amino Transferase 14 U/L (0-32); Blood Urea Nitrogen 34 mg/dL (8-23); Calcium 9.2 mg/dL (8.5-10.5); Carbon Dioxide 26 mmol/L (22-29); Chloride 107 mmol/L (98-107); Globulin 2.3 g/dL (1.3-4.6); Glucose 106 mg/dL (65-115); Osmolality Calculated 302 mOsm/kg (285-295); Potassium 4.5 mmol/L (3.5-5.1); Sodium 142 mmol/L (136-145); Thyroid Stimulating Hormone 1.64 uIU/mL (0.27-4.20); Total Bilirubin 0.5 mg/dL (0.15-1.2); Total Protein 6.4 g/dL (6.6-8.7); Vitamin B12 519 pg/mL (232-1245)
[2022-10-14] MEDS: ondansetron 4 MG Tablet 8 MG PO (11:27)
[2022-10-14] MEDS: diphenhydrAMINE 25 mg Capsule 50 MG PO (11:27)
[2022-10-14] MEDS: acetaminophen 325 mg Tablet 650 MG PO (11:28)
[2022-10-14] MEDS: daratumumab-hyaluronidase-fihj 1,800 mg/15 mL SDV 1800 MG SUBCUT (11:56)
[2022-10-14 12:23] LABS: Immunoglobulin IGA 50 mg/dL (70-400); Immunoglobulin IGG 504 mg/dL (700-1600); Immunoglobulin IGM 36 mg/dL (40-230)
[2022-10-15 10:30] LABS: PROTEIN, TOTAL 5.9 g/dL (6.1-8.1)
[2022-10-15 13:14] LABS: KAPPA LIGHT CHAIN, FREE, SERUM 13.7 mg/L (3.3-19.4); KAPPA/LAMBDA LIGHT CHAINS FREE 1.47 (0.26-1.65); LAMBDA LIGHT CHAIN, FREE, SERU 9.3 mg/L (5.7-26.3)
[2022-10-15 15:44] LABS: ABNORMAL PROTEIN BAND 1 0.2 g/dL (NONE DETECTED); ALBUMIN 3.7 g/dL (3.8-4.8); ALPHA 1 GLOBULIN 0.3 g/dL (0.2-0.3); BETA 1 GLOBULIN 0.4 g/dL (0.4-0.6); BETA 2 GLOBULIN 0.2 g/dL (0.2-0.5); GAMMA GLOBULIN 0.4 g/dL (0.8-1.7)
== END 2022-10-22 10:58 | disposition home or self-care (01) ==
PROVIDERS: Nurse Practitioner; PCP Family Medicine; Visit Provider Internal Medicine Medical Oncology
DX: Z51.12 Encounter for antineoplastic immunotherapy (principal); C90.02 Multiple myeloma in relapse; E83.52 Hypercalcemia; R74.8 Abnormal levels of other serum enzymes; M89.9 Disorder of bone, unspecified; M54.50 Low back pain, unspecified; G89.29 Other chronic pain; G47.9 Sleep disorder, unspecified; R53.83 Other fatigue; Z79.899 Other long term (current) drug therapy
CPT/HCPCS: 36415; 80053; 82306; 82607; 82784; 83883; 84155; 84165; 84443; 85025; 86334; 96402; 99214; J9144; Q0162

== ENCOUNTER 2022-10-30 14:56 | Outpatient (CLI) | payer MEDICARE, SELFPAY ==
--- NOTE | 2022-10-30 14:45 | USCV_ITS ---
Alcira Shirley Age: 82 Gender: F : 1940 Exam Date: 10/30/2022 15:43 Ordering Phys: Esme Norris Technologist: RUBEN [place] [facility] [place]: AORTIC STENOSIS BP: 124 / 68 HR: 59 Rhythm: Sinus Technical Quality: Suboptimal MEASUREMENTS (Male / Female) Normal Values 2D ECHO LVOT Diameter 2.0 cm LV Ejection Fraction MOD 2C 58.8 % LV Ejection Fraction 2C AL 60.2 % LA Diameter 4.7 cm LA Width 3.0 cm LA Height 5.1 cm RA Width 3.9 cm RA Height 4.6 cm Aorta at Sinotubular Diameter 2.8 cm M-MODE Aortic Annulus Diameter 2.4 cm LA Ao Ratio MM 1.9 DOPPLER AV Peak Velocity 285.8 cm/s LVOT Peak Velocity 110.0 cm/s AV Area Cont Eq vti 1.4 cm squared AV Area Cont Eq pk 1.3 cm squared MV Peak Velocity 150.0 cm/s MV Area PHT 1.5 cm squared Mitral E to A Ratio 0.7 MV E' Velocity 49.5 cm/s Mitral E to MV E' Ratio 9.6 Mitral E to LV E' Lateral Ratio 8.2 Mitral E to LV E' Septal Ratio 11.4 TR Peak Velocity 254.2 cm/s TR Peak Gradient 25.8 mmHg TR Mean Velocity 221.6 cm/s TR Mean Gradient 20.0 mmHg TR Velocity Time Integral 68.3 cm TV Peak E Velocity 65.0 cm/s Right Atrial Pressure 8.0 mmHg Pulmonary Artery Systolic Pressu 33.8 mmHg PV Peak Velocity 214.0 cm/s RV Acceleration Time 0.1 s RV Ejection Time 0.3 s RV AcT/ET 0.4 FINDINGS Left Ventricle The study is suboptimal. The ventricle appears to be normal in size and function.left ventricular ejection fraction is estimated at 60 %. Grade I/IV diastolic dysfunction (abnormal relaxation filling pattern), normal to mildly elevated filling pressures. Right Ventricle Normal right ventricular size and systolic function. Normal right ventricular systolic pressure. Right Atrium The right atrium is normal in size. Left Atrium The left atrium is normal in size. Mitral Valve Structurally normal mitral valve without significant stenosis or prolapse. There is no mitral regurgitation. Aortic Valve Structurally normal trileaflet aortic valve. Mild aortic valve calcification. Moderate aortic valve stenosis, mean gradient 19.3 mmHg, TENZIN 1.4 cm squared. No aortic valve regurgitation. Tricuspid Valve Structurally normal tricuspid valve. Trace tricuspid valve regurgitation. Pulmonic Valve Pulmonic valve not well visualized. Pericardium Normal pericardium without effusion. Aorta Normal ascending aorta dimension. IVC The inferior vena cava appears normal. CONCLUSIONS The study is suboptimal. The ventricle appears to be normal in size and function.left ventricular ejection fraction is estimated at 60 %. Grade I/IV diastolic dysfunction (abnormal relaxation filling pattern), normal to mildly elevated filling pressures. Structurally normal trileaflet aortic valve. Mild aortic valve calcification. Moderate aortic valve stenosis, mean gradient 19.3 mmHg, TENZIN 1.4 cm squared. No aortic valve regurgitation. The previous study was performed a year ago. The aortic stenosis does not appear to be severe as noted on last year's study. The gradient is 19 mmHg today. Previously it was measured at 34 mmHg. The valve area is also higher on today's study. Clinical correlation is recommended Dr. Marvin Harvey MD (Electronically Signed) Final Date: 31 October 2022 09:58 S
== END 2022-10-30 14:57 | disposition home or self-care (01) ==
LOC: RAD 15:00
PROVIDERS: PCP Family Medicine; Visit Provider Nurse Practitioner Family
DX: I35.0 Nonrheumatic aortic (valve) stenosis (principal)
CPT/HCPCS: 93306

== ENCOUNTER 2022-12-09 10:00 | Oncology outpatient (recurring) (ONCR) | payer MEDICARE, SELFPAY ==
[2022-11-11 10:04] LABS: Basophils % 0.4 %; Eosinophils % 0.3 %; Hematocrit 49.8 % (37.0-47.0); Hemoglobin 15.8 g/dL (11.5-15.3); Lymphocytes # 1.3 10^3/uL (0.8-4.8); Lymphocytes % 12.6 %; Mean Corpuscular HGB Conc 31.7 g/dL (30.0-36.0); Mean Corpuscular Hemoglobin 31.2 pg (28.0-34.0); Mean Corpuscular Volume 98.4 fl (81-99); Mean Platelet Volume 11.6 fL (7.4-10.4); Monocytes # 1.3 10^3/uL (0.2-0.9); Monocytes % 11.8 %; Neutrophils # 7.86 10^3/uL (1.8-7.7); Neutrophils % 74.4 %; Nucleated Red Blood Cells % 0 %; Platelet Count 178 10^3/cmm (130-400); Red Blood Count 5.06 10^6/uL (4.1-5.3); Red Cell Distribution Width 13.8 % (12.1-15.1); White Blood Count 10.6 10^3/uL (4.0-10.0)
[2022-11-11 10:29] LABS: Alanine Aminotransferase 19 U/L (0-33); Albumin Level 4.2 g/dL (3.5-5.2); Alkaline Phosphatase 68 U/L (35-105); Anion Gap 15.3 (5-19); Aspartate Amino Transferase 19 U/L (0-32); Blood Urea Nitrogen 37 mg/dL (8-23); Calcium 9.6 mg/dL (8.5-10.5); Carbon Dioxide 28 mmol/L (22-29); Chloride 102 mmol/L (98-107); Globulin 2.5 g/dL (1.3-4.6); Glucose 79 mg/dL (65-115); Immunoglobulin IGA 50 mg/dL (70-400); Immunoglobulin IGG 528 mg/dL (700-1600); Immunoglobulin IGM 43 mg/dL (40-230); Osmolality Calculated 300 mOsm/kg (285-295); Potassium 4.3 mmol/L (3.5-5.1); Sodium 141 mmol/L (136-145); Total Bilirubin 0.4 mg/dL (0.15-1.2); Total Protein 6.7 g/dL (6.6-8.7)
[2022-11-11] MEDS: ondansetron 4 MG Tablet 8 MG PO (12:07)
[2022-11-11] MEDS: diphenhydrAMINE 25 mg Capsule 50 MG PO (12:08)
[2022-11-11] MEDS: acetaminophen 325 mg Tablet 650 MG PO (12:08)
[2022-11-11] MEDS: daratumumab-hyaluronidase-fihj 1,800 mg/15 mL SDV 1800 MG SUBCUT (12:27)
[2022-11-12 11:34] LABS: PROTEIN, TOTAL 6.3 g/dL (6.1-8.1)
[2022-11-12 12:50] LABS: ABNORMAL PROTEIN BAND 1 0.2 g/dL (NONE DETECTED); ALBUMIN 3.8 g/dL (3.8-4.8); ALPHA 1 GLOBULIN 0.4 g/dL (0.2-0.3); BETA 1 GLOBULIN 0.4 g/dL (0.4-0.6); BETA 2 GLOBULIN 0.3 g/dL (0.2-0.5); GAMMA GLOBULIN 0.5 g/dL (0.8-1.7)
[2022-11-12 14:39] LABS: KAPPA LIGHT CHAIN, FREE, SERUM 14.7 mg/L (3.3-19.4); KAPPA/LAMBDA LIGHT CHAINS FREE 1.43 (0.26-1.65); LAMBDA LIGHT CHAIN, FREE, SERU 10.3 mg/L (5.7-26.3)
[2022-12-09 09:38] VITALS: BP 159/81; PULSE 65; RESP 18; TEMP 36.4; O2SAT 95
[2022-12-09] MEDS: diphenhydrAMINE 25 mg Capsule 50 MG PO (09:49)
[2022-12-09] MEDS: acetaminophen 325 mg Tablet 650 MG PO (09:50)
[2022-12-09] MEDS: ondansetron 4 MG Tablet 8 MG PO (09:50)
[2022-12-09] MEDS: daratumumab-hyaluronidase-fihj 1,800 mg/15 mL SDV 1800 MG SUBCUT (10:16)
[2022-12-09 10:25] VITALS: BP 142/78; PULSE 65; RESP 18; TEMP 36.6; O2SAT 95
[2022-12-09 10:29] VITALS: BP 134/78; PULSE 65; RESP 18; TEMP 36.6; O2SAT 97
== END 2022-12-09 23:59 | disposition home or self-care (01) ==
PROVIDERS: PCP Family Medicine; Visit Provider Internal Medicine Medical Oncology
DX: Z51.12 Encounter for antineoplastic immunotherapy (principal); C90.02 Multiple myeloma in relapse; Z79.899 Other long term (current) drug therapy
CPT/HCPCS: 36415; 80053; 82784; 83883; 84155; 84165; 85025; 96402; 99214; J9144; Q0162

== ENCOUNTER 2023-01-06 09:58 | Oncology outpatient (recurring) (ONCR) | payer MEDICARE, SELFPAY ==
[2023-01-06 10:16] VITALS: BP 151/87; PULSE 72; RESP 18; TEMP 36.6; O2SAT 97
[2023-01-06 10:20] VITALS: BP 124/79; PULSE 64; RESP 18; TEMP 36.6; O2SAT 98
[2023-01-06 11:29] LABS: Basophils % 0.2 %; Eosinophils % 0.2 %; Lymphocytes # 1.1 10^3/uL (0.8-4.8); Mean Corpuscular Hemoglobin 31.7 pg (28.0-34.0); Mean Platelet Volume 11.5 fL (7.4-10.4); Monocytes % 11.1 %; Neutrophils # 6.66 10^3/uL (1.8-7.7); Neutrophils % 75.9 %; Nucleated Red Blood Cells % 0 %; Platelet Count 194 10^3/cmm (130-400); Red Blood Count 5.05 10^6/uL (4.1-5.3); Red Cell Distribution Width 13.6 % (12.1-15.1); White Blood Count 8.8 10^3/uL (4.0-10.0)
[2023-01-06 11:58] LABS: Add Urine Microscopic? NO; Charge for UA Resulting for Rev
[2023-01-06 12:00] LABS: Alanine Aminotransferase 19 U/L (0-33); Albumin Level 4.3 g/dL (3.5-5.2); Alkaline Phosphatase 66 U/L (35-105); Anion Gap 13.1 (5-19); Aspartate Amino Transferase 15 U/L (0-32); Blood Urea Nitrogen 28 mg/dL (8-23); Calcium 9.3 mg/dL (8.5-10.5); Carbon Dioxide 30 mmol/L (22-29); Chloride 101 mmol/L (98-107); Globulin 2.4 g/dL (1.3-4.6); Glucose 104 mg/dL (65-115); Magnesium 2.3 mg/dL (1.7-2.3); Osmolality Calculated 296 mOsm/kg (285-295); Potassium 4.1 mmol/L (3.5-5.1); Sodium 140 mmol/L (136-145); Thyroid Stimulating Hormone 0.93 uIU/mL (0.27-4.20); Total Bilirubin 0.5 mg/dL (0.15-1.2); Total Protein 6.7 g/dL (6.6-8.7)
[2023-01-06 12:07] LABS: Bilirubin Urine Neg (Negative); Blood Urine Neg (Negative); Glucose Urine UA Norm (Normal); Ketones Urine Negative (Negative); Leukocyte Esterase Urine Negative (Negative); Nitrate Urine Negative (Negative); Protein Urine Neg (Negative); Specific Gravity, Urine 1.015 (1.005-1.030); Urine Appearance Clear (CLEAR); Urine Color Light yellow (Yellow); Urobilinogen Urine Norm (Negative); pH Urine 7 (5-7)
[2023-01-06 12:15] VITALS: BP 151/87; PULSE 72; RESP 18; TEMP 36.6; O2SAT 98
[2023-01-06 12:24] LABS: Erythrocyte Sedimentation Rate 5 mm/hr (0-15)
--- NOTE | 2023-01-06 16:53 | PC.NURSE ---
Patient here for the injection but the daughter states she is not sleeping well,nauseated and confused. Dr Resendez notified with new orders for labs and no treatment today.mm
[2023-01-07 11:30] LABS: KAPPA LIGHT CHAIN, FREE, SERUM 14.1 mg/L (3.3-19.4); KAPPA/LAMBDA LIGHT CHAINS FREE 1.41 (0.26-1.65)
== END 2023-01-08 23:59 | disposition home or self-care (01) ==
LOC: ONCMED 09:59
PROVIDERS: PCP Family Medicine; Visit Provider Internal Medicine Medical Oncology
DX: C90.02 Multiple myeloma in relapse; E83.52 Hypercalcemia; R74.8 Abnormal levels of other serum enzymes; R53.1 Weakness; R53.83 Other fatigue; F44.89 Other dissociative and conversion disorders; E86.0 Dehydration; Z79.899 Other long term (current) drug therapy
CPT/HCPCS: 36415; 80053; 81003; 83735; 83883; 84155; 84165; 84443; 85025; 85651; 86140; 99214

== ENCOUNTER 2023-01-20 09:08 | Outpatient (CLI) | payer MEDICARE, SELFPAY ==
--- NOTE | 2023-01-20 09:30 | USR_ITS ---
PROCEDURE INFORMATION: Exam: US Abdomen; Limited Exam date and time: 01/20/2023 9:25 AM Age: 82 years old Clinical indication: Nausea; Additional info: Nausea, follow up TECHNIQUE: Imaging protocol: Real time ultrasound of the abdomen with image documentation. Limited exam focused on the region of clinical interest. COMPARISON: US gall bladder [id number] 01/11/2022 1:26 AM FINDINGS: Liver: Normal size, contour and echotexture of the liver. No masses. The liver measures up to 12.8 cm. Gallbladder: Shadowing in the region of the gallbladder likely reflects gallstones. There may be mild mural thickening without pericholecystic fluid. No sonographic Galvez's sign was reported. Biliary ducts: The common bile duct measures up to 8 mm, similar to prior. Pancreas: Limited visualization of the pancreas. Visualized portions appear unremarkable. Right kidney: The right kidney measures up to 9.2 cm in length. No hydronephrosis. Right renal cyst measures up to 2.8 cm. Portal venous: Patent main portal vein with antegrade flow. US/US gall bladder [id number] IMPRESSION: Shadowing in the region of the gallbladder likely reflects gallstones. No specific evidence of cholecystitis, though HIDA scan would be more specific.
== END 2023-01-20 09:09 | disposition home or self-care (01) ==
PROVIDERS: PCP Family Medicine; Visit Provider Internal Medicine Medical Oncology
DX: K82.8 Other specified diseases of gallbladder (principal); R11.0 Nausea
CPT/HCPCS: 76705

== ENCOUNTER 2023-01-29 07:30 | Outpatient (CLI) | payer MEDICARE, SELFPAY ==
--- NOTE | 2023-01-29 08:00 | NM_ITS ---
WS: [email or web address] NUCLEAR MEDICINE HIDA SCAN CLINICAL INFORMATION: nausea TECHNIQUE: Following intravenous administration of 8 mCi of technetium 99m mebrofenin, images of the abdomen were obtained over the course of 60 minutes. Next, gallbladder ejection fraction was determin ed by obtaining preprandial and one-hour postprandial images of the gallbladder following oral ingest ion of Ensure. COMPARISON: Ultrasound January 20, 2023 FINDINGS: Previous ultrasound January 20, 2023 demonstrated dense gallbladder shadowing likely due to ga llbladder calculi. Normal hepatic uptake at 5 minutes. Normal hepatic excretion. Normal common bile duct and small bowel activity. Gallbladder is not visualized at 1 hour. Additional imaging was carried out to 2 hours wit h nonvisualization of the gallbladder. Findings suspicious for cystic duct obstruction and acute chol ecystitis. Recommend correlation with biliary function studies. NM/NM hepatobiliary wo phar [id number] IMPRESSION: 1. Gallbladder is not visualized by 2 hours compatible with cystic duct obstru ction and suspicious for acute cholecystitis. Recommend clinical correlation an d correlation with biliary function studies Notified Beltran Resendez MD at 01/29/2023 10:10 AM.
[2023-01-30 10:00] LABS: CREATININE, 24 HOUR URINE 0.87 g/24 h (0.50-2.15); PROTEIN, TOTAL, 24 HR UR 80 mg/24 h (<150); Protein/Creatinine Ratio 0.092 (<0.150); Protein/Creatinine Ratio 92 mg/g creat (<150)
[2023-02-02 09:39] LABS: ALBUMIN 100 %; ALPHA-1-GLOBULINS 0 %; ALPHA-2-GLOBULINS 0 %; BETA GLOBULINS 0 %; GAMMA GLOBULINS 0 %
== END 2023-01-29 07:31 | disposition home or self-care (01) ==
PROVIDERS: PCP Family Medicine; Visit Provider Internal Medicine Medical Oncology
DX: C90.00 Multiple myeloma not having achieved remission (principal)
CPT/HCPCS: 78226; 84156; 84166; A9537

== ENCOUNTER 2023-02-03 10:36 | Oncology outpatient (recurring) (ONCR) | payer MEDICARE, SELFPAY ==
[2023-01-27 09:05] VITALS: BP 132/73; PULSE 68; RESP 18; TEMP 36.6; O2SAT 96
[2023-01-27 09:21] LABS: Basophils % 0.3 %; Eosinophils % 0.2 %; Hematocrit 49.9 % (37.0-47.0); Hemoglobin 15.9 g/dL (11.5-15.3); Lymphocytes # 1.3 10^3/uL (0.8-4.8); Lymphocytes % 13.5 %; Mean Corpuscular HGB Conc 31.9 g/dL (30.0-36.0); Mean Corpuscular Hemoglobin 31.2 pg (28.0-34.0); Mean Corpuscular Volume 97.8 fl (81-99); Mean Platelet Volume 11.2 fL (7.4-10.4); Monocytes % 10.8 %; Neutrophils # 6.93 10^3/uL (1.8-7.7); Neutrophils % 74.6 %; Nucleated Red Blood Cells % 0 %; Platelet Count 193 10^3/cmm (130-400); Red Cell Distribution Width 13.6 % (12.1-15.1); White Blood Count 9.3 10^3/uL (4.0-10.0)
[2023-01-27 09:44] LABS: Alanine Aminotransferase 20 U/L (0-33); Alkaline Phosphatase 66 U/L (35-105); Anion Gap 13.4 (5-19); Aspartate Amino Transferase 18 U/L (0-32); Blood Urea Nitrogen 31 mg/dL (8-23); Calcium 9.3 mg/dL (8.5-10.5); Carbon Dioxide 27 mmol/L (22-29); Chloride 103 mmol/L (98-107); Globulin 2.3 g/dL (1.3-4.6); Glucose 110 mg/dL (65-115); Immunoglobulin IGG 447 mg/dL (700-1600); Immunoglobulin IGM 42 mg/dL (40-230); Osmolality Calculated 295 mOsm/kg (285-295); Potassium 4.4 mmol/L (3.5-5.1); Sodium 139 mmol/L (136-145); Total Bilirubin 0.5 mg/dL (0.15-1.2); Total Protein 6.3 g/dL (6.6-8.7)
[2023-01-27 10:04] LABS: Immunoglobulin IGA 36 mg/dL (70-400)
[2023-01-28 07:39] LABS: PROTEIN, TOTAL 6.2 g/dL (6.1-8.1)
[2023-01-28 11:29] LABS: KAPPA LIGHT CHAIN, FREE, SERUM 12.7 mg/L (3.3-19.4); KAPPA/LAMBDA LIGHT CHAINS FREE 1.59 (0.26-1.65)
[2023-01-28 15:10] LABS: ABNORMAL PROTEIN BAND 1 0.1 g/dL (NONE DETECTED); ALBUMIN 3.8 g/dL (3.8-4.8); ALPHA 1 GLOBULIN 0.3 g/dL (0.2-0.3); BETA 1 GLOBULIN 0.4 g/dL (0.4-0.6); BETA 2 GLOBULIN 0.2 g/dL (0.2-0.5); GAMMA GLOBULIN 0.4 g/dL (0.8-1.7)
== END 2023-02-08 23:59 | disposition home or self-care (01) ==
PROVIDERS: PCP Family Medicine; Visit Provider Internal Medicine Medical Oncology
DX: C90.02 Multiple myeloma in relapse (principal); Z51.12 Encounter for antineoplastic immunotherapy; Z79.899 Other long term (current) drug therapy; Z92.21 Personal history of antineoplastic chemotherapy
CPT/HCPCS: 36415; 80053; 82784; 83883; 84155; 84165; 85025; 99213

== ENCOUNTER 2023-04-01 07:25 | Outpatient (CLI) | payer MEDICARE, SELFPAY ==
--- NOTE | 2023-04-01 07:36 | US_ITS ---
WS: [id number] ULTRASOUND ABDOMEN LIMITED CLINICAL INFORMATION: CHOLECYSTITIS COMPARISON: Ultrasound 01/20/2023 FINDINGS: Technically limited study. Patient could not lay supine. Liver Size: Normal. Craniocaudal length: 13.4 cm. Echogenicity: Coarse surface nodularity: None. Mass (size and location): None. Bile ducts Intrahepatic ducts: Normal. Common bile duct diameter: 0.3 cm. Gallbladder Cholelithiasis Gallstones: Present Gallbladder sludge: None. Gallbladder wall thickening: None. Pericholecystic fluid: None. Sonographic Galvez sign: Absent. Pancreas Normal as visualized. Right kidney: Normal. Hydronephrosis: None. Size: 9.5 cm x 4.8 cm x 4.2 cm. Abdominal aorta and IVC Visualized portions are normal. Ascites: None. IMPRESSION:Technically limited study. Patient could not lay supine. 1. Contracted gallbladder with cholelithiasis. 2. Coarse heterogeneous liver echotexture likely due to fatty infiltration. 3. No hydronephrosis in the RIGHT kidney. 4. Normal common bile duct today. Interval placement of reported common bile duct stents. 5. No intrahepatic biliary ductal dilatation.
== END 2023-04-01 07:26 | disposition home or self-care (01) ==
PROVIDERS: PCP Family Medicine; Visit Provider Internal Medicine Gastroenterology
DX: K80.11 Calculus of gallbladder with chronic cholecystitis with obstruction (principal)
CPT/HCPCS: 76705

== ENCOUNTER 2023-04-01 08:33 | Outpatient (CLI) | payer MEDICARE, SELFPAY ==
[2023-04-01 09:18] LABS: Basophils % 0.4 %; Eosinophils # 0.1 10^3/uL (0.0-0.8); Eosinophils % 0.9 %; Hematocrit 44.3 % (36-47); Lymphocytes # 1.3 10^3/uL (0.8-4.8); Lymphocytes % 11.9 %; Mean Corpuscular HGB Conc 31.8 g/dL (30-55); Mean Corpuscular Hemoglobin 31.3 pg (27-33); Mean Corpuscular Volume 98.4 fl (85-98); Mean Platelet Volume 10.9 fL (7.4-10.4); Monocytes # 1.1 10^3/uL (0.2-0.9); Monocytes % 9.9 %; Neutrophils # 8.36 10^3/uL (1.8-7.7); Nucleated Red Blood Cells % 0 %; Platelet Count 256 10^3/cmm (157-399); Red Cell Distribution Width 14.6 % (12.1-15.1)
[2023-04-01 09:44] LABS: Alanine Aminotransferase 52 U/L (0-33); Albumin Level 3.9 g/dL (3.5-5.2); Alkaline Phosphatase 106 U/L (35-105); Anion Gap 13.6 (5-19); Aspartate Amino Transferase 32 U/L (0-32); Blood Urea Nitrogen 34 mg/dL (8-23); Calcium 9.4 mg/dL (8.5-10.5); Carbon Dioxide 29 mmol/L (22-29); Chloride 104 mmol/L (98-107); Globulin 2.7 g/dL (1.3-4.6); Glucose 119 mg/dL (65-115); Osmolality Calculated 303 mOsm/kg (285-295); Potassium 4.6 mmol/L (3.5-5.1); Sodium 142 mmol/L (136-145); Total Bilirubin 0.7 mg/dL (0.15-1.2); Total Protein 6.6 g/dL (6.6-8.7)
== END 2023-04-01 08:34 | disposition home or self-care (01) ==
PROVIDERS: PCP Family Medicine; Visit Provider Internal Medicine Gastroenterology
DX: K81.9 Cholecystitis, unspecified (principal); K80.11 Calculus of gallbladder with chronic cholecystitis with obstruction
CPT/HCPCS: 36415; 76705; 80053; 85025

== ENCOUNTER → 2023-04-09 09:44 | Outpatient (BNVA) | payer MEDICARE, SELFPAY | PROVIDERS: PCP Family Medicine; Visit Provider Internal Medicine Cardiovascular Disease | DX: I35.0 Nonrheumatic aortic (valve) stenosis (principal); I48.91 Unspecified atrial fibrillation; I11.0 Hypertensive heart disease with heart failure; I50.32 Chronic diastolic (congestive) heart failure; Z99.81 Dependence on supplemental oxygen | CPT/HCPCS: 99214 ==

== ENCOUNTER 2023-04-14 06:45 | Outpatient (CLI) | payer MEDICARE, SELFPAY ==
--- NOTE | 2023-04-14 07:00 | CT_ITS ---
WS: [email or web address] CT ABDOMEN PELVIS TECHNIQUE: Noncontrast CT of the abdomen and contrast-enhanced CT of the abdomen and pelvis with patrick nal and sagittal reformatted images. CLINICAL INFORMATION: CHRONIC CHOLECYSTITIS WITH PERFORATION S/P CHOLECYSTODUODENO COMPARISON: CT abdomen pelvis 2018. DLP: 1373.[address] scans at [facility] use at least one of these dose optimization techniques: automated e xposure control; mA and/or kV adjustment per patient size (includes targeted exams where dose is matc hed to clinical indication); or iterative reconstruction. FINDINGS: Recent postoperative changes cholecystoduodenostomy with drain placement. Drainage catheter extending from the proximal duodenum into the adjacent gallbladder. Mild fluid distention of the gallbladder w ith air-fluid level. No gallbladder wall thickening or pericholecystic fluid. Distal catheter extends into the duodenal C-loop. No evidence of drainable abscess or fluid collection. Pneumobilia. Inciden meri hepatic cysts. Partially visualized coronary calcification. Subsegmental atelectasis in the lung bases. Common bile duct in the pancreatic head measures 8 mm. Normal portal vein and splenic vein. Fatty atrophy of the pancreas. Bilateral adrenal adenomas. Celiac and SMA are patent. Tiny esophageal renal hernia. Normal spleen. Bilateral renal cortical atrophy. No hydronephrosis. RIGHT renal cyst measuring 2.5 cm. No evidence of high-grade small or large bowel obstruction. Tiny fat-containing umbilical hernia. Mul tiple chronic appearing compression deformities in the lumbar spine. Slight anterolisthesis L4 on L5. Vacuum disc phenomenon throughout the lumbar spine. Osteopenia. IMPRESSION: 1. Recent postoperative changes cholecystoduodenostomy with drainage catheter extending from the fir st portion of the duodenum into the gallbladder. Distal catheter within the duodenal C-loop. 2. Mild fluid distention of the gallbladder with air-fluid levels. No gallbladder wall thickening or pericholecystic fluid. 3. Normal common bile duct measures 8 mm. 4. Incidental pneumobilia. 5. No evidence of drainable abscess or fluid collection. No free air. 6. Additional chronic incidental findings described above.
[2023-04-14] MEDS: iohexol 350 mg/mL 500 mL Btl (per mL) PO (07:56)
[2023-04-14 08:07] LABS: Blood Urea Nitrogen 18 mg/dL (8-23)
[2023-04-14] MEDS: iohexol 350 mg/mL 500 mL Btl (per mL) IV (08:24)
== END 2023-04-14 06:46 | disposition home or self-care (01) ==
PROVIDERS: Radiology Diagnostic Radiology; PCP Family Medicine; Visit Provider Internal Medicine Gastroenterology
DX: N30.20 Other chronic cystitis without hematuria (principal); Z90.49 Acquired absence of other specified parts of digestive tract
CPT/HCPCS: 74178; 82565; 84520; Q9967

== ENCOUNTER 2023-04-21 15:14 | Oncology outpatient (recurring) (ONCR) | payer MEDICARE, SELFPAY ==
[2023-04-21 16:47] LABS: Basophils % 0.3 %; Eosinophils # 0.1 10^3/uL (0.0-0.8); Hematocrit 44.3 % (36-47); Lymphocytes # 1.5 10^3/uL (0.8-4.8); Lymphocytes % 16.9 %; Mean Corpuscular HGB Conc 32.1 g/dL (30-55); Mean Corpuscular Hemoglobin 30.9 pg (27-33); Mean Corpuscular Volume 96.3 fl (85-98); Mean Platelet Volume 10.9 fL (7.4-10.4); Monocytes % 11.1 %; Neutrophils # 6.02 10^3/uL (1.8-7.7); Neutrophils % 69.5 %; Nucleated Red Blood Cells % 0 %; Platelet Count 252 10^3/cmm (157-399); Red Cell Distribution Width 14.2 % (12.1-15.1); White Blood Count 8.66 10^3/uL (3.29-11.43)
[2023-04-21 17:15] LABS: Alanine Aminotransferase 32 U/L (0-33); Albumin Level 3.6 g/dL (3.5-5.2); Alkaline Phosphatase 80 U/L (35-105); Aspartate Amino Transferase 26 U/L (0-32); Blood Urea Nitrogen 24 mg/dL (8-23); Calcium 8.9 mg/dL (8.5-10.5); Carbon Dioxide 28 mmol/L (22-29); Chloride 102 mmol/L (98-107); Globulin 2.7 g/dL (1.3-4.6); Glucose 121 mg/dL (65-115); Immunoglobulin IGA 83 mg/dL (70-400); Immunoglobulin IGG 681 mg/dL (700-1600); Immunoglobulin IGM 92 mg/dL (40-230); Osmolality Calculated 291 mOsm/kg (285-295); Sodium 138 mmol/L (136-145); Total Bilirubin 0.3 mg/dL (0.15-1.2); Total Protein 6.3 g/dL (6.6-8.7)
[2023-04-23 11:25] LABS: KAPPA LIGHT CHAIN, FREE, SERUM 23.3 mg/L (3.3-19.4); KAPPA/LAMBDA LIGHT CHAINS FREE 1.28 (0.26-1.65); LAMBDA LIGHT CHAIN, FREE, SERU 18.2 mg/L (5.7-26.3)
[2023-04-23 16:00] LABS: ABNORMAL PROTEIN BAND 1 0.1 g/dL (NONE DETECTED); ALBUMIN 3.3 g/dL (3.8-4.8); ALPHA 1 GLOBULIN 0.4 g/dL (0.2-0.3); BETA 1 GLOBULIN 0.4 g/dL (0.4-0.6); BETA 2 GLOBULIN 0.3 g/dL (0.2-0.5); GAMMA GLOBULIN 0.6 g/dL (0.8-1.7)
== END 2023-05-11 23:59 | disposition home or self-care (01) ==
PROVIDERS: PCP Family Medicine; Visit Provider Internal Medicine Medical Oncology
DX: C90.02 Multiple myeloma in relapse (principal); R11.0 Nausea
CPT/HCPCS: 36415; 80053; 82784; 83883; 84155; 84165; 85025; 86334; 99214

== ENCOUNTER → 2023-06-14 12:53 | Outpatient (BNVA) | payer MEDICARE, SELFPAY | PROVIDERS: PCP Family Medicine; Visit Provider Family Medicine | DX: N39.0 Urinary tract infection, site not specified (principal) | CPT/HCPCS: 81000 ==

== ENCOUNTER 2023-07-28 11:43 | Oncology outpatient (recurring) (ONCR) | payer MEDICARE, SELFPAY ==
[2023-07-28 12:10] VITALS: BP 147/72; PULSE 87; RESP 16; TEMP 36.7; O2SAT 93
[2023-07-28 12:22] LABS: Basophils # 0.1 10^3/uL (0.0-0.1); Basophils % 0.7 %; Eosinophils # 0.1 10^3/uL (0.0-0.8); Eosinophils % 0.9 %; Lymphocytes # 0.9 10^3/uL (0.8-4.8); Lymphocytes % 13.2 %; Mean Corpuscular HGB Conc 30.6 g/dL (30-55); Mean Corpuscular Hemoglobin 28.4 pg (27-33); Mean Corpuscular Volume 92.7 fl (85-98); Monocytes # 0.6 10^3/uL (0.2-0.9); Monocytes % 8.4 %; Neutrophils # 5.25 10^3/uL (1.8-7.7); Neutrophils % 76.4 %; Nucleated Red Blood Cells % 0 %; Platelet Count 232 10^3/cmm (157-399); Red Blood Count 5.07 10^6/uL (3.85-5.65); Red Cell Distribution Width 14.5 % (12.1-15.1); White Blood Count 6.88 10^3/uL (3.29-11.43)
[2023-07-28 12:41] LABS: Alanine Aminotransferase 17 U/L (0-33); Albumin Level 3.9 g/dL (3.5-5.2); Alkaline Phosphatase 74 U/L (35-105); Anion Gap 14.6 (5-19); Aspartate Amino Transferase 19 U/L (0-32); Blood Urea Nitrogen 26 mg/dL (8-23); Calcium 9.8 mg/dL (8.5-10.5); Carbon Dioxide 27 mmol/L (22-29); Chloride 102 mmol/L (98-107); Creatinine Clr Calc Pharmacy 38.6453; Globulin 3.5 g/dL (1.3-4.6); Glucose 130 mg/dL (65-115); Immunoglobulin IGA 183 mg/dL (70-400); Immunoglobulin IGG 995 mg/dL (700-1600); Immunoglobulin IGM 156 mg/dL (40-230); Osmolality Calculated 295 mOsm/kg (285-295); Potassium 4.6 mmol/L (3.5-5.1); Sodium 139 mmol/L (136-145); Total Bilirubin 0.5 mg/dL (0.15-1.2); Total Protein 7.4 g/dL (6.6-8.7)
[2023-07-28] MEDS: diphenhydrAMINE 25 mg Capsule 50 MG PO (14:46)
[2023-07-28] MEDS: acetaminophen 325 mg Tablet 650 MG PO (14:46)
[2023-07-28] MEDS: ondansetron 4 MG Tablet 8 MG PO (14:46)
[2023-07-28] MEDS: daratumumab-hyaluronidase-fihj 1,800 mg/15 mL SDV 1800 MG SUBCUT (15:13)
[2023-07-28 15:23] VITALS: BP 121/74; PULSE 69; RESP 17; TEMP 36.6; O2SAT 97
[2023-07-29 09:56] LABS: KAPPA/LAMBDA LIGHT CHAINS FREE 1.55 (0.26-1.65); LAMBDA LIGHT CHAIN, FREE, SERU 20.6 mg/L (5.7-26.3)
[2023-07-29 12:10] LABS: PROTEIN, TOTAL 6.9 g/dL (6.1-8.1)
[2023-07-30 07:35] LABS: ABNORMAL PROTEIN BAND 1 0.2 g/dL (NONE DETECTED); ALBUMIN 3.7 g/dL (3.8-4.8); ALPHA 1 GLOBULIN 0.3 g/dL (0.2-0.3); ALPHA 2 GLOBULIN 1.1 g/dL (0.5-0.9); BETA 1 GLOBULIN 0.5 g/dL (0.4-0.6); BETA 2 GLOBULIN 0.3 g/dL (0.2-0.5)
== END 2023-07-28 23:59 | disposition home or self-care (01) ==
PROVIDERS: PCP Family Medicine; Visit Provider Internal Medicine Medical Oncology
DX: C90.02 Multiple myeloma in relapse (principal); R11.0 Nausea; Z79.899 Other long term (current) drug therapy; Z51.11 Encounter for antineoplastic chemotherapy
CPT/HCPCS: 36415; 80053; 82784; 83883; 84155; 84165; 85025; 86334; 96374; 96401; 99214; J9144; Q0162

== ENCOUNTER 2023-08-25 09:22 | Oncology outpatient (recurring) (ONCR) | payer MEDICARE, SELFPAY ==
[2023-08-25 09:48] LABS: Basophils % 0.4 %; Eosinophils % 0.2 %; Hematocrit 49.7 % (36-47); Lymphocytes # 1.2 10^3/uL (0.8-4.8); Lymphocytes % 15.2 %; Mean Corpuscular HGB Conc 30.8 g/dL (30-55); Mean Corpuscular Hemoglobin 28.4 pg (27-33); Mean Corpuscular Volume 92.2 fl (85-98); Mean Platelet Volume 11.5 fL (7.4-10.4); Monocytes # 0.8 10^3/uL (0.2-0.9); Monocytes % 9.3 %; Neutrophils # 5.99 10^3/uL (1.8-7.7); Neutrophils % 74.7 %; Nucleated Red Blood Cells % 0 %; Platelet Count 217 10^3/cmm (157-399); Red Blood Count 5.39 10^6/uL (3.85-5.65); Red Cell Distribution Width 14.8 % (12.1-15.1); White Blood Count 8.03 10^3/uL (3.29-11.43)
[2023-08-25 10:07] LABS: Alanine Aminotransferase 20 U/L (0-33); Albumin Level 4.1 g/dL (3.5-5.2); Alkaline Phosphatase 82 U/L (35-105); Anion Gap 16.3 (5-19); Aspartate Amino Transferase 21 U/L (0-32); Blood Urea Nitrogen 26 mg/dL (8-23); Calcium 9.4 mg/dL (8.5-10.5); Carbon Dioxide 25 mmol/L (22-29); Chloride 108 mmol/L (98-107); Globulin 3.2 g/dL (1.3-4.6); Glucose 107 mg/dL (65-115); Immunoglobulin IGA 57 mg/dL (70-400); Immunoglobulin IGG 693 mg/dL (700-1600); Immunoglobulin IGM 91 mg/dL (40-230); Osmolality Calculated 305 mOsm/kg (285-295); Potassium 4.3 mmol/L (3.5-5.1); Sodium 145 mmol/L (136-145); Total Bilirubin 0.5 mg/dL (0.15-1.2); Total Protein 7.3 g/dL (6.6-8.7)
[2023-08-25] MEDS: ondansetron 4 MG Tablet 8 MG PO (11:34)
[2023-08-25] MEDS: acetaminophen 325 mg Tablet 650 MG PO (11:34)
[2023-08-25] MEDS: diphenhydrAMINE 25 mg Capsule 50 MG PO (11:35)
[2023-08-25] MEDS: daratumumab-hyaluronidase-fihj 1,800 mg/15 mL SDV 1800 MG SUBCUT (11:41)
[2023-08-25 11:52] VITALS: BP 141/78; PULSE 55; RESP 16; TEMP 36.8; O2SAT 93
[2023-08-26 11:35] LABS: PROTEIN, TOTAL 6.3 g/dL (6.1-8.1)
[2023-08-26 15:23] LABS: KAPPA/LAMBDA LIGHT CHAINS FREE 1.43 (0.26-1.65); LAMBDA LIGHT CHAIN, FREE, SERU 9.1 mg/L (5.7-26.3)
[2023-08-27 08:48] LABS: ABNORMAL PROTEIN BAND 1 0.1 g/dL (NONE DETECTED); ALBUMIN 3.7 g/dL (3.8-4.8); ALPHA 1 GLOBULIN 0.3 g/dL (0.2-0.3); BETA 1 GLOBULIN 0.4 g/dL (0.4-0.6); BETA 2 GLOBULIN 0.3 g/dL (0.2-0.5); GAMMA GLOBULIN 0.6 g/dL (0.8-1.7)
== END 2023-09-09 23:59 | disposition home or self-care (01) ==
PROVIDERS: PCP Family Medicine; Visit Provider Internal Medicine Medical Oncology
DX: C90.02 Multiple myeloma in relapse; Z79.899 Other long term (current) drug therapy; Z51.12 Encounter for antineoplastic immunotherapy
CPT/HCPCS: 36415; 80053; 82784; 83883; 84155; 84165; 85025; 86334; 96401; 99214; J9144; Q0162

== ENCOUNTER 2023-08-30 12:53 | Outpatient (CLI) | payer MEDICARE, SELFPAY ==
--- NOTE | 2023-08-30 13:00 | CT_ITS ---
WS: [email or web address] CT HEAD TECHNIQUE: Noncontrast and contrast-enhanced CT of the head. CLINICAL INFORMATION: headache, dizziness, multiple myeloma COMPARISON: None. DLP: 2176.[address] scans at [facility] use at least one of these dose optimization techniques: automated e xposure control; mA and/or kV adjustment per patient size (includes targeted exams where dose is matc hed to clinical indication); or iterative reconstruction. FINDINGS: No evidence intracranial hemorrhage or mass effect. Ventricular system and basal cisterns are patent. Mild small vessel changes. Moderate parenchymal volume loss. Intracranial vascular calcification. No abnormal intracranial enhancement. No enhancing intracranial lesions. Mucosal thickening in the LE FT posterior ethmoid air cells. Mastoid air cells are well aerated. Cavernous carotid calcification. Innumerable tiny lytic lesions throughout the calvarium compatible with history of multiple myeloma. IMPRESSION: 1. No evidence intracranial hemorrhage or mass effect. 2. Mild small vessel changes with moderate parenchymal volume loss. 3. Innumerable tiny lytic lesions in the calvarium compatible with history of multiple myeloma. This is similar in appearance to 2019 4. No abnormal enhancing intraparenchymal lesions.
[2023-08-30] MEDS: iohexol 350 mg/mL 500 mL Btl (per mL) IV (13:29)
== END 2023-08-30 12:54 | disposition home or self-care (01) ==
LOC: RAD 12:54
PROVIDERS: PCP Family Medicine; Visit Provider Internal Medicine Medical Oncology
DX: R42 Dizziness and giddiness (principal); C90.02 Multiple myeloma in relapse; R51.9 Headache, unspecified; I67.89 Other cerebrovascular disease
CPT/HCPCS: 70470; Q9967

== ENCOUNTER 2023-09-22 14:22 | Oncology outpatient (recurring) (ONCR) | payer MEDICARE, SELFPAY ==
[2023-09-22] MEDS: diphenhydrAMINE 25 mg Capsule 50 MG PO (15:14)
[2023-09-22] MEDS: acetaminophen 325 mg Tablet 650 MG PO (15:15)
[2023-09-22] MEDS: ondansetron 4 MG Tablet 8 MG PO (15:16)
[2023-09-22] MEDS: daratumumab-hyaluronidase-fihj 1,800 mg/15 mL SDV 1800 MG SUBCUT (15:40)
[2023-09-22 15:52] VITALS: BP 142/66; PULSE 64; TEMP 36.2; O2SAT 99
== END 2023-10-10 23:59 | disposition home or self-care (01) ==
PROVIDERS: PCP Family Medicine; Visit Provider Internal Medicine Medical Oncology
DX: Z51.11 Encounter for antineoplastic chemotherapy; C90.00 Multiple myeloma not having achieved remission
CPT/HCPCS: 96401; J9144; Q0162

== ENCOUNTER 2023-09-28 10:39 | Outpatient (CLI) | payer MEDICARE, SELFPAY ==
--- NOTE | 2023-09-28 10:53 | MM_ITS ---
WS: [id number] Bilateral screening 3D tomosynthesis digital mammogram, 09/28/2023 Clinical Data: SCREENING Comparison: 08/17/2022, 11/12/2020, 09/20/2019, 06/23/2018, 04/12/2017, 03/23/2016, 03/11/2015, 02/09/2014, 02/09, 12/04/2020, 10/23/2009, 10/16/1999 , 10/13/2007, 11/29/2006. Findings: The breast parenchymal pattern shows fibroglandular tissue. No spiculated masses or clustered calcifi cations are seen. There are small vascular calcifications in both breasts. There are no secondary sig ns of carcinoma. There is a nodule in the medial left breast unchanged. Impression: 1. Negative bilateral mammogram unchanged. 2. Recommend annual screening mammograms. MM/[place] [address] BIRADS: 1-Negative FOLLOW UP: 1 Year Follow-up The CAD toolroom checker was used.
== END 2023-09-28 10:40 | disposition home or self-care (01) ==
LOC: RAD 10:41
PROVIDERS: PCP Family Medicine; Visit Provider Family Medicine
DX: Z12.31 Encounter for screening mammogram for malignant neoplasm of breast (principal)
CPT/HCPCS: 77063; 77067

== ENCOUNTER 2023-10-20 12:30 | Oncology outpatient (recurring) (ONCR) | payer MEDICARE, SELFPAY ==
[2023-10-13 14:16] LABS: Basophils % 0.4 %; Eosinophils % 0.4 %; Hematocrit 44.1 % (36-47); Lymphocytes # 1.4 10^3/uL (0.8-4.8); Lymphocytes % 20.5 %; Mean Corpuscular HGB Conc 31.3 g/dL (30-55); Mean Corpuscular Hemoglobin 28.5 pg (27-33); Mean Corpuscular Volume 90.9 fl (85-98); Mean Platelet Volume 11.2 fL (7.4-10.4); Monocytes # 0.6 10^3/uL (0.2-0.9); Monocytes % 9.4 %; Neutrophils # 4.62 10^3/uL (1.8-7.7); Neutrophils % 69.2 %; Nucleated Red Blood Cells % 0 %; Platelet Count 218 10^3/cmm (157-399); Red Blood Count 4.85 10^6/uL (3.85-5.65); Red Cell Distribution Width 14.7 % (12.1-15.1); White Blood Count 6.69 10^3/uL (3.29-11.43)
[2023-10-13 14:36] LABS: Alanine Aminotransferase 16 U/L (0-33); Albumin Level 3.9 g/dL (3.5-5.2); Alkaline Phosphatase 92 U/L (35-105); Anion Gap 14.8 (5-19); Aspartate Amino Transferase 17 U/L (0-32); Blood Urea Nitrogen 22 mg/dL (8-23); Calcium 9.1 mg/dL (8.5-10.5); Carbon Dioxide 25 mmol/L (22-29); Chloride 108 mmol/L (98-107); Globulin 2.5 g/dL (1.3-4.6); Glucose 115 mg/dL (65-115); Immunoglobulin IGG 500 mg/dL (700-1600); Immunoglobulin IGM 47 mg/dL (40-230); Osmolality Calculated 302 mOsm/kg (285-295); Potassium 3.8 mmol/L (3.5-5.1); Sodium 144 mmol/L (136-145); Total Bilirubin 0.4 mg/dL (0.15-1.2); Total Protein 6.4 g/dL (6.6-8.7)
[2023-10-13 14:38] LABS: Immunoglobulin IGA < 50 mg/dL (70-400)
[2023-10-14 09:45] LABS: PROTEIN, TOTAL 5.8 g/dL (6.1-8.1)
[2023-10-14 11:54] LABS: KAPPA LIGHT CHAIN, FREE, SERUM 12.4 mg/L (3.3-19.4); KAPPA/LAMBDA LIGHT CHAINS FREE 1.55 (0.26-1.65)
[2023-10-14 17:39] LABS: ABNORMAL PROTEIN BAND 1 0.1 g/dL (NONE DETECTED); ALBUMIN 3.4 g/dL (3.8-4.8); ALPHA 1 GLOBULIN 0.3 g/dL (0.2-0.3); BETA 1 GLOBULIN 0.4 g/dL (0.4-0.6); BETA 2 GLOBULIN 0.2 g/dL (0.2-0.5); GAMMA GLOBULIN 0.5 g/dL (0.8-1.7)
[2023-10-19 12:23] LABS: CREATININE, 24 HOUR URINE 1.04 g/24 h (0.50-2.15); PROTEIN, TOTAL, 24 HR UR 120 mg/24 h (<150); Protein/Creatinine Ratio 0.115 (<0.150); Protein/Creatinine Ratio 115 mg/g creat (<150)
[2023-10-20] MEDS: diphenhydrAMINE 25 mg Capsule 50 MG PO (13:16)
[2023-10-20] MEDS: ondansetron 4 MG Tablet 8 MG PO (13:17)
[2023-10-20] MEDS: acetaminophen 325 mg Tablet 650 MG PO (13:17)
[2023-10-20] MEDS: daratumumab-hyaluronidase-fihj 1,800 mg/15 mL SDV 1800 MG SUBCUT (14:11)
[2023-10-28 13:20] LABS: ALBUMIN 100 %; ALPHA-1-GLOBULINS 0 %; ALPHA-2-GLOBULINS 0 %; BETA GLOBULINS 0 %; GAMMA GLOBULINS 0 %
== END 2023-10-20 23:59 | disposition home or self-care (01) ==
PROVIDERS: PCP Family Medicine; Visit Provider Internal Medicine Medical Oncology
DX: Z53.9 Procedure and treatment not carried out, unspecified reason; C90.00 Multiple myeloma not having achieved remission; Z51.11 Encounter for antineoplastic chemotherapy; Z79.899 Other long term (current) drug therapy
CPT/HCPCS: 36415; 80053; 82784; 83883; 84155; 84156; 84165; 84166; 85025; 86334; 96401; 99215; J9144; Q0162

== ENCOUNTER 2023-11-12 09:34 | Outpatient (CLI) | payer MEDICARE, SELFPAY ==
[2023-11-13 09:49] LABS: CREATININE, 24 HOUR URINE 1.06 g/24 h (0.50-2.15); PROTEIN, TOTAL, 24 HR UR 99 mg/24 h (<150); Protein/Creatinine Ratio 0.094 (<0.150); Protein/Creatinine Ratio 94 mg/g creat (<150)
[2023-11-25 13:04] LABS: ALBUMIN 100 %; ALPHA-1-GLOBULINS 0 %; ALPHA-2-GLOBULINS 0 %; BETA GLOBULINS 0 %; GAMMA GLOBULINS 0 %
== END 2023-11-12 09:35 | disposition home or self-care (01) ==
PROVIDERS: PCP Family Medicine; Visit Provider Internal Medicine
DX: C90.02 Multiple myeloma in relapse (principal)
CPT/HCPCS: 84156; 84166

== ENCOUNTER 2023-11-18 11:30 | Oncology outpatient (recurring) (ONCR) | payer MEDICARE, SELFPAY ==
[2023-11-10 14:49] LABS: Basophils % 0.5 %; Eosinophils % 0.3 %; Lymphocytes # 1.2 10^3/uL (0.8-4.8); Lymphocytes % 19.8 %; Mean Corpuscular HGB Conc 30.7 g/dL (30-55); Mean Corpuscular Hemoglobin 28.5 pg (27-33); Mean Corpuscular Volume 93.1 fl (85-98); Mean Platelet Volume 11.4 fL (7.4-10.4); Monocytes # 0.7 10^3/uL (0.2-0.9); Monocytes % 10.9 %; Neutrophils # 4.07 10^3/uL (1.8-7.7); Neutrophils % 68.2 %; Nucleated Red Blood Cells % 0 %; Platelet Count 192 10^3/cmm (157-399); Red Blood Count 4.94 10^6/uL (3.85-5.65); Red Cell Distribution Width 14.7 % (12.1-15.1); White Blood Count 5.97 10^3/uL (3.29-11.43)
[2023-11-10 15:09] LABS: Alanine Aminotransferase 14 U/L (0-33); Albumin Level 3.8 g/dL (3.5-5.2); Alkaline Phosphatase 96 U/L (35-105); Aspartate Amino Transferase 16 U/L (0-32); Blood Urea Nitrogen 21 mg/dL (8-23); Calcium 9.1 mg/dL (8.5-10.5); Carbon Dioxide 27 mmol/L (22-29); Chloride 105 mmol/L (98-107); Globulin 2.8 g/dL (1.3-4.6); Glucose 134 mg/dL (65-115); Immunoglobulin IGA 50 mg/dL (70-400); Immunoglobulin IGG 521 mg/dL (700-1600); Immunoglobulin IGM 53 mg/dL (40-230); Osmolality Calculated 297 mOsm/kg (285-295); Sodium 141 mmol/L (136-145); Total Bilirubin 0.4 mg/dL (0.15-1.2); Total Protein 6.6 g/dL (6.6-8.7)
[2023-11-10 15:11] LABS: Anion Gap 13.5 (5-19); Potassium 4.5 mmol/L (3.5-5.1)
[2023-11-10 15:12] LABS: Lactate Dehydrogenase 197 U/L (135-214)
[2023-11-11 12:15] LABS: KAPPA LIGHT CHAIN, FREE, SERUM 12.7 mg/L (3.3-19.4); KAPPA/LAMBDA LIGHT CHAINS FREE 1.49 (0.26-1.65); LAMBDA LIGHT CHAIN, FREE, SERU 8.5 mg/L (5.7-26.3)
[2023-11-11 12:50] LABS: PROTEIN, TOTAL 5.9 g/dL (6.1-8.1)
[2023-11-11 16:56] LABS: ABNORMAL PROTEIN BAND 1 0.1 g/dL (NONE DETECTED); ALBUMIN 3.5 g/dL (3.8-4.8); ALPHA 1 GLOBULIN 0.3 g/dL (0.2-0.3); BETA 1 GLOBULIN 0.4 g/dL (0.4-0.6); BETA 2 GLOBULIN 0.2 g/dL (0.2-0.5); GAMMA GLOBULIN 0.5 g/dL (0.8-1.7)
[2023-11-18] MEDS: acetaminophen 325 mg Tablet 650 MG PO (12:32)
[2023-11-18] MEDS: diphenhydrAMINE 25 mg Capsule 50 MG PO (12:33)
[2023-11-18] MEDS: ondansetron 4 MG Tablet 8 MG PO (12:33)
[2023-11-18] MEDS: daratumumab-hyaluronidase-fihj 1,800 mg/15 mL SDV 1800 MG SUBCUT (12:51)
[2023-11-18 13:06] VITALS: BP 120/78; PULSE 84; RESP 18; TEMP 36.1; O2SAT 97
== END 2023-11-18 23:59 | disposition home or self-care (01) ==
PROVIDERS: Internal Medicine; PCP Family Medicine; Visit Provider Internal Medicine Medical Oncology
DX: Z53.9 Procedure and treatment not carried out, unspecified reason; Z51.12 Encounter for antineoplastic immunotherapy; C90.02 Multiple myeloma in relapse; Z79.899 Other long term (current) drug therapy
CPT/HCPCS: 36415; 80053; 82784; 83615; 83883; 84155; 84165; 85025; 86334; 96402; 99214; J9144; Q0162

== ENCOUNTER 2023-12-22 09:30 | Oncology outpatient (recurring) (ONCR) | payer MEDICARE, SELFPAY ==
[2023-12-15 09:58] LABS: Basophils % 0.5 %; Eosinophils % 0.2 %; Hematocrit 44.8 % (36-47); Lymphocytes # 1.3 10^3/uL (0.8-4.8); Lymphocytes % 14.7 %; Mean Corpuscular HGB Conc 31.3 g/dL (30-55); Mean Corpuscular Hemoglobin 28.8 pg (27-33); Mean Corpuscular Volume 92.2 fl (85-98); Mean Platelet Volume 11.2 fL (7.4-10.4); Monocytes % 11.2 %; Neutrophils # 6.25 10^3/uL (1.8-7.7); Neutrophils % 72.9 %; Nucleated Red Blood Cells % 0 %; Platelet Count 202 10^3/cmm (157-399); Red Blood Count 4.86 10^6/uL (3.85-5.65); Red Cell Distribution Width 14.2 % (12.1-15.1); White Blood Count 8.57 10^3/uL (3.29-11.43)
[2023-12-15 10:23] LABS: Alanine Aminotransferase 15 U/L (0-33); Albumin Level 3.8 g/dL (3.5-5.2); Alkaline Phosphatase 97 U/L (35-105); Anion Gap 16.2 (5-19); Aspartate Amino Transferase 18 U/L (0-32); Blood Urea Nitrogen 21 mg/dL (8-23); Carbon Dioxide 24 mmol/L (22-29); Chloride 107 mmol/L (98-107); Globulin 2.5 g/dL (1.3-4.6); Glucose 118 mg/dL (65-115); Immunoglobulin IGG 497 mg/dL (700-1600); Immunoglobulin IGM 47 mg/dL (40-230); Osmolality Calculated 300 mOsm/kg (285-295); Potassium 4.2 mmol/L (3.5-5.1); Sodium 143 mmol/L (136-145); Total Bilirubin 0.5 mg/dL (0.15-1.2); Total Protein 6.3 g/dL (6.6-8.7)
[2023-12-15 10:28] LABS: Immunoglobulin IGA < 50 mg/dL (70-400)
[2023-12-17 12:15] LABS: KAPPA LIGHT CHAIN, FREE, SERUM 11.6 mg/L (3.3-19.4); KAPPA/LAMBDA LIGHT CHAINS FREE 1.57 (0.26-1.65); LAMBDA LIGHT CHAIN, FREE, SERU 7.4 mg/L (5.7-26.3)
[2023-12-21 02:04] LABS: PROTEIN, TOTAL 5.6 g/dL (6.1-8.1)
[2023-12-21 10:21] LABS: ABNORMAL PROTEIN BAND 1 0.1 g/dL (NONE DETECTED); ALBUMIN 3.4 g/dL (3.8-4.8); ALPHA 1 GLOBULIN 0.3 g/dL (0.2-0.3); ALPHA 2 GLOBULIN 0.9 g/dL (0.5-0.9); BETA 1 GLOBULIN 0.4 g/dL (0.4-0.6); BETA 2 GLOBULIN 0.2 g/dL (0.2-0.5); GAMMA GLOBULIN 0.4 g/dL (0.8-1.7)
[2023-12-22] MEDS: acetaminophen 325 mg Tablet 650 MG PO (10:16)
[2023-12-22] MEDS: diphenhydrAMINE 25 mg Capsule 50 MG PO (10:17)
[2023-12-22] MEDS: ondansetron 4 MG Tablet 8 MG PO (10:17)
[2023-12-22] MEDS: daratumumab-hyaluronidase-fihj 1,800 mg/15 mL SDV 1800 MG SUBCUT (10:43)
[2023-12-22 11:00] VITALS: BP 147/61; PULSE 61; RESP 18; TEMP 36.4; O2SAT 96
== END 2023-12-22 23:59 | disposition home or self-care (01) ==
PROVIDERS: Nurse Practitioner Family; PCP Family Medicine; Visit Provider Internal Medicine Medical Oncology
DX: Z51.11 Encounter for antineoplastic chemotherapy (principal); Z53.9 Procedure and treatment not carried out, unspecified reason; Z51.12 Encounter for antineoplastic immunotherapy; C90.02 Multiple myeloma in relapse
CPT/HCPCS: 36415; 80053; 82784; 83883; 84155; 84165; 85025; 96402; 96409; 99214; J9144; Q0162

== ENCOUNTER 2024-01-19 13:15 | Oncology outpatient (recurring) (ONCR) | payer MEDICARE, SELFPAY ==
[2024-01-12 10:36] LABS: Basophils % 0.2 %; Eosinophils % 0.1 %; Hematocrit 42.1 % (36-47); Lymphocytes # 0.6 10^3/uL (0.8-4.8); Lymphocytes % 3.9 %; Mean Corpuscular HGB Conc 31.6 g/dL (30-55); Mean Corpuscular Hemoglobin 28.6 pg (27-33); Mean Corpuscular Volume 90.5 fl (85-98); Mean Platelet Volume 11.3 fL (7.4-10.4); Monocytes # 1.2 10^3/uL (0.2-0.9); Monocytes % 7.8 %; Neutrophils # 12.95 10^3/uL (1.8-7.7); Neutrophils % 87.5 %; Nucleated Red Blood Cells % 0 %; Platelet Count 190 10^3/cmm (157-399); Red Blood Count 4.65 10^6/uL (3.85-5.65); Red Cell Distribution Width 14.3 % (12.1-15.1)
[2024-01-12 11:04] LABS: Alanine Aminotransferase 209 U/L (0-33); Albumin Level 3.7 g/dL (3.5-5.2); Alkaline Phosphatase 205 U/L (35-105); Anion Gap 16.7 (5-19); Aspartate Amino Transferase 183 U/L (0-32); Blood Urea Nitrogen 25 mg/dL (8-23); Calcium 9.2 mg/dL (8.5-10.5); Carbon Dioxide 25 mmol/L (22-29); Chloride 101 mmol/L (98-107); Globulin 2.5 g/dL (1.3-4.6); Glucose 121 mg/dL (65-115); Immunoglobulin IGA < 50 mg/dL (70-400); Immunoglobulin IGG 457 mg/dL (700-1600); Immunoglobulin IGM 42 mg/dL (40-230); Osmolality Calculated 292 mOsm/kg (285-295); Potassium 4.7 mmol/L (3.5-5.1); Sodium 138 mmol/L (136-145); Total Bilirubin 3.9 mg/dL (0.15-1.2); Total Protein 6.2 g/dL (6.6-8.7)
[2024-01-14 15:44] LABS: KAPPA LIGHT CHAIN, FREE, SERUM 13.1 mg/L (3.3-19.4); KAPPA/LAMBDA LIGHT CHAINS FREE 1.47 (0.26-1.65); LAMBDA LIGHT CHAIN, FREE, SERU 8.9 mg/L (5.7-26.3)
[2024-01-15 02:59] LABS: PROTEIN, TOTAL 5.6 g/dL (6.1-8.1)
[2024-01-17 12:05] LABS: ABNORMAL PROTEIN BAND 1 0.2 g/dL (NONE DETECTED); ALBUMIN 3.3 g/dL (3.8-4.8); ALPHA 1 GLOBULIN 0.4 g/dL (0.2-0.3); ALPHA 2 GLOBULIN 0.9 g/dL (0.5-0.9); BETA 1 GLOBULIN 0.4 g/dL (0.4-0.6); BETA 2 GLOBULIN 0.2 g/dL (0.2-0.5); GAMMA GLOBULIN 0.4 g/dL (0.8-1.7)
[2024-01-19] MEDS: ondansetron 4 MG Tablet 8 MG PO (13:29)
[2024-01-19] MEDS: diphenhydrAMINE 25 mg Capsule 50 MG PO (13:29)
[2024-01-19] MEDS: acetaminophen 325 mg Tablet 650 MG PO (13:30)
[2024-01-19 13:52] LABS: Alanine Aminotransferase 37 U/L (0-33); Albumin Level 3.6 g/dL (3.5-5.2); Alkaline Phosphatase 164 U/L (35-105); Anion Gap 15.5 (5-19); Aspartate Amino Transferase 20 U/L (0-32); Blood Urea Nitrogen 18 mg/dL (8-23); Calcium 8.9 mg/dL (8.5-10.5); Carbon Dioxide 26 mmol/L (22-29); Chloride 104 mmol/L (98-107); Creatinine Clr Calc Pharmacy 39.6892; Globulin 2.5 g/dL (1.3-4.6); Glucose 143 mg/dL (65-115); Osmolality Calculated 296 mOsm/kg (285-295); Potassium 4.5 mmol/L (3.5-5.1); Sodium 141 mmol/L (136-145); Total Bilirubin 0.6 mg/dL (0.15-1.2); Total Protein 6.1 g/dL (6.6-8.7)
[2024-01-19] MEDS: daratumumab-hyaluronidase-fihj 1,800 mg/15 mL SDV 1800 MG SUBCUT (14:06)
[2024-01-19] MEDS: denosumab 120 mg SDV SUBCUT (14:07)
[2024-01-19 14:10] VITALS: BP 142/78; PULSE 84; RESP 18; TEMP 36.6; O2SAT 98
== END 2024-01-19 23:59 | disposition home or self-care (01) ==
PROVIDERS: Nurse Practitioner Family; PCP Family Medicine; Visit Provider Internal Medicine Medical Oncology
DX: Z53.9 Procedure and treatment not carried out, unspecified reason; Z51.11 Encounter for antineoplastic chemotherapy; Z51.12 Encounter for antineoplastic immunotherapy; Z79.899 Other long term (current) drug therapy; R74.8 Abnormal levels of other serum enzymes; C90.02 Multiple myeloma in relapse; Z90.49 Acquired absence of other specified parts of digestive tract
CPT/HCPCS: 36415; 80053; 82784; 83883; 84155; 84165; 85025; 96374; 96401; 96402; 99214; J0897; J9144; Q0162

== ENCOUNTER 2024-02-09 10:27 | Oncology outpatient (recurring) (ONCR) | payer MEDICARE, SELFPAY ==
[2024-02-09 10:51] LABS: Basophils % 0.7 %; Eosinophils % 0.5 %; Hematocrit 45.1 % (36-47); Lymphocytes # 1.3 10^3/uL (0.8-4.8); Lymphocytes % 22.8 %; Mean Corpuscular HGB Conc 30.6 g/dL (30-55); Mean Corpuscular Hemoglobin 27.9 pg (27-33); Mean Corpuscular Volume 91.3 fl (85-98); Monocytes # 0.7 10^3/uL (0.2-0.9); Monocytes % 11.4 %; Neutrophils # 3.73 10^3/uL (1.8-7.7); Neutrophils % 64.4 %; Nucleated Red Blood Cells % 0 %; Platelet Count 211 10^3/cmm (157-399); Red Blood Count 4.94 10^6/uL (3.85-5.65); Red Cell Distribution Width 13.7 % (12.1-15.1); White Blood Count 5.79 10^3/uL (3.29-11.43)
[2024-02-09 11:09] LABS: Alanine Aminotransferase 14 U/L (0-33); Albumin Level 3.9 g/dL (3.5-5.2); Alkaline Phosphatase 100 U/L (35-105); Anion Gap 15.7 (5-19); Aspartate Amino Transferase 18 U/L (0-32); Blood Urea Nitrogen 18 mg/dL (8-23); Calcium 8.5 mg/dL (8.5-10.5); Carbon Dioxide 24 mmol/L (22-29); Chloride 107 mmol/L (98-107); Globulin 2.5 g/dL (1.3-4.6); Glucose 103 mg/dL (65-115); Immunoglobulin IGG 489 mg/dL (700-1600); Immunoglobulin IGM 44 mg/dL (40-230); Osmolality Calculated 296 mOsm/kg (285-295); Potassium 4.7 mmol/L (3.5-5.1); Sodium 142 mmol/L (136-145); Total Bilirubin 0.6 mg/dL (0.15-1.2); Total Protein 6.4 g/dL (6.6-8.7)
[2024-02-09 11:10] LABS: Immunoglobulin IGA < 50 mg/dL (70-400)
[2024-02-10 13:25] LABS: PROTEIN, TOTAL 5.8 g/dL (6.1-8.1)
[2024-02-10 14:25] LABS: KAPPA LIGHT CHAIN, FREE, SERUM 10.4 mg/L (3.3-19.4); KAPPA/LAMBDA LIGHT CHAINS FREE 1.58 (0.26-1.65); LAMBDA LIGHT CHAIN, FREE, SERU 6.6 mg/L (5.7-26.3)
[2024-02-10 16:04] LABS: ABNORMAL PROTEIN BAND 1 0.2 g/dL (NONE DETECTED); ALBUMIN 3.4 g/dL (3.8-4.8); ALPHA 1 GLOBULIN 0.3 g/dL (0.2-0.3); BETA 1 GLOBULIN 0.4 g/dL (0.4-0.6); BETA 2 GLOBULIN 0.2 g/dL (0.2-0.5); GAMMA GLOBULIN 0.4 g/dL (0.8-1.7)
== END 2024-02-09 23:59 | disposition home or self-care (01) ==
LOC: ONCMED 10:27
PROVIDERS: Nurse Practitioner Family; PCP Family Medicine; Visit Provider Internal Medicine Medical Oncology
DX: C90.02 Multiple myeloma in relapse
CPT/HCPCS: 36415; 80053; 82784; 83883; 84155; 84165; 85025

== ENCOUNTER 2024-03-08 13:45 | Oncology outpatient (recurring) (ONCR) | payer MEDICARE, SELFPAY ==
[2024-02-16] MEDS: ondansetron 4 MG Tablet 8 MG PO (10:41)
[2024-02-16] MEDS: acetaminophen 325 mg Tablet 650 MG PO (10:41)
[2024-02-16] MEDS: diphenhydrAMINE 25 mg Capsule 50 MG PO (10:41)
[2024-02-16] MEDS: daratumumab-hyaluronidase-fihj 1,800 mg/15 mL SDV 1800 MG SUBCUT (11:08)
[2024-03-08 14:26] LABS: Basophils % 0.4 %; Eosinophils % 0.4 %; Hematocrit 43.1 % (36-47); Lymphocytes # 1.2 10^3/uL (0.8-4.8); Lymphocytes % 21.8 %; Mean Corpuscular HGB Conc 30.6 g/dL (30-55); Mean Corpuscular Hemoglobin 27.4 pg (27-33); Mean Corpuscular Volume 89.6 fl (85-98); Mean Platelet Volume 11.4 fL (7.4-10.4); Monocytes # 0.7 10^3/uL (0.2-0.9); Monocytes % 11.7 %; Neutrophils # 3.69 10^3/uL (1.8-7.7); Neutrophils % 65.5 %; Nucleated Red Blood Cells % 0 %; Platelet Count 211 10^3/cmm (157-399); Red Blood Count 4.81 10^6/uL (3.85-5.65); Red Cell Distribution Width 13.8 % (12.1-15.1); White Blood Count 5.63 10^3/uL (3.29-11.43)
[2024-03-08 14:41] LABS: Alanine Aminotransferase 13 U/L (0-33); Albumin Level 3.7 g/dL (3.5-5.2); Alkaline Phosphatase 78 U/L (35-105); Aspartate Amino Transferase 16 U/L (0-32); Blood Urea Nitrogen 16 mg/dL (8-23); Carbon Dioxide 25 mmol/L (22-29); Chloride 104 mmol/L (98-107); Globulin 2.3 g/dL (1.3-4.6); Immunoglobulin IGM 41 mg/dL (40-230); Osmolality Calculated 289 mOsm/kg (285-295); Sodium 138 mmol/L (136-145); Total Bilirubin 0.4 mg/dL (0.15-1.2)
[2024-03-08 15:17] LABS: Anion Gap 13.3 (5-19); Calcium 8.3 mg/dL (8.5-10.5); Creatinine Clr Calc Pharmacy 37.5997; Glucose 137 mg/dL (65-115); Potassium 4.3 mmol/L (3.5-5.1)
[2024-03-08 15:18] LABS: Immunoglobulin IGA < 50 mg/dL (70-400); Immunoglobulin IGG 483 mg/dL (700-1600)
[2024-03-09 06:44] LABS: PROTEIN, TOTAL 5.7 g/dL (6.1-8.1)
[2024-03-09 12:15] LABS: KAPPA LIGHT CHAIN, FREE, SERUM 9.7 mg/L (3.3-19.4); LAMBDA LIGHT CHAIN, FREE, SERU 5.7 mg/L (5.7-26.3)
[2024-03-10 11:48] LABS: ABNORMAL PROTEIN BAND 1 0.2 g/dL (NONE DETECTED); ALBUMIN 3.5 g/dL (3.8-4.8); ALPHA 1 GLOBULIN 0.3 g/dL (0.2-0.3); ALPHA 2 GLOBULIN 0.9 g/dL (0.5-0.9); BETA 1 GLOBULIN 0.4 g/dL (0.4-0.6); BETA 2 GLOBULIN 0.2 g/dL (0.2-0.5); GAMMA GLOBULIN 0.4 g/dL (0.8-1.7)
== END 2024-03-08 23:59 | disposition home or self-care (01) ==
PROVIDERS: PCP Family Medicine; Visit Provider Internal Medicine Medical Oncology
DX: Z53.9 Procedure and treatment not carried out, unspecified reason; C90.02 Multiple myeloma in relapse
CPT/HCPCS: 36415; 80053; 82784; 83883; 84155; 84165; 85025; 96402; 96409; 99214; J9144; Q0162

== ENCOUNTER 2024-04-05 13:45 | Oncology outpatient (recurring) (ONCR) | payer MEDICARE, SELFPAY ==
[2024-03-15] MEDS: diphenhydrAMINE 25 mg Capsule 50 MG PO (15:01)
[2024-03-15] MEDS: ondansetron 4 MG Tablet 8 MG PO (15:01)
[2024-03-15] MEDS: acetaminophen 325 mg Tablet 650 MG PO (15:02)
[2024-03-15] MEDS: daratumumab-hyaluronidase-fihj 1,800 mg/15 mL SDV 1800 MG SUBCUT (15:27)
[2024-03-15 16:01] VITALS: BP 158/62; PULSE 60; RESP 18; TEMP 36.2; O2SAT 96
[2024-04-05 14:11] LABS: Basophils % 0.3 %; Eosinophils % 0.3 %; Hematocrit 44.3 % (36-47); Lymphocytes # 1.3 10^3/uL (0.8-4.8); Lymphocytes % 21.3 %; Mean Corpuscular HGB Conc 30.5 g/dL (30-55); Mean Corpuscular Hemoglobin 27.2 pg (27-33); Mean Corpuscular Volume 89.3 fl (85-98); Mean Platelet Volume 11.5 fL (7.4-10.4); Monocytes # 0.7 10^3/uL (0.2-0.9); Monocytes % 11.4 %; Neutrophils # 4.13 10^3/uL (1.8-7.7); Neutrophils % 66.5 %; Nucleated Red Blood Cells % 0 %; Platelet Count 206 10^3/cmm (157-399); Red Blood Count 4.96 10^6/uL (3.85-5.65); Red Cell Distribution Width 14.5 % (12.1-15.1); White Blood Count 6.21 10^3/uL (3.29-11.43)
[2024-04-05 14:30] LABS: Alanine Aminotransferase 13 U/L (0-33); Albumin Level 3.8 g/dL (3.5-5.2); Alkaline Phosphatase 67 U/L (35-105); Anion Gap 13.5 (5-19); Aspartate Amino Transferase 16 U/L (0-32); Blood Urea Nitrogen 19 mg/dL (8-23); Calcium 8.7 mg/dL (8.5-10.5); Carbon Dioxide 28 mmol/L (22-29); Chloride 103 mmol/L (98-107); Creatinine Clr Calc Pharmacy 37.6122; Globulin 2.1 g/dL (1.3-4.6); Glucose 139 mg/dL (65-115); Immunoglobulin IGG 459 mg/dL (700-1600); Immunoglobulin IGM 40 mg/dL (40-230); Osmolality Calculated 295 mOsm/kg (285-295); Potassium 4.5 mmol/L (3.5-5.1); Sodium 140 mmol/L (136-145); Total Bilirubin 0.4 mg/dL (0.15-1.2); Total Protein 5.9 g/dL (6.6-8.7)
[2024-04-05 14:41] LABS: Immunoglobulin IGA < 50 mg/dL (70-400)
[2024-04-06 09:50] LABS: PROTEIN, TOTAL 5.5 g/dL (6.1-8.1)
== END 2024-04-05 23:59 | disposition home or self-care (01) ==
PROVIDERS: Nurse Practitioner Family; PCP Family Medicine; Visit Provider Internal Medicine Medical Oncology
DX: C90.02 Multiple myeloma in relapse; Z53.9 Procedure and treatment not carried out, unspecified reason; Z79.899 Other long term (current) drug therapy
CPT/HCPCS: 36415; 80053; 82784; 83883; 84155; 84165; 85025; 96402; 99214; J9144; Q0162

== ENCOUNTER 2024-04-12 12:33 | Oncology outpatient (recurring) (ONCR) | payer MEDICARE, SELFPAY ==
[2024-04-12] MEDS: acetaminophen 325 mg Tablet 650 MG PO (13:31)
[2024-04-12] MEDS: ondansetron 4 MG Tablet 8 MG PO (13:32)
[2024-04-12] MEDS: diphenhydrAMINE 25 mg Capsule 50 MG PO (13:33)
[2024-04-12] MEDS: denosumab 120 mg SDV SUBCUT (13:36)
[2024-04-12] MEDS: daratumumab-hyaluronidase-fihj 1,800 mg/15 mL SDV 1800 MG SUBCUT (13:50)
[2024-04-12 16:00] VITALS: BP 143/73; PULSE 58; RESP 18; TEMP 36.6; O2SAT 100
--- NOTE | 2024-04-12 16:27 | PC.NURSE ---
Patient did stay for 1 hour with no complaints other than she had feeling of being tired. She left the unit per personal rotating walker with no discomfort. B/P 148/77 Pulse 64 resp 17 oxygen 100%
== END 2024-04-12 23:59 | disposition home or self-care (01) ==
PROVIDERS: PCP Family Medicine; Visit Provider Internal Medicine Hematology & Oncology
DX: Z51.12 Encounter for antineoplastic immunotherapy (principal); C90.02 Multiple myeloma in relapse; Z79.899 Other long term (current) drug therapy; Z79.620 Long term (current) use of immunosuppressive biologic
CPT/HCPCS: 96401; 99214; J0897; J9144; Q0162

== ENCOUNTER 2024-05-10 13:00 | Oncology outpatient (recurring) (ONCR) | payer MEDICARE, SELFPAY ==
[2024-05-03 10:48] LABS: Basophils % 0.5 %; Eosinophils % 0.4 %; Hematocrit 45.1 % (36-47); Lymphocytes # 1.3 10^3/uL (0.8-4.8); Lymphocytes % 22.7 %; Mean Corpuscular HGB Conc 30.4 g/dL (30-55); Mean Platelet Volume 11.1 fL (7.4-10.4); Monocytes # 0.7 10^3/uL (0.2-0.9); Monocytes % 13.2 %; Nucleated Red Blood Cells % 0 %; Platelet Count 241 10^3/cmm (157-399); Red Blood Count 5.07 10^6/uL (3.85-5.65); Red Cell Distribution Width 15.4 % (12.1-15.1); White Blood Count 5.55 10^3/uL (3.29-11.43)
[2024-05-03 11:05] LABS: Alanine Aminotransferase 15 U/L (0-33); Albumin Level 3.9 g/dL (3.5-5.2); Alkaline Phosphatase 80 U/L (35-105); Anion Gap 12.6 (5-19); Aspartate Amino Transferase 17 U/L (0-32); Blood Urea Nitrogen 19 mg/dL (8-23); Calcium 8.6 mg/dL (8.5-10.5); Carbon Dioxide 29 mmol/L (22-29); Chloride 102 mmol/L (98-107); Globulin 2.3 g/dL (1.3-4.6); Glucose 103 mg/dL (65-115); Immunoglobulin IGG 459 mg/dL (700-1600); Immunoglobulin IGM 44 mg/dL (40-230); Osmolality Calculated 291 mOsm/kg (285-295); Potassium 4.6 mmol/L (3.5-5.1); Sodium 139 mmol/L (136-145); Total Bilirubin 0.6 mg/dL (0.15-1.2); Total Protein 6.2 g/dL (6.6-8.7)
[2024-05-03 11:21] LABS: Immunoglobulin IGA < 50 mg/dL (70-400)
[2024-05-04 08:00] LABS: PROTEIN, TOTAL 6.1 g/dL (6.1-8.1)
[2024-05-05 11:10] LABS: KAPPA/LAMBDA LIGHT CHAINS FREE 1.59 (0.26-1.65); LAMBDA LIGHT CHAIN, FREE, SERU 6.3 mg/L (5.7-26.3)
[2024-05-05 15:04] LABS: ABNORMAL PROTEIN BAND 1 0.2 g/dL (NONE DETECTED); ALBUMIN 3.7 g/dL (3.8-4.8); ALPHA 1 GLOBULIN 0.4 g/dL (0.2-0.3); BETA 1 GLOBULIN 0.5 g/dL (0.4-0.6); BETA 2 GLOBULIN 0.2 g/dL (0.2-0.5); GAMMA GLOBULIN 0.4 g/dL (0.8-1.7)
[2024-05-10] MEDS: acetaminophen 325 mg Tablet 650 MG PO (14:05)
[2024-05-10] MEDS: ondansetron 4 MG Tablet 8 MG PO (14:06)
[2024-05-10] MEDS: diphenhydrAMINE 25 mg Capsule 50 MG PO (14:07)
[2024-05-10 14:31] VITALS: BP 127/78; PULSE 78; RESP 18; TEMP 36.6; O2SAT 98
[2024-05-10] MEDS: daratumumab-hyaluronidase-fihj 1,800 mg/15 mL SDV 1800 MG SUBCUT (14:31)
== END 2024-05-10 23:59 | disposition home or self-care (01) ==
PROVIDERS: Nurse Practitioner Family; PCP Family Medicine; Visit Provider Internal Medicine Hematology & Oncology
DX: Z51.12 Encounter for antineoplastic immunotherapy (principal); C90.02 Multiple myeloma in relapse; Z53.9 Procedure and treatment not carried out, unspecified reason; R78.4 Finding of other drugs of addictive potential in blood; Z79.899 Other long term (current) drug therapy
CPT/HCPCS: 36415; 80053; 82784; 83883; 84155; 84165; 85025; 96402; 99214; J9144; Q0162

== ENCOUNTER 2024-06-07 15:00 | Oncology outpatient (recurring) (ONCR) | payer MEDICARE, SELFPAY ==
[2024-05-31 15:10] LABS: Basophils % 0.6 %; Eosinophils % 0.5 %; Hematocrit 46.6 % (36-47); Lymphocytes # 1.7 10^3/uL (0.8-4.8); Lymphocytes % 26.2 %; Mean Corpuscular HGB Conc 30.5 g/dL (30-55); Mean Corpuscular Hemoglobin 27.1 pg (27-33); Mean Corpuscular Volume 88.9 fl (85-98); Mean Platelet Volume 11.6 fL (7.4-10.4); Monocytes # 0.8 10^3/uL (0.2-0.9); Monocytes % 11.8 %; Neutrophils # 3.94 10^3/uL (1.8-7.7); Neutrophils % 60.9 %; Nucleated Red Blood Cells % 0 %; Platelet Count 216 10^3/cmm (157-399); Red Blood Count 5.24 10^6/uL (3.85-5.65); White Blood Count 6.46 10^3/uL (3.29-11.43)
[2024-05-31 15:36] LABS: Alanine Aminotransferase 16 U/L (0-33); Alkaline Phosphatase 67 U/L (35-105); Anion Gap 13.6 (5-19); Aspartate Amino Transferase 19 U/L (0-32); Blood Urea Nitrogen 19 mg/dL (8-23); Calcium 9.1 mg/dL (8.5-10.5); Carbon Dioxide 28 mmol/L (22-29); Chloride 104 mmol/L (98-107); Globulin 2.3 g/dL (1.3-4.6); Glucose 167 mg/dL (65-115); Immunoglobulin IGG 471 mg/dL (700-1600); Osmolality Calculated 298 mOsm/kg (285-295); Potassium 4.6 mmol/L (3.5-5.1); Sodium 141 mmol/L (136-145); Total Bilirubin 0.4 mg/dL (0.15-1.2); Total Protein 6.3 g/dL (6.6-8.7)
[2024-05-31 15:41] LABS: Immunoglobulin IGA < 50 mg/dL (70-400)
[2024-05-31 22:34] LABS: Immunoglobulin IGM 45 mg/dL (40-230)
[2024-06-01 05:40] LABS: PROTEIN, TOTAL 6.3 g/dL (6.1-8.1)
[2024-06-02 12:44] LABS: ABNORMAL PROTEIN BAND 1 0.1 g/dL (NONE DETECTED); ALBUMIN 3.9 g/dL (3.8-4.8); ALPHA 1 GLOBULIN 0.4 g/dL (0.2-0.3); BETA 1 GLOBULIN 0.4 g/dL (0.4-0.6); BETA 2 GLOBULIN 0.2 g/dL (0.2-0.5); GAMMA GLOBULIN 0.4 g/dL (0.8-1.7)
[2024-06-02 15:45] LABS: KAPPA/LAMBDA LIGHT CHAINS FREE 1.43 (0.26-1.65)
[2024-06-07] MEDS: diphenhydrAMINE 25 mg Capsule 50 MG PO (17:00)
[2024-06-07] MEDS: acetaminophen 325 mg Tablet 650 MG PO (17:00)
[2024-06-07] MEDS: ondansetron 4 MG Tablet 8 MG PO (17:11)
[2024-06-07] MEDS: daratumumab-hyaluronidase-fihj 1,800 mg/15 mL SDV 1800 MG SUBCUT (17:12)
== END 2024-06-10 23:59 | disposition home or self-care (01) ==
PROVIDERS: Nurse Practitioner Family; PCP Family Medicine; Visit Provider Internal Medicine
DX: C90.02 Multiple myeloma in relapse (principal); Z53.9 Procedure and treatment not carried out, unspecified reason; Z51.12 Encounter for antineoplastic immunotherapy; Z79.899 Other long term (current) drug therapy
CPT/HCPCS: 36415; 80053; 82784; 83883; 84155; 84165; 85025; 96401; 99213; J9144; Q0162

== ENCOUNTER 2024-07-10 10:30 | Oncology outpatient (recurring) (ONCR) | payer MEDICARE, SELFPAY ==
[2024-07-03 11:02] VITALS: BP 150/73; PULSE 71; RESP 18; TEMP 36.5; O2SAT 95
[2024-07-03 11:04] LABS: Basophils % 0.4 %; Eosinophils % 0.3 %; Hematocrit 45.1 % (36-47); Lymphocytes # 1.1 10^3/uL (0.8-4.8); Lymphocytes % 16.3 %; Mean Corpuscular HGB Conc 30.6 g/dL (30-55); Mean Corpuscular Hemoglobin 27.2 pg (27-33); Mean Corpuscular Volume 88.8 fl (85-98); Mean Platelet Volume 10.6 fL (7.4-10.4); Monocytes # 0.7 10^3/uL (0.2-0.9); Monocytes % 9.6 %; Neutrophils # 5.11 10^3/uL (1.8-7.7); Neutrophils % 73.1 %; Nucleated Red Blood Cells % 0 %; Platelet Count 205 10^3/cmm (157-399); Red Blood Count 5.08 10^6/uL (3.85-5.65); Red Cell Distribution Width 14.5 % (12.1-15.1); White Blood Count 6.99 10^3/uL (3.29-11.43)
[2024-07-03 11:23] LABS: Alanine Aminotransferase 14 U/L (0-33); Albumin Level 3.9 g/dL (3.5-5.2); Alkaline Phosphatase 66 U/L (35-105); Anion Gap 14.3 (5-19); Aspartate Amino Transferase 14 U/L (0-32); Blood Urea Nitrogen 18 mg/dL (8-23); Calcium 9.2 mg/dL (8.5-10.5); Carbon Dioxide 26 mmol/L (22-29); Chloride 102 mmol/L (98-107); Globulin 2.3 g/dL (1.3-4.6); Glucose 105 mg/dL (65-115); Immunoglobulin IGG 496 mg/dL (700-1600); Immunoglobulin IGM 47 mg/dL (40-230); Lactate Dehydrogenase 185 U/L (135-214); Osmolality Calculated 288 mOsm/kg (285-295); Potassium 4.3 mmol/L (3.5-5.1); Sodium 138 mmol/L (136-145); Total Bilirubin 0.5 mg/dL (0.15-1.2); Total Protein 6.2 g/dL (6.6-8.7)
[2024-07-03 11:24] LABS: Immunoglobulin IGA < 50 mg/dL (70-400)
[2024-07-04 07:13] LABS: PROTEIN, TOTAL 6.1 g/dL (6.1-8.1)
[2024-07-06 11:45] LABS: ABNORMAL PROTEIN BAND 1 0.2 g/dL (NONE DETECTED); ALBUMIN 3.7 g/dL (3.8-4.8); ALPHA 1 GLOBULIN 0.4 g/dL (0.2-0.3); BETA 1 GLOBULIN 0.4 g/dL (0.4-0.6); BETA 2 GLOBULIN 0.3 g/dL (0.2-0.5); GAMMA GLOBULIN 0.4 g/dL (0.8-1.7)
[2024-07-06 16:00] LABS: KAPPA LIGHT CHAIN, FREE, SERUM 10.8 mg/L (3.3-19.4); KAPPA/LAMBDA LIGHT CHAINS FREE 1.64 (0.26-1.65); LAMBDA LIGHT CHAIN, FREE, SERU 6.6 mg/L (5.7-26.3)
[2024-07-10] MEDS: acetaminophen 325 mg Tablet 650 MG PO (11:23)
[2024-07-10] MEDS: ondansetron 4 MG Tablet 8 MG PO (11:24)
[2024-07-10] MEDS: denosumab 120 mg SDV SUBCUT (11:25)
[2024-07-10] MEDS: diphenhydrAMINE 25 mg Capsule 50 MG PO (11:25)
[2024-07-10] MEDS: daratumumab-hyaluronidase-fihj 1,800 mg/15 mL SDV 1800 MG SUBCUT (12:36)
[2024-07-10 12:48] VITALS: BP 166/89; PULSE 79; TEMP 36.3
== END 2024-07-10 23:59 | disposition home or self-care (01) ==
PROVIDERS: PCP Family Medicine; Visit Provider Internal Medicine
DX: C90.02 Multiple myeloma in relapse (principal); Z53.9 Procedure and treatment not carried out, unspecified reason; Z51.12 Encounter for antineoplastic immunotherapy; Z79.899 Other long term (current) drug therapy; Z79.52 Long term (current) use of systemic steroids
CPT/HCPCS: 36415; 80053; 82784; 83615; 83883; 84155; 84165; 85025; 96372; 96401; 99214; J0897; J9144; Q0162

== ENCOUNTER 2024-08-07 10:30 | Oncology outpatient (recurring) (ONCR) | payer MEDICARE, SELFPAY ==
[2024-07-31 10:26] LABS: Basophils % 0.3 %; Eosinophils % 0.4 %; Hematocrit 45.9 % (36-47); Lymphocytes # 1.4 10^3/uL (0.8-4.8); Lymphocytes % 19.4 %; Mean Corpuscular HGB Conc 30.1 g/dL (30-55); Mean Corpuscular Hemoglobin 26.9 pg (27-33); Mean Corpuscular Volume 89.5 fl (85-98); Mean Platelet Volume 11.1 fL (7.4-10.4); Monocytes # 0.6 10^3/uL (0.2-0.9); Monocytes % 8.5 %; Neutrophils # 5.28 10^3/uL (1.8-7.7); Neutrophils % 71.1 %; Nucleated Red Blood Cells % 0 %; Platelet Count 198 10^3/cmm (157-399); Red Blood Count 5.13 10^6/uL (3.85-5.65); Red Cell Distribution Width 14.6 % (12.1-15.1); White Blood Count 7.42 10^3/uL (3.29-11.43)
[2024-07-31 10:46] LABS: Alanine Aminotransferase 14 U/L (0-33); Albumin Level 3.8 g/dL (3.5-5.2); Alkaline Phosphatase 68 U/L (35-105); Aspartate Amino Transferase 16 U/L (0-32); Blood Urea Nitrogen 21 mg/dL (8-23); Calcium 8.7 mg/dL (8.5-10.5); Carbon Dioxide 24 mmol/L (22-29); Chloride 103 mmol/L (98-107); Globulin 2.3 g/dL (1.3-4.6); Glucose 137 mg/dL (65-115); Immunoglobulin IGG 457 mg/dL (700-1600); Immunoglobulin IGM 50 mg/dL (40-230); Osmolality Calculated 293 mOsm/kg (285-295); Sodium 139 mmol/L (136-145); Total Bilirubin 0.4 mg/dL (0.15-1.2); Total Protein 6.1 g/dL (6.6-8.7)
[2024-07-31 10:52] LABS: Immunoglobulin IGA < 50 mg/dL (70-400)
[2024-07-31 10:53] LABS: Anion Gap 16.4 (5-19); Potassium 4.4 mmol/L (3.5-5.1)
[2024-08-01 10:20] LABS: PROTEIN, TOTAL 6.1 g/dL (6.1-8.1)
[2024-08-04 09:56] LABS: ABNORMAL PROTEIN BAND 1 0.1 g/dL (NONE DETECTED); ALBUMIN 3.8 g/dL (3.8-4.8); ALPHA 1 GLOBULIN 0.3 g/dL (0.2-0.3); BETA 1 GLOBULIN 0.4 g/dL (0.4-0.6); BETA 2 GLOBULIN 0.2 g/dL (0.2-0.5); GAMMA GLOBULIN 0.4 g/dL (0.8-1.7); KAPPA LIGHT CHAIN, FREE, SERUM 9.8 mg/L (3.3-19.4); KAPPA/LAMBDA LIGHT CHAINS FREE 1.53 (0.26-1.65); LAMBDA LIGHT CHAIN, FREE, SERU 6.4 mg/L (5.7-26.3)
[2024-08-07] MEDS: diphenhydrAMINE 25 mg Capsule 50 MG PO (10:34)
[2024-08-07] MEDS: ondansetron 4 MG Tablet 8 MG PO (10:34)
[2024-08-07] MEDS: acetaminophen 325 mg Tablet 650 MG PO (10:34)
[2024-08-07] MEDS: daratumumab-hyaluronidase-fihj 1,800 mg/15 mL SDV 1800 MG SUBCUT (11:31)
== END 2024-08-07 23:59 | disposition home or self-care (01) ==
PROVIDERS: Nurse Practitioner; PCP Family Medicine; Visit Provider Internal Medicine
DX: C90.02 Multiple myeloma in relapse (principal); Z53.9 Procedure and treatment not carried out, unspecified reason; Z51.12 Encounter for antineoplastic immunotherapy; Z79.899 Other long term (current) drug therapy; R61 Generalized hyperhidrosis; Z92.21 Personal history of antineoplastic chemotherapy; G89.3 Neoplasm related pain (acute) (chronic); I48.91 Unspecified atrial fibrillation
CPT/HCPCS: 36415; 80053; 82784; 83883; 84155; 84165; 85025; 86334; 96372; 99214; J9144; Q0162

== ENCOUNTER 2024-09-04 14:13 | Oncology outpatient (recurring) (ONCR) | payer MEDICARE, SELFPAY ==
[2024-09-04 14:58] LABS: Basophils % 0.4 %; Eosinophils % 0.3 %; Hematocrit 43.2 % (36-47); Lymphocytes # 1.7 10^3/uL (0.8-4.8); Lymphocytes % 21.3 %; Mean Corpuscular HGB Conc 30.8 g/dL (30-55); Mean Corpuscular Hemoglobin 26.9 pg (27-33); Mean Corpuscular Volume 87.4 fl (85-98); Mean Platelet Volume 10.8 fL (7.4-10.4); Monocytes # 0.9 10^3/uL (0.2-0.9); Monocytes % 11.7 %; Neutrophils # 5.11 10^3/uL (1.8-7.7); Neutrophils % 65.8 %; Nucleated Red Blood Cells % 0 %; Platelet Count 228 10^3/cmm (157-399); Red Blood Count 4.94 10^6/uL (3.85-5.65); Red Cell Distribution Width 14.9 % (12.1-15.1); White Blood Count 7.76 10^3/uL (3.29-11.43)
[2024-09-04 15:19] LABS: Alanine Aminotransferase 22 U/L (0-33); Albumin Level 3.7 g/dL (3.5-5.2); Alkaline Phosphatase 67 U/L (35-105); Anion Gap 13.6 (5-19); Aspartate Amino Transferase 18 U/L (0-32); Blood Urea Nitrogen 26 mg/dL (8-23); Calcium 9.4 mg/dL (8.5-10.5); Carbon Dioxide 29 mmol/L (22-29); Chloride 101 mmol/L (98-107); Globulin 2.3 g/dL (1.3-4.6); Glucose 130 mg/dL (65-115); Osmolality Calculated 295 mOsm/kg (285-295); Potassium 4.6 mmol/L (3.5-5.1); Sodium 139 mmol/L (136-145); Total Bilirubin 0.4 mg/dL (0.15-1.2)
[2024-09-05 07:09] LABS: PROTEIN, TOTAL 5.9 g/dL (6.1-8.1)
[2024-09-05 11:54] LABS: KAPPA LIGHT CHAIN, FREE, SERUM 10.5 mg/L (3.3-19.4); KAPPA/LAMBDA LIGHT CHAINS FREE 1.25 (0.26-1.65); LAMBDA LIGHT CHAIN, FREE, SERU 8.4 mg/L (5.7-26.3)
[2024-09-05 20:14] LABS: ABNORMAL PROTEIN BAND 1 0.1 g/dL (NONE DETECTED); ALBUMIN 3.5 g/dL (3.8-4.8); ALPHA 1 GLOBULIN 0.3 g/dL (0.2-0.3); BETA 1 GLOBULIN 0.4 g/dL (0.4-0.6); BETA 2 GLOBULIN 0.2 g/dL (0.2-0.5); GAMMA GLOBULIN 0.4 g/dL (0.8-1.7)
== END 2024-09-08 23:59 | disposition home or self-care (01) ==
PROVIDERS: PCP Family Medicine; Visit Provider Internal Medicine Medical Oncology
DX: C90.02 Multiple myeloma in relapse (principal)
CPT/HCPCS: 36415; 80053; 83883; 84155; 84165; 85025; 86334

== ENCOUNTER 2024-09-11 09:56 | Oncology outpatient (recurring) (ONCR) | payer MEDICARE, SELFPAY ==
[2024-09-11] MEDS: acetaminophen 325 mg Tablet 650 MG PO (11:14)
[2024-09-11] MEDS: ondansetron 4 MG Tablet 8 MG PO (11:15)
[2024-09-11] MEDS: diphenhydrAMINE 25 mg Capsule 50 MG PO (11:15)
[2024-09-11] MEDS: daratumumab-hyaluronidase-fihj 1,800 mg/15 mL SDV 1800 MG SUBCUT (11:53)
== END 2024-09-11 23:59 | disposition home or self-care (01) ==
PROVIDERS: PCP Family Medicine; Visit Provider Internal Medicine Medical Oncology
DX: C90.02 Multiple myeloma in relapse (principal); Z51.12 Encounter for antineoplastic immunotherapy; R61 Generalized hyperhidrosis; G89.3 Neoplasm related pain (acute) (chronic); I48.91 Unspecified atrial fibrillation; I35.0 Nonrheumatic aortic (valve) stenosis; F41.9 Anxiety disorder, unspecified; Z79.01 Long term (current) use of anticoagulants; Z79.899 Other long term (current) drug therapy
CPT/HCPCS: 96401; 99214; J9144; Q0162

== ENCOUNTER 2024-10-09 11:00 | Oncology outpatient (recurring) (ONCR) | payer MEDICARE, SELFPAY ==
[2024-10-02 10:15] LABS: Basophils # 0.1 10^3/uL (0.0-0.1); Basophils % 0.6 %; Eosinophils % 0.4 %; Hematocrit 44.2 % (36-47); Lymphocytes # 1.7 10^3/uL (0.8-4.8); Lymphocytes % 18.8 %; Mean Corpuscular HGB Conc 30.3 g/dL (30-55); Mean Corpuscular Hemoglobin 26.5 pg (27-33); Mean Corpuscular Volume 87.4 fl (85-98); Mean Platelet Volume 11.1 fL (7.4-10.4); Monocytes % 10.8 %; Neutrophils # 6.25 10^3/uL (1.8-7.7); Nucleated Red Blood Cells % 0 %; Platelet Count 221 10^3/cmm (157-399); Red Blood Count 5.06 10^6/uL (3.85-5.65); Red Cell Distribution Width 14.9 % (12.1-15.1); White Blood Count 9.06 10^3/uL (3.29-11.43)
[2024-10-02 10:34] LABS: Alanine Aminotransferase 11 U/L (0-33); Albumin Level 3.8 g/dL (3.5-5.2); Alkaline Phosphatase 54 U/L (35-105); Anion Gap 13.6 (5-19); Aspartate Amino Transferase 16 U/L (0-32); Blood Urea Nitrogen 23 mg/dL (8-23); Calcium 8.6 mg/dL (8.5-10.5); Carbon Dioxide 25 mmol/L (22-29); Chloride 107 mmol/L (98-107); Globulin 2.3 g/dL (1.3-4.6); Glucose 120 mg/dL (65-115); Osmolality Calculated 297 mOsm/kg (285-295); Potassium 4.6 mmol/L (3.5-5.1); Sodium 141 mmol/L (136-145); Total Bilirubin 0.4 mg/dL (0.15-1.2); Total Protein 6.1 g/dL (6.6-8.7)
[2024-10-03 10:29] LABS: PROTEIN, TOTAL 5.7 g/dL (6.1-8.1)
[2024-10-03 13:33] LABS: KAPPA LIGHT CHAIN, FREE, SERUM 8.2 mg/L (3.3-19.4); KAPPA/LAMBDA LIGHT CHAINS FREE 1.55 (0.26-1.65); LAMBDA LIGHT CHAIN, FREE, SERU 5.3 mg/L (5.7-26.3)
[2024-10-03 20:15] LABS: ABNORMAL PROTEIN BAND 1 0.2 g/dL (NONE DETECTED); ALBUMIN 3.5 g/dL (3.8-4.8); ALPHA 1 GLOBULIN 0.3 g/dL (0.2-0.3); ALPHA 2 GLOBULIN 0.9 g/dL (0.5-0.9); BETA 1 GLOBULIN 0.4 g/dL (0.4-0.6); BETA 2 GLOBULIN 0.2 g/dL (0.2-0.5); GAMMA GLOBULIN 0.4 g/dL (0.8-1.7)
[2024-10-09] MEDS: ondansetron 4 MG Tablet 8 MG PO (12:15)
[2024-10-09] MEDS: acetaminophen 325 mg Tablet 650 MG PO (12:15)
[2024-10-09] MEDS: diphenhydrAMINE 25 mg Capsule 50 MG PO (12:15)
[2024-10-09] MEDS: denosumab 120 mg SDV SUBCUT (12:29)
[2024-10-09] MEDS: daratumumab-hyaluronidase-fihj 1,800 mg/15 mL SDV 1800 MG SUBCUT (12:38)
[2024-10-09 13:00] VITALS: BP 127/72; PULSE 72; RESP 18; TEMP 36; O2SAT 94
== END 2024-10-09 23:59 | disposition home or self-care (01) ==
PROVIDERS: Nurse Practitioner Family; PCP Family Medicine; Visit Provider Internal Medicine Medical Oncology
DX: Z53.9 Procedure and treatment not carried out, unspecified reason; C90.02 Multiple myeloma in relapse; R61 Generalized hyperhidrosis; G89.3 Neoplasm related pain (acute) (chronic); I48.91 Unspecified atrial fibrillation; I35.0 Nonrheumatic aortic (valve) stenosis; Z79.899 Other long term (current) drug therapy
CPT/HCPCS: 36415; 80053; 83883; 84155; 84165; 85025; 96372; 96401; 99214; J0897; J9144; J9999; Q0162

== ENCOUNTER 2024-11-06 12:00 | Oncology outpatient (recurring) (ONCR) | payer MEDICARE, SELFPAY ==
[2024-10-30 13:42] LABS: Basophils % 0.4 %; Eosinophils % 0.4 %; Hematocrit 43.6 % (36-47); Lymphocytes # 1.8 10^3/uL (0.8-4.8); Lymphocytes % 26.2 %; Mean Corpuscular HGB Conc 30.3 g/dL (30-55); Mean Corpuscular Volume 89.2 fl (85-98); Mean Platelet Volume 11.2 fL (7.4-10.4); Monocytes # 0.7 10^3/uL (0.2-0.9); Monocytes % 10.1 %; Neutrophils # 4.29 10^3/uL (1.8-7.7); Neutrophils % 62.6 %; Nucleated Red Blood Cells % 0 %; Platelet Count 208 10^3/cmm (157-399); Red Blood Count 4.89 10^6/uL (3.85-5.65); Red Cell Distribution Width 15.1 % (12.1-15.1); White Blood Count 6.86 10^3/uL (3.29-11.43)
[2024-10-30 13:59] LABS: Alanine Aminotransferase 11 U/L (0-33); Albumin Level 3.8 g/dL (3.5-5.2); Alkaline Phosphatase 53 U/L (35-105); Anion Gap 13.2 (5-19); Aspartate Amino Transferase 12 U/L (0-32); Blood Urea Nitrogen 25 mg/dL (8-23); Calcium 8.5 mg/dL (8.5-10.5); Carbon Dioxide 24 mmol/L (22-29); Chloride 108 mmol/L (98-107); Globulin 2.2 g/dL (1.3-4.6); Glucose 140 mg/dL (65-115); Osmolality Calculated 299 mOsm/kg (285-295); Potassium 4.2 mmol/L (3.5-5.1); Sodium 141 mmol/L (136-145); Total Bilirubin 0.3 mg/dL (0.15-1.2)
[2024-10-31 04:30] LABS: PROTEIN, TOTAL 5.7 g/dL (6.1-8.1)
[2024-10-31 14:29] LABS: KAPPA LIGHT CHAIN, FREE, SERUM 7.9 mg/L (3.3-19.4); KAPPA/LAMBDA LIGHT CHAINS FREE 1.55 (0.26-1.65); LAMBDA LIGHT CHAIN, FREE, SERU 5.1 mg/L (5.7-26.3)
[2024-11-01 09:09] LABS: ABNORMAL PROTEIN BAND 1 0.1 g/dL (NONE DETECTED); ALBUMIN 3.5 g/dL (3.8-4.8); ALPHA 1 GLOBULIN 0.3 g/dL (0.2-0.3); ALPHA 2 GLOBULIN 0.9 g/dL (0.5-0.9); BETA 1 GLOBULIN 0.4 g/dL (0.4-0.6); BETA 2 GLOBULIN 0.2 g/dL (0.2-0.5); GAMMA GLOBULIN 0.4 g/dL (0.8-1.7)
[2024-11-06] MEDS: acetaminophen 325 mg Tablet 650 MG PO (11:55)
[2024-11-06] MEDS: diphenhydrAMINE 25 mg Capsule 50 MG PO (11:55)
[2024-11-06] MEDS: ondansetron 4 MG Tablet 8 MG PO (11:56)
[2024-11-06] MEDS: daratumumab-hyaluronidase-fihj 1,800 mg/15 mL SDV 1800 MG SUBCUT (12:17)
== END 2024-11-06 23:59 | disposition home or self-care (01) ==
PROVIDERS: Nurse Practitioner Family; PCP Family Medicine; Visit Provider Internal Medicine Medical Oncology
DX: Z53.9 Procedure and treatment not carried out, unspecified reason (principal); Z51.12 Encounter for antineoplastic immunotherapy; C90.02 Multiple myeloma in relapse; R61 Generalized hyperhidrosis; G89.3 Neoplasm related pain (acute) (chronic); I48.91 Unspecified atrial fibrillation; Z79.899 Other long term (current) drug therapy
CPT/HCPCS: 36415; 80053; 83883; 84155; 84165; 85025; 96401; 99214; J9144; J9999; Q0162

== ENCOUNTER 2024-12-05 14:00 | Oncology outpatient (recurring) (ONCR) | payer MEDICARE, SELFPAY ==
[2024-11-28 13:41] LABS: Basophils % 0.5 %; Eosinophils % 0.4 %; Hematocrit 44.6 % (36-47); Lymphocytes # 2.2 10^3/uL (0.8-4.8); Lymphocytes % 29.2 %; Mean Corpuscular HGB Conc 30.3 g/dL (30-55); Mean Corpuscular Hemoglobin 26.6 pg (27-33); Mean Corpuscular Volume 87.8 fl (85-98); Mean Platelet Volume 11.2 fL (7.4-10.4); Monocytes # 0.8 10^3/uL (0.2-0.9); Monocytes % 10.6 %; Neutrophils # 4.52 10^3/uL (1.8-7.7); Nucleated Red Blood Cells % 0 %; Platelet Count 217 10^3/cmm (157-399); Red Blood Count 5.08 10^6/uL (3.85-5.65); Red Cell Distribution Width 15.1 % (12.1-15.1); White Blood Count 7.65 10^3/uL (3.29-11.43)
[2024-11-28 13:58] LABS: Alanine Aminotransferase 12 U/L (0-33); Alkaline Phosphatase 59 U/L (35-105); Anion Gap 14.4 (5-19); Aspartate Amino Transferase 15 U/L (0-32); Blood Urea Nitrogen 21 mg/dL (8-23); Carbon Dioxide 25 mmol/L (22-29); Chloride 105 mmol/L (98-107); Globulin 2.4 g/dL (1.3-4.6); Glucose 141 mg/dL (65-115); Osmolality Calculated 295 mOsm/kg (285-295); Potassium 4.4 mmol/L (3.5-5.1); Sodium 140 mmol/L (136-145); Total Bilirubin 0.3 mg/dL (0.15-1.2); Total Protein 6.4 g/dL (6.6-8.7)
[2024-11-29 07:45] LABS: PROTEIN, TOTAL 5.9 g/dL (6.1-8.1)
[2024-12-01 08:45] LABS: ABNORMAL PROTEIN BAND 1 0.1 g/dL (NONE DETECTED); ALBUMIN 3.7 g/dL (3.8-4.8); ALPHA 1 GLOBULIN 0.3 g/dL (0.2-0.3); ALPHA 2 GLOBULIN 0.9 g/dL (0.5-0.9); BETA 1 GLOBULIN 0.4 g/dL (0.4-0.6); BETA 2 GLOBULIN 0.2 g/dL (0.2-0.5); GAMMA GLOBULIN 0.4 g/dL (0.8-1.7)
[2024-12-05] MEDS: ondansetron 4 MG Tablet 8 MG PO (14:03)
[2024-12-05] MEDS: acetaminophen 325 mg Tablet 650 MG PO (14:03)
[2024-12-05] MEDS: diphenhydrAMINE 25 mg Capsule 50 MG PO (14:04)
[2024-12-05] MEDS: daratumumab-hyaluronidase-fihj 1,800 mg/15 mL SDV 1800 MG SUBCUT (14:27)
[2024-12-05 14:50] VITALS: BP 124/78; PULSE 74; RESP 17; TEMP 36.2; O2SAT 94
== END 2024-12-05 23:59 | disposition home or self-care (01) ==
PROVIDERS: PCP Family Medicine; Visit Provider Internal Medicine Medical Oncology
DX: Z53.9 Procedure and treatment not carried out, unspecified reason (principal); Z51.12 Encounter for antineoplastic immunotherapy; C90.02 Multiple myeloma in relapse; R61 Generalized hyperhidrosis; G89.3 Neoplasm related pain (acute) (chronic); I35.0 Nonrheumatic aortic (valve) stenosis; I48.91 Unspecified atrial fibrillation; Z79.899 Other long term (current) drug therapy
CPT/HCPCS: 36415; 80053; 84155; 84165; 85025; 86334; 96374; 96402; 99214; J9144; J9999; Q0162

== ENCOUNTER 2025-01-01 12:15 | Oncology outpatient (recurring) (ONCR) | payer MEDICARE, SELFPAY ==
[2024-12-25 10:12] LABS: Basophils % 0.4 %; Eosinophils % 0.3 %; Hematocrit 43.4 % (36-47); Lymphocytes # 1.4 10^3/uL (0.8-4.8); Lymphocytes % 20.6 %; Mean Corpuscular HGB Conc 30.6 g/dL (30-55); Mean Corpuscular Hemoglobin 27.1 pg (27-33); Mean Corpuscular Volume 88.4 fl (85-98); Mean Platelet Volume 10.6 fL (7.4-10.4); Monocytes # 0.7 10^3/uL (0.2-0.9); Monocytes % 9.8 %; Neutrophils % 68.6 %; Nucleated Red Blood Cells % 0 %; Platelet Count 199 10^3/cmm (157-399); Red Blood Count 4.91 10^6/uL (3.85-5.65); Red Cell Distribution Width 15.2 % (12.1-15.1); White Blood Count 6.85 10^3/uL (3.29-11.43)
[2024-12-25 10:44] LABS: Alanine Aminotransferase 11 U/L (0-33); Albumin Level 3.9 g/dL (3.5-5.2); Alkaline Phosphatase 57 U/L (35-105); Anion Gap 15.6 (5-19); Aspartate Amino Transferase 16 U/L (0-32); Blood Urea Nitrogen 21 mg/dL (8-23); Calcium 8.7 mg/dL (8.5-10.5); Carbon Dioxide 23 mmol/L (22-29); Chloride 107 mmol/L (98-107); Globulin 2.4 g/dL (1.3-4.6); Glucose 101 mg/dL (65-115); Osmolality Calculated 295 mOsm/kg (285-295); Potassium 4.6 mmol/L (3.5-5.1); Sodium 141 mmol/L (136-145); Total Bilirubin 0.5 mg/dL (0.15-1.2); Total Protein 6.3 g/dL (6.6-8.7)
[2024-12-26 08:54] LABS: PROTEIN, TOTAL 5.8 g/dL (6.1-8.1)
[2024-12-26 11:35] LABS: KAPPA/LAMBDA LIGHT CHAINS FREE 1.82 (0.26-1.65); LAMBDA LIGHT CHAIN, FREE, SERU 4.4 mg/L (5.7-26.3)
[2024-12-27 15:36] LABS: ABNORMAL PROTEIN BAND 1 0.1 g/dL (NONE DETECTED); ALBUMIN 3.6 g/dL (3.8-4.8); ALPHA 1 GLOBULIN 0.3 g/dL (0.2-0.3); ALPHA 2 GLOBULIN 0.9 g/dL (0.5-0.9); BETA 1 GLOBULIN 0.4 g/dL (0.4-0.6); BETA 2 GLOBULIN 0.2 g/dL (0.2-0.5); GAMMA GLOBULIN 0.4 g/dL (0.8-1.7)
[2025-01-01] MEDS: ondansetron 4 MG Tablet 8 MG PO (13:17)
[2025-01-01] MEDS: diphenhydrAMINE 25 mg Capsule 50 MG PO (13:17)
[2025-01-01] MEDS: acetaminophen 325 mg Tablet 650 MG PO (13:17)
[2025-01-01] MEDS: denosumab 120 mg SDV SUBCUT (13:18)
[2025-01-01] MEDS: daratumumab-hyaluronidase-fihj 1,800 mg/15 mL SDV 1800 MG SUBCUT (13:38)
--- NOTE | 2025-01-01 13:57 | XR_ITS ---
WS: [email or web address] Exam: XR thoracic spine 2V [id number] Date/Time of Exam: 01/01/2025 1:59 PM Reason For Exam: upper back pain with Hx MM Comparison 12/16/2018. Stable appearing insufficiency compression fractures of the T-spine are noted at T4, T5, T6, T8, T9, and T12. Also L1 No new acute fracture is seen. No significant posterior displacement noted. Increased thoracic kyphosis. Osteopenia. Spondylosis. No obvious bone destruction. S-shaped thoracolumbar scoliosis. No paraspinal soft tissue abnormalities are evident. XR/XR thoracic spine 2V [id number] IMPRESSION: 1. Multiple stable insufficiency compressions of the T-spine noted none show si gnificant posterior displacement. 2. No new acute fracture or bone destruction identified. 3. Scoliosis and degenerative change. Osteopenia.
--- NOTE | 2025-01-01 13:57 | XR_ITS ---
WS: [email or web address] Exam: XR shoulder RT min 2V* [id number] Date/Time of Exam: 01/01/2025 1:59 PM Reason For Exam: upper back pain; hx MM Comparison 12/07/2018. No fracture noted. Degenerative change of the glenohumeral joint and the AC joint. High riding humeral head probably indicates rotator cuff tear. Normal soft tissues. IMPRESSION1. No fracture or bone destruction. 2. Degenerative changes. Findings that would suggest longstanding rotator cuff tear.
--- NOTE | 2025-01-01 13:57 | XR_ITS ---
WS: [email or web address] Exam: XR shoulder LT 1V [id number] Date/Time of Exam: 01/01/2025 1:59 PM Reason For Exam: upper back pain; hx MM No fracture noted. Moderate degenerative change at the AC joint and glenohumeral joint. High riding humeral head articulates with the acromion. No bone destruction. Osteopenia. IMPRESSION1. Moderate degenerative changes and osteopenia. 2. Findings that would suggest longstanding rotator cuff degeneration and/or tear
== END 2025-01-01 23:59 | disposition home or self-care (01) ==
PROVIDERS: PCP Family Medicine; Visit Provider Internal Medicine Medical Oncology
DX: Z53.9 Procedure and treatment not carried out, unspecified reason; Z51.12 Encounter for antineoplastic immunotherapy; C90.02 Multiple myeloma in relapse; Z79.899 Other long term (current) drug therapy; M54.9 Dorsalgia, unspecified
CPT/HCPCS: 36415; 72070; 73020; 73030; 80053; 83883; 84155; 84165; 85025; 86334; 96372; 96401; 99214; J0897; J9144; J9999; Q0162

== ENCOUNTER → 2025-01-26 11:42 | Outpatient (BNVA) | payer MEDICARE, SELFPAY | PROVIDERS: PCP Family Medicine; Visit Provider Family Medicine | DX: R30.0 Dysuria (principal) | CPT/HCPCS: 81000 ==

== ENCOUNTER 2025-01-29 15:00 | Oncology outpatient (recurring) (ONCR) | payer MEDICARE, SELFPAY ==
[2025-01-15 15:55] LABS: Glucose Urine UA Negative (Normal); Nitrate Urine Negative (Negative); Specific Gravity, Urine 1.016 (1.005-1.030)
[2025-01-15 16:00] LABS: Add Urine Microscopic? YES
[2025-01-22 14:02] LABS: Hematocrit 41.7 % (36-47); Hemoglobin 12.70 g/dL (11.27-16.99); Mean Corpuscular HGB Conc 30.5 g/dL (30-55); Mean Corpuscular Hemoglobin 26.3 pg (27-33); Mean Corpuscular Volume 86.3 fl (85-98); Nucleated Red Blood Cells % 0 %; Platelet Count 201 10^3/cmm (157-399); Red Blood Count 4.83 10^6/uL (3.85-5.65); White Blood Count 6.44 10^3/uL (3.29-11.43)
[2025-01-22 14:21] LABS: Alanine Aminotransferase 10 U/L (0-33); Albumin Level 3.8 g/dL (3.5-5.2); Alkaline Phosphatase 50 U/L (35-105); Anion Gap 15.2 (5-19); Aspartate Amino Transferase 16 U/L (0-32); Blood Urea Nitrogen 21 mg/dL (8-23); Calcium 8.5 mg/dL (8.5-10.5); Carbon Dioxide 26 mmol/L (22-29); Chloride 103 mmol/L (98-107); Creatinine Clr Calc Pharmacy 36.0536; Globulin 2.2 g/dL (1.3-4.6); Glucose 133 mg/dL (65-115); Osmolality Calculated 295 mOsm/kg (285-295); Potassium 4.2 mmol/L (3.5-5.1); Sodium 140 mmol/L (136-145); Total Protein 6.0 g/dL (6.6-8.7)
[2025-01-23 07:14] LABS: PROTEIN, TOTAL 5.8 g/dL (6.1-8.1)
[2025-01-24 08:59] LABS: ALPHA 1 GLOBULIN 0.3 g/dL (0.2-0.3); ALPHA 2 GLOBULIN 0.8 g/dL (0.5-0.9); BETA 1 GLOBULIN 0.4 g/dL (0.4-0.6); BETA 2 GLOBULIN 0.2 g/dL (0.2-0.5)
[2025-01-24 11:35] LABS: KAPPA LIGHT CHAIN, FREE, SERUM 7.3 mg/L (3.3-19.4); KAPPA/LAMBDA LIGHT CHAINS FREE 1.78 (0.26-1.65); LAMBDA LIGHT CHAIN, FREE, SERU 4.1 mg/L (5.7-26.3)
[2025-01-29] MEDS: daratumumab-hyaluronidase-fihj 1,800 mg/15 mL SDV 1800 MG SUBCUT (15:23)
== END 2025-01-29 23:59 | disposition home or self-care (01) ==
PROVIDERS: Nurse Practitioner Family; PCP Family Medicine; Visit Provider Internal Medicine Medical Oncology
DX: Z51.11 Encounter for antineoplastic chemotherapy; C90.02 Multiple myeloma in relapse; Z79.899 Other long term (current) drug therapy; R61 Generalized hyperhidrosis; G89.3 Neoplasm related pain (acute) (chronic); I48.91 Unspecified atrial fibrillation; I35.0 Nonrheumatic aortic (valve) stenosis; M25.511 Pain in right shoulder; M25.512 Pain in left shoulder; R35.0 Frequency of micturition; Z53.9 Procedure and treatment not carried out, unspecified reason
CPT/HCPCS: 36415; 80053; 81001; 83883; 84155; 84165; 85025; 87086; 96401; 96409; 99214; J9144; J9999; Q0162

== ENCOUNTER 2025-02-26 13:45 | Oncology outpatient (recurring) (ONCR) | payer MEDICARE, SELFPAY ==
[2025-02-20 14:57] LABS: Hematocrit 42.3 % (36-47); Hemoglobin 12.70 g/dL (11.27-16.99); Mean Corpuscular HGB Conc 30.0 g/dL (30-55); Mean Corpuscular Hemoglobin 26.3 pg (27-33); Mean Corpuscular Volume 87.6 fl (85-98); Nucleated Red Blood Cells % 0 %; Platelet Count 208 10^3/cmm (157-399); Red Blood Count 4.83 10^6/uL (3.85-5.65); White Blood Count 7.78 10^3/uL (3.29-11.43)
[2025-02-20 15:22] LABS: Alanine Aminotransferase 11 U/L (0-33); Albumin Level 3.8 g/dL (3.5-5.2); Alkaline Phosphatase 55 U/L (35-105); Anion Gap 11.4 (5-19); Aspartate Amino Transferase 14 U/L (0-32); Blood Urea Nitrogen 23 mg/dL (8-23); Calcium 8.6 mg/dL (8.5-10.5); Carbon Dioxide 27 mmol/L (22-29); Chloride 106 mmol/L (98-107); Globulin 2.2 g/dL (1.3-4.6); Glucose 130 mg/dL (65-115); Osmolality Calculated 295 mOsm/kg (285-295); Potassium 4.4 mmol/L (3.5-5.1); Sodium 140 mmol/L (136-145); Total Protein 6.0 g/dL (6.6-8.7)
[2025-02-20 15:38] LABS: Vitamin B12 267 pg/mL (232-1245)
[2025-02-21 15:19] LABS: PROTEIN, TOTAL 5.9 g/dL (6.1-8.1)
[2025-02-22 16:33] LABS: KAPPA LIGHT CHAIN, FREE, SERUM 8.9 mg/L (3.3-19.4); KAPPA/LAMBDA LIGHT CHAINS FREE 1.93 (0.26-1.65); LAMBDA LIGHT CHAIN, FREE, SERU 4.6 mg/L (5.7-26.3)
[2025-02-23 08:45] LABS: ALPHA 1 GLOBULIN 0.3 g/dL (0.2-0.3); ALPHA 2 GLOBULIN 0.9 g/dL (0.5-0.9); BETA 1 GLOBULIN 0.4 g/dL (0.4-0.6); BETA 2 GLOBULIN 0.2 g/dL (0.2-0.5)
[2025-02-26] MEDS: daratumumab-hyaluronidase-fihj 1,800 mg/15 mL SDV 1800 MG SUBCUT (14:31)
== END 2025-02-26 23:59 | disposition home or self-care (01) ==
PROVIDERS: PCP Family Medicine; Visit Provider Internal Medicine Medical Oncology
DX: Z51.12 Encounter for antineoplastic immunotherapy; C90.02 Multiple myeloma in relapse; R61 Generalized hyperhidrosis; G89.3 Neoplasm related pain (acute) (chronic); I48.91 Unspecified atrial fibrillation; I35.0 Nonrheumatic aortic (valve) stenosis; M25.512 Pain in left shoulder; M25.511 Pain in right shoulder; R53.83 Other fatigue; E55.9 Vitamin D deficiency, unspecified; Z79.899 Other long term (current) drug therapy; Z53.9 Procedure and treatment not carried out, unspecified reason
CPT/HCPCS: 36415; 80053; 82306; 82607; 83883; 84155; 84165; 85025; 86335; 96401; 99214; J9144; J9999; Q0162

== ENCOUNTER 2025-03-26 15:00 | Oncology outpatient (recurring) (ONCR) | payer MEDICARE, SELFPAY ==
[2025-03-19 14:38] LABS: Hematocrit 42.5 % (36-47); Hemoglobin 12.90 g/dL (11.27-16.99); Mean Corpuscular HGB Conc 30.4 g/dL (30-55); Mean Corpuscular Hemoglobin 26.3 pg (27-33); Mean Corpuscular Volume 86.6 fl (85-98); Nucleated Red Blood Cells % 0 %; Platelet Count 194 10^3/cmm (157-399); Red Blood Count 4.91 10^6/uL (3.85-5.65); White Blood Count 6.39 10^3/uL (3.29-11.43)
[2025-03-19 14:57] LABS: Alanine Aminotransferase 12 U/L (0-33); Albumin Level 4.0 g/dL (3.5-5.2); Alkaline Phosphatase 57 U/L (35-105); Anion Gap 10.9 (5-19); Aspartate Amino Transferase 18 U/L (0-32); Blood Urea Nitrogen 20 mg/dL (8-23); Calcium 8.7 mg/dL (8.5-10.5); Carbon Dioxide 27 mmol/L (22-29); Chloride 105 mmol/L (98-107); Globulin 2.3 g/dL (1.3-4.6); Glucose 157 mg/dL (65-115); Osmolality Calculated 294 mOsm/kg (285-295); Potassium 3.9 mmol/L (3.5-5.1); Sodium 139 mmol/L (136-145); Total Protein 6.3 g/dL (6.6-8.7)
[2025-03-26] MEDS: denosumab 120 mg SDV (Infusion Clinic Only) SUBCUT (15:35)
[2025-03-26] MEDS: daratumumab-hyaluronidase-fihj 1,800 mg/15 mL SDV 1800 MG SUBCUT (15:42)
[2025-03-26 15:53] VITALS: BP 152/66; PULSE 64; RESP 16; TEMP 36.4; O2SAT 95
== END 2025-03-26 23:59 | disposition home or self-care (01) ==
PROVIDERS: PCP Family Medicine; Visit Provider Internal Medicine Medical Oncology
DX: Z51.11 Encounter for antineoplastic chemotherapy; C90.02 Multiple myeloma in relapse; R61 Generalized hyperhidrosis; G89.3 Neoplasm related pain (acute) (chronic); I35.0 Nonrheumatic aortic (valve) stenosis; I48.91 Unspecified atrial fibrillation; M25.512 Pain in left shoulder; M25.511 Pain in right shoulder; R53.83 Other fatigue; E55.9 Vitamin D deficiency, unspecified; Z79.899 Other long term (current) drug therapy; Z53.9 Procedure and treatment not carried out, unspecified reason
CPT/HCPCS: 36415; 80053; 85025; 96372; 96401; 99214; J0897; J9144; J9999; Q0162

== ENCOUNTER 2025-04-24 13:15 | Oncology outpatient (recurring) (ONCR) | payer MEDICARE, SELFPAY ==
[2025-04-16 14:21] LABS: Hematocrit 42.9 % (36-47); Hemoglobin 12.90 g/dL (11.27-16.99); Mean Corpuscular HGB Conc 30.1 g/dL (30-55); Mean Corpuscular Hemoglobin 26.3 pg (27-33); Mean Corpuscular Volume 87.4 fl (85-98); Nucleated Red Blood Cells % 0 %; Platelet Count 195 10^3/cmm (157-399); Red Blood Count 4.91 10^6/uL (3.85-5.65); White Blood Count 6.60 10^3/uL (3.29-11.43)
[2025-04-16 14:36] LABS: Alanine Aminotransferase 12 U/L (0-33); Albumin Level 4.2 g/dL (3.5-5.2); Alkaline Phosphatase 60 U/L (35-105); Anion Gap 16.0 (5-19); Aspartate Amino Transferase 15 U/L (0-32); Blood Urea Nitrogen 19 mg/dL (8-23); Calcium 8.8 mg/dL (8.5-10.5); Carbon Dioxide 25 mmol/L (22-29); Chloride 103 mmol/L (98-107); Globulin 2.2 g/dL (1.3-4.6); Glucose 166 mg/dL (65-115); Osmolality Calculated 296 mOsm/kg (285-295); Potassium 4.0 mmol/L (3.5-5.1); Sodium 140 mmol/L (136-145); Total Protein 6.4 g/dL (6.6-8.7)
[2025-04-17 05:54] LABS: PROTEIN, TOTAL 6.0 g/dL (6.1-8.1)
[2025-04-17 11:55] LABS: KAPPA LIGHT CHAIN, FREE, SERUM 8.1 mg/L (3.3-19.4); KAPPA/LAMBDA LIGHT CHAINS FREE 1.93 (0.26-1.65); LAMBDA LIGHT CHAIN, FREE, SERU 4.2 mg/L (5.7-26.3)
[2025-04-17 19:45] LABS: ALPHA 1 GLOBULIN 0.3 g/dL (0.2-0.3); ALPHA 2 GLOBULIN 0.9 g/dL (0.5-0.9); BETA 1 GLOBULIN 0.4 g/dL (0.4-0.6); BETA 2 GLOBULIN 0.2 g/dL (0.2-0.5)
[2025-04-24] MEDS: daratumumab-hyaluronidase-fihj 1,800 mg/15 mL SDV 1800 MG SUBCUT (14:58)
== END 2025-04-24 23:59 | disposition home or self-care (01) ==
PROVIDERS: PCP Family Medicine; Visit Provider Internal Medicine Medical Oncology
DX: Z51.12 Encounter for antineoplastic immunotherapy (principal); C90.02 Multiple myeloma in relapse; R61 Generalized hyperhidrosis; M80.0AXA Age-related osteoporosis with current pathological fracture, other site, initial encounter for fracture; I48.91 Unspecified atrial fibrillation; I35.0 Nonrheumatic aortic (valve) stenosis
CPT/HCPCS: 36415; 80053; 82784; 83883; 84155; 84165; 85025; 86334; 96401; 99214; J9144; J9999; Q0162

== ENCOUNTER 2025-05-22 14:00 | Oncology outpatient (recurring) (ONCR) | payer MEDICARE, SELFPAY ==
[2025-05-14 14:02] LABS: Hematocrit 43.2 % (36-47); Hemoglobin 12.90 g/dL (11.27-16.99); Mean Corpuscular HGB Conc 29.9 g/dL (30-55); Mean Corpuscular Hemoglobin 26.4 pg (27-33); Mean Corpuscular Volume 88.5 fl (85-98); Nucleated Red Blood Cells % 0 %; Platelet Count 199 10^3/cmm (157-399); Red Blood Count 4.88 10^6/uL (3.85-5.65); White Blood Count 6.93 10^3/uL (3.29-11.43)
[2025-05-14 14:35] LABS: Alanine Aminotransferase 14 U/L (0-33); Albumin Level 3.9 g/dL (3.5-5.2); Alkaline Phosphatase 69 U/L (35-105); Anion Gap 14.7 (5-19); Aspartate Amino Transferase 16 U/L (0-32); Blood Urea Nitrogen 19 mg/dL (8-23); Calcium 8.4 mg/dL (8.5-10.5); Carbon Dioxide 25 mmol/L (22-29); Chloride 106 mmol/L (98-107); Globulin 2.1 g/dL (1.3-4.6); Glucose 187 mg/dL (65-115); Osmolality Calculated 301 mOsm/kg (285-295); Potassium 3.7 mmol/L (3.5-5.1); Sodium 142 mmol/L (136-145); Thyroid Stimulating Hormone 1.16 uIU/mL (0.27-4.20); Total Protein 6.0 g/dL (6.6-8.7)
[2025-05-14 14:48] LABS: Vitamin B12 647 pg/mL (232-1245)
[2025-05-15 05:38] LABS: PROTEIN, TOTAL 5.8 g/dL (6.1-8.1)
[2025-05-15 15:10] LABS: KAPPA LIGHT CHAIN, FREE, SERUM 8.2 mg/L (3.3-19.4); KAPPA/LAMBDA LIGHT CHAINS FREE 1.26 (0.26-1.65); LAMBDA LIGHT CHAIN, FREE, SERU 6.5 mg/L (5.7-26.3)
[2025-05-15 20:15] LABS: ALPHA 1 GLOBULIN 0.3 g/dL (0.2-0.3); ALPHA 2 GLOBULIN 0.9 g/dL (0.5-0.9); BETA 1 GLOBULIN 0.4 g/dL (0.4-0.6); BETA 2 GLOBULIN 0.2 g/dL (0.2-0.5)
[2025-05-22] MEDS: ondansetron hcl ODT 4 mg Tab 8 MG PO (14:08)
[2025-05-22] MEDS: daratumumab-hyaluronidase-fihj 1,800 mg/15 mL SDV 1800 MG SUBCUT (14:39)
[2025-05-22 14:53] VITALS: BP 118/65; PULSE 61; RESP 17; TEMP 36.4; O2SAT 93
== END 2025-05-22 23:59 | disposition home or self-care (01) ==
PROVIDERS: Nurse Practitioner; PCP Family Medicine; Visit Provider Internal Medicine Medical Oncology
DX: Z51.12 Encounter for antineoplastic immunotherapy; C90.02 Multiple myeloma in relapse; Z79.899 Other long term (current) drug therapy; Z53.9 Procedure and treatment not carried out, unspecified reason
CPT/HCPCS: 80053; 82306; 82607; 82784; 83883; 84155; 84165; 84443; 85025; 86334; 96401; 99214; J9144; J9999; Q0162

== ENCOUNTER 2025-07-10 13:31 | Oncology outpatient (recurring) (ONCR) | payer MEDICARE, SELFPAY ==
[2025-07-10 14:04] LABS: Hematocrit 44.5 % (36-47); Hemoglobin 13.50 g/dL (11.27-16.99); Mean Corpuscular HGB Conc 30.3 g/dL (30-55); Mean Corpuscular Hemoglobin 26.3 pg (27-33); Mean Corpuscular Volume 86.7 fl (85-98); Nucleated Red Blood Cells % 0 %; Platelet Count 167 10^3/cmm (157-399); Red Blood Count 5.13 10^6/uL (3.85-5.65); White Blood Count 5.37 10^3/uL (3.29-11.43)
[2025-07-10 14:33] LABS: Alanine Aminotransferase 32 U/L (0-33); Albumin Level 4.0 g/dL (3.5-5.2); Alkaline Phosphatase 67 U/L (35-105); Anion Gap 17.9 (5-19); Aspartate Amino Transferase 29 U/L (0-32); Blood Urea Nitrogen 22 mg/dL (8-23); Calcium 8.6 mg/dL (8.5-10.5); Carbon Dioxide 26 mmol/L (22-29); Chloride 102 mmol/L (98-107); Globulin 2.3 g/dL (1.3-4.6); Glucose 131 mg/dL (65-115); Osmolality Calculated 299 mOsm/kg (285-295); Potassium 3.9 mmol/L (3.5-5.1); Sodium 142 mmol/L (136-145); Total Protein 6.3 g/dL (6.6-8.7)
[2025-07-11 14:21] LABS: KAPPA LIGHT CHAIN, FREE, SERUM 12.5 mg/L (3.3-19.4); KAPPA/LAMBDA LIGHT CHAINS FREE 1.33 (0.26-1.65); LAMBDA LIGHT CHAIN, FREE, SERU 9.4 mg/L (5.7-26.3)
[2025-07-11 14:40] LABS: PROTEIN, TOTAL 6.2 g/dL (6.1-8.1)
[2025-07-13 16:19] LABS: ALPHA 1 GLOBULIN 0.4 g/dL (0.2-0.3); ALPHA 2 GLOBULIN 1.0 g/dL (0.5-0.9); BETA 1 GLOBULIN 0.4 g/dL (0.4-0.6); BETA 2 GLOBULIN 0.2 g/dL (0.2-0.5)
== END 2025-07-11 23:59 | disposition home or self-care (01) ==
PROVIDERS: PCP Family Medicine; Visit Provider Nurse Practitioner
DX: C90.02 Multiple myeloma in relapse (principal); E55.9 Vitamin D deficiency, unspecified; M89.9 Disorder of bone, unspecified
CPT/HCPCS: 80053; 82306; 82784; 83883; 84155; 84165; 85025; 86334